=== PATIENT | male | born 1960 | race Caucasian/White ===

== ENCOUNTER 2017-06-27 10:30 | Outpatient (RCR) | payer OTHER, MEDICARE, SELFPAY ==
[2017-06-09 01:33] VITALS: BP 137/73; PULSE 80; RESP 20; TEMP 36.6; BMI 87.1
[2017-06-13 10:56] VITALS: BP 147/72; PULSE 72; RESP 18; TEMP 37; BMI 87.1
--- NOTE | 2017-06-13 11:23 | PCM.WC.PN ---
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 end-stage renal disease diabetes type 2 hypertension. Patient developed a red spot on his left heel in December of this year. Patient states that just opened in the last month or 2 Progress of Wound: Today the ulcer is smaller still has depth and some calluses developed around the ulcer undermining is resolved between 9 and 3 of 0.2 cm. Patient has neuropathy so has no pain feelings in the foot. Has finished his doxycycline 100 mg twice daily for his 4 different bacteria that are growing in the left heel. Ultrasound of the left leg shows a blockage at the gastrocnemius calf muscle that feeds into the left heel. Patient will be referred to Dr. Bocanegra for evaluation. We will continue healing ulcer and have him follow-up with him for surgery later. - Physical Exam Vital Signs Temp Pulse Resp BP 98.6 F 72 18 147/72 H 06/13/17 10:56 06/13/17 10:56 06/13/17 10:56 06/13/17 10:56 General: Oriented x3, Cooperative, Well developed HEENT: Atraumatic, PERRLA Oral: Moist Mucosa Neck: Supple, No JVD Lungs: Clear to auscultation, Normal air movement Cardiovascular: Regular rate, Regular Rhythm Abdomen: Bowel Sounds Present, Soft, Non Tender, No Hepato-splenomegaly Extremities: No clubbing, No edema, - - Heel ulcer Wound Measurements and Assessment WC - Nurse 1 - General Ulcer Measurement Start: 06/13/17 10:56 Freq: Status: Active Protocol: Activity Type Activity Date Activity User E-Sign Co-Sign Detail Recorded Client Recorded Date Recorded By Document 06/13/17 10:56 DV [id number] 06/13/17 11:00 DV 06/13/17 10:56 Wound Center Nurse 1 [Ulcer Assessment Protocol: WC.WD.LOC] #1 Left Heel -Combined with other wound No -Current Size (cm) - Length 0.8 -Current Size (cm) - Width 0.4 -Current Size (cm) - Depth 0.2 -Total Square Cm 0.32 -Photo Taken No -Epithelialization Small 1-33% -Tunneling No -Undermining/Tunneling No -Circular Undermining No -Exudate Amt None Present (0 %) -Wound Margin Flat & Intact -Granulation Amt None Present (0 %) -Granulation Quality N/A -Slough/Fibrin Yes -Necrosis Amt None Present (0 %) -Necrotic Tissue Type Adherent Slough -Structure Exposed None/Limited to Skin Breakdown -Texture (Belia-wound Skin Appearance) No Abnormality Assessed -Moisture (Belia-wound Skin Appearance Assessed ) Dry/Scaly -Color (Belia-wound Skin Appearance) No Abnormality Assessed -Temperature (Belia-wound Skin No Abnormality Appearance) (Pt Warm) -Ulcer Cleansing Rinsed/ Irrigated with Saline -Foul Odor after Cleansing No - Nurse 2 - General Ulcer CM Notes Start: 06/13/17 10:56 Freq: Status: Active Protocol: Activity Type Activity Date Activity User E-Sign Co-Sign Detail Recorded Client Recorded Date Recorded By Document 06/13/17 11:04 MW [id number] 06/13/17 11:05 MW 06/13/17 11:04 Wound Center Nurse 2 [Procedure/Treatment] -Time 11:05 -Correct Patient Yes -Correct Side, Site, Position Yes -Correct Procedure Yes -Procedure Performed Yes -Type of Procedure Debridement -Clinical Debridement Subcutaneous -Post Debridement Size (cm) - Length 0.5 -Post Debridement Size (cm) - Width 0.3 -Post Debridement Size (cm) - Depth 0.1 -Total Square Cm 0.15 -Wound/Ulcer Outcome Not Healed -Ulcer Cleansing Rinsed/ Irrigated with Saline -Foul Odor after Cleansing No -Cetacaine [place] No -Bleeding Controlled with Pressure -Treatment Response Procedure Tolerated Well [See Physician Procedure note for Specifics] Pain Scale: 0-10 Numeric [Pain] -Is Patient Pain Free? Yes Musculoskeletal: No Tenderness to Palpation of Joints or Extremities Lymphatic: No Cervical, Supraclavicular, or Inguinal Adenopathy Neurological: Cranial nerves II-XII grossly intact, Neuro grossly intact Psych/Mental Status: Normal Affect, Appropriate, Alert and oriented to time, place, person, mood and affect Debridement Note Post-Debridement Measurements/Treatment WC - Nurse 2 - General Ulcer CM Notes Start: 06/13/17 10:56 Freq: Status: Active Protocol: Activity Type Activity Date Activity User E-Sign Co-Sign Detail Recorded Client Recorded Date Recorded By Document 06/13/17 11:04 MW [id number] 06/13/17 11:05 MW 06/13/17 11:04 Wound Center Nurse 2 #1 Left Heel -Time 11:05 -Correct Patient Yes -Correct Side, Site, Position Yes -Correct Procedure Yes -Procedure Performed Yes -Type of Procedure Debridement -Clinical Debridement Subcutaneous -Post Debridement Size (cm) - Length 0.5 -Post Debridement Size (cm) - Width 0.3 -Post Debridement Size (cm) - Depth 0.1 -Total Square Cm 0.15 -Wound/Ulcer Outcome Not Healed -Ulcer Cleansing Rinsed/ Irrigated with Saline -Foul Odor after Cleansing No -Cetacaine [place] No -Bleeding Controlled with Pressure -Treatment Response Procedure Tolerated Well Pain Scale: 0-10 Numeric Is Patient Pain Free? 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 Guilliam Hensley?. Left heel ulcer stage II. End-stage renal disease. Peritoneal dialysis. Peripheral vascular occlusive disease Plan: Wash left heel with Hibiclens. Apply Promogran to base of ulcer moistened, then Adaptic gauze and tape. Offload left heel offload right heel ulcer. Follow-up in 1 week. Patient shows no malnutrition last one was checked in September of this year and had a good nutrition report. Patient does show iron deficiency anemia with his TIBC ferritin and CBC showing low on all areas. We will discuss labs at that time. Schedule for AB studies and will call him about his cultures
--- NOTE | 2017-06-13 11:26 | PN.PCM_ITS ---
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 end- stage renal disease diabetes type 2 hypertension. Patient developed a red spot on his left heel in December of this year. Patient states that just opened in the last month or 2 Progress of Wound: Today the ulcer is smaller still has depth and some calluses developed around the ulcer undermining is resolved between 9 and 3 of 0.2 cm. Patient has neuropathy so has no pain feelings in the foot. Has finished his doxycycline 100 mg twice daily for his 4 different bacteria that are growing in the left heel. Ultrasound of the left leg shows a blockage at the gastrocnemius calf muscle that feeds into the left heel. Patient will be referred to Dr. Bocanegra for evaluation. We will continue healing ulcer and have him follow-up with him for surgery later. - Physical Exam Vital Signs Temp Pulse Resp BP 98.6 F 72 18 147/72 H 06/13/17 10:56 06/13/17 10:56 06/13/17 10:56 06/13/17 10:56 General: Oriented x3, Cooperative, Well developed HEENT: Atraumatic, PERRLA Oral: Moist Mucosa Neck: Supple, No JVD Lungs: Clear to auscultation, Normal air movement Cardiovascular: Regular rate, Regular Rhythm Abdomen: Bowel Sounds Present, Soft, Non Tender, No Hepato-splenomegaly Extremities: No clubbing, No edema, - - Heel ulcer Wound Measurements and Assessment WC - Nurse 1 - General Ulcer Measurement Start: 06/13/17 10:56 Freq: Status: Active Protocol: Activity Type Activity Date Activity User E-Sign Co-Sign Detail Recorded Client Recorded Date Recorded By Document 06/13/17 10:56 DV [id number] 06/13/17 11:00 DV 06/13/17 10:56 Wound Center Nurse 1 [Ulcer Assessment Protocol: WC.WD.LOC] #1 Left Heel -Combined with other wound No -Current Size (cm) - Length 0.8 -Current Size (cm) - Width 0.4 -Current Size (cm) - Depth 0.2 -Total Square Cm 0.32 -Photo Taken No -Epithelialization Small 1-33% -Tunneling No -Undermining/Tunneling No -Circular Undermining No -Exudate Amt None Present (0 %) -Wound Margin Flat & Intact -Granulation Amt None Present (0 %) -Granulation Quality N/A -Slough/Fibrin Yes -Necrosis Amt None Present (0 %) -Necrotic Tissue Type Adherent Slough -Structure Exposed None/Limited to Skin Breakdown -Texture (Belia-wound Skin Appearance) No Abnormality Assessed -Moisture (Belia-wound Skin Appearance Assessed ) Dry/Scaly -Color (Belia-wound Skin Appearance) No Abnormality Assessed -Temperature (Belia-wound Skin No Abnormality Appearance) (Pt Warm) -Ulcer Cleansing Rinsed/ Irrigated with Saline -Foul Odor after Cleansing No - Nurse 2 - General Ulcer CM Notes Start: 06/13/17 10:56 Freq: Status: Active Protocol: Activity Type Activity Date Activity User E-Sign Co-Sign Detail Recorded Client Recorded Date Recorded By Document 06/13/17 11:04 MW [id number] 06/13/17 11:05 MW 06/13/17 11:04 Wound Center Nurse 2 [Procedure/Treatment] -Time 11:05 -Correct Patient Yes -Correct Side, Site, Position Yes -Correct Procedure Yes -Procedure Performed Yes -Type of Procedure Debridement -Clinical Debridement Subcutaneous -Post Debridement Size (cm) - Length 0.5 -Post Debridement Size (cm) - Width 0.3 -Post Debridement Size (cm) - Depth 0.1 -Total Square Cm 0.15 -Wound/Ulcer Outcome Not Healed -Ulcer Cleansing Rinsed/ Irrigated with Saline -Foul Odor after Cleansing No -Cetacaine [place] No -Bleeding Controlled with Pressure -Treatment Response Procedure Tolerated Well [See Physician Procedure note for Specifics] Pain Scale: 0-10 Numeric [Pain] -Is Patient Pain Free? Yes Musculoskeletal: No Tenderness to Palpation of Joints or Extremities Lymphatic: No Cervical, Supraclavicular, or Inguinal Adenopathy Neurological: Cranial nerves II-XII grossly intact, Neuro grossly intact Psych/Mental Status: Normal Affect, Appropriate, Alert and oriented to time, place, person, mood and affect Debridement Note Post-Debridement Measurements/Treatment WC - Nurse 2 - General Ulcer CM Notes Start: 06/13/17 10:56 Freq: Status: Active Protocol: Activity Type Activity Date Activity User E-Sign Co-Sign Detail Recorded Client Recorded Date Recorded By Document 06/13/17 11:04 MW [id number] 06/13/17 11:05 MW 06/13/17 11:04 Wound Center Nurse 2 #1 Left Heel -Time 11:05 -Correct Patient Yes -Correct Side, Site, Position Yes -Correct Procedure Yes -Procedure Performed Yes -Type of Procedure Debridement -Clinical Debridement Subcutaneous -Post Debridement Size (cm) - Length 0.5 -Post Debridement Size (cm) - Width 0.3 -Post Debridement Size (cm) - Depth 0.1 -Total Square Cm 0.15 -Wound/Ulcer Outcome Not Healed -Ulcer Cleansing Rinsed/ Irrigated with Saline -Foul Odor after Cleansing No -Cetacaine [place] No -Bleeding Controlled with Pressure -Treatment Response Procedure Tolerated Well Pain Scale: 0-10 Numeric Is Patient Pain Free? 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 Guilliam Hensley?. Left heel ulcer stage II. End-stage renal disease. Peritoneal dialysis. Peripheral vascular occlusive disease Plan: Wash left heel with Hibiclens. Apply Promogran to base of ulcer moistened , then Adaptic gauze and tape. Offload left heel offload right heel ulcer. Follow-up in 1 week. Patient shows no malnutrition last one was checked in September of this year and had a good nutrition report. Patient does show iron deficiency anemia with his TIBC ferritin and CBC showing low on all areas. We will discuss labs at that time. Schedule for AB studies and will call him about his cultures
[2017-06-27 11:22] VITALS: BP 137/79; PULSE 70; RESP 18; TEMP 37.4; BMI 87.1
--- NOTE | 2017-06-27 11:45 | PCM.WC.PN ---
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 end-stage renal disease diabetes type 2 hypertension. Patient developed a red spot on his left heel in December of this year. Patient states that just opened in the last month or 2 Progress of Wound: Left heel is healed today will be discharge from the wound center - Physical Exam Vital Signs Temp Pulse Resp BP 99.3 F H 70 18 137/79 H 06/27/17 11:22 06/27/17 11:22 06/27/17 11:22 06/27/17 11:22 General: Oriented x3, Cooperative, Well developed HEENT: Atraumatic, PERRLA Oral: Moist Mucosa Neck: Supple, No JVD Lungs: Clear to auscultation, Normal air movement Cardiovascular: Regular rate, Regular Rhythm Abdomen: Bowel Sounds Present, Soft, Non Tender, No Hepato-splenomegaly Extremities: No clubbing, No edema, - - Heel ulcer Wound Measurements and Assessment WC - Nurse 1 - General Ulcer Measurement Start: 06/13/17 10:56 Freq: Status: Active Protocol: Activity Type Activity Date Activity User E-Sign Co-Sign Detail Recorded Client Recorded Date Recorded By Document 06/27/17 11:22 [id number] 06/27/17 11:25 06/27/17 11:22 Wound Center Nurse 1 [Ulcer Assessment Protocol: WC.WD.LOC] #1 Left Heel -Combined with other wound No -Current Size (cm) - Length 0.1 -Current Size (cm) - Width 0.1 -Current Size (cm) - Depth 0.1 -Total Square Cm 0.01 -Date of Last Picture (Recall this 06/27/17 field) -Photo Taken Yes -Epithelialization Large 67-100% -Tunneling No -Undermining/Tunneling No -Circular Undermining No -Classification - Thickness Full Thickness without Exposed Support Structure -Exudate Amt None Present (0 %) -Wound Margin Distinct, Outline Attached -Granulation Amt Large (67-100%) -Granulation Quality [place] -Slough/Fibrin No -Necrosis Amt None Present (0 %) -Structure Exposed None/Limited to Skin Breakdown -Texture (Belia-wound Skin Appearance) Callus Scarring -Moisture (Belia-wound Skin Appearance Dry/Scaly ) -Color (Belia-wound Skin Appearance) Erythema -Temperature (Belia-wound Skin No Abnormality Appearance) (Pt Warm) -Ulcer Cleansing Rinsed/ Irrigated with Saline -Foul Odor after Cleansing No [Edema Assessment] -Lower Limb Edema Present No WC - Nurse 2 - General Ulcer CM Notes Start: 06/13/17 10:56 Freq: Status: Active Protocol: Activity Type Activity Date Activity User E-Sign Co-Sign Detail Recorded Client Recorded Date Recorded By Document 06/27/17 11:33 MW [id number] 06/27/17 11:34 MW 06/27/17 11:33 Wound Center Nurse 2 [Procedure/Treatment] #1 Left Heel -Time 11:33 -Correct Patient Yes -Correct Side, Site, Position Yes -Correct Procedure Yes -Procedure Performed No -Post Debridement Size (cm) - Length 0 -Post Debridement Size (cm) - Width 0 -Post Debridement Size (cm) - Depth 0 -Total Square Cm 0 -Wound/Ulcer Outcome Healed- Epithelialized -Ulcer Cleansing Not Cleansed -Foul Odor after Cleansing No -Bioengineered Tissue No -Cetacaine [place] No -Bleeding Controlled with NA -Treatment Response Procedure Tolerated Well [See Physician Procedure note for Specifics] Pain Scale: 0-10 Numeric [Pain] -Is Patient Pain Free? Yes Musculoskeletal: No Tenderness to Palpation of Joints or Extremities Lymphatic: No Cervical, Supraclavicular, or Inguinal Adenopathy Neurological: Cranial nerves II-XII grossly intact, Neuro grossly intact Psych/Mental Status: Normal Affect, Appropriate, Alert and oriented to time, place, person, mood and affect Debridement Note Post-Debridement Measurements/Treatment WC - Nurse 2 - General Ulcer CM Notes Start: 06/13/17 10:56 Freq: Status: Active Protocol: Activity Type Activity Date Activity User E-Sign Co-Sign Detail Recorded Client Recorded Date Recorded By Document 06/13/17 11:04 MW [id number] 06/13/17 11:05 MW Document 06/27/17 11:33 MW [id number] 06/27/17 11:34 MW 06/13/17 06/27/17 11:04 11:33 Wound Center Nurse 2 #1 Left Heel -Time 11:05 11:33 -Correct Patient Yes Yes -Correct Side, Site, Position Yes Yes -Correct Procedure Yes Yes -Procedure Performed Yes No -Type of Procedure Debridement -Clinical Debridement Subcutaneous -Post Debridement Size (cm) - Length 0.5 0 -Post Debridement Size (cm) - Width 0.3 0 -Post Debridement Size (cm) - Depth 0.1 0 -Total Square Cm 0.15 0 -Wound/Ulcer Outcome Not Healed Healed- Epithelialized -Ulcer Cleansing Rinsed/ Not Cleansed Irrigated with Saline -Foul Odor after Cleansing No No -Bioengineered Tissue No -Cetacaine [place] No No -Bleeding Controlled with Pressure NA -Treatment Response Procedure Procedure Tolerated Well Tolerated Well Pain Scale: 0-10 Numeric Is Patient Pain Free? 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 Guilliam Hensley?. Left heel ulcer stage II resolved. End-stage renal disease. Peritoneal dialysis. Peripheral vascular occlusive disease Plan: Discharge from the wound center follow-up as needed
== END 2017-07-09 23:59 ==
LOC: WC 10:30
PROVIDERS: Family Provider Family Medicine; PCP Family Medicine; Visit Provider Nurse Practitioner
DX: E11.22 Type 2 diabetes mellitus with diabetic chronic kidney disease (principal); L89.622 Pressure ulcer of left heel, stage 2; G61.0 Guillain-Barre syndrome; I12.0 Hypertensive chronic kidney disease with stage 5 chronic kidney disease or end stage renal disease; N18.6 End stage renal disease; E11.51 Type 2 diabetes mellitus with diabetic peripheral angiopathy without gangrene; E11.40 Type 2 diabetes mellitus with diabetic neuropathy, unspecified
CPT/HCPCS: 11042; 99212; G0463

== ENCOUNTER → 2017-10-10 10:00 | Outpatient (CLI) | payer OTHER, MEDICARE, SELFPAY ==
[2017-10-10 11:23] LABS: Hemoglobin A1c 4.8 % (4.2-6.3)
== END ==
PROVIDERS: Family Provider Family Medicine; PCP Family Medicine; Visit Provider Family Medicine
DX: E11.65 Type 2 diabetes mellitus with hyperglycemia (principal)
CPT/HCPCS: 36415; 83036

== ENCOUNTER 2017-12-28 18:43 | Inpatient (IN) | payer OTHER, MEDICARE, SELFPAY ==
[2017-12-28 18:44] VITALS: BP 151/94; PULSE 98; RESP 16; TEMP 37.1; O2SAT 98; BMI 41.0
[2017-12-28 20:22] LABS: Anion Gap 14 (5-15); BUN 73 mg/dL (7-18); BUN/Creat Ratio 6.7 RATIO (10-20); Calcium,Total 8.9 mg/dL (8.5-10.1); Chloride 88 mmol/L (98-107); EST Glomerular Filtration Rate 5 mL/min (>60); Est Glom Filt Rate - Afr Amer 6 mL/min (>60); Estimated Creatinine Clearance 7.41 ml/min; Glucose 135 mg/dL (74-106); Sodium Level 125 mmol/L (136-145)
--- NOTE | 2017-12-28 20:24 | ED.RN ---
lab called with critical results BUN [address] Dubois made aware. No new orders at this time
[2017-12-28 20:26] LABS: Absolute Lymphocyte Count 1.03 X10^3/ul (0.83-4.51); Absolute Neutrophil Count 13.3 X10^3/uL (2.0-7.7); Basophil# 0.02 X10^3/uL; Basophil% 0.1 % (0-1); Eosinophil# 0.23 X10^3/uL; Eosinophils% 1.5 % (0-5); Hematocrit 30.3 % (40-54); Hemoglobin 10.1 g/dl (13.0-16.5); Lymphocyte # 1.03 X10^3/ul (4.0); Lymphocyte % 6.8 % (19-41); Mean Corp Hgb Conc 33.3 g/gl (32-36); Mean Corpuscular Hgb 29.8 pg (27.0-32.0); Mean Corpuscular Volume 89.4 fL (80-94); Mean Platelet Vol. 8.9 fl (6.2-12.0); Monocyte% 3.3 % (0-10); Neutrophil # 13.27 X10^3/uL (2.7-7.7); Neutrophil % 88.1 % (47-70); Platelet Count 198 K/mm3 (150-450); RBC Distribution Width CV 15.1 % (11.6-14.6); RBC Distribution Width SD 48.8 fl (35.1-43.9); Red Blood Count 3.39 M/mm3 (4.6-6.2); White Blood Count 15.1 K/mm3 (4.4-11.0)
[2017-12-28 20:29] LABS: POSITIVE COUNT NO; POSITIVE DIFFERENTIAL NO; POSITIVE MORPHOLOGY NO
--- NOTE | 2017-12-28 20:34 | ED.DCSUM_ITS ---
- ER Visit Summary Date of Service: 12/28/17 Chief Complaint: Abscesses History of Present Illness: The patient is a 57 M who presents with abscesses. He has a history of diabetes hypertension end-stage renal disease on peritoneal dialysis. 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 He presents with about 2 weeks of an abscess in his right axilla and on his chest. He states he has been worsening. He has also had fevers at home up to 100.9. He reports nausea without vomiting. Physical Examination: Afebrile vitals are unremarkable Moist mucous membranes Heart regular rate and rhythm Lungs clear Abdomen soft There is a large right axillary abscess with central fluctuance no spontaneous drainage large area of induration and cellulitis There is also a wound on the with some purulent drainage but no fluctuance or focal fluid collection there is also surrounding cellulitis Abdomen soft nontender nondistended peritoneal dialysis catheter is noted Test Results: Labs notable for white blood cell count 15,000. BUN is 73 and creatinine of 10.9. Sodium 125 but potassium is normal. Emergency Department Course and Treatment: Patient's right axillary abscess was anesthetized with 2 cc of 1% local lidocaine. A cruciate incision was made with a #11 blade. Loculations were broken up with a curved hemostat. There was large amount of purulent drainage. Quarter inch packing was placed. Given patient's associated cellulitis leukocytosis fever nausea I do feel admission warranted. It was also treated with IV Zosyn and vancomycin here. Treatment Plan: [] Disposition: Admit Impression: Right axillary abscess with cellulitis Chest wound with cellulitis This note was generated with [employer] dictation software. It may contain incorrect words, spelling, and punctuation that were not noted in review of the chart prior to signing ED Disposition - Plan for ED Patient: Chief Complaint: Abscess Referrals: Gildardo Trejo MD [Primary Care Provider] -
--- NOTE | 2017-12-28 21:41 | HP.PCM_ITS ---
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 He noted an abscess on his right axilla and also on his chest 2 weeks ago. He thought it would improve with time but it grew in the past 2 weeks. He also has burning sensation at the area. Nothing appeared to alleviate or worsen the burning sensation. However, in the past few days, he has fever and chill. He also had nausea but no vomiting. He noted drainage of the abscess on his chest. Past Medical History Past Medical History (Chronic Problems): Chronic Problems Peripheral autonomic neuropathy due to secondary diabetes (Chronic) Murmur, cardiac (Chronic) Chronic anemia (Chronic) Chronic kidney disease, stage III (moderate) (Chronic) Type 2 diabetes mellitus (Chronic) Hypertension (Chronic) Allergies No Known Allergies Allergy (Verified 11/14/16 12:47) Home Medications: Ambulatory Orders Medication Instructions Recorded Ferrous Sulfate 325 mg PO DAILY 06/21/15 Ergocalciferol [Vitamin D] 50,000 unit PO QMONTH 03/12/16 Glimepiride [Amaryl] 2 mg PO DAILY 03/12/16 B Complex W-C No.20/Folic Acid 1 mg PO QHS 10/29/16 [Nephrocaps Softgel] Sennosides/Docusate Sodium 2 each PO DAILY 10/29/16 [Docusate Sodium-Senna Tablet] Sitagliptin Phosphate [Januvia] 25 mg PO DAILY 10/29/16 Acetaminophen [Tylenol Tablet] 650 mg PO Q6H PRN PRN tablet 11/20/16 Glucagon 1 mg IM .X1 PRN syringe 11/20/16 Amlodipine [Norvasc] 10 mg PO DAILY PRN 12/28/17 Losartan Potassium [Losartan 100 mg PO QHS PRN 12/28/17 Potassium] Metoprolol Tartrate [Lopressor 50 mg PO BID PRN 12/28/17 (beta dary)] Sevelamer Carbonate [Renvela] 4,800 mg PO TIDCM 12/28/17 Venlafaxine XR [Effexor Xr] 1 cap PO DAILY 12/28/17 Surgical History: noncontributory Smoking Status: Former smoker Alcohol: None Drugs: None - *Family History Offspring History Items: - - Endocarditis Review of Systems Constitutional: Reports: Chills, Fever. Denies: Weight Change HEENT: Denies: Head Aches, Sinus Congestion, Sinus Drainage Cardiovascular: Denies: Chest Pain, Palpitations Respiratory: Denies: Cough, Shortness of breath at rest, Sputum production Gastrointestinal: Denies: Abdominal Pain, Nausea, Vomiting Genitourinary: Denies: Dysuria Musculoskeletal: Denies: Joint Pain, Joint Tenderness Skin: Reports: Lesions. Denies: Rash, Wounds Neurological: Denies: Numbness, Tingling, Focal weakness Psychiatric: Denies: Anxiety, Depression, Homicidal Ideations, Suicidal Ideations Hematologic/ Lymphatic: Denies: Easy Bruising, Easy Bleeding VTE Information - Inpt Only VTE Present on Admission: No VTE Mechan Device Prophylaxis: SCD's VTE Pharm Prophylaxis ordered?: Yes Patient Problems: Active and Suspected Problems Cellulitis (Acute) - Physical Exam General: Alert, Oriented x3, Cooperative HEENT: Atraumatic, PERRLA, EOMI, Normocephalic Neck: Supple, No JVD, Negative Carotid Bruits Lungs: Clear to auscultation, Normal air movement Cardiovascular: Regular rate, No murmurs Abdomen: Bowel Sounds Present, Soft, Non Tender Extremities: No edema, Capillary Refill Less than 3 Seconds Skin: Ulcer/ Wound - Abscess on his chest and right axilla. Musculoskeletal: No Tenderness to Palpation of Joints or Extremities Neurological: Cranial nerves II-XII grossly intact Psych/Mental Status: Normal Affect, Appropriate Vital Signs Temp Pulse Resp BP Pulse Ox 98.7 F 98 16 151/94 H 98 12/28/17 18:44 12/28/17 18:44 12/28/17 18:44 12/28/17 18:44 12/28/17 18:44 Oxygen Delivery Method Room Air Weight: 122.47 kg Body Mass Index (BMI) 41.0 Finger Stick Blood Glucose 90 Laboratory Tests Past 24 Hrs 12/28/17 12/28/17 19:33 19:33 WBC 15.1 H RBC 3.39 L Hgb 10.1 L Hct 30.3 L MCV 89.4 MCH 29.8 MCHC 33.3 RDW 15.1 H RDW Differential 48.8 H Plt Count 198 MPV 8.9 Immature Gran % (Auto) 0.200 Neut % (Auto) 88.1 H Lymph % (Auto) 6.8 L [place] % (Auto) 3.3 Eos % (Auto) 1.5 Baso % (Auto) 0.1 Absolute Neuts (auto) 13.3 H Absolute Lymphs (auto) 1.03 Total Counted Not Reportable Sodium 125 L Potassium 4.0 Chloride 88 L Carbon Dioxide 23.0 Anion Gap 14 BUN 73 H Creatinine 10.90 H* Estim Creat Clear Calc 7.41 Est GFR (MDRD) Af Amer 6 L Est GFR (MDRD) Non-Af 5 L BUN/Creatinine Ratio 6.7 L Glucose 135 H Calcium 8.9 Assessment/Plan All Active Problems Cellulitis (Acute) Peripheral vascular occlusive disease (Acute) Infected open wound (Acute) 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 1) Abscess / cellulitis of his chest and axilla: Will start zosyn and vancomycin. Cultures pending. Wound care. 2) ESRD, on PD: Consulted nephrology for PD management. No indication for urgent PD. Monitor. 3) Hyponatremia: Appears hypovolemia. Will hydrate with caution. Monitor 4) Chronic issues: DMII and HTN. Resume home meds. 5) Prophylaxis: SCD / heparin
[2017-12-28 22:20] VITALS: BMI 43.4
[2017-12-28 22:28] VITALS: BP 125/76; PULSE 88; RESP 22; TEMP 37.2; O2SAT 97
[2017-12-28 22:42] VITALS: BMI 43.4
[2017-12-28 22:44] VITALS: PULSE 89
[2017-12-28 23:19] LABS: Erythrocyte Sedimentation Rate > 130 mm/hr (0-20)
[2017-12-28] MEDS: Folic Acid/Vitamin B Comp W-C 1 Capsule 1 CAP PO (23:25)
[2017-12-28] MEDS: Heparin Injection (Vial) 5,000 UNIT/ML VIAL 5000 UNIT SC (23:25)
[2017-12-28] MEDS: Acetaminophen 325 MG Tablet 650 MG PO (23:40)
[2017-12-29] VITALS (9 sets, daily range): BP systolic 114–165; BP diastolic 65–97; PULSE 77–84; RESP 18; TEMP 36.9–37.2; O2SAT 95–100
[2017-12-29 01:39] LABS: M R Staph aureus DNA By PCR Negative (Negative); Probe Check PASS; Specimen Processing Control PASS; Staph aureus DNA By PCR POSITIVE (Negative)
[2017-12-29] MEDS: oxyCODONE 5 MG Tablet PO ×2 (05:04→17:54)
[2017-12-29] MEDS: 0.9% NaCl IVPB Med Flush (250 mL) 15 ML IV (05:06)
[2017-12-29 05:55] LABS: Absolute Lymphocyte Count 0.83 X10^3/ul (0.83-4.51); Absolute Neutrophil Count 10.1 X10^3/uL (2.0-7.7); Basophil# 0.03 X10^3/uL; Basophil% 0.3 % (0-1); Eosinophil# 0.38 X10^3/uL; Eosinophils% 3.2 % (0-5); Hemoglobin 9.4 g/dl (13.0-16.5); Lymphocyte # 0.83 X10^3/ul (4.0); Lymphocyte % 7.1 % (19-41); Mean Corp Hgb Conc 32.4 g/gl (32-36); Mean Corpuscular Hgb 28.8 pg (27.0-32.0); Mean Platelet Vol. 8.6 fl (6.2-12.0); Monocyte% 3.4 % (0-10); Neutrophil # 10.09 X10^3/uL (2.7-7.7); Neutrophil % 85.7 % (47-70); Platelet Count 200 K/mm3 (150-450); RBC Distribution Width CV 14.9 % (11.6-14.6); RBC Distribution Width SD 48.5 fl (35.1-43.9); Red Blood Count 3.26 M/mm3 (4.6-6.2); White Blood Count 11.8 K/mm3 (4.4-11.0)
[2017-12-29 06:14] LABS: Phosphorus 7.5 mg/dL (2.5-4.9)
[2017-12-29] MEDS: Piperacil/Tazobactam 3.375 GM/50 ML ML IV (06:24)
[2017-12-29] MEDS: Heparin Injection (Vial) 5,000 UNIT/ML VIAL 5000 UNIT SC ×3 (06:24→21:49)
[2017-12-29] MEDS: 0.9% NaCl Peripheral Flush Adult/Peds IV (06:25)
[2017-12-29 06:37] LABS: Anion Gap 17 (5-15); BUN 78 mg/dL (7-18); BUN/Creat Ratio 6.9 RATIO (10-20); Calcium,Total 8.9 mg/dL (8.5-10.1); Chloride 89 mmol/L (98-107); EST Glomerular Filtration Rate 5 mL/min (>60); Est Glom Filt Rate - Afr Amer 6 mL/min (>60); Estimated Creatinine Clearance 7.15 ml/min; Glucose 79 mg/dL (74-106); POSITIVE COUNT NO; POSITIVE DIFFERENTIAL NO; POSITIVE MORPHOLOGY NO; Potassium 3.6 mmol/L (3.5-5.1); Sodium Level 131 mmol/L (136-145)
--- NOTE | 2017-12-29 06:37 | NURSING ---
Critical lab result for Creatinine of 11.3 reported to primary RN,
[2017-12-29 06:45] LABS: Bedside Glucose 111 mg/dL (70-110)
--- NOTE | 2017-12-29 07:06 | NURSING ---
Verbal med list received from Kathia pt's .
--- NOTE | 2017-12-29 08:47 | PCM.RX.CS ---
Consult Pharmacy has been consulted to manage selected antiobiotic: Vancomycin Type of Consult: New start Suspected Infection: Skin/Soft tissue Prior Doses of Antibiotics Received/Current Regimen: VANCOMYCIN 1500MG IV X1 12/28 @2106 Labs: Sodium 131 mmol/L (136-145) L 12/29/17 05:28 Potassium 3.6 mmol/L (3.5-5.1) 12/29/17 05:28 Chloride 89 mmol/L (98-107) L 12/29/17 05:28 Carbon Dioxide 25.0 mmol/L (21.0-32.0) 12/29/17 05:28 Anion Gap 17 (5-15) H 12/29/17 05:28 BUN 78 mg/dL (7-18) H 12/29/17 05:28 Creatinine 11.30 mg/dL (0.70-1.30) H* 12/29/17 05:28 Est GFR (MDRD) Af Amer 6 mL/min (>60) L 12/29/17 05:28 Est GFR (MDRD) Non-Af 5 mL/min (>60) L 12/29/17 05:28 BUN/Creatinine Ratio 6.9 RATIO (10-20) L 12/29/17 05:28 Glucose 79 mg/dL (74-106) 12/29/17 05:28 Weight used for dosin.5 kg Estimated Creatinine Clearance: DIALYSIS Goal Trough: 10-15 mcg/mL Pharmacy Plan for Drug Dosing: Pharmacy to manage per consult. The patient is ESRD, and gets peritoneal dialysis per H/P. Since the patient is on PD, will plan on drawing a random level and re-dosing when the patient's level is therapeutic. Will continue to monitor the patient daily. PLAN/RECOMMENDATIONS 1. No vancomycin dose at this time- will redose pending random vancomycin trough level 2. Random vancomycin level scheduled 12/31/17 with AM Labs 3.Pharmacy Service will continue to monitor and adjust dosing as required.
[2017-12-29] MEDS: Senna/Docusate Sodium 1 Tablet 2 TABLET PO (09:04)
[2017-12-29] MEDS: Venlafaxine XR 37.5 MG Capsule PO (09:05)
[2017-12-29] MEDS: SEVELAMER CARBONATE 800 MG TABLET 4800 MG PO ×2 (09:05→17:55)
[2017-12-29] MEDS: Nepro Liquid 120 ML LIQUID PO (09:05)
[2017-12-29] MEDS: LINAGLIPTIN 5 MG TABLET PO (09:05)
[2017-12-29] MEDS: Glimepiride 2 MG Tablet PO (09:05)
--- NOTE | 2017-12-29 10:15 | PN_ITS ---
Patient Problems: Active and Suspected Problems Cellulitis (Acute) Subjective: And was seen and examined. He was admitted last night with right axillary abscess and anterior chest wall abscess. I&D was performed in the ED. He denied any fever or chills or shortness of breath. Wound cultures are pending Seen on peritoneal dialysis -Dr. Hansen managing Vitals/I&O's: Vital Signs Temp Pulse Resp BP Pulse Ox 98.5 F 82 18 129/78 H 95 12/29/17 08:59 12/29/17 09:16 12/29/17 08:59 12/29/17 08:59 12/29/17 08:59 Oxygen Delivery Method Room Air Weight: 129.5 kg Body Mass Index (BMI) 43.4 Intake and Output for Last 24 Hours 12/27/17 12/28/17 12/29/17 23:59 23:59 23:59 Intake Total 1165 / 1165 Balance 1165 / 1165 General: Alert, Oriented x3, Cooperative, No apparent distress, - HEENT: Atraumatic, PERRLA, EOMI, Normocephalic Oral: Moist Mucosa - Morbidly obese, appears comfortable Neck: Supple, No JVD, Negative Carotid Bruits Lungs: Clear to auscultation, Normal air movement Cardiovascular: Regular rate, Regular Rhythm, Normal S1, Normal S2, No murmurs Abdomen: Bowel Sounds Present, Soft, Non Tender, Non-Distended Extremities: No edema Skin: - - Multiple abscesses over the anterior chest status post I&D, several purulent drainage, slight surrounding erythema Musculoskeletal: No Tenderness to Palpation of Joints or Extremities Neurological: Cranial nerves II-XII grossly intact Psych/Mental Status: Normal Affect, Appropriate Laboratory Results 12/28/17 23:22: S.aureus Protein A PCR POSITIVE H, MRSA (PCR) Negative 12/29/17 05:28: WBC 11.8 H, RBC 3.26 L, Hgb 9.4 L, Hct 29.0 L, MCV 89.0, MCH 28.8, MCHC 32.4, RDW 14.9 H, RDW Differential 48.5 H, Plt Count 200, MPV 8.6, Immature Gran % (Auto) 0.300, Neut % (Auto) 85.7 H, Lymph % (Auto) 7.1 L, [place] % (Auto) 3.4, Eos % (Auto) 3.2, Baso % (Auto) 0.3, Absolute Neuts (auto) 10.1 H , Absolute Lymphs (auto) 0.83, Total Counted Not Reportable 12/29/17 05:28: Sodium 131 L, Potassium 3.6, Chloride 89 L, Carbon Dioxide 25.0 , Anion Gap 17 H, BUN 78 H, Creatinine 11.30 H*, Estim Creat Clear Calc 7.15, Est GFR (MDRD) Af Amer 6 L, Est GFR (MDRD) Non-Af 5 L, BUN/Creatinine Ratio 6.9 L, Glucose 79, Calcium 8.9 12/29/17 05:28: Phosphorus 7.5 H 12/29/17 06:23: POC Glucose 111 H Current Medications Acetaminophen (Tylenol) 650 mg PO Q6H PRN PRN PRN Reason: Mild Pain (scale 0-3)/T>100.7 Last Admin: 12/28/17 23:40 Dose: 650 mg Amlodipine Besylate (Norvasc) 10 mg PO DAILY PRN PRN PRN Reason: HYPERTENSION Dextrose (D50w Syringe) 0 gm IV X1 PRN; Protocol PRN Reason: Hypoglycemia Ergocalciferol (Vitamin D) 50,000 unit PO QMONTH [facility] Glimepiride (Amaryl) 2 mg PO DAILYCM [facility] Last Admin: 12/29/17 09:05 Dose: 2 mg Glucagon () 1 mg IM .X1 PRN PRN Reason: Hypoglycemia Heparin Sodium (Porcine) (Heparin Na) 5,000 unit SC Q8 [facility] Last Admin: 12/29/17 06:24 Dose: 5,000 u Vancomycin IV Pharmacy to Dose (1 ea/ Dextrose) 250 mls @ 250 mls/hr IV RX TO DOSE PRN Piperacillin Sod/Tazobactam Sod (Zosyn) 3.375 gm in 50 mls @ 12.5 mls/hr IV Q8 [facility] Last Admin: 12/29/17 06:24 Dose: 12.5 mls/hr Sodium Chloride () 250 mls @ 15 mls/hr IV .[id number] PRN PRN Reason: SALINE FLUSH Last Admin: 12/29/17 05:06 Dose: 15 mls/hr Insulin Human Lispro (Humalog Kwikpen (Bkc)) 0 unit SQ TIDAC [facility] PRN Reason: Protocol Last Admin: 12/29/17 06:25 Dose: Not Given Linagliptin (Tradjenta) 5 mg PO DAILY [facility] Last Admin: 12/29/17 09:05 Dose: 5 mg Losartan Potassium (Cozaar) 100 mg PO QHS PRN PRN Reason: HYPERTENSION Metoprolol Tartrate (Lopressor (Beta Elizabeth)) 50 mg PO BID PRN PRN PRN Reason: HYPERTENSION Multivit/Ca Carb/B Cmplx/FA/Prenat (Nephrocaps, Renaphro) 1 capsule PO QHS [facility] Last Admin: 12/28/17 23:25 Dose: 1 capsule Nutritional Formula (Nepro Carb Steady) 120 ml PO 4X/DAY [facility] Last Admin: 12/29/17 09:05 Dose: 120 ml Oxycodone HCl (Oxyir) 5 mg PO Q4H PRN PRN PRN Reason: Moderate Pain (pain scale 4-5) Last Admin: 12/29/17 05:04 Dose: 5 mg Senna/Docusate Sodium (Senokot-S, Belia-Colace) 2 tablet PO DAILY [facility] Last Admin: 12/29/17 09:04 Dose: 2 tablet Sevelamer Carbonate (Renvela) 4,800 mg PO TIDCM [facility] Last Admin: 12/29/17 09:05 Dose: 4,800 mg Sodium Chloride () 5 - 30 ml IV UD PRN PRN Reason: SALINE FLUSH Last Admin: 12/29/17 06:25 Dose: 10 ml Venlafaxine HCl (Effexor Xr) 37.5 mg PO DAILY [facility] Last Admin: 12/29/17 09:05 Dose: 37.5 mg Medical Necessity - Tobacco Use Smoking Status: Former smoker Assessment/Plan All Active Problems Cellulitis (Acute) Peripheral vascular occlusive disease (Acute) Infected open wound (Acute) 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 1. Multiple abscesses/cellulitis of the right axilla and anterior chest wall, status post I&D by ED, no fever or chills since admission, leukocytosis improved , general surgery consulted, MRSA PCR is negative, MSSA positive, received vancomycin and Zosyn We will continue only on Zosyn 2. ESRD on peritoneal dialysis, no electrolyte imbalances seen except for hyponatremia, Dr. Hansen consulted, will follow up on recommendations 3. Type 2 diabetes, HbA1c 6.0, blood sugars are controlled, will continue on Amaryl, Tradjenta, Accu-Cheks with insulin sliding scale 4. Anemia of CKD, hemoglobin slightly decreased from 10.1-9.4 secondary to hemodilution, will monitor 5. 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 Hypertension, controlled, continue home medications 7. Depression, on Effexor 8. DVT prophylaxis with heparin subcu Code Visit Inpatient E&M: 81032 Subs Hosp L2
[2017-12-29] MEDS: Insulin Lispro 100 UNIT/ML INSULN.PEN SQ ×3 (11:52→21:49)
[2017-12-29 12:06] LABS: Bedside Glucose 213 mg/dL (70-110)
--- NOTE | 2017-12-29 12:10 | CASEMGMT ---
Social Work Assessment: Referral Date: 12/29/2017 Date of Assessment: 12/29/2017 Reason for consult: Initial Assessment Informant: MALLORY Personal Status: SW met with pt to complete initial assessment. SW introduced self and role at [facility]. Pt is alert and orientated x4. Pt states that he lives with his in a one story home and has a ramp to enter his home. DME include cane and walker. Pt states that he has a good relationship with his . Pt states that he was previously independent with ADLs and he currently drives. Pt states that his pharmacy is [facility] in [place]. Substance Abuse Hx: Pt states that he used to smoke cigarettes but that he has quit for about 5-6 years. Mental Health Hx: Pt states that he has a history of depression and that he doesn't know if he is currently taking medication for his depression. Pt states that he sometimes has feelings of hopelessness, worthlessness, and uselessness. Pt states that when he has these feelings he talks to his . Pt denied any current depressive symptoms. Pt denied any suicidal thoughts/plans/ideations. Pt denied receiving counseling services in the past and denied currently wanting any counseling services or resources. Pt states that his plan is to return home at discharge. MALLORY informed pt that Dr. May had mentioned to this worker that pt may benefit from HHC. Pt denied HHC stating I think I can manage on my own at home. MALLORY encouraged pt that if he changes his mind to let staff know and this MALLORY mud cleaner operator CM can meet with pt and can set up HHC. Pt states understanding. Pt denied additional needs or concerns at this time. Plan: Pt wishes to discharge home. Pt denied HHC at this time. Brittany Davis INDUSTRIAL EQUIPMENT MECHANIC, BUSINESS SERVICES REPRESENTATIVE
[2017-12-29 16:30] LABS: Bedside Glucose 242 mg/dL (70-110)
--- NOTE | 2017-12-29 19:23 | PCM.CONS.R ---
Consultation - Renal 12/29/17 PCP/ Referring MD: Requesting physician: [] Primary care physician: Gildardo Trejo Reason for Consultation:: ESRD on CCPD - History of Present Illness History of Present Illness: The patient is a 57 year old M with ESRD due to diabetes on CCPD admitted for low grade fever, folliculitis that developed into cellulitis with abscess formation on right chest wall and axilla. Admits to pain, discomfort. Noticed skin infection for about a week. He was started on iv zosyn and vanco on admission. WBC 15K down to 11.8K today. 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 He has been improving in his strength gradually over time. His CCPD was set up this morning for missed tx last night with all 2.5% dianeal. BP stable. Denies CP, SOB, edema. Sodium was 125 on admit 131 today. - Allergies Allergies: Allergies No Known Allergies Allergy (Verified 11/14/16 12:47) - Current Medications Current Medications: Current Medications Acetaminophen (Tylenol) 650 mg PO Q6H PRN PRN PRN Reason: Mild Pain (scale 0-3)/T>100.7 Last Admin: 12/28/17 23:40 Dose: 650 mg Amlodipine Besylate (Norvasc) 10 mg PO DAILY PRN PRN PRN Reason: HYPERTENSION Dextrose (D50w Syringe) 0 gm IV X1 PRN; Protocol PRN Reason: Hypoglycemia Ergocalciferol (Vitamin D) 50,000 unit PO QMONTH [facility] Last Admin: 12/29/17 11:50 Dose: 50,000 unit Glimepiride (Amaryl) 2 mg PO DAILYCM [facility] Last Admin: 12/29/17 09:05 Dose: 2 mg Glucagon () 1 mg IM .X1 PRN PRN Reason: Hypoglycemia Heparin Sodium (Porcine) (Heparin Na) 5,000 unit SC Q8 [facility] Last Admin: 12/29/17 14:22 Dose: 5,000 u Sodium Chloride () 250 mls @ 15 mls/hr IV .[id number] PRN PRN Reason: SALINE FLUSH Last Admin: 12/29/17 05:06 Dose: 15 mls/hr Piperacillin Sod/Tazobactam (Sod 2.25 gm/ Sodium Chloride) 100 mls @ 100 mls/hr IV Q12 [facility] Insulin Human Lispro (Humalog Kwikpen (Bkc)) 0 unit SQ TIDAC [facility] PRN Reason: Protocol Last Admin: 12/29/17 17:55 Dose: 2 u Linagliptin (Tradjenta) 5 mg PO DAILY [facility] Last Admin: 12/29/17 09:05 Dose: 5 mg Losartan Potassium (Cozaar) 100 mg PO QHS PRN PRN Reason: HYPERTENSION Metoprolol Tartrate (Lopressor (Beta Elizabeth)) 50 mg PO BID PRN PRN PRN Reason: HYPERTENSION Multivit/Ca Carb/B Cmplx/FA/Prenat (Nephrocaps, Renaphro) 1 capsule PO QHS [facility] Last Admin: 12/28/17 23:25 Dose: 1 capsule Nutritional Formula (Nepro Carb Steady) 120 ml PO 4X/DAY [facility] Last Admin: 12/29/17 17:55 Dose: Not Given Oxycodone HCl (Oxyir) 5 mg PO Q4H PRN PRN PRN Reason: Moderate Pain (pain scale 4-5) Last Admin: 12/29/17 17:54 Dose: 5 mg Senna/Docusate Sodium (Senokot-S, Belia-Colace) 2 tablet PO DAILY [facility] Last Admin: 12/29/17 09:04 Dose: 2 tablet Sevelamer Carbonate (Renvela) 4,800 mg PO TIDCM [facility] Last Admin: 12/29/17 17:55 Dose: 4,800 mg Sodium Chloride () 5 - 30 ml IV UD PRN PRN Reason: SALINE FLUSH Last Admin: 12/29/17 06:25 Dose: 10 ml Venlafaxine HCl (Effexor Xr) 37.5 mg PO DAILY [facility] Last Admin: 12/29/17 09:05 Dose: 37.5 mg - Past Medical History Past Medical History (Chronic Problems): Chronic Problems 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 Denies: Anorexia Eyes: Denies: Blurred vision Cardiovascular: Denies: Chest Pain, Edema, Syncope Respiratory: Denies: Cough, Shortness of Breath Gastrointestinal: Reports: Nausea - early satiety from PD fluid, Vomiting. Denies: Abdominal Pain, Diarrhea Genitourinary: Reports: Dysuria Neurological: Reports: Balance problems, Incoordination, - - chronic gen weakness from GBS. Denies: Tremor, Seizures Hematologic/ Lymphatic: Reports: Anemia Patient Problems: Active and Suspected Problems Cellulitis (Acute) - Physical Exam General: Alert, Oriented x3, Cooperative, No apparent distress HEENT: PERRLA, EOMI Oral: Moist Mucosa Neck: Supple Lungs: Clear to auscultation Abdomen: Bowel Sounds Present, Soft, Non Tender, Non-Distended, Obese Extremities: No edema Skin: - - cellulitis right chest wall, axilla, tender to touch, erythema Musculoskeletal: Muscle Wasting - interosseous muscles, legs, arms Neurological: Unsteady Gait, - - limited ambulation from GBS Psych/Mental Status: Normal Affect, Appropriate, Alert and oriented to time, place, person, mood and affect Vital Signs Temp Pulse Resp BP Pulse Ox 98.6 F 77 18 156/97 H 100 12/29/17 14:23 12/29/17 17:18 12/29/17 14:23 12/29/17 14:23 12/29/17 14:23 Oxygen Delivery Method Room Air Weight: 129.5 kg Body Mass Index (BMI) 43.4 Intake and Output for Last 24 Hours 12/27/17 12/28/17 12/29/17 23:59 23:59 23:59 Intake Total 2083 Balance 2083 Microbiology Past 72 Hours 12/29/17 00:05 Gram Stain - Final Abs - Axillary 12/29/17 00:05 Gram Stain - Final Abs - Chest Laboratory Tests Past 24 Hrs 12/28/17 12/29/17 12/29/17 23:22 05:28 05:28 WBC 11.8 H RBC 3.26 L Hgb 9.4 L Hct 29.0 L MCV 89.0 MCH 28.8 MCHC 32.4 RDW 14.9 H RDW Differential 48.5 H Plt Count 200 MPV 8.6 Immature Gran % (Auto) 0.300 Neut % (Auto) 85.7 H Lymph % (Auto) 7.1 L [place] % (Auto) 3.4 Eos % (Auto) 3.2 Baso % (Auto) 0.3 Absolute Neuts (auto) 10.1 H Absolute Lymphs (auto) 0.83 Total Counted Not Reportable Sodium 131 L Potassium 3.6 Chloride 89 L Carbon Dioxide 25.0 Anion Gap 17 H BUN 78 H Creatinine 11.30 H* Estim Creat Clear Calc 7.15 Est GFR (MDRD) Af Amer 6 L Est GFR (MDRD) Non-Af 5 L BUN/Creatinine Ratio 6.9 L Glucose 79 Calcium 8.9 Phosphorus S.aureus Protein A PCR POSITIVE H MRSA (PCR) Negative 12/29/17 05:28 WBC RBC Hgb Hct MCV MCH MCHC RDW RDW Differential Plt Count MPV Immature Gran % (Auto) Neut % (Auto) Lymph % (Auto) [place] % (Auto) Eos % (Auto) Baso % (Auto) Absolute Neuts (auto) Absolute Lymphs (auto) Total Counted Sodium Potassium Chloride Carbon Dioxide Anion Gap BUN Creatinine Estim Creat Clear Calc Est GFR (MDRD) Af Amer Est GFR (MDRD) Non-Af BUN/Creatinine Ratio Glucose Calcium Phosphorus 7.5 H S.aureus Protein A PCR MRSA (PCR) POC Glucose 12/29/17 12/29/17 12/29/17 16:16 11:47 06:23 POC Glucose 242 H 213 H 111 H Microbiology 12/29/17 00:05 Gram Stain - Final Abs - Axillary 12/29/17 00:05 Gram Stain - Final Abs - Chest Assessment/Plan All Active Problems Cellulitis (Acute) Peripheral vascular occlusive disease (Acute) Infected open wound (Acute) 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 ESRD on CCPD using all 2.5% solution set up this morning for missed tx last night. Continue therapy nightly. Check UF from today to determine tonights rx. 2. Acute cellulitis, abscess, folliculitis right chest wall, axilla. Cx pending. Renal dose iv vanco and zosyn 3. Leukocytosis with low grade fever due to #2 4. HTN stable 5. DM2 stable 6. Anemia monitor 7. 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 8. Hyperphosphatemia, continue binders, change to phos restricted diet 9. Hyponatremia stop iv fluids. UF with CCPD.
--- NOTE | 2017-12-29 19:33 | CON.PCM_ITS ---
Consultation - Renal 12/29/17 PCP/ Referring MD: Requesting physician: [] Primary care physician: Gildardo Trejo Reason for Consultation:: ESRD on CCPD - History of Present Illness History of Present Illness: The patient is a 57 year old M with ESRD due to diabetes on CCPD admitted for low grade fever, folliculitis that developed into cellulitis with abscess formation on right chest wall and axilla. Admits to pain, discomfort. Noticed skin infection for about a week. He was started on iv zosyn and vanco on admission. WBC 15K down to 11.8K today. 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 He has been improving in his strength gradually over time. His CCPD was set up this morning for missed tx last night with all 2.5% dianeal. BP stable. Denies CP, SOB, edema. Sodium was 125 on admit 131 today. - Allergies Allergies: Allergies No Known Allergies Allergy (Verified 11/14/16 12:47) - Current Medications Current Medications: Current Medications Acetaminophen (Tylenol) 650 mg PO Q6H PRN PRN PRN Reason: Mild Pain (scale 0-3)/T>100.7 Last Admin: 12/28/17 23:40 Dose: 650 mg Amlodipine Besylate (Norvasc) 10 mg PO DAILY PRN PRN PRN Reason: HYPERTENSION Dextrose (D50w Syringe) 0 gm IV X1 PRN; Protocol PRN Reason: Hypoglycemia Ergocalciferol (Vitamin D) 50,000 unit PO QMONTH [facility] Last Admin: 12/29/17 11:50 Dose: 50,000 unit Glimepiride (Amaryl) 2 mg PO DAILYCM [facility] Last Admin: 12/29/17 09:05 Dose: 2 mg Glucagon () 1 mg IM .X1 PRN PRN Reason: Hypoglycemia Heparin Sodium (Porcine) (Heparin Na) 5,000 unit SC Q8 [facility] Last Admin: 12/29/17 14:22 Dose: 5,000 u Sodium Chloride () 250 mls @ 15 mls/hr IV .[id number] PRN PRN Reason: SALINE FLUSH Last Admin: 12/29/17 05:06 Dose: 15 mls/hr Piperacillin Sod/Tazobactam (Sod 2.25 gm/ Sodium Chloride) 100 mls @ 100 mls/ hr IV Q12 [facility] Insulin Human Lispro (Humalog Kwikpen (Bkc)) 0 unit SQ TIDAC [facility] PRN Reason: Protocol Last Admin: 12/29/17 17:55 Dose: 2 u Linagliptin (Tradjenta) 5 mg PO DAILY [facility] Last Admin: 12/29/17 09:05 Dose: 5 mg Losartan Potassium (Cozaar) 100 mg PO QHS PRN PRN Reason: HYPERTENSION Metoprolol Tartrate (Lopressor (Beta Elizabeth)) 50 mg PO BID PRN PRN PRN Reason: HYPERTENSION Multivit/Ca Carb/B Cmplx/FA/Prenat (Nephrocaps, Renaphro) 1 capsule PO QHS [facility] Last Admin: 12/28/17 23:25 Dose: 1 capsule Nutritional Formula (Nepro Carb Steady) 120 ml PO 4X/DAY [facility] Last Admin: 12/29/17 17:55 Dose: Not Given Oxycodone HCl (Oxyir) 5 mg PO Q4H PRN PRN PRN Reason: Moderate Pain (pain scale 4-5) Last Admin: 12/29/17 17:54 Dose: 5 mg Senna/Docusate Sodium (Senokot-S, Belia-Colace) 2 tablet PO DAILY [facility] Last Admin: 12/29/17 09:04 Dose: 2 tablet Sevelamer Carbonate (Renvela) 4,800 mg PO TIDCM [facility] Last Admin: 12/29/17 17:55 Dose: 4,800 mg Sodium Chloride () 5 - 30 ml IV UD PRN PRN Reason: SALINE FLUSH Last Admin: 12/29/17 06:25 Dose: 10 ml Venlafaxine HCl (Effexor Xr) 37.5 mg PO DAILY [facility] Last Admin: 12/29/17 09:05 Dose: 37.5 mg - Past Medical History Past Medical History (Chronic Problems): Chronic Problems 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 Denies: Anorexia Eyes: Denies: Blurred vision Cardiovascular: Denies: Chest Pain, Edema, Syncope Respiratory: Denies: Cough, Shortness of Breath Gastrointestinal: Reports: Nausea - early satiety from PD fluid, Vomiting. Denies: Abdominal Pain, Diarrhea Genitourinary: Reports: Dysuria Neurological: Reports: Balance problems, Incoordination, - - chronic gen weakness from GBS. Denies: Tremor, Seizures Hematologic/ Lymphatic: Reports: Anemia Patient Problems: Active and Suspected Problems Cellulitis (Acute) - Physical Exam General: Alert, Oriented x3, Cooperative, No apparent distress HEENT: PERRLA, EOMI Oral: Moist Mucosa Neck: Supple Lungs: Clear to auscultation Abdomen: Bowel Sounds Present, Soft, Non Tender, Non-Distended, Obese Extremities: No edema Skin: - - cellulitis right chest wall, axilla, tender to touch, erythema Musculoskeletal: Muscle Wasting - interosseous muscles, legs, arms Neurological: Unsteady Gait, - - limited ambulation from GBS Psych/Mental Status: Normal Affect, Appropriate, Alert and oriented to time, place, person, mood and affect Vital Signs Temp Pulse Resp BP Pulse Ox 98.6 F 77 18 156/97 H 100 12/29/17 14:23 12/29/17 17:18 12/29/17 14:23 12/29/17 14:23 12/29/17 14:23 Oxygen Delivery Method Room Air Weight: 129.5 kg Body Mass Index (BMI) 43.4 Intake and Output for Last 24 Hours 12/27/17 12/28/17 12/29/17 23:59 23:59 23:59 Intake Total 2083 Balance 2083 Microbiology Past 72 Hours 12/29/17 00:05 Gram Stain - Final Abs - Axillary 12/29/17 00:05 Gram Stain - Final Abs - Chest Laboratory Tests Past 24 Hrs 12/28/17 12/29/17 12/29/17 23:22 05:28 05:28 WBC 11.8 H RBC 3.26 L Hgb 9.4 L Hct 29.0 L MCV 89.0 MCH 28.8 MCHC 32.4 RDW 14.9 H RDW Differential 48.5 H Plt Count 200 MPV 8.6 Immature Gran % (Auto) 0.300 Neut % (Auto) 85.7 H Lymph % (Auto) 7.1 L Surry % (Auto) 3.4 Eos % (Auto) 3.2 Baso % (Auto) 0.3 Absolute Neuts (auto) 10.1 H Absolute Lymphs (auto) 0.83 Total Counted Not Reportable Sodium 131 L Potassium 3.6 Chloride 89 L Carbon Dioxide 25.0 Anion Gap 17 H BUN 78 H Creatinine 11.30 H* Estim Creat Clear Calc 7.15 Est GFR (MDRD) Af Amer 6 L Est GFR (MDRD) Non-Af 5 L BUN/Creatinine Ratio 6.9 L Glucose 79 Calcium 8.9 Phosphorus S.aureus Protein A PCR POSITIVE H MRSA (PCR) Negative 12/29/17 05:28 WBC RBC Hgb Hct MCV MCH MCHC RDW RDW Differential Plt Count MPV Immature Gran % (Auto) Neut % (Auto) Lymph % (Auto) Surry % (Auto) Eos % (Auto) Baso % (Auto) Absolute Neuts (auto) Absolute Lymphs (auto) Total Counted Sodium Potassium Chloride Carbon Dioxide Anion Gap BUN Creatinine Estim Creat Clear Calc Est GFR (MDRD) Af Amer Est GFR (MDRD) Non-Af BUN/Creatinine Ratio Glucose Calcium Phosphorus 7.5 H S.aureus Protein A PCR MRSA (PCR) POC Glucose 12/29/17 12/29/17 12/29/17 16:16 11:47 06:23 POC Glucose 242 H 213 H 111 H Microbiology 12/29/17 00:05 Gram Stain - Final Abs - Axillary 12/29/17 00:05 Gram Stain - Final Abs - Chest Assessment/Plan All Active Problems Cellulitis (Acute) Peripheral vascular occlusive disease (Acute) Infected open wound (Acute) 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 ESRD on CCPD using all 2.5% solution set up this morning for missed tx last night. Continue therapy nightly. Check UF from today to determine tonights rx. 2. Acute cellulitis, abscess, folliculitis right chest wall, axilla. Cx pending. Renal dose iv vanco and zosyn 3. Leukocytosis with low grade fever due to #2 4. HTN stable 5. DM2 stable 6. Anemia monitor 7. 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 8. Hyperphosphatemia, continue binders, change to phos restricted diet 9. Hyponatremia stop iv fluids. UF with CCPD.
[2017-12-29] MEDS: Folic Acid/Vitamin B Comp W-C 1 Capsule 1 CAP PO (21:48)
[2017-12-29 23:31] LABS: Bedside Glucose 236 mg/dL (70-110)
[2017-12-30] VITALS (9 sets, daily range): BP systolic 111–147; BP diastolic 78–95; PULSE 78–96; RESP 16–18; TEMP 36.9–37.8; O2SAT 97–98
--- NOTE | 2017-12-30 05:55 | DIALYSIS ---
CCPD tx complete. Stay safe cap applied using aseptic technique. Effluent drainage is clear and yellow. Fibrin noted. Dr. Hansen was notified. UF of 716ml. Report was given to AMANDA Frias.
[2017-12-30] MEDS: Heparin Injection (Vial) 5,000 UNIT/ML VIAL 5000 UNIT SC (06:16)
[2017-12-30] MEDS: Insulin Lispro 100 UNIT/ML INSULN.PEN SQ ×3 (06:16→16:23)
--- NOTE | 2017-12-30 07:02 | PCM.CONS.GEN ---
Reason for Consult Date of Consultation: 12/29/17 History of Present Illness: The patient is a 57 year old M who presents with a right axillary and chest abscess. These abscesses were drained the the ER yesterday and packed with iodoform. The patient was given 1 dose of vancomycin and started on zosyn. He has significant cellulitis of the area. He has a history of renal failure and has a peritoneal dialysis catheter. He is currently getting his peritoneal dialysis. I was consulted since the patient still has significant erythema at the site. He is receiving heparin 5000 SQ q 8 hours. Culture swab was negative for MRSA Past Medical History Past Medical History (Chronic Problems): Chronic Problems Peripheral autonomic neuropathy due to secondary diabetes (Chronic) Murmur, cardiac (Chronic) Chronic anemia (Chronic) Chronic kidney disease, stage III (moderate) (Chronic) Type 2 diabetes mellitus (Chronic) Hypertension (Chronic) Allergies No Known Allergies Allergy (Verified 11/14/16 12:47) Home Medications: Ambulatory Orders Medication Instructions Recorded Ferrous Sulfate 325 mg PO DAILY 06/21/15 Ergocalciferol [Vitamin D] 50,000 unit PO QMONTH 03/12/16 Glimepiride [Amaryl] 2 mg PO DAILY 03/12/16 B Complex W-C No.20/Folic Acid 1 mg PO QHS 10/29/16 [Nephrocaps Softgel] Sennosides/Docusate Sodium 1 each PO DAILY 10/29/16 [Docusate Sodium-Senna Tablet] Sitagliptin Phosphate [Januvia] 25 mg PO DAILY 10/29/16 Acetaminophen [Tylenol Tablet] 650 mg PO Q6H PRN PRN tablet 11/20/16 Glucagon 1 mg IM .X1 PRN syringe 11/20/16 Amlodipine [Norvasc] 10 mg PO DAILY 12/28/17 Losartan Potassium [Losartan 100 mg PO QHS PRN 12/28/17 Potassium] Metoprolol Tartrate [Lopressor 50 mg PO BID 12/28/17 (beta dary)] Sevelamer Carbonate [Renvela] 4,800 mg PO TIDCM 12/28/17 Venlafaxine XR [Effexor Xr] 1 cap PO DAILY 12/28/17 hydrALAZINE [Apresoline] 25 mg PO Q8H PRN PRN 12/29/17 Surgical History: noncontributory, - - PD catheter placement Smoking Status: Former smoker Alcohol: None Drugs: None - *Family History Offspring History Items: - - Endocarditis Paternal History Items: Diabetes - ESRD , Heart Disease, Hypertension Review of Systems Constitutional: Reports: Fever HEENT: Denies: Head Aches, Sinus Congestion, Sinus Drainage Cardiovascular: Denies: Chest Pain, Palpitations Respiratory: Denies: Cough, Shortness of breath at rest, Sputum production Gastrointestinal: Denies: Abdominal Pain, Nausea, Vomiting Genitourinary: Denies: Dysuria Musculoskeletal: Denies: Joint Pain, Joint Tenderness Skin: Denies: Rash, Wounds Neurological: Denies: Numbness, Tingling, Focal weakness Psychiatric: Denies: Anxiety, Depression, Homicidal Ideations, Suicidal Ideations Hematologic/ Lymphatic: Denies: Easy Bruising, Easy Bleeding Patient Problems: Active and Suspected Problems Cellulitis (Acute) - Physical Exam General: Alert, Oriented x3, Cooperative HEENT: Atraumatic, PERRLA, EOMI, Normocephalic Lungs: Clear to auscultation, Normal air movement Cardiovascular: Regular rate, Regular Rhythm Abdomen: Bowel Sounds Present, Soft, Non Tender Extremities: - Skin: - - right axilla - a small incision site with iodoform packing in place. This was removed with drainage of scant pus. There is significant erythema around the area Vital Signs Temp Pulse Resp BP Pulse Ox 98.5 F 78 16 134/86 H 98 12/30/17 03:14 12/30/17 03:14 12/30/17 03:14 12/30/17 03:14 12/30/17 03:14 Oxygen Delivery Method Room Air Weight: 129.5 kg Body Mass Index (BMI) 43.4 Intake and Output for Last 24 Hours 12/28/17 12/29/17 12/30/17 23:59 23:59 23:59 Intake Total 2083 2393 / 2393 Output Total 3961 / 3961 Balance 2083 -1568 / -1568 Microbiology Past 72 Hours 12/29/17 00:05 Gram Stain - Final Abs - Axillary 12/29/17 00:05 Gram Stain - Final Abs - Chest POC Glucose 12/29/17 12/29/17 12/29/17 21:43 16:16 11:47 POC Glucose 236 H 242 H 213 H Assessment/Plan All Active Problems Cellulitis (Acute) Peripheral vascular occlusive disease (Acute) Infected open wound (Acute) 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 Visually, and clinically this looks consistent with an MRSA abscess. We'll plan to review this site in the morning. If it still looks significantly inflamed. We will plan for a wider opening of the abscess cavity. See if there is undrained pus. Patient is getting peritoneal dialysis. Understand with his minimal urine output. His vancomycin levels may stay elevated for some time.
--- NOTE | 2017-12-30 07:02 | PCM.PN.SRG ---
Patient Problems: Active and Suspected Problems Cellulitis (Acute) Subjective: sterile discomfort in the axillary area - Physical Exam General: Alert, Oriented x3 Skin: - - right axillary area.-Still significant erythema and induration without significant expressible pus the patient's right axillary area was prepped and draped in the usual fashion. One percent lidocaine was injected into the skin. A wider excision was made around the site of induration and some skin necrosis approximately 2.5 x 0.5 cm. There was significant venous bleeding from the site with a small amount of arterial bleeding. The arterial bleeding was controlled with a 3-0 Vicryl suture. Probing the wound demonstrated a few smaller pockets with some purulent material but really considerably less purulent material than expected given the degree of cellulitis. The cavity was packed with iodoform gauze. Vital Signs Temp Pulse Resp BP Pulse Ox 98.5 F 78 16 134/86 H 98 12/30/17 03:14 12/30/17 03:14 12/30/17 03:14 12/30/17 03:14 12/30/17 03:14 Oxygen Delivery Method Room Air Weight: 129.5 kg Body Mass Index (BMI) 43.4 Intake and Output for Last 24 Hours 12/28/17 12/29/17 12/30/17 23:59 23:59 23:59 Intake Total 2084 / 2084 2393 / 2393 Output Total 3961 / 3961 Balance 2084 / 2084 -1568 / -1568 Microbiology Past 72 Hours 12/29/17 00:05 Gram Stain - Final Abs - Axillary 12/29/17 00:05 Gram Stain - Final Abs - Chest POC Glucose 12/29/17 12/29/17 12/29/17 21:43 16:16 11:47 POC Glucose 236 H 242 H 213 H Medical Necessity - Tobacco Use Smoking Status: Former smoker Assessment/Plan All Active Problems Cellulitis (Acute) Peripheral vascular occlusive disease (Acute) Infected open wound (Acute) 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 I elected to open the area more widely. This morning at the bedside. There was significant induration and inflammation without significant pus. The site did bleed actively. It was packed with iodoform gauze. Patient is getting peritoneal dialysis. Understand with his minimal urine output. His vancomycin levels may stay elevated for some time.his random vancomycin level today was 15. I asked for them to hold the heparin for the next 24 hours. Clinically, this still seems consistent with an MRSA infection. We will await cultures.
[2017-12-30] MEDS: oxyCODONE 5 MG Tablet PO (07:17)
[2017-12-30 07:26] LABS: Bedside Glucose 209 mg/dL (70-110)
[2017-12-30] MEDS: Venlafaxine XR 37.5 MG Capsule PO (08:10)
[2017-12-30] MEDS: SEVELAMER CARBONATE 800 MG TABLET 4800 MG PO ×3 (08:10→16:23)
[2017-12-30] MEDS: Senna/Docusate Sodium 1 Tablet 2 TABLET PO (08:10)
[2017-12-30] MEDS: Glimepiride 2 MG Tablet PO (08:10)
[2017-12-30] MEDS: LINAGLIPTIN 5 MG TABLET PO (08:10)
[2017-12-30 08:16] LABS: Hematocrit 29.8 % (40-54); Mean Corp Hgb Conc 33.6 g/gl (32-36); Mean Corpuscular Hgb 29.8 pg (27.0-32.0); Mean Corpuscular Volume 88.7 fL (80-94); Mean Platelet Vol. 8.6 fl (6.2-12.0); Platelet Count 267 K/mm3 (150-450); RBC Distribution Width CV 14.5 % (11.6-14.6); RBC Distribution Width SD 45.5 fl (35.1-43.9); Red Blood Count 3.36 M/mm3 (4.6-6.2); White Blood Count 10.2 K/mm3 (4.4-11.0)
--- NOTE | 2017-12-30 08:22 | NURSING ---
RN spoke with Tim in pharmacy about Dr. Knox wanting to have another dose of Vancomycin. Tim stated he would call and speak with Dr. Knox.
[2017-12-30 08:24] LABS: Scan Indicated on CBC? Y/N NO
[2017-12-30 08:41] LABS: Albumin, Serum 2.2 g/dL (3.2-5.0); BUN 49 mg/dL (7-18); BUN/Creat Ratio 4.8 RATIO (10-20); Calcium,Total 8.5 mg/dL (8.5-10.1); Chloride 91 mmol/L (98-107); EST Glomerular Filtration Rate 6 mL/min (>60); Est Glom Filt Rate - Afr Amer 7 mL/min (>60); Estimated Creatinine Clearance 7.92 ml/min; Glucose 170 mg/dL (74-106); Potassium 3.5 mmol/L (3.5-5.1); Sodium Level 129 mmol/L (136-145)
[2017-12-30 08:56] LABS: Vancomycin, Random Level 15.3 ug/mL (0.0-15.0)
[2017-12-30] MEDS: Nepro Liquid 120 ML LIQUID PO ×4 (09:43→22:42)
[2017-12-30] MEDS: 0.9% NaCl IVPB Med Flush (250 mL) 15 ML IV (09:45)
[2017-12-30 11:56] LABS: Bedside Glucose 218 mg/dL (70-110)
--- NOTE | 2017-12-30 15:36 | PCM.PN.REN ---
Patient Problems: Active and Suspected Problems Cellulitis (Acute) Subjective: I/D of abscess this morning. Remains on iv antbx, erythema, tenderness persists. Low grade fever. UF last night 700cc on CCPD. - Physical Exam General: Alert, Oriented x3, Cooperative, No apparent distress Oral: Dry Mucosa Neck: Supple Lungs: Clear to auscultation Cardiovascular: Regular rate Abdomen: Bowel Sounds Present, Soft, Non Tender, Obese Extremities: No edema Skin: - - cellulitis, abscess right chest, axilla Musculoskeletal: Muscle Wasting, - - muscle weakness from GBS Neurological: - - gen weakness from GBS Psych/Mental Status: Normal Affect, Alert and oriented to time, place, person, mood and affect Vital Signs Temp Pulse Resp BP Pulse Ox 99.5 F H 96 18 133/90 H 97 12/30/17 14:05 12/30/17 14:05 12/30/17 14:05 12/30/17 14:05 12/30/17 14:05 Oxygen Delivery Method Room Air Weight: 129.5 kg Body Mass Index (BMI) 43.4 Intake and Output for Last 24 Hours 12/28/17 12/29/17 12/30/17 23:59 23:59 23:59 Intake Total 4 / 2084 2950 / 2950 Output Total 3961 / 3961 Balance 4 / 4 -1011 / -1011 Microbiology Past 72 Hours 12/29/17 00:05 Gram Stain - Final Abs - Axillary Wound Culture - Preliminary Staphylococcus aureus 12/29/17 00:05 Gram Stain - Final Abs - Chest Wound Culture - Preliminary Staphylococcus aureus Laboratory Tests Past 24 Hrs 12/30/17 12/30/17 12/30/17 07:55 07:55 07:55 WBC 10.2 RBC 3.36 L Hgb 10.0 L Hct 29.8 L MCV 88.7 MCH 29.8 MCHC 33.6 RDW 14.5 RDW Differential 45.5 H Plt Count 267 MPV 8.6 Sodium 129 L Potassium 3.5 Chloride 91 L Carbon Dioxide 26.0 BUN 49 H Creatinine 10.20 H* Estim Creat Clear Calc 7.92 Est GFR (MDRD) Af Amer 7 L Est GFR (MDRD) Non-Af 6 L BUN/Creatinine Ratio 4.8 L Glucose 170 H Calcium 8.5 Phosphorus 6.0 H Albumin 2.2 L Random Vancomycin 15.3 H POC Glucose 12/30/17 12/30/17 12/29/17 11:46 06:12 21:43 POC Glucose 218 H 209 H 236 H 12/29/17 16:16 POC Glucose 242 H Medical Necessity - Tobacco Use Smoking Status: Former smoker Assessment/Plan All Active Problems Cellulitis (Acute) Peripheral vascular occlusive disease (Acute) Infected open wound (Acute) 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 ESRD on CCPD use 2-2.5%, 1-1.5% solution tonight. UF only 700cc. May need heparin added if fibrin persists in bags. 2. Acute cellulitis, abscess, folliculitis right chest wall, axilla. Cx pending. Renal dose iv vanco and zosyn 3. Leukocytosis with low grade fever due to #2 4. HTN stable 5. DM2 stable 6. Anemia monitor 7. 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 8. Hyperphosphatemia, continue binders, change to phos restricted diet 9. Hyponatremia stop iv fluids. UF with CCPD. 10 protein/calorie malnutrition, add supplements
--- NOTE | 2017-12-30 16:39 | PCM.PN.HOSP ---
Patient Problems: Active and Suspected Problems Cellulitis (Acute) Subjective: Patient seen and examined. Denies any fever or chills. Had bedside I&D done by general surgery. Objective: Physical exam: General: Alert, Oriented x3, Cooperative, No apparent distress, - HEENT: Atraumatic, PERRLA, EOMI, Normocephalic Oral: Moist Mucosa - Morbidly obese, appears comfortable Neck: Supple, No JVD, Negative Carotid Bruits Lungs: Clear to auscultation, Normal air movement Cardiovascular: Regular rate, Regular Rhythm, Normal S1, Normal S2, No murmurs Abdomen: Bowel Sounds Present, Soft, Non Tender, Non-Distended Extremities: No edema Skin: - - Multiple abscesses over the anterior chest status post I&D, several purulent drainage, slight surrounding erythema Musculoskeletal: No Tenderness to Palpation of Joints or Extremities Neurological: Cranial nerves II-XII grossly intact Psych/Mental Status: Normal Affect, Appropriate Vitals/I&O's: Vital Signs Temp Pulse Resp BP Pulse Ox 99.5 F H 90 18 133/90 H 97 12/30/17 14:05 12/30/17 16:14 12/30/17 14:05 12/30/17 14:05 12/30/17 14:05 Oxygen Delivery Method Room Air Weight: 129.5 kg Body Mass Index (BMI) 43.4 Intake and Output for Last 24 Hours 12/28/17 12/29/17 12/30/17 23:59 23:59 23:59 Intake Total 2083 / 4 2950 / 2950 Output Total 3961 / 3961 Balance 2083 / 2083 -1011 / -1011 Microbiology Past 72 Hours 12/29/17 00:05 Abs - Axillary Gram Stain - Final 12/29/17 00:05 Abs - Axillary Wound Culture - Preliminary Staphylococcus aureus 12/29/17 00:05 Abs - Chest Gram Stain - Final 12/29/17 00:05 Abs - Chest Wound Culture - Preliminary Staphylococcus aureus Laboratory Results 12/29/17 21:43: POC Glucose 236 H 12/30/17 06:12: POC Glucose 209 H 12/30/17 07:55: WBC 10.2, RBC 3.36 L, Hgb 10.0 L, Hct 29.8 L, MCV 88.7, MCH 29.8, MCHC 33.6, RDW 14.5, RDW Differential 45.5 H, Plt Count 267, MPV 8.6 12/30/17 07:55: Sodium 129 L, Potassium 3.5, Chloride 91 L, Carbon Dioxide 26.0, BUN 49 H, Creatinine 10.20 H*, Estim Creat Clear Calc 7.92, Est GFR (MDRD) Af Amer 7 L, Est GFR (MDRD) Non-Af 6 L, BUN/Creatinine Ratio 4.8 L, Glucose 170 H, Calcium 8.5, Phosphorus 6.0 H, Albumin 2.2 L 12/30/17 07:55: Random Vancomycin 15.3 H 12/30/17 11:46: POC Glucose 218 H Current Medications Acetaminophen (Tylenol) 650 mg PO Q6H PRN PRN PRN Reason: Mild Pain (scale 0-3)/T>100.7 Last Admin: 12/28/17 23:40 Dose: 650 mg Amlodipine Besylate (Norvasc) 10 mg PO DAILY PRN PRN PRN Reason: HYPERTENSION Chlorhexidine Gluconate () 1 each TOPICAL DAILY [facility] Dextrose (D50w Syringe) 0 gm IV X1 PRN; Protocol PRN Reason: Hypoglycemia Ergocalciferol (Vitamin D) 50,000 unit PO QMONTH [facility] Last Admin: 12/29/17 11:50 Dose: 50,000 unit Glimepiride (Amaryl) 2 mg PO DAILYCM [facility] Last Admin: 12/30/17 08:10 Dose: 2 mg Glucagon () 1 mg IM .X1 PRN PRN Reason: Hypoglycemia Heparin Sodium (Porcine) (Heparin Na) 5,000 unit SC Q8 [facility] Last Admin: 12/30/17 06:16 Dose: 5,000 u Sodium Chloride () 250 mls @ 15 mls/hr IV .[id number] PRN PRN Reason: SALINE FLUSH Last Admin: 12/30/17 09:45 Dose: 15 mls/hr Piperacillin Sod/Tazobactam (Sod 2.25 gm/ Sodium Chloride) 100 mls @ 100 mls/hr IV Q12 [facility] Last Admin: 12/30/17 09:43 Dose: 100 mls/hr Insulin Human Lispro (Humalog Kwikpen (Bkc)) 0 unit SQ TIDAC [facility] PRN Reason: Protocol Last Admin: 07/24/18 16:23 Dose: 1 u Linagliptin (Tradjenta) 5 mg PO DAILY [facility] Last Admin: 12/30/17 08:10 Dose: 5 mg Losartan Potassium (Cozaar) 100 mg PO QHS PRN PRN Reason: HYPERTENSION Metoprolol Tartrate (Lopressor (Beta Elizabeth)) 50 mg PO BID PRN PRN PRN Reason: HYPERTENSION Multivit/Ca Carb/B Cmplx/FA/Prenat (Nephrocaps, Renaphro) 1 capsule PO QHS [facility] Last Admin: 12/29/17 21:48 Dose: 1 capsule Nutritional Formula (Nepro Carb Steady) 120 ml PO 4X/DAY [facility] Last Admin: 12/30/17 16:38 Dose: 120 ml Oxycodone HCl (Oxyir) 5 mg PO Q4H PRN PRN PRN Reason: Moderate Pain (pain scale 4-5) Last Admin: 12/30/17 07:17 Dose: 5 mg Senna/Docusate Sodium (Senokot-S, Belia-Colace) 2 tablet PO DAILY [facility] Last Admin: 12/30/17 08:10 Dose: 2 tablet Sevelamer Carbonate (Renvela) 4,800 mg PO TIDCM [facility] Last Admin: 12/30/17 16:23 Dose: 4,800 mg Sodium Chloride () 5 - 30 ml IV UD PRN PRN Reason: SALINE FLUSH Last Admin: 12/29/17 06:25 Dose: 10 ml Venlafaxine HCl (Effexor Xr) 37.5 mg PO DAILY [facility] Last Admin: 12/30/17 08:10 Dose: 37.5 mg Medical Necessity - Tobacco Use Smoking Status: Former smoker Assessment/Plan All Active Problems Cellulitis (Acute) Peripheral vascular occlusive disease (Acute) Infected open wound (Acute) 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 1. Multiple MSSA abscesses/cellulitis of the right axilla/anterior chest wall, status post I&D, general surgery consulted, MRSA PCR is negative, MSSA positive, On IV vancomycin and Zosyn, will continue on Zosyn. 2. ESRD on peritoneal dialysis, no electrolyte imbalances seen except for hyponatremia, nephrology consulted. 3. Type 2 diabetes, HbA1c 6.0, blood sugars are controlled, on Amaryl, Tradjenta, Accu-Cheks with insulin sliding scale 4. Anemia of CKD, hemoglobin is stable. 5. 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 Hypertension, controlled, continue home medications 7. Depression, on Effexor 8. DVT prophylaxis with heparin subcu Code Visit Inpatient E&M: 99973 Subs Hosp L2
[2017-12-30 16:41] LABS: Bedside Glucose 153 mg/dL (70-110)
--- NOTE | 2017-12-30 16:46 | PN_ITS ---
Patient Problems: Active and Suspected Problems Cellulitis (Acute) Subjective: Patient seen and examined. Denies any fever or chills. Had bedside I&D done by general surgery. Objective: Physical exam: General: Alert, Oriented x3, Cooperative, No apparent distress, - HEENT: Atraumatic, PERRLA, EOMI, Normocephalic Oral: Moist Mucosa - Morbidly obese, appears comfortable Neck: Supple, No JVD, Negative Carotid Bruits Lungs: Clear to auscultation, Normal air movement Cardiovascular: Regular rate, Regular Rhythm, Normal S1, Normal S2, No murmurs Abdomen: Bowel Sounds Present, Soft, Non Tender, Non-Distended Extremities: No edema Skin: - - Multiple abscesses over the anterior chest status post I&D, several purulent drainage, slight surrounding erythema Musculoskeletal: No Tenderness to Palpation of Joints or Extremities Neurological: Cranial nerves II-XII grossly intact Psych/Mental Status: Normal Affect, Appropriate Vitals/I&O's: Vital Signs Temp Pulse Resp BP Pulse Ox 99.5 F H 90 18 133/90 H 97 12/30/17 14:05 12/30/17 16:14 12/30/17 14:05 12/30/17 14:05 12/30/17 14:05 Oxygen Delivery Method Room Air Weight: 129.5 kg Body Mass Index (BMI) 43.4 Intake and Output for Last 24 Hours 12/28/17 12/29/17 12/30/17 23:59 23:59 23:59 Intake Total 2083 / 4 2950 / 2950 Output Total 3961 / 3961 Balance 2083 / 2083 -1011 / -1011 Microbiology Past 72 Hours 12/29/17 00:05 Abs - Axillary Gram Stain - Final 12/29/17 00:05 Abs - Axillary Wound Culture - Preliminary Staphylococcus aureus 12/29/17 00:05 Abs - Chest Gram Stain - Final 12/29/17 00:05 Abs - Chest Wound Culture - Preliminary Staphylococcus aureus Laboratory Results 12/29/17 21:43: POC Glucose 236 H 12/30/17 06:12: POC Glucose 209 H 12/30/17 07:55: WBC 10.2, RBC 3.36 L, Hgb 10.0 L, Hct 29.8 L, MCV 88.7, MCH 29.8 , MCHC 33.6, RDW 14.5, RDW Differential 45.5 H, Plt Count 267, MPV 8.6 12/30/17 07:55: Sodium 129 L, Potassium 3.5, Chloride 91 L, Carbon Dioxide 26.0 , BUN 49 H, Creatinine 10.20 H*, Estim Creat Clear Calc 7.92, Est GFR (MDRD) Af Amer 7 L, Est GFR (MDRD) Non-Af 6 L, BUN/Creatinine Ratio 4.8 L, Glucose 170 H, Calcium 8.5, Phosphorus 6.0 H, Albumin 2.2 L 12/30/17 07:55: Random Vancomycin 15.3 H 12/30/17 11:46: POC Glucose 218 H Current Medications Acetaminophen (Tylenol) 650 mg PO Q6H PRN PRN PRN Reason: Mild Pain (scale 0-3)/T>100.7 Last Admin: 12/28/17 23:40 Dose: 650 mg Amlodipine Besylate (Norvasc) 10 mg PO DAILY PRN PRN PRN Reason: HYPERTENSION Chlorhexidine Gluconate () 1 each TOPICAL DAILY [facility] Dextrose (D50w Syringe) 0 gm IV X1 PRN; Protocol PRN Reason: Hypoglycemia Ergocalciferol (Vitamin D) 50,000 unit PO QMONTH [facility] Last Admin: 12/29/17 11:50 Dose: 50,000 unit Glimepiride (Amaryl) 2 mg PO DAILYCM [facility] Last Admin: 12/30/17 08:10 Dose: 2 mg Glucagon () 1 mg IM .X1 PRN PRN Reason: Hypoglycemia Heparin Sodium (Porcine) (Heparin Na) 5,000 unit SC Q8 [facility] Last Admin: 12/30/17 06:16 Dose: 5,000 u Sodium Chloride () 250 mls @ 15 mls/hr IV .[id number] PRN PRN Reason: SALINE FLUSH Last Admin: 12/30/17 09:45 Dose: 15 mls/hr Piperacillin Sod/Tazobactam (Sod 2.25 gm/ Sodium Chloride) 100 mls @ 100 mls/ hr IV Q12 [facility] Last Admin: 12/30/17 09:43 Dose: 100 mls/hr Insulin Human Lispro (Humalog Kwikpen (Bkc)) 0 unit SQ TIDAC [facility] PRN Reason: Protocol Last Admin: 07/24/18 16:23 Dose: 1 u Linagliptin (Tradjenta) 5 mg PO DAILY [facility] Last Admin: 12/30/17 08:10 Dose: 5 mg Losartan Potassium (Cozaar) 100 mg PO QHS PRN PRN Reason: HYPERTENSION Metoprolol Tartrate (Lopressor (Beta Elizabeth)) 50 mg PO BID PRN PRN PRN Reason: HYPERTENSION Multivit/Ca Carb/B Cmplx/FA/Prenat (Nephrocaps, Renaphro) 1 capsule PO QHS [facility] Last Admin: 12/29/17 21:48 Dose: 1 capsule Nutritional Formula (Nepro Carb Steady) 120 ml PO 4X/DAY [facility] Last Admin: 12/30/17 16:38 Dose: 120 ml Oxycodone HCl (Oxyir) 5 mg PO Q4H PRN PRN PRN Reason: Moderate Pain (pain scale 4-5) Last Admin: 12/30/17 07:17 Dose: 5 mg Senna/Docusate Sodium (Senokot-S, Belia-Colace) 2 tablet PO DAILY [facility] Last Admin: 12/30/17 08:10 Dose: 2 tablet Sevelamer Carbonate (Renvela) 4,800 mg PO TIDCM [facility] Last Admin: 12/30/17 16:23 Dose: 4,800 mg Sodium Chloride () 5 - 30 ml IV UD PRN PRN Reason: SALINE FLUSH Last Admin: 12/29/17 06:25 Dose: 10 ml Venlafaxine HCl (Effexor Xr) 37.5 mg PO DAILY [facility] Last Admin: 12/30/17 08:10 Dose: 37.5 mg Medical Necessity - Tobacco Use Smoking Status: Former smoker Assessment/Plan All Active Problems Cellulitis (Acute) Peripheral vascular occlusive disease (Acute) Infected open wound (Acute) 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 1. Multiple MSSA abscesses/cellulitis of the right axilla/anterior chest wall, status post I&D, general surgery consulted, MRSA PCR is negative, MSSA positive , On IV vancomycin and Zosyn, will continue on Zosyn. 2. ESRD on peritoneal dialysis, no electrolyte imbalances seen except for hyponatremia, nephrology consulted. 3. Type 2 diabetes, HbA1c 6.0, blood sugars are controlled, on Amaryl, Tradjenta, Accu-Cheks with insulin sliding scale 4. Anemia of CKD, hemoglobin is stable. 5. 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 Hypertension, controlled, continue home medications 7. Depression, on Effexor 8. DVT prophylaxis with heparin subcu Code Visit Inpatient E&M: 91910 Subs Hosp L2
--- NOTE | 2017-12-30 17:19 | DIALYSIS ---
CCPD tx initiated using 2 bags 2.5% Dextrose and 1 bag 1.5% Dextrose per new orders. Total Volume: 14,000ml. Exit site dressing changed; site benign. Pt w/o complaint at this time.
[2017-12-30] MEDS: Folic Acid/Vitamin B Comp W-C 1 Capsule 1 CAP PO (22:42)
[2017-12-30 22:51] LABS: Bedside Glucose 255 mg/dL (70-110)
[2017-12-31 02:00] VITALS: PULSE 83
[2017-12-31 02:18] VITALS: BP 152/94; PULSE 84; RESP 18; TEMP 37; O2SAT 100
[2017-12-31 06:00] VITALS: PULSE 82
[2017-12-31] MEDS: Insulin Lispro 100 UNIT/ML INSULN.PEN SQ ×3 (06:35→16:05)
[2017-12-31 07:10] LABS: Bedside Glucose 181 mg/dL (70-110)
[2017-12-31] MEDS: SEVELAMER CARBONATE 800 MG TABLET 4800 MG PO ×2 (08:17→11:35)
[2017-12-31] MEDS: Venlafaxine XR 37.5 MG Capsule PO (08:17)
[2017-12-31] MEDS: Glimepiride 2 MG Tablet PO (08:17)
[2017-12-31 08:18] VITALS: BP 138/86; PULSE 81; RESP 18; TEMP 37.1; O2SAT 100
[2017-12-31] MEDS: Senna/Docusate Sodium 1 Tablet 2 TABLET PO (08:18)
[2017-12-31] MEDS: LINAGLIPTIN 5 MG TABLET PO (08:20)
[2017-12-31] MEDS: Nepro Liquid 120 ML LIQUID PO ×4 (08:22→22:31)
[2017-12-31] MEDS: CHLORHEXIDINE GLUC 2% CLOTH 1 EACH TOWELETTE TOPICAL (08:23)
--- NOTE | 2017-12-31 08:55 | PCM.PN.REN ---
Patient Problems: Active and Suspected Problems Cellulitis (Acute) Subjective: denies abdominal pain. Still with drainage from abscess, erythema improving on iv antibx. No fibrin noted in PD bags. clear effluent - Physical Exam General: Alert, Oriented x3, Cooperative, No apparent distress Lungs: Clear to auscultation Cardiovascular: Regular rate Abdomen: Bowel Sounds Present, Soft, Non Tender, Non-Distended, Obese Extremities: No edema Skin: - - abscess rt axilla, ant chest wall erythema, drg Psych/Mental Status: Alert and oriented to time, place, person, mood and affect Vital Signs Temp Pulse Resp BP Pulse Ox 98.7 F 81 18 138/86 H 100 12/31/17 08:18 12/31/17 08:18 12/31/17 08:18 12/31/17 08:18 12/31/17 08:18 Oxygen Delivery Method Room Air Weight: 129.5 kg Body Mass Index (BMI) 43.4 Intake and Output for Last 24 Hours 12/29/17 12/30/17 12/31/17 23:59 23:59 23:59 Intake Total 2084 / 4 3385 / 3385 362 / 362 Output Total 3961 / 3961 0 / 0 Balance 2084 / 2084 -576 / -576 362 / 362 Microbiology Past 72 Hours 12/29/17 00:05 Gram Stain - Final Abs - Axillary Wound Culture - Final Staphylococcus aureus 12/29/17 00:05 Gram Stain - Final Abs - Chest Wound Culture - Final Staphylococcus aureus 12/28/17 22:30 Blood Culture - Preliminary Blood Culture (Wb) - Anticubital Left No growth in 48 hours. Laboratory Tests Past 24 Hrs 12/30/17 12/31/17 07:55 08:25 Sodium Pending Potassium Pending Chloride Pending Carbon Dioxide Pending BUN Pending Creatinine Pending Est GFR (MDRD) Af Amer Pending Est GFR (MDRD) Non-Af Pending BUN/Creatinine Ratio Pending Glucose Pending Calcium Pending Phosphorus Pending Albumin Pending Random Vancomycin 15.3 H POC Glucose 12/31/17 12/30/17 12/30/17 06:32 22:41 16:22 POC Glucose 181 H 255 H 153 H 12/30/17 11:46 POC Glucose 218 H Medical Necessity - Tobacco Use Smoking Status: Former smoker Assessment/Plan All Active Problems Cellulitis (Acute) Peripheral vascular occlusive disease (Acute) Infected open wound (Acute) 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 ESRD on CCPD Await UF result from last night. 2. Acute cellulitis, abscess, folliculitis right chest wall, axilla. Cx pending. Renal dose iv vanco and zosyn 3. HTN stable 4. DM2 stable 5. Anemia monitor 6 protein/calorie malnutrition, add supplements
[2017-12-31 09:10] LABS: Albumin, Serum 2.1 g/dL (3.2-5.0); BUN 61 mg/dL (7-18); BUN/Creat Ratio 6.2 RATIO (10-20); Calcium,Total 8.5 mg/dL (8.5-10.1); Chloride 93 mmol/L (98-107); EST Glomerular Filtration Rate 6 mL/min (>60); Est Glom Filt Rate - Afr Amer 7 mL/min (>60); Estimated Creatinine Clearance 8.24 ml/min; Glucose 132 mg/dL (74-106); Phosphorus 5.4 mg/dL (2.5-4.9); Potassium 3.2 mmol/L (3.5-5.1); Sodium Level 133 mmol/L (136-145)
--- NOTE | 2017-12-31 10:00 | DIALYSIS ---
CCPD completed. Pt was up in chair when arrived. Disconnected from cycler using aseptic technique. UF -562ml. Effluent Clear yellow/no fibrin. Dressing remains D/I. See Dialysis flowsheet for details. Report to Pratik PATEL at bedside.
[2017-12-31 12:16] LABS: Bedside Glucose 197 mg/dL (70-110)
[2017-12-31] MEDS: Heparin Injection (Vial) 5,000 UNIT/ML VIAL 5000 UNIT SC ×2 (12:45→22:31)
--- NOTE | 2017-12-31 12:53 | PCM.PN.SRG ---
Patient Problems: Active and Suspected Problems Cellulitis (Acute) Subjective: axilla feeling better, chest wound same - Physical Exam General: Alert, Oriented x3 Skin: - - axilla - packing removed, less erythema, minimal pus, no bleeding - repacked. chest - still necrotic tissue Vital Signs Temp Pulse Resp BP Pulse Ox 98.7 F 81 18 138/86 H 100 12/31/17 08:18 12/31/17 08:18 12/31/17 08:18 12/31/17 08:18 12/31/17 08:18 Oxygen Delivery Method Room Air Weight: 129.5 kg Body Mass Index (BMI) 43.4 Intake and Output for Last 24 Hours 12/29/17 12/30/17 12/31/17 23:59 23:59 23:59 Intake Total 2083 / 4 3385 / 3385 362 / 362 Output Total 3961 / 3961 0 / 0 Balance 2083 / 2083 -576 / -576 362 / 362 Microbiology Past 72 Hours 12/29/17 00:05 Gram Stain - Final Abs - Axillary Wound Culture - Final Staphylococcus aureus Anaerobic Culture - Final No anaerobic bacteria isolated. 12/29/17 00:05 Gram Stain - Final Abs - Chest Wound Culture - Final Staphylococcus aureus Anaerobic Culture - Final No anaerobic bacteria isolated. 12/28/17 22:30 Blood Culture - Preliminary Blood Culture (Wb) - Anticubital Left No growth in 48 hours. Laboratory Tests Past 24 Hrs 12/31/17 08:25 Sodium 133 L Potassium 3.2 L Chloride 93 L Carbon Dioxide 29.0 BUN 61 H Creatinine 9.80 H* Estim Creat Clear Calc 8.24 Est GFR (MDRD) Af Amer 7 L Est GFR (MDRD) Non-Af 6 L BUN/Creatinine Ratio 6.2 L Glucose 132 H Calcium 8.5 Phosphorus 5.4 H Albumin 2.1 L POC Glucose 12/31/17 12/31/17 12/30/17 12:00 06:32 22:41 POC Glucose 197 H 181 H 255 H 12/30/17 16:22 POC Glucose 153 H Medical Necessity - Tobacco Use Smoking Status: Former smoker Assessment/Plan All Active Problems Cellulitis (Acute) Peripheral vascular occlusive disease (Acute) Infected open wound (Acute) 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 Will likely need to debride chest wound tomorrow Patient is getting peritoneal dialysis. Understand with his minimal urine output. His vancomycin levels may stay elevated for some time.his random vancomycin level today was 15. I asked for them to hold the heparin for the next 24 hours. Clinically, this still seems consistent with an MRSA infection. We will await for repeat culture.
--- NOTE | 2017-12-31 13:23 | PCM.HP.ID ---
Problem List (1) Abdominal wall abscess Status: Acute Reason for Consult: mssa abscess Consulted by: Dr. May History of Present Illness: The patient is a 57 year old M on PD who presented with 2 weeks of progressive abscess in R axilla and chest. Has had similar episodes before and has mupirocin in past. No inciting events. Progressive pain, redness, swelling, and purulent drainage. No recent abx. He repeatedly tried to pop and yousif the abscesses. Had some chills and nausea. Came to ED, had I&D in ED and after admission, was getting vanc and zosyn. No issues with PD cath. Feeling better. Full ROS performed and neg except as noted above. - Medical History Past Medical History (Chronic Problems): Chronic Problems Peripheral autonomic neuropathy due to secondary diabetes (Chronic) Murmur, cardiac (Chronic) Chronic anemia (Chronic) Chronic kidney disease, stage III (moderate) (Chronic) Type 2 diabetes mellitus (Chronic) Hypertension (Chronic) Allergies/Adverse Reactions: Allergies No Known Allergies Allergy (Verified 11/14/16 12:47) Home Medications: Ambulatory Orders Medication Instructions Recorded Ferrous Sulfate 325 mg PO DAILY 06/21/15 Ergocalciferol [Vitamin D] 50,000 unit PO QMONTH 03/12/16 Glimepiride [Amaryl] 2 mg PO DAILY 03/12/16 B Complex W-C No.20/Folic Acid 1 mg PO QHS 10/29/16 [Nephrocaps Softgel] Sennosides/Docusate Sodium 1 each PO DAILY 10/29/16 [Docusate Sodium-Senna Tablet] Sitagliptin Phosphate [Januvia] 25 mg PO DAILY 10/29/16 Acetaminophen [Tylenol Tablet] 650 mg PO Q6H PRN PRN tablet 11/20/16 Glucagon 1 mg IM .X1 PRN syringe 11/20/16 Amlodipine [Norvasc] 10 mg PO DAILY 12/28/17 Losartan Potassium [Losartan 100 mg PO QHS PRN 12/28/17 Potassium] Metoprolol Tartrate [Lopressor 50 mg PO BID 12/28/17 (beta dary)] Sevelamer Carbonate [Renvela] 4,800 mg PO TIDCM 12/28/17 Venlafaxine XR [Effexor Xr] 1 cap PO DAILY 12/28/17 hydrALAZINE [Apresoline] 25 mg PO Q8H PRN PRN 12/29/17 - Social History SMOKING STATUS:: Former smoker Vital Signs Temp Pulse Resp BP Pulse Ox 98.7 F 81 18 138/86 H 100 12/31/17 08:18 12/31/17 08:18 12/31/17 08:18 12/31/17 08:18 12/31/17 08:18 Oxygen Delivery Method Room Air Weight: 129.5 kg Body Mass Index (BMI) 43.4 Microbiology Past 72 Hours 12/29/17 00:05 Gram Stain - Final Abs - Axillary Wound Culture - Final Staphylococcus aureus Anaerobic Culture - Final No anaerobic bacteria isolated. 12/29/17 00:05 Gram Stain - Final Abs - Chest Wound Culture - Final Staphylococcus aureus Anaerobic Culture - Final No anaerobic bacteria isolated. 12/28/17 22:30 Blood Culture - Preliminary Blood Culture (Wb) - Anticubital Left No growth in 48 hours. Laboratory Tests Past 24 Hrs 12/31/17 08:25 Sodium 133 L Potassium 3.2 L Chloride 93 L Carbon Dioxide 29.0 BUN 61 H Creatinine 9.80 H* Estim Creat Clear Calc 8.24 Est GFR (MDRD) Af Amer 7 L Est GFR (MDRD) Non-Af 6 L BUN/Creatinine Ratio 6.2 L Glucose 132 H Calcium 8.5 Phosphorus 5.4 H Albumin 2.1 L - Other Studies Radiology: [] reviewed Other Studies: [] Route of nutrition/ use of supplements: [] Nutritional Intake: [] IV Site: [] Alexander Catheter: [] - Physical Exam General: Alert, Oriented x3, Cooperative, No apparent distress HEENT: Atraumatic, PERRLA, EOMI Neck: Supple, No Nodes Lungs: Clear to auscultation, Normal air movement Cardiovascular: Regular rate, Regular Rhythm Abdomen: Bowel Sounds Present, Soft, Non Tender, Non-Distended, - - PD cath in place Extremities: Edema Skin: - - R axillary and chest abscess with packing in place, mild surrounding redness IV Site: Peripheral, without redness Musculoskeletal: No Tenderness to Palpation of Joints or Extremities Neurological: Cranial nerves II-XII grossly intact - Assessment/Plan Antibiotics: [] Assessment/Plan: [] Active and Suspected Problems Cellulitis (Acute) R axilla and chest MSSA abscesses - improving s/p I&D. Cxs and pcr show mssa. Narrow abx to cefazolin, further I&D per surgery, being followed by Dr. Knox. Likely good candidate for outpt decolonization with hibiclens and mupirocin. Will follow, thank you.
--- NOTE | 2017-12-31 14:04 | PCM.PN.HOSP ---
Patient Problems: Active and Suspected Problems Cellulitis (Acute) Subjective: Patient was seen and examined. Denies any fever or chills. Seen his wounds with the wound nurse, still has purulent drainage, more in the anterior chest wall. Objective: Physical exam: General: Alert, Oriented x3, Cooperative, No apparent distress, - HEENT: Atraumatic, PERRLA, EOMI, Normocephalic Oral: Moist Mucosa - Morbidly obese, appears comfortable Neck: Supple, No JVD, Negative Carotid Bruits Lungs: Clear to auscultation, Normal air movement Cardiovascular: Regular rate, Regular Rhythm, Normal S1, Normal S2, No murmurs Abdomen: Bowel Sounds Present, Soft, Non Tender, Non-Distended Extremities: No edema Skin: - - Multiple abscesses over the anterior chest status post I&D, several purulent drainage, slight surrounding erythema Musculoskeletal: No Tenderness to Palpation of Joints or Extremities Neurological: Cranial nerves II-XII grossly intact Psych/Mental Status: Normal Affect, Appropriate Vitals/I&O's: Vital Signs Temp Pulse Resp BP Pulse Ox 98.7 F 81 18 138/86 H 100 12/31/17 08:18 12/31/17 08:18 12/31/17 08:18 12/31/17 08:18 12/31/17 08:18 Oxygen Delivery Method Room Air Weight: 129.5 kg Body Mass Index (BMI) 43.4 Intake and Output for Last 24 Hours 12/29/17 12/30/17 12/31/17 23:59 23:59 23:59 Intake Total 2083 / 4 3385 / 3385 362 / 362 Output Total 3961 / 3961 0 / 0 Balance 2083 / 2083 -576 / -576 362 / 362 Microbiology Past 72 Hours 12/29/17 00:05 Abs - Axillary Gram Stain - Final 12/29/17 00:05 Abs - Axillary Wound Culture - Final Staphylococcus aureus 12/29/17 00:05 Abs - Axillary Anaerobic Culture - Final No anaerobic bacteria isolated. 12/29/17 00:05 Abs - Chest Gram Stain - Final 12/29/17 00:05 Abs - Chest Wound Culture - Final Staphylococcus aureus 12/29/17 00:05 Abs - Chest Anaerobic Culture - Final No anaerobic bacteria isolated. 12/28/17 22:30 Blood Culture (Wb) - Anticubital Left Blood Culture - Preliminary No growth in 48 hours. Laboratory Results 12/30/17 16:22: POC Glucose 153 H 12/30/17 22:41: POC Glucose 255 H 12/31/17 06:32: POC Glucose 181 H 12/31/17 08:25: Sodium 133 L, Potassium 3.2 L, Chloride 93 L, Carbon Dioxide 29.0, BUN 61 H, Creatinine 9.80 H*, Estim Creat Clear Calc 8.24, Est GFR (MDRD) Af Amer 7 L, Est GFR (MDRD) Non-Af 6 L, BUN/Creatinine Ratio 6.2 L, Glucose 132 H, Calcium 8.5, Phosphorus 5.4 H, Albumin 2.1 L 12/31/17 12:00: POC Glucose 197 H Current Medications Acetaminophen (Tylenol) 650 mg PO Q6H PRN PRN PRN Reason: Mild Pain (scale 0-3)/T>100.7 Last Admin: 12/28/17 23:40 Dose: 650 mg Amlodipine Besylate (Norvasc) 10 mg PO DAILY PRN PRN PRN Reason: HYPERTENSION Chlorhexidine Gluconate () 1 each TOPICAL DAILY [facility] Last Admin: 12/31/17 08:23 Dose: 1 each Dextrose (D50w Syringe) 0 gm IV X1 PRN; Protocol PRN Reason: Hypoglycemia Ergocalciferol (Vitamin D) 50,000 unit PO QMONTH [facility] Last Admin: 12/29/17 11:50 Dose: 50,000 unit Glimepiride (Amaryl) 2 mg PO DAILYCM [facility] Last Admin: 12/31/17 08:17 Dose: 2 mg Glucagon () 1 mg IM .X1 PRN PRN Reason: Hypoglycemia Heparin Sodium (Porcine) (Heparin Na) 5,000 unit SC Q8 [facility] Last Admin: 12/31/17 12:45 Dose: 5,000 u Sodium Chloride () 250 mls @ 15 mls/hr IV .[id number] PRN PRN Reason: SALINE FLUSH Last Admin: 12/30/17 09:45 Dose: 15 mls/hr Cefazolin Sodium 2 gm/ Sodium (Chloride) 110 mls @ 150 mls/hr IV Q8 [facility] Insulin Human Lispro (Humalog Kwikpen (Bkc)) 0 unit SQ TIDAC [facility] PRN Reason: Protocol Last Admin: 12/31/17 12:36 Dose: 1 u Linagliptin (Tradjenta) 5 mg PO DAILY [facility] Last Admin: 12/31/17 08:20 Dose: 5 mg Losartan Potassium (Cozaar) 100 mg PO QHS PRN PRN Reason: HYPERTENSION Metoprolol Tartrate (Lopressor (Beta Elizabeth)) 50 mg PO BID PRN PRN PRN Reason: HYPERTENSION Multivit/Ca Carb/B Cmplx/FA/Prenat (Nephrocaps, Renaphro) 1 capsule PO QHS [facility] Last Admin: 12/30/17 22:42 Dose: 1 capsule Nutritional Formula (Nepro Carb Steady) 120 ml PO 4X/DAY [facility] Last Admin: 12/31/17 12:42 Dose: 120 ml Oxycodone HCl (Oxyir) 5 mg PO Q4H PRN PRN PRN Reason: Moderate Pain (pain scale 4-5) Last Admin: 12/30/17 07:17 Dose: 5 mg Senna/Docusate Sodium (Senokot-S, Belia-Colace) 2 tablet PO DAILY [facility] Last Admin: 12/31/17 08:18 Dose: 2 tablet Sevelamer Carbonate (Renvela) 3,200 mg PO TIDCM [facility] Sodium Chloride () 5 - 30 ml IV UD PRN PRN Reason: SALINE FLUSH Last Admin: 12/29/17 06:25 Dose: 10 ml Venlafaxine HCl (Effexor Xr) 37.5 mg PO DAILY [facility] Last Admin: 12/31/17 08:17 Dose: 37.5 mg Medical Necessity - Tobacco Use Smoking Status: Former smoker Assessment/Plan All Active Problems Cellulitis (Acute) Peripheral vascular occlusive disease (Acute) Infected open wound (Acute) 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 1. Multiple MSSA abscesses/cellulitis of the right axilla/anterior chest wall, status post I&D, general surgery consulted, I&D planned for possibly tomorrow by Dr. Knox. MRSA PCR is negative, MSSA positive, ID consulted, switch patient to cefazolin, will continue as such. 2. Hypokalemia, K is 3.2, will replace with potassium, follow renal panel in am. 3. ESRD on peritoneal dialysis, no electrolyte imbalances seen except for hyponatremia, nephrology consulted. 4. Type 2 diabetes, HbA1c 6.0, blood sugars are fairly controlled, on Amaryl, Tradjenta, Accu-Cheks with insulin sliding scale 5. Anemia of CKD, hemoglobin is stable. 6. 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 Hypertension, controlled, continue home medications 8. Depression, on Effexor 9. DVT prophylaxis with heparin subcu
--- NOTE | 2017-12-31 14:16 | PN_ITS ---
Patient Problems: Active and Suspected Problems Cellulitis (Acute) Subjective: Patient was seen and examined. Denies any fever or chills. Seen his wounds with the wound nurse, still has purulent drainage, more in the anterior chest wall. Objective: Physical exam: General: Alert, Oriented x3, Cooperative, No apparent distress, - HEENT: Atraumatic, PERRLA, EOMI, Normocephalic Oral: Moist Mucosa - Morbidly obese, appears comfortable Neck: Supple, No JVD, Negative Carotid Bruits Lungs: Clear to auscultation, Normal air movement Cardiovascular: Regular rate, Regular Rhythm, Normal S1, Normal S2, No murmurs Abdomen: Bowel Sounds Present, Soft, Non Tender, Non-Distended Extremities: No edema Skin: - - Multiple abscesses over the anterior chest status post I&D, several purulent drainage, slight surrounding erythema Musculoskeletal: No Tenderness to Palpation of Joints or Extremities Neurological: Cranial nerves II-XII grossly intact Psych/Mental Status: Normal Affect, Appropriate Vitals/I&O's: Vital Signs Temp Pulse Resp BP Pulse Ox 98.7 F 81 18 138/86 H 100 12/31/17 08:18 12/31/17 08:18 12/31/17 08:18 12/31/17 08:18 12/31/17 08:18 Oxygen Delivery Method Room Air Weight: 129.5 kg Body Mass Index (BMI) 43.4 Intake and Output for Last 24 Hours 12/29/17 12/30/17 12/31/17 23:59 23:59 23:59 Intake Total 2083 / 4 3385 / 3385 362 / 362 Output Total 3961 / 3961 0 / 0 Balance 2083 / 2083 -576 / -576 362 / 362 Microbiology Past 72 Hours 12/29/17 00:05 Abs - Axillary Gram Stain - Final 12/29/17 00:05 Abs - Axillary Wound Culture - Final Staphylococcus aureus 12/29/17 00:05 Abs - Axillary Anaerobic Culture - Final No anaerobic bacteria isolated. 12/29/17 00:05 Abs - Chest Gram Stain - Final 12/29/17 00:05 Abs - Chest Wound Culture - Final Staphylococcus aureus 12/29/17 00:05 Abs - Chest Anaerobic Culture - Final No anaerobic bacteria isolated. 12/28/17 22:30 Blood Culture (Wb) - Anticubital Left Blood Culture - Preliminary No growth in 48 hours. Laboratory Results 12/30/17 16:22: POC Glucose 153 H 12/30/17 22:41: POC Glucose 255 H 12/31/17 06:32: POC Glucose 181 H 12/31/17 08:25: Sodium 133 L, Potassium 3.2 L, Chloride 93 L, Carbon Dioxide 29.0, BUN 61 H, Creatinine 9.80 H*, Estim Creat Clear Calc 8.24, Est GFR (MDRD) Af Amer 7 L, Est GFR (MDRD) Non-Af 6 L, BUN/Creatinine Ratio 6.2 L, Glucose 132 H, Calcium 8.5, Phosphorus 5.4 H, Albumin 2.1 L 12/31/17 12:00: POC Glucose 197 H Current Medications Acetaminophen (Tylenol) 650 mg PO Q6H PRN PRN PRN Reason: Mild Pain (scale 0-3)/T>100.7 Last Admin: 12/28/17 23:40 Dose: 650 mg Amlodipine Besylate (Norvasc) 10 mg PO DAILY PRN PRN PRN Reason: HYPERTENSION Chlorhexidine Gluconate () 1 each TOPICAL DAILY [facility] Last Admin: 12/31/17 08:23 Dose: 1 each Dextrose (D50w Syringe) 0 gm IV X1 PRN; Protocol PRN Reason: Hypoglycemia Ergocalciferol (Vitamin D) 50,000 unit PO QMONTH [facility] Last Admin: 12/29/17 11:50 Dose: 50,000 unit Glimepiride (Amaryl) 2 mg PO DAILYCM [facility] Last Admin: 12/31/17 08:17 Dose: 2 mg Glucagon () 1 mg IM .X1 PRN PRN Reason: Hypoglycemia Heparin Sodium (Porcine) (Heparin Na) 5,000 unit SC Q8 [facility] Last Admin: 12/31/17 12:45 Dose: 5,000 u Sodium Chloride () 250 mls @ 15 mls/hr IV .[id number] PRN PRN Reason: SALINE FLUSH Last Admin: 12/30/17 09:45 Dose: 15 mls/hr Cefazolin Sodium 2 gm/ Sodium (Chloride) 110 mls @ 150 mls/hr IV Q8 [facility] Insulin Human Lispro (Humalog Kwikpen (Bkc)) 0 unit SQ TIDAC [facility] PRN Reason: Protocol Last Admin: 12/31/17 12:36 Dose: 1 u Linagliptin (Tradjenta) 5 mg PO DAILY [facility] Last Admin: 12/31/17 08:20 Dose: 5 mg Losartan Potassium (Cozaar) 100 mg PO QHS PRN PRN Reason: HYPERTENSION Metoprolol Tartrate (Lopressor (Beta Elizabeth)) 50 mg PO BID PRN PRN PRN Reason: HYPERTENSION Multivit/Ca Carb/B Cmplx/FA/Prenat (Nephrocaps, Renaphro) 1 capsule PO QHS [facility] Last Admin: 12/30/17 22:42 Dose: 1 capsule Nutritional Formula (Nepro Carb Steady) 120 ml PO 4X/DAY [facility] Last Admin: 12/31/17 12:42 Dose: 120 ml Oxycodone HCl (Oxyir) 5 mg PO Q4H PRN PRN PRN Reason: Moderate Pain (pain scale 4-5) Last Admin: 12/30/17 07:17 Dose: 5 mg Senna/Docusate Sodium (Senokot-S, Belia-Colace) 2 tablet PO DAILY [facility] Last Admin: 12/31/17 08:18 Dose: 2 tablet Sevelamer Carbonate (Renvela) 3,200 mg PO TIDCM [facility] Sodium Chloride () 5 - 30 ml IV UD PRN PRN Reason: SALINE FLUSH Last Admin: 12/29/17 06:25 Dose: 10 ml Venlafaxine HCl (Effexor Xr) 37.5 mg PO DAILY [facility] Last Admin: 12/31/17 08:17 Dose: 37.5 mg Medical Necessity - Tobacco Use Smoking Status: Former smoker Assessment/Plan All Active Problems Cellulitis (Acute) Peripheral vascular occlusive disease (Acute) Infected open wound (Acute) 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 1. Multiple MSSA abscesses/cellulitis of the right axilla/anterior chest wall, status post I&D, general surgery consulted, I&D planned for possibly tomorrow by Dr. Knox. MRSA PCR is negative, MSSA positive, ID consulted, switch patient to cefazolin, will continue as such. 2. Hypokalemia, K is 3.2, will replace with potassium, follow renal panel in am. 3. ESRD on peritoneal dialysis, no electrolyte imbalances seen except for hyponatremia, nephrology consulted. 4. Type 2 diabetes, HbA1c 6.0, blood sugars are fairly controlled, on Amaryl, Tradjenta, Accu-Cheks with insulin sliding scale 5. Anemia of CKD, hemoglobin is stable. 6. 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 Hypertension, controlled, continue home medications 8. Depression, on Effexor 9. DVT prophylaxis with heparin subcu
[2017-12-31 14:18] VITALS: BP 159/99; PULSE 85; RESP 18; TEMP 37.1; O2SAT 99
[2017-12-31 16:01] LABS: Bedside Glucose 185 mg/dL (70-110)
[2017-12-31] MEDS: SEVELAMER CARBONATE 800 MG TABLET 3200 MG PO (16:07)
[2017-12-31] MEDS: Cefazolin 1 GM/50 ML BAG IV (18:23)
--- NOTE | 2017-12-31 21:20 | DIALYSIS ---
CCPD initiated at 2052 using aseptic technique. Using 3 bags of 2.5% dextrose solution. Catheter dressing changed. No problems noted. Effluent drainage is clear and yellow. No fibrin noted. Initial drain and fill complete. Report was given to AMANDA Laurent.
[2017-12-31 22:28] VITALS: BP 139/83; PULSE 83; RESP 18; TEMP 37.2; O2SAT 99
[2017-12-31] MEDS: Folic Acid/Vitamin B Comp W-C 1 Capsule 1 CAP PO (22:31)
[2017-12-31 22:41] LABS: Bedside Glucose 258 mg/dL (70-110)
[2018-01-01 02:47] VITALS: BP 142/86; PULSE 80; RESP 18; TEMP 37.1; O2SAT 98
[2018-01-01] MEDS: Insulin Lispro 100 UNIT/ML INSULN.PEN SQ ×2 (06:05→11:44)
[2018-01-01] MEDS: Heparin Injection (Vial) 5,000 UNIT/ML VIAL 5000 UNIT SC (06:06)
[2018-01-01 06:26] LABS: Bedside Glucose 279 mg/dL (70-110)
[2018-01-01 06:35] LABS: Albumin, Serum 2.1 g/dL (3.2-5.0); BUN 61 mg/dL (7-18); BUN/Creat Ratio 6.3 RATIO (10-20); Calcium,Total 8.7 mg/dL (8.5-10.1); Chloride 92 mmol/L (98-107); Creatinine, Serum 9.71 mg/dL (0.70-1.30); EST Glomerular Filtration Rate 6 mL/min (>60); Est Glom Filt Rate - Afr Amer 7 mL/min (>60); Estimated Creatinine Clearance 8.32 ml/min; Glucose 260 mg/dL (74-106); Phosphorus 5.1 mg/dL (2.5-4.9); Potassium 3.2 mmol/L (3.5-5.1); Sodium Level 133 mmol/L (136-145)
[2018-01-01 08:50] VITALS: BP 130/75; PULSE 90; RESP 18; TEMP 37.3; O2SAT 99
--- NOTE | 2018-01-01 08:50 | DIALYSIS ---
CCPD tx completed. Net UF -1766ml. Effluent clear, pale yellow, no fibrin noted. Pt w/o complaint.
--- NOTE | 2018-01-01 08:53 | PCM.PN.REN ---
Patient Problems: Active and Suspected Problems Cellulitis (Acute) Subjective: UF 1766 with dialysis last night using all 2.5%. No fibrin, clear effluent. Afebrile. - Physical Exam General: Alert, Oriented x3, Cooperative Oral: Dry Mucosa Neck: Supple Lungs: Clear to auscultation Cardiovascular: Regular rate Abdomen: Bowel Sounds Present, Soft, Non Tender Extremities: No edema Skin: - - cellulitis Psych/Mental Status: Normal Affect, Alert and oriented to time, place, person, mood and affect Vital Signs Temp Pulse Resp BP Pulse Ox 98.7 F 80 18 142/86 H 98 01/01/18 02:47 01/01/18 02:47 01/01/18 02:47 01/01/18 02:47 01/01/18 02:47 Oxygen Delivery Method Room Air Weight: 129.5 kg Body Mass Index (BMI) 43.4 Intake and Output for Last 24 Hours 12/30/17 12/31/17 01/01/18 23:59 23:59 23:59 Intake Total 3385 / 3385 362 / 362 850 / 850 Output Total 3961 / 3961 0 / 0 Balance -576 / -576 362 / 362 850 / 850 Microbiology Past 72 Hours 12/29/17 00:05 Gram Stain - Final Abs - Axillary Wound Culture - Final Staphylococcus aureus Anaerobic Culture - Final No anaerobic bacteria isolated. 12/29/17 00:05 Gram Stain - Final Abs - Chest Wound Culture - Final Staphylococcus aureus Anaerobic Culture - Final No anaerobic bacteria isolated. 12/28/17 22:30 Blood Culture - Preliminary Blood Culture (Wb) - Anticubital Left No growth in 48 hours. Laboratory Tests Past 24 Hrs 12/31/17 01/01/18 08:25 05:30 Sodium 133 L 133 L Potassium 3.2 L 3.2 L Chloride 93 L 92 L Carbon Dioxide 29.0 29.0 BUN 61 H 61 H Creatinine 9.80 H* 9.71 H* Estim Creat Clear Calc 8.24 8.32 Est GFR (MDRD) Af Amer 7 L 7 L Est GFR (MDRD) Non-Af 6 L 6 L BUN/Creatinine Ratio 6.2 L 6.3 L Glucose 132 H 260 H Calcium 8.5 8.7 Phosphorus 5.4 H 5.1 H Albumin 2.1 L 2.1 L POC Glucose 01/01/18 12/31/1718 06:03 22:27 15:55 POC Glucose 279 H 258 H 185 H 12/31/17 12:00 POC Glucose 197 H Medical Necessity - Tobacco Use Smoking Status: Former smoker Assessment/Plan All Active Problems Cellulitis (Acute) Peripheral vascular occlusive disease (Acute) Infected open wound (Acute) 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 ESRD on CCPD. 2. Acute cellulitis, abscess, folliculitis right chest wall, axilla with staph aureus 3. HTN stable 4. DM2 stable 5. Anemia stable 6 protein/calorie malnutrition, add supplements 7. Hypokalemia replace, will likely increase when back to regular diet at home.
[2018-01-01] MEDS: SEVELAMER CARBONATE 800 MG TABLET 3200 MG PO ×2 (09:14→11:45)
[2018-01-01] MEDS: CHLORHEXIDINE GLUC 2% CLOTH 1 EACH TOWELETTE TOPICAL (09:15)
[2018-01-01] MEDS: Glimepiride 2 MG Tablet PO (09:15)
[2018-01-01] MEDS: Venlafaxine XR 37.5 MG Capsule PO (09:16)
[2018-01-01] MEDS: Senna/Docusate Sodium 1 Tablet 2 TABLET PO (09:16)
[2018-01-01] MEDS: LINAGLIPTIN 5 MG TABLET PO (09:17)
--- NOTE | 2018-01-01 09:21 | PCM.DC ---
- Discharge Diagnoses Current Active Problems: Current Active and Chronic Problems Cellulitis (Acute) Reason(s) for Visit for Discharge Instructions: Abscesses You will use the following diet at home:: Calorie/Carbohydrate Controlled (specify 1200, 1400, etc), Cardiac Your food should be the consistency of: Regular Your liquids should be the consistency of: Regular/Thin Discharge Activity: Return to Normal Activity Additional Instructions: Change your wound dressing and packing twice a day. Let your primary care doctor or surgeon know if you develop fever, chills, redness or worsening draining over the areas of your wounds. Use your antiseptic wash daily to prevent further skin infections. Continue to monitor your blood glucose at least 3 times a day. Let your physician know about your blood glucose readings. Allergies/Adverse Reactions: Allergies No Known Allergies Allergy (Verified 11/14/16 12:47) Medications to take at Discharge Ferrous Sulfate 325 mg PO DAILY 06/21/15 Ergocalciferol [Vitamin D] 50,000 unit PO QMONTH 03/12/16 B Complex W-C No.20/Folic Acid [Nephrocaps Softgel] 1 mg PO QHS 10/29/16 Sennosides/Docusate Sodium [Docusate Sodium-Senna Tablet] 1 each PO DAILY 10/29/16 Sitagliptin Phosphate [Januvia] 25 mg PO DAILY 10/29/16 Acetaminophen [Tylenol Tablet] 650 mg PO Q6H PRN PRN tablet 11/20/16 Glucagon 1 mg IM .X1 PRN syringe 11/20/16 Amlodipine [Norvasc] 10 mg PO DAILY 12/28/17 Losartan Potassium 100 mg PO QHS PRN 12/28/17 Metoprolol Tartrate [Lopressor (beta dary)] 50 mg PO BID 12/28/17 Sevelamer Carbonate [Renvela] 4,800 mg PO TIDCM 12/28/17 Venlafaxine XR [Effexor Xr] 1 cap PO DAILY 12/28/17 hydrALAZINE [Apresoline] 25 mg PO Q8H PRN PRN 12/29/17 Cephalexin [Keflex] 500 mg PO TID #21 cap 01/01/18 Chlorhexidine Gluconate [Kalyani-Hex] 118 ml TP DAILY 30 Days #1 liquid 01/01/18 Glimepiride [Amaryl] 4 mg PO DAILY #30 tab 01/01/18 Oxycodone [Oxyir] 5 mg PO Q4H PRN PRN 5 Days #10 tablet 01/01/18 The following prescriptions were given: Oxycodone [Oxyir] 5 mg PO Q4H PRN PRN 5 Days #10 tablet PRN Reason: Moderate Pain (pain scale 4-5) Glimepiride [Amaryl] 4 mg PO DAILY #30 tab Cephalexin [Keflex] 500 mg PO TID #21 cap Primary Care Physician: Gildardo Trejo MD [Primary Care Provider] - Please follow up with your Primary Care Physician in: within 1 week Test Results: Test results from this visit will be discussed in further detail at your follow-up appointment, if applicable. Please Follow Up With: Sofy Hansen DO When: as scheduled Proposed Discharge Date: 01/01/18
[2018-01-01] MEDS: Cefazolin 1 GM/50 ML BAG IV (09:22)
[2018-01-01] MEDS: Nepro Liquid 120 ML LIQUID PO (09:22)
[2018-01-01] MEDS: 0.9% NaCl Peripheral Flush Adult/Peds IV (09:26)
--- NOTE | 2018-01-01 09:31 | DCINST_ITS ---
- Discharge Diagnoses Current Active Problems: Current Active and Chronic Problems Cellulitis (Acute) Reason(s) for Visit for Discharge Instructions: Abscesses You will use the following diet at home:: Calorie/Carbohydrate Controlled ( specify 1200, 1400, etc), Cardiac Your food should be the consistency of: Regular Your liquids should be the consistency of: Regular/Thin Discharge Activity: Return to Normal Activity Additional Instructions: Change your wound dressing and packing twice a day. Let your primary care doctor or surgeon know if you develop fever, chills, redness or worsening draining over the areas of your wounds. Use your antiseptic wash daily to prevent further skin infections. Continue to monitor your blood glucose at least 3 times a day. Let your physician know about your blood glucose readings. Allergies/Adverse Reactions: Allergies No Known Allergies Allergy (Verified 11/14/16 12:47) Medications to take at Discharge Ferrous Sulfate 325 mg PO DAILY 06/21/15 Ergocalciferol [Vitamin D] 50,000 unit PO QMONTH 03/12/16 B Complex W-C No.20/Folic Acid [Nephrocaps Softgel] 1 mg PO QHS 10/29/16 Sennosides/Docusate Sodium [Docusate Sodium-Senna Tablet] 1 each PO DAILY Sitagliptin Phosphate [Januvia] 25 mg PO DAILY 10/29/16 Acetaminophen [Tylenol Tablet] 650 mg PO Q6H PRN PRN tablet 11/20/16 Glucagon 1 mg IM .X1 PRN syringe 11/20/16 Amlodipine [Norvasc] 10 mg PO DAILY 12/28/17 Losartan Potassium 100 mg PO QHS PRN 12/28/17 Metoprolol Tartrate [Lopressor (beta dary)] 50 mg PO BID 12/28/17 Sevelamer Carbonate [Renvela] 4,800 mg PO TIDCM 12/28/17 Venlafaxine XR [Effexor Xr] 1 cap PO DAILY 12/28/17 hydrALAZINE [Apresoline] 25 mg PO Q8H PRN PRN 12/29/17 Cephalexin [Keflex] 500 mg PO TID #21 cap 01/01/18 Chlorhexidine Gluconate [Kalyani-Hex] 118 ml TP DAILY 30 Days #1 liquid 01/01/18 Glimepiride [Amaryl] 4 mg PO DAILY #30 tab 01/01/18 Oxycodone [Oxyir] 5 mg PO Q4H PRN PRN 5 Days #10 tablet 01/01/18 The following prescriptions were given: Oxycodone [Oxyir] 5 mg PO Q4H PRN PRN 5 Days #10 tablet PRN Reason: Moderate Pain (pain scale 4-5) Glimepiride [Amaryl] 4 mg PO DAILY #30 tab Cephalexin [Keflex] 500 mg PO TID #21 cap Primary Care Physician: Gildardo Trejo MD [Primary Care Provider] - Please follow up with your Primary Care Physician in: within 1 week Test Results: Test results from this visit will be discussed in further detail at your follow- up appointment, if applicable. Please Follow Up With: Sofy Hansen DO When: as scheduled Proposed Discharge Date: 01/01/18
--- NOTE | 2018-01-01 09:31 | PCM.DC.SUM ---
Discharge Date and Diagnosis Date of Admission: 12/28/17 Date of Discharge: 01/01/18 - Primary Discharge Diagnosis Active and Suspected Problems Cellulitis (Acute) Multiple MSSA abscesses-right axilla and anterior chest wall Hypokalemia Hyperglycemia - Secondary Discharge Diagnosis Chronic Problems Peripheral autonomic neuropathy due to secondary diabetes (Chronic) Murmur, cardiac (Chronic) Chronic anemia (Chronic) Chronic kidney disease, stage III (moderate) (Chronic) Type 2 diabetes mellitus (Chronic) Hypertension (Chronic) Hospital Course and Treatment General surgery, ID Operations: None Procedures: - - Status post multiple bedside I&D Summary of Care Provided: 57-year-old male with past medical history of type II DM, ESRD on peritoneal dialysis, hypertension, morbid obesity comes in with complaints of right axillary and anterior chest abscesses ongoing for about 2 weeks. 1. Multiple MSSA abscesses/cellulitis of the right axilla/anterior chest wall, status post I&D, general surgery infectious disease consulted, MRSA PCR is negative, MSSA positive. Multiple bedside I&D done. Patient initially started on vancomycin and Zosyn and later on switched to cefazolin. Discharged on Keflex 500 mg p.o. twice daily for 1 more week. He was given chlorhexidine wash to help to decolonize. He will follow-up with general surgery in a week and also ID in a month. 2. Hypokalemia, replaced, need to recheck potassium in 3 days, will follow with Dr. Hansen. 3. ESRD on peritoneal dialysis, given peritoneal dialysis whilst in the hospital, will follow in the outpatient with Dr. Hansen. 4. Type 2 diabetes, HbA1c 6.0, blood sugars are fairly controlled, on Amaryl, Tradjenta, Accu-Cheks with insulin sliding scale 5. Anemia of CKD, hemoglobin is stable. 6. Hyperphosphatemia secondary to ESRD, on Renvela 7. Hypertension, controlled 8. Depression, on Effexor Discharge Diet: Low fat/ Low Cholesterol, 2000 mg Sodium Diet, Carb Control Diet Discharge Activity: Return to Normal Activity Home Medications: Medications to take at Discharge Ferrous Sulfate 325 mg PO DAILY 06/21/15 Ergocalciferol [Vitamin D] 50,000 unit PO QMONTH 03/12/16 B Complex W-C No.20/Folic Acid [Nephrocaps Softgel] 1 mg PO QHS 10/29/16 Sennosides/Docusate Sodium [Docusate Sodium-Senna Tablet] 1 each PO DAILY 10/29/16 Sitagliptin Phosphate [Januvia] 25 mg PO DAILY 10/29/16 Acetaminophen [Tylenol Tablet] 650 mg PO Q6H PRN PRN tablet 11/20/16 Glucagon 1 mg IM .X1 PRN syringe 11/20/16 Amlodipine [Norvasc] 10 mg PO DAILY 12/28/17 Losartan Potassium 100 mg PO QHS PRN 12/28/17 Metoprolol Tartrate [Lopressor (beta dary)] 50 mg PO BID 12/28/17 Sevelamer Carbonate [Renvela] 4,800 mg PO TIDCM 12/28/17 Venlafaxine XR [Effexor Xr] 1 cap PO DAILY 12/28/17 hydrALAZINE [Apresoline] 25 mg PO Q8H PRN PRN 12/29/17 Cephalexin [Keflex] 500 mg PO Q12 7 Days #14 cap 01/01/18 Chlorhexidine Gluconate [Kalyani-Hex] 118 ml TP DAILY 30 Days #1 liquid 01/01/18 Glimepiride [Amaryl] 4 mg PO DAILY #30 tab 01/01/18 Insulin Lispro [Humalog KwikPen] See Protocol SQ TIDAC #1 insuln.pen 01/01/18 Oxycodone [Oxyir] 5 mg PO Q4H PRN PRN 5 Days #10 tablet 01/01/18 Following Prescrptions Were Given to Patient: Oxycodone [Oxyir] 5 mg PO Q4H PRN PRN 5 Days #10 tablet PRN Reason: Moderate Pain (pain scale 4-5) Cephalexin [Keflex] 500 mg PO Q12 7 Days #14 cap Chlorhexidine Gluconate [Kalyani-Hex] 118 ml TP DAILY 30 Days #1 liquid Glimepiride [Amaryl] 4 mg PO DAILY #30 tab Insulin Lispro [Humalog KwikPen] See Protocol SQ TIDAC #1 insuln.pen Other Amb Orders: Basic Metabolic Profile (BMP) Location: Laboratory Primary Care Physician: Gildardo Trejo MD [Primary Care Provider] - Please follow up with your Primary Care Physician in: within 1 week Please Follow Up With: Sofy Hansen DO When: as scheduled Disposition: Home with Home Health Minutes spent on discharge:: 40 Patient Condition:: Stable Medical Necessity - Tobacco Use Smoking Status: Former smoker Meaningful Use Info Meaningful Use Diagnoses (Choose all that apply): None applicable Code Visit Inpatient E&M: 43365 Disch Hosp
--- NOTE | 2018-01-01 10:29 | CASEMGMT ---
RN CM discussed discharge needs with patient. Patient denies need for HHC. Patient states that has done dressing changes in the past. RN CM offered to have wound nurse teach when she comes in and patient denied teaching. CM will continue to follow this patient and plan for a safe discharge.
--- NOTE | 2018-01-01 10:51 | PCM.PN.ID ---
Patient Problems: Active and Suspected Problems Cellulitis (Acute) Subjective: Feeling better, less pain, less redness, no fever. - Physical Exam General: Alert, Cooperative, No apparent distress Lungs: Clear to auscultation, Normal air movement Cardiovascular: Regular rate, Regular Rhythm Abdomen: Soft, Non Tender, Non-Distended Skin: Ulcer/ Wound - improved redness and induration Vital Signs Temp Pulse Resp BP Pulse Ox 99.1 F 90 18 130/75 H 99 01/01/18 08:50 01/01/18 08:50 01/01/18 08:50 01/01/18 08:50 01/01/18 08:50 Oxygen Delivery Method Room Air Weight: 129.5 kg Body Mass Index (BMI) 43.4 Intake and Output for Last 24 Hours 12/30/17 12/31/17 01/01/18 23:59 23:59 23:59 Intake Total 3385 / 3385 362 / 362 850 / 850 Output Total 3961 / 3961 0 / 0 1766 / 1766 Balance -576 / -576 362 / 362 -916 / -916 Microbiology Past 72 Hours 12/29/17 00:05 Gram Stain - Final Abs - Axillary Wound Culture - Final Staphylococcus aureus Anaerobic Culture - Final No anaerobic bacteria isolated. 12/29/17 00:05 Gram Stain - Final Abs - Chest Wound Culture - Final Staphylococcus aureus Anaerobic Culture - Final No anaerobic bacteria isolated. 12/28/17 22:30 Blood Culture - Preliminary Blood Culture (Wb) - Anticubital Left No growth in 48 hours. Laboratory Tests Past 24 Hrs 01/01/18 05:30 Sodium 133 L Potassium 3.2 L Chloride 92 L Carbon Dioxide 29.0 BUN 61 H Creatinine 9.71 H* Estim Creat Clear Calc 8.32 Est GFR (MDRD) Af Amer 7 L Est GFR (MDRD) Non-Af 6 L BUN/Creatinine Ratio 6.3 L Glucose 260 H Calcium 8.7 Phosphorus 5.1 H Albumin 2.1 L POC Glucose 01/01/18 12/31/17 12/31/17 06:03 22:27 15:55 POC Glucose 279 H 258 H 185 H 12/31/17 12:00 POC Glucose 197 H Medical Necessity - Tobacco Use Smoking Status: Former smoker Route of nutrition/ use of supplements: [] Nutritional Intake: [] IV Site: [] Alexander Catheter: [] - Assessment/Plan Antibiotics: [] Assessment/Plan: [] Active and Suspected Problems Cellulitis (Acute) R axilla and chest MSSA abscesses - improving s/p I&D. Cxs and pcr show mssa. Ok for d/c home on po keflex bid for 7 more days. ID follow-up for decolonization. Will follow, d/w primary team.
--- NOTE | 2018-01-01 10:55 | CASEMGMT ---
AMANDA DUNCAN updated by Dr. May that she spoke with patient and he is agreeable to [facility] for wound care and teaching and training regarding blood sugars. RN DAKOTA called [facility] and they would be able to see the patient 01/03. AMANDA DUNCAN updated Dr. May regarding start of care for 01/03 and is okay with start of care for 01/03. Patient is agreeable for HHC with [facility]. CM will continue to follow this patient and plan for a safe discharge.
[2018-01-01 11:46] LABS: Bedside Glucose 240 mg/dL (70-110)
--- NOTE | 2018-01-01 13:02 | PCM.PN.SRG ---
Patient Problems: Active and Suspected Problems Cellulitis (Acute) - Physical Exam General: Alert, Oriented x3, Cooperative Skin: - - right axillary area.-Still decreased erythema, but significant induration. Dressing was removed. No significant necrotic tissue. Site was repacked. Mid chest wound-more demarcation between necrotic and viable tissue.overall decreased erythema consent was obtained. The chest area was prepped and draped with Betadine in the usual fashion. One percent lidocaine was injected. The edges of the abscess cavity were debrided to viable tissue. Deeper necrotic tissue was debrided. There was slight undermining in the left superior aspect, but otherwise no significant undrained pus. The site was packed with plain gauze and a dressing applied Vital Signs Temp Pulse Resp BP Pulse Ox 99.1 F 90 18 130/75 H 99 01/01/18 08:50 01/01/18 08:50 01/01/18 08:50 01/01/18 08:50 01/01/18 08:50 Oxygen Delivery Method Room Air Weight: 129.5 kg Body Mass Index (BMI) 43.4 Intake and Output for Last 24 Hours 12/30/17 12/31/17 01/01/18 23:59 23:59 23:59 Intake Total 3385 / 3385 362 / 362 850 / 850 Output Total 3961 / 3961 0 / 0 1766 / 1766 Balance -576 / -576 362 / 362 -916 / -916 Microbiology Past 72 Hours 12/29/17 00:05 Gram Stain - Final Abs - Axillary Wound Culture - Final Staphylococcus aureus Anaerobic Culture - Final No anaerobic bacteria isolated. 12/29/17 00:05 Gram Stain - Final Abs - Chest Wound Culture - Final Staphylococcus aureus Anaerobic Culture - Final No anaerobic bacteria isolated. 12/28/17 22:30 Blood Culture - Preliminary Blood Culture (Wb) - Anticubital Left No growth in 48 hours. Laboratory Tests Past 24 Hrs 01/01/18 05:30 Sodium 133 L Potassium 3.2 L Chloride 92 L Carbon Dioxide 29.0 BUN 61 H Creatinine 9.71 H* Estim Creat Clear Calc 8.32 Est GFR (MDRD) Af Amer 7 L Est GFR (MDRD) Non-Af 6 L BUN/Creatinine Ratio 6.3 L Glucose 260 H Calcium 8.7 Phosphorus 5.1 H Albumin 2.1 L POC Glucose 07/01/01/18 12/31/17 11:41 06:03 22:27 POC Glucose 240 H 279 H 258 H 12/31/17 15:55 POC Glucose 185 H Medical Necessity - Tobacco Use Smoking Status: Former smoker Assessment/Plan All Active Problems Cellulitis (Acute) Peripheral vascular occlusive disease (Acute) Infected open wound (Acute) 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 Will likely need to debrid chest wound tomorrow Patient is getting peritoneal dialysis. Understand with his minimal urine output. His vancomycin levels may stay elevated for some time.his random vancomycin level was 15. I asked for them to hold the heparin for the next 24 hours. Clinically, this still seems consistent with an MRSA infection. We will await for repeat culture. okay with the patient being discharged home with plans for twice a day moist to dry dressing changes for the axilla and chest. I will see the patient next Friday in the office.
--- NOTE | 2018-01-01 13:53 | CASEMGMT ---
AMANDA DUNCAN updated by [facility] that patient is out of service area. Patient is agreeable to any [facility] in network with his insurance. AMANDA DUNCAN sent referral to [facility] and they are able to accept the patient. First day of care is planned for 01/02/18. AMANDA DUNCAN updated the patient regarding HHC company and acceptance.
[2018-01-01 14:13] VITALS: BP 136/72; PULSE 94; RESP 18; TEMP 36.8; O2SAT 97
--- NOTE | 2018-01-02 16:24 | CASEMGMT ---
AMANDA DUNCAN DC PHONE CALL. Intro role of CM to patient via phone. No questions re: DC instructions or f/u appointments. Pt states he has received prescriptions, no questions. AMANDA DUNCAN inquired on care @ [facility]- pt states he received great care, no suggestions. Tres HEADN RN ACM
== END 2018-01-01 14:07 | disposition home health service (06) | DRG 602 ==
LOC: ED 20:01 → MS3 21:44
PROVIDERS: Internal Medicine Nephrology; Admitting Provider Internal Medicine; Emergency Provider Emergency Medicine; Family Provider Family Medicine; PCP Family Medicine; Visit Provider Internal Medicine
DX: L03.111 Cellulitis of right axilla (principal); A49.01 Methicillin susceptible Staphylococcus aureus infection, unspecified site; L03.313 Cellulitis of chest wall; N18.6 End stage renal disease; G61.0 Guillain-Barre syndrome; I12.0 Hypertensive chronic kidney disease with stage 5 chronic kidney disease or end stage renal disease; Z68.41 Body mass index [BMI] 40.0-44.9, adult; N17.9 Acute kidney failure, unspecified; E46 Unspecified protein-calorie malnutrition; L73.9 Follicular disorder, unspecified; E87.6 Hypokalemia; L89.622 Pressure ulcer of left heel, stage 2; I73.9 Peripheral vascular disease, unspecified; E11.22 Type 2 diabetes mellitus with diabetic chronic kidney disease; E11.43 Type 2 diabetes mellitus with diabetic autonomic (poly)neuropathy; R01.1 Cardiac murmur, unspecified; E83.39 Other disorders of phosphorus metabolism; D63.1 Anemia in chronic kidney disease; F32.9 Major depressive disorder, single episode, unspecified; E66.01 Morbid (severe) obesity due to excess calories; Z87.891 Personal history of nicotine dependence; Z99.2 Dependence on renal dialysis; Z79.4 Long term (current) use of insulin
CPT/HCPCS: 10060; 36415; 80048; 80069; 80202; 82962; 83036; 84100; 85025; 85027; 85652; 87040; 87070; 87075; 87077; 87186; 87205; 87640; 90947; 97110; 97116; 97162; 97165; 97530; 97802; 99282; J7040; J7050; A4216; G0257

== ENCOUNTER → 2018-03-26 09:23 | Outpatient (CLI) | payer OTHER, MEDICARE, SELFPAY ==
[2018-03-26 10:22] LABS: Color, Urine Yellow (Yellow); Glucose, Dipstick 50 mg/dl (Normal); Ketone-Dipstick Negative (Negative); Leukocyte Esterase-Dipstick 100 /ul (Negative); Nitrite-Dipstick Negative (Negative); Occult Blood-Urine 150 /ul (Negative); Protein-Dipstick 500 mg/dl (Negative); Specific Gravity, Urine 1.015 (1.002-1.030); Urine Bilirubin Dipstick Negative (Negative); Urine Clarity Sl. Cloudy (Clear); Urine Urobilinogen Normal (Normal)
[2018-03-26 10:29] LABS: Absolute Lymphocyte Count 0.68 X10^3/ul (0.83-4.51); Absolute Neutrophil Count 4.4 X10^3/uL (2.0-7.7); Basophil# 0.05 X10^3/uL; Basophil% 0.8 % (0-1); Eosinophil# 0.45 X10^3/uL; Eosinophils% 7.3 % (0-5); Hematocrit 30.3 % (40-54); Hemoglobin 9.5 g/dl (13.0-16.5); Lymphocyte # 0.68 X10^3/ul (4.0); Mean Corp Hgb Conc 31.4 g/gl (32-36); Mean Corpuscular Hgb 29.1 pg (27.0-32.0); Mean Corpuscular Volume 92.7 fL (80-94); Mean Platelet Vol. 9.2 fl (6.2-12.0); Monocyte# 0.57 X10^3/uL; Monocyte% 9.2 % (0-10); Neutrophil # 4.37 X10^3/uL (2.7-7.7); Neutrophil % 70.9 % (47-70); Platelet Count 202 K/mm3 (150-450); RBC Distribution Width CV 16.2 % (11.6-14.6); RBC Distribution Width SD 52.4 fl (35.1-43.9); Red Blood Count 3.27 M/mm3 (4.6-6.2); White Blood Count 6.2 K/mm3 (4.4-11.0)
[2018-03-26 10:32] LABS: POSITIVE COUNT NO; POSITIVE DIFFERENTIAL NO; POSITIVE MORPHOLOGY NO
[2018-03-26 10:44] LABS: Hemoglobin A1c 5.9 % (4.2-6.3)
[2018-03-26 11:13] LABS: ALB/GLOB Ratio 0.7 RATIO (0.9-2.4); AST(SGOT) 16 U/L (15-37); Alanine Aminotransfer ALT/SGPT 24 U/L (16-61); Albumin, Serum 2.7 g/dL (3.2-5.0); Alkaline Phosphatase 82 U/L (45-117); Anion Gap 11 (5-15); BUN 66 mg/dL (7-18); BUN/Creat Ratio 7.8 RATIO (10-20); Calcium,Total 8.3 mg/dL (8.5-10.1); Chloride 99 mmol/L (98-107); Cholesterol 119 mg/dL (200); Creatinine, Serum 8.44 mg/dL (0.70-1.30); EST Glomerular Filtration Rate 7 mL/min (>60); Est Glom Filt Rate - Afr Amer 9 mL/min (>60); Globulin 3.9 g/dL (2.2-4.2); Glucose 111 mg/dL (74-106); High Density Lipoprotein 31 mg/dL; Potassium 3.4 mmol/L (3.5-5.1); Protein, Total 6.6 g/dL (6.4-8.2); Sodium Level 136 mmol/L (136-145); Triglycerides 129 mg/dL; Very Low Density Lipoprotein 26 mg/dL (5-40)
== END ==
PROVIDERS: Family Provider Family Medicine; PCP Family Medicine; Referring Provider Family Medicine; Visit Provider Family Medicine
DX: Z00.00 Encounter for general adult medical examination without abnormal findings (principal); I10 Essential (primary) hypertension; E11.65 Type 2 diabetes mellitus with hyperglycemia; Z12.5 Encounter for screening for malignant neoplasm of prostate
CPT/HCPCS: 36415; 80053; 80061; 81002; 83036; 84153; 85025; G0103

== ENCOUNTER 2018-08-31 12:18 | Emergency (ER) | payer OTHER, MEDICARE, SELFPAY ==
[2018-08-31 12:20] VITALS: BP 119/80; PULSE 82; RESP 18; TEMP 37; O2SAT 97; BMI 41.6
--- NOTE | 2018-08-31 14:05 | ED.VIS.GEN ---
History of Present Illness Chief Complaint: Chest Other Informant: Patient Narrative: Patient accidentally ingested an entire course of Levaquin 500 mg, #7 pills 2 days ago. He usually keeps his daily medications in a pill bottle, and he ingested the contents of the wrong pill bottle. The anabolic was prescribed to him because of some minor discharge from his peritoneal dialysis catheter site, although the peritoneal dialysis fluid was not cloudy and he has had no abdominal pain. He is also been given antibiotics to put into his peritoneal dialysis fluid as a just in case. He has had no chest discomfort, shortness of breath, palpitations, or syncopal episodes in the past 2-3 days since this occurred. 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 Status: Chronic (7) Type 2 diabetes mellitus Status: Chronic Past Medical History - Allergies and Home Meds Allergies/Adverse Reactions: Allergies No Known Allergies Allergy (Verified 08/31/18 12:19) Primary Care Physician: Gildardo Trejo MD [Primary Care Provider] - Surgical History: noncontributory, - - PD catheter placement Smoking Status: Former smoker - Family History Offspring Family History: Reports: - - Endocarditis Paternal Family History: Reports: Diabetes - ESRD , Heart Disease, Hypertension Review of Systems General: Denies: Chills, Fever Gastrointestinal: Denies: Abdominal pain, Nausea, Vomiting Skin: Reports: Wounds - See HPI. Improved. PD site. Physical Exam Vital Signs/Narrative: Vital Signs Temp Pulse Resp BP Pulse Ox 08/31/18 12:20 98.6 F 82 18 119/80 97 Inital Vital Signs reviewed: Yes General: Well nourished, Well developed, Obese, No Acute Distress Head: Normocephalic, Atraumatic Cardiovascular: Regular rate, Regular rhythm, No murmurs, Normal S1, Normal S2 Respiratory: No distress, CTA bilaterally, Chest nontender Abdomen: Soft, Nontender, Normal bowel sounds. Negative for: Nondistended - Distended with fluid wave, no tenderness Skin: Normal color, No rash, - - Peritoneal dialysis catheter site is benign, nontender, without erythema, and no expressible discharge. Neurological: Alert, Oriented x3, Cranial nerves II-XII grossly intact, Normal Strength, Normal Sensation Psychological: Normal affect, Normal Mood Diagnostic/Tx/Re-eval - Rhythm Strip Rhythm Strip: Sinus Rhythm Rate: 78 Ectopy: None - EKG Initial EKG Interpretation: Sinus Rhythm, No Acute Injury Pattern, AV Block - 1st deg, - - QT is prolonged, however QTC is less than on his old EKG several years ago, it currently is 487 it was 500 ms. - Medical Decision Making Reassured patient, discussed with Dr. Hansen who agrees with him being safe for discharge. ED Disposition - Plan for ED Patient: Disposition: Home or Assisted Living Diagnosis: Accidental drug overdose Instructions: ED Overdose Accidental Referrals: Gildardo Trejo MD [Primary Care Provider] - As Needed
--- NOTE | 2018-08-31 14:09 | EKG12_ITS ---
Test Reason : Blood Pressure : / mmHG Vent. Rate : 078 BPM Atrial Rate : 078 BPM P-R Int : 218 ms QRS Dur : 148 ms QT Int : 428 ms P-R-T Axes : 026 063 123 degrees QTc Int : 487 ms Sinus rhythm with 1st degree A-V block Non-specific intra-ventricular conduction block Abnormal ECG Confirmed by BRENNAN FLEMING, ZA ([id number]), news videotape editor MICHAEL JIMENEZ ([id number]) on 09/02/2018 1:53:22 PM Referred By: MARILYN/BROOKE Confirmed By:ZA AMIN MD
== END 2018-08-31 14:31 | disposition home or self-care (01) ==
LOC: ED 14:17
PROVIDERS: Emergency Provider Emergency Medicine; Family Provider Family Medicine; PCP Family Medicine
DX: T36.8X1A Poisoning by other systemic antibiotics, accidental (unintentional), initial encounter (principal); Y92.9 Unspecified place or not applicable; I73.9 Peripheral vascular disease, unspecified; D64.9 Anemia, unspecified; N18.3 Chronic kidney disease, stage 3 (moderate); I12.9 Hypertensive chronic kidney disease with stage 1 through stage 4 chronic kidney disease, or unspecified chronic kidney disease; E11.43 Type 2 diabetes mellitus with diabetic autonomic (poly)neuropathy; Z87.891 Personal history of nicotine dependence; G61.0 Guillain-Barre syndrome; Z99.2 Dependence on renal dialysis
CPT/HCPCS: 93005; 99282

== ENCOUNTER → 2019-03-10 13:52 | Outpatient (CLI) | payer MEDICARE, OTHER, SELFPAY ==
--- NOTE | 2019-03-10 12:30 | LES_PTH ---
PATIENT: KATELIN RIVERA LOC: [facility] U#:[id number] AGE/SX: 64/M ROOM: RE03/10/[address]: Dr. Yosef Franks MD : [id number] BED: DIS: SPEC #: [id number] RECD: 03/10/19 13:35 STATUS: JEAN CARLOS JAME #: [id number] RAUL: 03/10/19 12:[address]: Yosef Franks DEPT: SURGICAL PATHOLOGY RECD BY: Fernando Lombardi ENTERED: 03/11/19 08:05 SP TYPE: Lesion OTHR DR: Dr. Gildardo Trejo MD Tissues: A - Skin of face, NOS B - Skin of back, NOS Procedures: Special Stain Group I Surgery Specimen Level III AFB Stain (control) GMS Stain (control) HEADER OPERATION: Wound debridement face and back PRE-OP DIAGNOSIS: Abscess TISSUE SUBMITTED: A - Left mandible tissue, B - Left back tissue MICROSCOPIC DIAGNOSIS A. Left mandible tissue, wound debridement: Pieces of skin and soft tissue with focal ulceration, acute inflammation and abscess formation. Special stains for acid fast bacilli and fungi are negative for organisms; matched controls are appropriate. B. Left back tissue, wound debridement: Pieces of skin and soft tissue with focal ulceration, acute inflammation and abscess formation. Special stains for acid fast bacilli and fungi are negative for organisms; matched controls are appropriate. KENNY:sue 03/12/19 MICROSCOPIC DESCRIPTION Slides are reviewed. GROSS DESCRIPTION A - Received in fixative is one container labeled with the patient's name and designated left mandible. The specimen consists of multiple pieces of skin and soft tissue that in aggregate measure 3 x 3 x 0.5 cm. The entire specimen is submitted in two cassettes. B - Received in fixative is one container labeled with the patient's name and designated left back. The specimen consists of a piece of skin with underlying tissue measuring 1.5 x 1 cm and up to 1 cm in thickness. Also present in the container are two small pieces of gonzalez soft tissue measuring in aggregate 0.5 x 0.5 x 0.2 cm. The largest piece is serially sectioned. The entire specimen is submitted in two cassettes. / KENNY:sue 03/11/19 TC:2 CPT: 90730 x2, 28471 x4
[2019-03-10 12:53] VITALS: BMI 41.6
== END ==
PROVIDERS: Family Provider Family Medicine; PCP Family Medicine; Referring Provider Surgery; Visit Provider Surgery
DX: M27.2 Inflammatory conditions of jaws (principal)
CPT/HCPCS: 87070; 87077; 87081; 87186; 87205; 88304; 88305; 88312

== ENCOUNTER → 2019-03-17 07:36 | Outpatient (CLI) | payer MEDICARE, OTHER, SELFPAY ==
[2019-03-10 12:53] VITALS: BMI 41.6
[2019-03-17 08:21] LABS: Absolute Lymphocyte Count 0.57 X10^3/uL (0.83-4.51); Absolute Neutrophil Count 6.9 X10^3/uL (2.0-7.7); Basophil# 0.08 X10^3/uL; Basophil% 0.9 % (0-1); Eosinophil# 0.49 X10^3/uL; Eosinophils% 5.7 % (0-5); Lymphocyte # 0.57 X10^3/ul (4.0); Lymphocyte % 6.6 % (19-41); Mean Corp Hgb Conc 32.1 g/dL (32-36); Mean Corpuscular Hgb 28.6 pg (27.0-32.0); Mean Corpuscular Volume 88.9 fL (80-94); Mean Platelet Vol. 8.8 fl (6.2-12.0); Monocyte% 4.6 % (0-10); NRBC Flagged by Analyzer 0 % (0-5); Neutrophil # 6.89 X10^3/uL (2.7-7.7); Neutrophil % 80.1 % (47-70); POSITIVE DIFFERENTIAL YES; Platelet Count 219 K/mm3 (150-450); RBC Distribution Width CV 15.1 % (11.6-14.6); RBC Distribution Width SD 49.1 fl (35.1-43.9); Red Blood Count 3.15 M/mm3 (4.6-6.2); White Blood Count 8.6 K/mm3 (4.4-11.0)
[2019-03-17 08:24] LABS: Differential Indicated SCAN CRITERIA MET
[2019-03-17 08:55] LABS: Hemoglobin A1c 4.9 % (4.2-6.3)
[2019-03-17 08:57] LABS: ALB/GLOB Ratio 0.8 RATIO (0.9-2.4); AST(SGOT) 22 U/L (15-37); Alanine Aminotransfer ALT/SGPT 40 U/L (16-61); Alkaline Phosphatase 125 U/L (45-117); Anion Gap 17 (5-15); BUN 79 mg/dL (7-18); BUN/Creat Ratio 7.2 RATIO (10-20); Calcium,Total 8.8 mg/dL (8.5-10.1); Chloride 96 mmol/L (98-107); Cholesterol 142 mg/dL (200); EST Glomerular Filtration Rate 5 mL/min (>60); Est Glom Filt Rate - Afr Amer 6 mL/min (>60); Glucose 125 mg/dL (74-106); High Density Lipoprotein 26 mg/dL; PSA,Total - Annual Screen 0.39 ng/mL (0.00-4.00); Potassium 3.9 mmol/L (3.5-5.1); Sodium Level 136 mmol/L (136-145); Triglycerides 154 mg/dL; Very Low Density Lipoprotein 31 mg/dL (5-40)
== END ==
PROVIDERS: Family Provider Family Medicine; PCP Family Medicine; Referring Provider Family Medicine
DX: I12.0 Hypertensive chronic kidney disease with stage 5 chronic kidney disease or end stage renal disease (principal); N18.6 End stage renal disease; E11.65 Type 2 diabetes mellitus with hyperglycemia; Z12.5 Encounter for screening for malignant neoplasm of prostate
CPT/HCPCS: 36415; 80053; 80061; 83036; 84153; 85025; G0103

== ENCOUNTER 2019-06-05 07:20 | Emergency (ER) | payer MEDICARE, OTHER, SELFPAY ==
[2019-04-06 13:07] VITALS: BMI 41.6
[2019-06-05 07:21] VITALS: BP 99/65; PULSE 86; RESP 18; TEMP 36.6; O2SAT 96; BMI 41.0
--- NOTE | 2019-06-05 07:40 | VDLE_ITS ---
Reason For Study: Swelling Procedure LEFT Exam performed portable in ED. GSV is normal. A preliminary report was called and/or faxed CFV is compressible, spontaneous, phasic, to Bishnu. competent, and demonstrates normal augmentation. FV is compressible, spontaneous, phasic, competent and demonstrates normal augmentation. POP V is compressible, spontaneous, phasic, competent and demonstrates normal augmentation. T/P Trunk is compressible. PTV is compressible. LT PerV is compressible. Interpretation Summary There is no evidence of left lower extremity deep vein thrombosis. Left great saphenous vein appears patent and compressible segmentally. Ordering Physician: Pascual Goetz Referring Physician: Gildardo Trejo Performed By: Brittany Ramirez RVT
--- NOTE | 2019-06-05 07:50 | ED.VIS.GEN ---
History of Present Illness Chief Complaint: Lower Extremity Injury Detail of Chief Complaint: Atraumatic left leg pain and swelling Informant: Patient Onset: Yesterday Context: Sudden Onset Timing: Continuous Quality: Pain Location: Left leg Current Severity: Mild Maximum Severity: Moderate Worsened by: Walking and palpation Relieved by: Nothing Associated Symptoms: Denies chest pain, shortness of breath or history of VTE Narrative: Patient is a middle-age male with multiple medical problems who presents with atraumatic left leg pain with swelling, redness that started yesterday. There is no history of PE or DVT. He does have symptoms of claudication. He has symptoms after walking 100 feet. This is stable and chronic. He denies paresthesia, anesthesia or motor weakness. He denies chest pain, shortness of breath or difficulty breathing. He denies fever, chills or night sweats. 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 Status: Chronic (9) Peripheral vascular occlusive disease Status: Chronic (10) Type 2 diabetes mellitus Status: Chronic Past Medical History - Allergies and Home Meds Allergies/Adverse Reactions: Allergies No Known Allergies Allergy (Verified 06/05/19 07:40) Primary Care Physician: Gildardo Trejo MD [Primary Care Provider] - Prior records reviewed: Yes Surgical History: noncontributory, - - PD catheter placement Lives: Spouse/ Significant Other Smoking Status: Former smoker Alcohol: None Drugs: None - Family History Offspring Family History: Reports: - - Endocarditis Paternal Family History: Reports: Diabetes - ESRD , Heart Disease, Hypertension Review of Systems General: Denies: Chills, Fever, Malaise, Sweats, Weight loss ENT: Denies: Rhinorrhea, Sore throat Cardiovascular: Denies: Chest pain, Palpitations Respiratory: Denies: Dyspnea, Cough, Dyspnea on exertion Gastrointestinal: Denies: Abdominal pain, Nausea, Vomiting, Diarrhea, Melena, Hematochezia Genitourinary: Denies: Dysuria, Hematuria, Frequency Musculoskeletal: Reports: Swelling, Extremity Pain. Denies: Myalgias, Arthralgias, Neck pain, Back pain Skin: Denies: Rash, Wounds Neurological: Reports: Weakness, Parasthesia, Numbness, - - The weakness and paresthesias/numbness is a chronic symptom. Hematologic: Denies: Easy bruising, Easy bleeding Allergy: Denies: Uticaria, Swelling of the mouth Physical Exam Vital Signs/Narrative: Vital Signs Temp Pulse Resp BP Pulse Ox 06/05/19 07:21 98 F 86 18 99/65 96 Inital Vital Signs reviewed: Yes General: Well nourished, Well developed, No Acute Distress Head: Normocephalic, Atraumatic Eyes: Perrl, EOMI ENT: Moist mucous membranes, No rhinorrhea Neck: Supple, Nontender Cardiovascular: Regular rate, Regular rhythm, No murmurs, Normal S1, Normal S2 Respiratory: No distress, CTA bilaterally, Chest nontender Abdomen: Soft, Nontender, Nondistended, Normal bowel sounds Back: Nontender, Normal Inspection Extremities: Tenderness, Edema - Edema is nonpitting, - - Swelling of the left lower extremity. There is slight erythema with tenderness over the calf. DP and PT pulses are nonpalpable. There is biphasic PT pulse. There was no DP flow noted. DP was palpable on the right side. Skin: Normal color, No rash Neurological: Alert, Oriented x3, Cranial nerves II-XII grossly intact, Normal Strength, Normal Sensation Psychological: Normal affect, Normal Mood Diagnostic/Tx/Re-eval - Medical Decision Making Basic metabolic panel was obtained to assess renal function in the event patient needs to be anticoagulated as well as to assess blood sugar and electrolytes in light of his medical problems. CBC was obtained because there is a concern this may represent infection since there is erythema and warmth. Venous duplex study was obtained since his well score for DVT is 2. He was medicated with morphine for his pain. Since the venous duplex study was negative and white count is elevated lactate was drawn as well as blood cultures. Since patient does not have severe sepsis we will treat with cephalexin and Bactrim for streptococcal and staphylococcal coverage. Since patient is hemodynamically stable and only has 1 sirs criteria he is a candidate for outpatient treatment. ED Disposition - Plan for ED Patient: Disposition: Home or Assisted Living Diagnosis: Cellulitis of left leg without foot Instructions: Cellulitis Prescriptions: Smz/Tmp Ds [Bactrim Ds] 1 tab PO BID #14 tab Transmission Status: Pending to [id number] Cephalexin [Keflex] 500 mg PO 4X/DAY #28 cap Transmission Status: Pending to [id number] Referrals: Gildardo Trejo MD [Primary Care Provider] - 3-5 Days if not improving
[2019-06-05] MEDS: Morphine 4 MG/ML Syringe IV (07:51)
[2019-06-05] MEDS: Ondansetron 4 MG/2 ML Vial IV (07:51)
[2019-06-05 07:52] VITALS: RESP 18
[2019-06-05 08:04] LABS: Absolute Lymphocyte Count 0.41 X10^3/uL (0.83-4.51); Absolute Neutrophil Count 13.2 X10^3/uL (2.0-7.7); Basophil# 0.04 X10^3/uL; Basophil% 0.2 % (0-1); Eosinophils% 8.5 % (0-5); Hemoglobin 11.1 g/dL (13.0-16.5); Lymphocyte # 0.41 X10^3/ul (4.0); Lymphocyte % 2.5 % (19-41); Mean Corp Hgb Conc 32.6 g/dL (32-36); Mean Corpuscular Hgb 28.4 pg (27.0-32.0); Mean Platelet Vol. 8.8 fl (6.2-12.0); Monocyte# 1.23 X10^3/uL; Monocyte% 7.5 % (0-10); NRBC Flagged by Analyzer 0 % (0-5); Neutrophil # 13.23 X10^3/uL (2.7-7.7); Neutrophil % 80.5 % (47-70); POSITIVE DIFFERENTIAL YES; Platelet Count 191 K/mm3 (150-450); RBC Distribution Width CV 15.6 % (11.6-14.6); RBC Distribution Width SD 49.2 fl (35.1-43.9); Red Blood Count 3.91 M/mm3 (4.6-6.2); White Blood Count 16.4 K/mm3 (4.4-11.0)
[2019-06-05 08:14] LABS: Differential Indicated SCAN CRITERIA MET
[2019-06-05 08:37] LABS: Platelet Estimate ADEQUATE (ADEQ)
[2019-06-05 08:38] LABS: Red Cell Morphology NORM C+C NORMAL (NORM C&C)
[2019-06-05 08:53] LABS: Anion Gap 13 (5-15); BUN 84 mg/dL (7-18); BUN/Creat Ratio 6.2 RATIO (10-20); Calcium,Total 8.4 mg/dL (8.5-10.1); Chloride 88 mmol/L (98-107); EST Glomerular Filtration Rate 4 mL/min (>60); Est Glom Filt Rate - Afr Amer 5 mL/min (>60); Estimated Creatinine Clearance 5.87 ml/min; Glucose 130 mg/dL (74-106); Potassium 3.9 mmol/L (3.5-5.1); Sodium Level 129 mmol/L (136-145)
[2019-06-05 10:26] LABS: Lactic Acid 0.6 mmol/L (0.4-1.9)
[2019-06-05 10:27] VITALS: RESP 18; O2SAT 98
[2019-06-05] MEDS: HYDROcodone Bitartrate/Apap 5/325 Tablet PO (11:07)
[2019-06-05] MEDS: Smz/Tmp Ds Tablet 1 TABLET PO (11:07)
[2019-06-05] MEDS: Cephalexin 250 MG Capsule 500 MG PO (11:07)
[2019-06-05 11:13] VITALS: PULSE 85; RESP 18; O2SAT 96
== END 2019-06-05 11:13 | disposition home or self-care (01) ==
PROVIDERS: Emergency Provider Emergency Medicine; Family Provider Family Medicine; PCP Family Medicine
DX: L03.116 Cellulitis of left lower limb (principal); I12.9 Hypertensive chronic kidney disease with stage 1 through stage 4 chronic kidney disease, or unspecified chronic kidney disease; N18.3 Chronic kidney disease, stage 3 (moderate); E11.22 Type 2 diabetes mellitus with diabetic chronic kidney disease; D63.1 Anemia in chronic kidney disease; E11.43 Type 2 diabetes mellitus with diabetic autonomic (poly)neuropathy; Z87.891 Personal history of nicotine dependence; Z79.84 Long term (current) use of oral hypoglycemic drugs; Z79.899 Other long term (current) drug therapy
CPT/HCPCS: 36415; 80048; 83605; 85025; 87040; 93971; 96374; 96375; 99284; J7050; A4216; J2405

== ENCOUNTER 2019-06-09 10:12 | Inpatient (IN) | payer MEDICARE, OTHER, SELFPAY ==
[2019-06-09] VITALS (10 sets, daily range): BP systolic 98–124; BP diastolic 60–78; PULSE 74–84; RESP 14–18; TEMP 36.9–37.9; O2SAT 94–97; BMI 41.0; BMI 40.0
[2019-06-09 10:57] LABS: Absolute Lymphocyte Count 0.23 X10^3/uL (0.83-4.51); Absolute Neutrophil Count 14.4 X10^3/uL (2.0-7.7); Basophil# 0.02 X10^3/uL; Basophil% 0.1 % (0-1); Eosinophil# 0.04 X10^3/uL; Eosinophils% 0.3 % (0-5); Hematocrit 32.3 % (40-54); Hemoglobin 10.6 g/dL (13.0-16.5); Lymphocyte # 0.23 X10^3/ul (4.0); Lymphocyte % 1.5 % (19-41); Mean Corp Hgb Conc 32.8 g/dL (32-36); Mean Corpuscular Volume 85.4 fL (80-94); Mean Platelet Vol. 9.1 fl (6.2-12.0); Monocyte# 0.84 X10^3/uL; Monocyte% 5.3 % (0-10); NRBC Flagged by Analyzer 0 % (0-5); Neutrophil # 14.36 X10^3/uL (2.7-7.7); POSITIVE DIFFERENTIAL YES; Platelet Count 234 K/mm3 (150-450); RBC Distribution Width CV 15.3 % (11.6-14.6); RBC Distribution Width SD 47.6 fl (35.1-43.9); Red Blood Count 3.78 M/mm3 (4.6-6.2); White Blood Count 15.8 K/mm3 (4.4-11.0)
[2019-06-09 10:58] LABS: Differential Indicated SCAN CRITERIA MET
[2019-06-09 11:14] LABS: Differential Comment SCANNED
[2019-06-09 11:15] LABS: Lactic Acid 1.1 mmol/L (0.4-1.9)
[2019-06-09 11:16] LABS: Anion Gap 12 (5-15); BUN 73 mg/dL (7-18); BUN/Creat Ratio 6.5 RATIO (10-20); Calcium,Total 8.2 mg/dL (8.5-10.1); Chloride 85 mmol/L (98-107); EST Glomerular Filtration Rate 5 mL/min (>60); Est Glom Filt Rate - Afr Amer 6 mL/min (>60); Estimated Creatinine Clearance 7.13 ml/min; Glucose 297 mg/dL (74-106); Potassium 3.4 mmol/L (3.5-5.1); Sodium Level 124 mmol/L (136-145)
[2019-06-09] MEDS: Ondansetron 4 MG/2 ML Vial IV (11:20)
[2019-06-09] MEDS: Morphine 4 MG/ML Syringe IV (11:23)
[2019-06-09] MEDS: Acetaminophen 500 MG Tablet 1000 MG PO (11:24)
--- NOTE | 2019-06-09 11:30 | ED.VIS.GEN ---
History of Present Illness Chief Complaint: Cellulitis Informant: Patient Onset: Days Context: Gradual Onset Current Severity: Moderate Maximum Severity: Moderate Narrative: Patient presents with cellulitis of the left lower extremity. Patient was seen here for the same on June 05. He was started on Bactrim and Keflex. Despite antibiotics he reports T-max of 101.3 and spreading erythema. Patient does have a history of chronic renal failure and is on peritoneal dialysis. 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 Status: Chronic (6) Peripheral vascular occlusive disease Status: Chronic (7) Type 2 diabetes mellitus Status: Chronic Past Medical History - Allergies and Home Meds Allergies/Adverse Reactions: Allergies No Known Allergies Allergy (Verified 06/09/19 10:13) Primary Care Physician: Gildardo Trejo MD [Primary Care Provider] - Prior records reviewed: Yes Surgical History: noncontributory, - - PD catheter placement Lives: Spouse/ Significant Other Smoking Status: Former smoker - Family History Offspring Family History: Reports: - - Endocarditis Paternal Family History: Reports: Diabetes - ESRD , Heart Disease, Hypertension Review of Systems General: Reports: Fever Eyes: Denies: Visual changes - bilaterally ENT: Denies: Bilateral ear pain Cardiovascular: Denies: Chest pain Respiratory: Denies: Dyspnea Gastrointestinal: Denies: Abdominal pain Musculoskeletal: Reports: Swelling, Extremity Pain Skin: Reports: - - Cellulitis left leg Hematologic: Denies: Easy bruising Allergy: Denies: Uticaria Physical Exam Vital Signs/Narrative: Vital Signs Temp Pulse Resp BP Pulse Ox 06/09/19 10:13 100.2 F H 78 17 98/60 95 Inital Vital Signs reviewed: Yes General: Well nourished, Well developed Head: Normocephalic ENT: Moist mucous membranes Neck: Supple Cardiovascular: Regular rate, Regular rhythm Respiratory: No distress, CTA bilaterally Abdomen: Soft, Nontender Extremities: - - Skin erythema and warmth consistent with cellulitis over the proximal left lower leg, knee, distal thigh. No open wounds are noted. Neurological: Alert, Oriented x3 Psychological: Normal affect Diagnostic/Tx/Re-eval Laboratory Results 01/06/2806/09/19 06/09/19 10:34 10:34 10:34 WBC 15.8 H RBC 3.78 L Hgb 10.6 L Hct 32.3 L MCV 85.4 MCH 28.0 MCHC 32.8 RDW Std Deviation 47.6 H RDW Coeff of Gurwinder 15.3 H Plt Count 234 MPV 9.1 Immature Gran % (Auto) 1.800 H Neut % (Auto) 91.0 H Lymph % (Auto) 1.5 L [place] % (Auto) 5.3 Eos % (Auto) 0.3 Baso % (Auto) 0.1 Absolute Neuts (auto) 14.4 H Absolute Lymphs (auto) 0.23 L Nucleated RBC % 0 Differential Comment SCANNED Sodium 124 L Potassium 3.4 L Chloride 85 L Carbon Dioxide 27.0 Anion Gap 12 BUN 73 H Creatinine 11.20 H* Estim Creat Clear Calc 7.13 Est GFR (MDRD) Af Amer 6 L Est GFR (MDRD) Non-Af 5 L BUN/Creatinine Ratio 6.5 L Glucose 297 H Lactic Acid 1.1 Calcium 8.2 L - Medical Decision Making Patient was given a 500 cc fluid bolus and then fluids run at 125. He is dialysis dependent and does not make urine. Blood work is reviewed with the patient. He has failed outpatient management with appropriate antibiotics. He is given Zosyn and vancomycin here and will be admitted for further treatment. ED Disposition - Plan for ED Patient: Disposition: Acute Care [facility] Diagnosis: Cellulitis of left lower extremity Referrals: Gildardo Trejo MD [Primary Care Provider] -
--- NOTE | 2019-06-09 11:39 | NURSING ---
MED SURG KITTOE CELLULITIS
--- NOTE | 2019-06-09 12:02 | PCM.HP.STD ---
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 The patient noticed this begninng last . He developed redness of the distal thigh extending to the proximal tibial area, along with fevers and chills at home. He came to the ER on friday and was discharged home on bactrim and keflex. He has not improved. He continues to have fever/chills. He has no open wounds or drainage at this time. He had no inciting trauma that he could recall. He has no n/v/d. No SOB, cough. 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) G61.0 Decubitus ulcer of left heel, stage 2 (Acute) L89.622 Debility (Acute) R53.81 Murmur, cardiac (Chronic) R01.1 Acute on chronic renal failure (Acute) N17.9, N18.9 Chronic anemia (Chronic) D64.9 Type 2 diabetes mellitus (Chronic) E11.9 Hypertension (Chronic) I10 Allergies No Known Allergies Allergy (Verified 06/09/19 10:13) Home Medications: Ambulatory Orders Medication Instructions Recorded Ergocalciferol [Vitamin D] 50,000 unit PO QMONTH 03/12/16 B Complex W-C No.20/Folic Acid 1 mg PO QHS 10/29/16 [Nephrocaps Softgel] Sennosides/Docusate Sodium 1 each PO DAILY 10/29/16 [Docusate Sodium-Senna Tablet] Sitagliptin Phosphate [Januvia] 50 mg PO DAILY 10/29/16 Acetaminophen [Tylenol Tablet] 650 mg PO Q6H PRN PRN tablet 11/20/16 Amlodipine [Norvasc] 10 mg PO DAILY 12/28/17 Metoprolol Tartrate [Lopressor 50 mg PO DAILY 12/28/17 (beta elizabeth)] Venlafaxine XR [Effexor Xr] 1 cap PO DAILY 12/28/17 Glimepiride [Amaryl] 4 mg PO DAILY #30 tab 01/01/18 Sucroferric Oxyhydroxide [Velphoro] 1,500 mg PO TID 08/31/18 Cinacalcet HCl [Sensipar] 30 mg PO DAILY 06/05/19 Surgical History: Surgical History (Last Reviewed 04/20/19 @ 13:11 by Gertrudis Block) history of insertion of peritoneal dialysis cath Surgical History: noncontributory, - - PD catheter placement Psychiatric History: No pertinent psych hx Lives: Spouse/ Significant Other Smoking Status: Former smoker Tobacco Use: Non-smoker Alcohol: None Drugs: None - *Family History Offspring History Items: - - Endocarditis Paternal History Items: Diabetes - ESRD , Heart Disease, Hypertension, - - kidney disease Review of Systems Constitutional: Reports: Chills, Fever. Denies: Weight Change HEENT: Denies: Head Aches, Sinus Congestion, Sinus Drainage Cardiovascular: Denies: Chest Pain, Palpitations Respiratory: Denies: Cough, Shortness of breath at rest, Sputum production Gastrointestinal: Denies: Abdominal Pain, Nausea, Vomiting Genitourinary: Denies: Dysuria Musculoskeletal: Denies: Joint Pain, Joint Tenderness Skin: Reports: Rash, Skin Changes. Denies: Pruritis, Wounds Neurological: Denies: Numbness, Tingling, Focal weakness Psychiatric: Denies: Anxiety, Depression, Homicidal Ideations, Suicidal Ideations Hematologic/ Lymphatic: Denies: Easy Bruising, Easy Bleeding VTE Information - Inpt Only VTE Present on Admission: No VTE Mechan Device Prophylaxis: None VTE Pharm Prophylaxis ordered?: Yes Patient Problems: Active and Suspected Problems (Last Reviewed 04/20/19 @ 13:11 by Gertrudis Block) Cellulitis of left lower extremity (Acute) Sepsis (Acute) - Physical Exam Vitals/I&O's: Vital Signs Temp Pulse Resp BP Pulse Ox 98.5 F 79 17 105/72 95 06/09/19 11:33 06/09/19 11:33 06/09/19 11:33 06/09/19 11:33 06/09/19 11:33 Oxygen Delivery Method Room Air Weight: 270 lb Body Mass Index (BMI) 41.0 Finger Stick Blood Glucose 90 Intake and Output for Last 24 Hours 06/07/19 06/08/19 06/09/19 23:59 23:59 23:59 Intake Total 600 / 600 Balance 600 / 600 General: Alert, Oriented x3, Cooperative HEENT: Atraumatic, PERRLA, EOMI, Normocephalic Neck: Supple, No JVD, Negative Carotid Bruits Lungs: Clear to auscultation, Normal air movement Cardiovascular: Regular rate, No murmurs Abdomen: Bowel Sounds Present, Soft, Non Tender, Distended, Obese Extremities: No edema, Capillary Refill Less than 3 Seconds Skin: No rashes, No breakdown, Rash Present - LLE with warmth, mild inflammation. No open wounds/drainage. Also mid poe there is a separate non acute hard lump about 1-2 cm in diameter that is not new. Musculoskeletal: No Tenderness to Palpation of Joints or Extremities Neurological: Cranial nerves II-XII grossly intact Psych/Mental Status: Normal Affect, Appropriate Laboratory Results 06/09/19 10:34: WBC 15.8 H, RBC 3.78 L, Hgb 10.6 L, Hct 32.3 L, MCV 85.4, MCH 28.0, MCHC 32.8, RDW Std Deviation 47.6 H, RDW Coeff of Gurwinder 15.3 H, Plt Count 234, MPV 9.1, Immature Gran % (Auto) 1.800 H, Neut % (Auto) 91.0 H, Lymph % (Auto) 1.5 L, [place] % (Auto) 5.3, Eos % (Auto) 0.3, Baso % (Auto) 0.1, Absolute Neuts (auto) 14.4 H, Absolute Lymphs (auto) 0.23 L, Nucleated RBC % 0, Differential Comment SCANNED 06/09/19 10:34: Sodium 124 L, Potassium 3.4 L, Chloride 85 L, Carbon Dioxide 27.0, Anion Gap 12, BUN 73 H, Creatinine 11.20 H*, Estim Creat Clear Calc 7.13, Est GFR (MDRD) Af Amer 6 L, Est GFR (MDRD) Non-Af 5 L, BUN/Creatinine Ratio 6.5 L, Glucose 297 H, Calcium 8.2 L 06/09/19 10:34: Lactic Acid 1.1 Current Medications Sodium Chloride () 1,000 mls @ 150 mls/hr IV .[id number] [facility] Vancomycin HCl 1,750 mg/ (Sodium Chloride) 535 mls @ 250 mls/hr IV X1 ONE Stop: 06/09/19 13:08 Last Admin: 06/09/19 12:00 Dose: 250 mls/hr Documented by: Assessment/Plan All Active Problems (Last Reviewed 04/20/19 @ 13:11 by Gertrudis Block) Cellulitis of left lower extremity (Acute) Sepsis (Acute) Skin abscess (Acute) Infected open wound (Acute) Decubitus ulcer of left heel, stage 2 (Acute) Debility (Acute) Abdominal wall abscess (Acute) Fever (Acute) Acute on chronic renal failure (Acute) 1. Acute sepsis 2/2 LLE cellulitis - failed bactrim/keflex. No open wounds or drainage. Hx MRSA. Start Vanc/Zosyn. Culture blood. + fever/leukocytosis. LA negative. 2. ESRD - on peritoneal dialysis - c/s Dr. Hansen. States he is being transitioned to hemodialysis. 3. Dmt2 with morbid obesity - unctonrolled - check a1c. SSI. continue home meds. 4. Chronic anemia 2/2 ESRD 5. Hx PVD - will complicate healing 6. HTN - stable 7. Hx guillan barre DVT ppx:heparin DC Planning: likely home no needs, he is independent at home This patient was seen by Arturo Jasmine PA-C under the supervision of Dr. Franco. 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) G61.0 Decubitus ulcer of left heel, stage 2 (Acute) L89.622 Debility (Acute) R53.81 Murmur, cardiac (Chronic) R01.1 Acute on chronic renal failure (Acute) N17.9, N18.9 Chronic anemia (Chronic) D64.9 Type 2 diabetes mellitus (Chronic) E11.9 Hypertension (Chronic) I10 Allergies No Known Allergies Allergy (Verified 06/09/19 10:13) Surgical History: Surgical History (Last Reviewed 04/20/19 @ 13:11 by Gertrudis Block) history of insertion of peritoneal dialysis cath - Physical Exam Vitals/I&O's: Vital Signs Temp Pulse Resp BP Pulse Ox 98.5 F 79 14 113/75 94 06/09/19 11:33 06/09/19 12:20 06/09/19 12:20 06/09/19 12:20 06/09/19 12:20 Oxygen Delivery Method Room Air Weight: 119.4 kg Body Mass Index (BMI) 40.0 Finger Stick Blood Glucose 90 Intake and Output for Last 24 Hours 06/07/19 06/08/19 06/09/19 23:59 23:59 23:59 Intake Total 600 / 600 Balance 600 / 600 Laboratory Results 06/09/19 10:34: WBC 15.8 H, RBC 3.78 L, Hgb 10.6 L, Hct 32.3 L, MCV 85.4, MCH 28.0, MCHC 32.8, RDW Std Deviation 47.6 H, RDW Coeff of Gurwinder 15.3 H, Plt Count 234, MPV 9.1, Immature Gran % (Auto) 1.800 H, Neut % (Auto) 91.0 H, Lymph % (Auto) 1.5 L, [place] % (Auto) 5.3, Eos % (Auto) 0.3, Baso % (Auto) 0.1, Absolute Neuts (auto) 14.4 H, Absolute Lymphs (auto) 0.23 L, Nucleated RBC % 0, Differential Comment SCANNED 06/09/19 10:34: Sodium 124 L, Potassium 3.4 L, Chloride 85 L, Carbon Dioxide 27.0, Anion Gap 12, BUN 73 H, Creatinine 11.20 H*, Estim Creat Clear Calc 7.13, Est GFR (MDRD) Af Amer 6 L, Est GFR (MDRD) Non-Af 5 L, BUN/Creatinine Ratio 6.5 L, Glucose 297 H, Calcium 8.2 L 06/09/19 10:34: Lactic Acid 1.1 Current Medications Acetaminophen (Tylenol) 650 mg PO Q6H PRN PRN PRN Reason: Pain or Fever Amlodipine Besylate (Norvasc) 10 mg PO DAILY [facility] Cinacalcet (Sensipar) 30 mg PO DAILY [facility] Dextrose (D50w Syringe) 0 gm IV X1 PRN; Protocol PRN Reason: Hypoglycemia Glimepiride (Amaryl) 4 mg PO DAILY [facility] Glucagon () 1 mg IM .X1 PRN PRN Reason: Hypoglycemia Heparin Sodium (Porcine) (Heparin Na) 5,000 unit SC Q8 [facility] Sodium Chloride () 1,000 mls @ 100 mls/hr IV .Q10H [facility] Piperacillin Sod/Tazobactam (Sod 3.375 gm/ Sodium Chloride) 50 mls @ 12.5 mls/hr IV Q8 [facility] Vancomycin IV Pharmacy to Dose (1 ea/ Sodium Chloride) 500 mls @ 250 mls/hr IV X1 PRN; Protocol PRN Reason: Rx to Dose Sodium Chloride () 250 mls @ 15 mls/hr IV .[id number] PRN PRN Reason: Saline Flush Insulin Human Lispro (Humalog Kwikpen (Bkc)) 0 unit SC ACHS [facility]; Protocol Metoprolol Tartrate (Lopressor (Beta Elizabeth)) 50 mg PO DAILY [facility] Non-Formulary Medication (Sucroferric Oxyhydroxide) 1,500 mg PO TID [facility] Ondansetron HCl (Zofran) 4 mg PO Q6H PRN PRN PRN Reason: NAUSEA Oxycodone HCl (Oxyir) 5 mg PO Q6H PRN PRN PRN Reason: Pain Score 6-10/10 Senna/Docusate Sodium (Senokot-S, Belia-Colace) tablet PO DAILY [facility] Sitagliptin Phosphate (Januvia) 50 mg PO DAILY [facility] Sodium Chloride () 10 - 40 ml IV UD PRN PRN Reason: SALINE FLUSH Venlafaxine HCl (Effexor Xr) mg PO DAILY [facility] Assessment/Plan This patient was seen in conjunction with Arturo Jasmine PA-C . I have independently interviewed and examined the patient and reviewed pertinent historical, laboratory, and other data. Please refer to Arturo Jasmine PA-C note for details of this patient's presentation, findings, and recommendations. I have reviewed Arturo Jasmine PA-C note and concur with documented findings. In brief, patient is a 58-year-old gentleman with past medical history significant for end-stage renal disease on peritoneal dialysis, diabetes mellitus type 2 who presented with pain, erythema as well as skin changes involving the left lower extremity. An assessment of sepsis secondary to lower extremity made admitted to regular nursing floor for further management Physical Examination: GENERAL: cooperative HEENT: Atraumatic; EYES; Anicteric, Normal Conjunctiva NECK; supple, normal thyroid, RESPIRATORY: Diminished to auscultation CARDIOVASCULAR: Regular S1 S2, GI: soft, normoactive bowel sounds, : No Renal angle tenderness; EXTREMITIES: Erythema and warmth involving the left lower extremity anteriorly from mid tibia to mid thigh MUSCULOSKELETAL: no muscle waisting NEURO: Awake; no lateralizing signs. SKIN: As described above PSYCH; Flat affect Assessment: 1. Sepsis secondary to cellulitis involving the left lower extremity 2. Diabetes mellitus type 2 with complications including diabetic nephropathy/end-stage renal disease 3. End-stage renal disease patient is on peritoneal dialysis 4. Obesity with BMI of 40.0 5. Anemia secondary to anemia of chronic disease/end-stage renal disease 6. 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 From vascular disease 8. DVT prophylaxis Recommendations: 1. I have discussed the results of my overview and impressions with the patient 2. Options for management were reviewed Code Visit Inpatient E&M: 88488 Init Hosp L3
[2019-06-09] MEDS: 0.9% Normal Saline 1,000 ML 100 ML IV ×2 (14:11→23:56)
--- NOTE | 2019-06-09 14:25 | PCM.RX.CS ---
Consult Pharmacy has been consulted to manage selected antiobiotic: Vancomycin Type of Consult: New start Suspected Infection: Skin/Soft tissue Prior Doses of Antibiotics Received/Current Regimen: VANCOMYCIN 1750MG IV X1 IN ED 06/09/19 @1200 Labs: Sodium 124 mmol/L (136-145) L 06/09/19 10:34 Potassium 3.4 mmol/L (3.5-5.1) L 06/09/19 10:34 Chloride 85 mmol/L (98-107) L 06/09/19 10:34 Carbon Dioxide 27.0 mmol/L (21.0-32.0) 06/09/19 10:34 Anion Gap 12 (5-15) 06/09/19 10:34 BUN 73 mg/dL (7-18) H 06/09/19 10:34 Creatinine 11.20 mg/dL (0.70-1.30) H* 06/09/19 10:34 Est GFR (MDRD) Af Amer 6 mL/min (>60) L 06/09/19 10:34 Est GFR (MDRD) Non-Af 5 mL/min (>60) L 06/09/19 10:34 BUN/Creatinine Ratio 6.5 RATIO (10-20) L 06/09/19 10:34 Glucose 297 mg/dL (74-106) H 06/09/19 10:34 Weight used for dosin kg Goal Trough: 15-20 mcg/mL Pharmacy Plan for Drug Dosing: Pharmacy consulted for vancomycin management. The patient is currently on peritoneal dialysis. Discussed case with PA, plan is to consult renal and transition patient to hemodialysis this admission. The patient does not have scheduled HD at this time. A loading dose was ordered, and the patient received 1750mg IV x1 in ED. The patient technically qualifies for 2000mg IV x1 loading dose, but will not plan on supplementing the patient with 250mg vancomycin at this time. Will plan on drawing a random level in ~48hrs to assess vancomycin level at that time. Pharmacy will contact the patient's nurse daily to see if dialysis status has changed. PLAN/RECOMMENDATIONS 1. Random vancomycin level 06/11/19 with AM labs 2. No scheduled vancomycin dose at this time --> will dose based on random level 3. Pharmacy to follow for changes in dialysis status 4. Pharmacy Service will continue to monitor and adjust dosing as required.
[2019-06-09] MEDS: Heparin Injection (Vial) 5,000 UNIT/ML VIAL 5000 UNIT SC ×2 (14:44→21:52)
[2019-06-09] MEDS: Insulin Lispro 100 UNIT/ML INSULN.PEN SC ×2 (16:45→21:15)
[2019-06-09 17:06] LABS: Bedside Glucose 183 mg/dL (70-110)
[2019-06-09] MEDS: Calcium Acetate 667 MG Capsule 2668 MG PO (17:12)
[2019-06-09] MEDS: Nepro Liquid 120 ML LIQUID PO ×2 (17:12→21:09)
--- NOTE | 2019-06-09 19:31 | DIALYSIS ---
[facility] initiated at this time. Effluent drainage clear and straw colored, no fibrin noted. Dressing changed to PD cath site, clean and nonred. Report given.
[2019-06-09 22:46] LABS: Bedside Glucose 200 mg/dL (70-110)
[2019-06-10] VITALS (17 sets, daily range): BP systolic 97–136; BP diastolic 48–73; PULSE 73–88; RESP 16–20; TEMP 36.8–37.7; O2SAT 93–96; BMI 40.0
--- NOTE | 2019-06-10 03:59 | NURSING ---
PD machine was alarming check supply bag. attempted to correct alarms; called the number listed on the machine and they walked this RN and packing tractor machine operator through several trouble shooting steps and were not able to correct the issue. The help line walked this RN through the steps of safely powering the system down. Pt had 1 hour 39 minutes left of treatment. this RN contacted the dialysis nurse contract administrator and was able to disconnect patient using aseptic technique.
[2019-06-10] MEDS: Heparin Injection (Vial) 5,000 UNIT/ML VIAL 5000 UNIT SC ×2 (06:26→21:21)
[2019-06-10] MEDS: Insulin Lispro 100 UNIT/ML INSULN.PEN SC ×2 (06:27→12:04)
[2019-06-10 06:37] LABS: Absolute Lymphocyte Count 0.43 X10^3/uL (0.83-4.51); Absolute Neutrophil Count 11.5 X10^3/uL (2.0-7.7); Basophil# 0.04 X10^3/uL; Basophil% 0.3 % (0-1); Eosinophil# 0.18 X10^3/uL; Eosinophils% 1.4 % (0-5); Hematocrit 29.5 % (40-54); Hemoglobin 9.6 g/dL (13.0-16.5); Lymphocyte # 0.43 X10^3/ul (4.0); Lymphocyte % 3.3 % (19-41); Mean Corp Hgb Conc 32.5 g/dL (32-36); Monocyte% 5.4 % (0-10); NRBC Flagged by Analyzer 0 % (0-5); Neutrophil # 11.45 X10^3/uL (2.7-7.7); POSITIVE DIFFERENTIAL YES; Platelet Count 215 K/mm3 (150-450); RBC Distribution Width CV 15.5 % (11.6-14.6); RBC Distribution Width SD 48.9 fl (35.1-43.9); Red Blood Count 3.43 M/mm3 (4.6-6.2)
[2019-06-10 06:48] LABS: Differential Indicated SCAN CRITERIA MET
[2019-06-10 06:50] LABS: Bedside Glucose 231 mg/dL (70-110)
[2019-06-10] MEDS: oxyCODONE 5 MG Tablet PO (06:50)
[2019-06-10 06:59] LABS: Anion Gap 12 (5-15); BUN 67 mg/dL (7-18); BUN/Creat Ratio 6.4 RATIO (10-20); Calcium,Total 8.1 mg/dL (8.5-10.1); Chloride 90 mmol/L (98-107); EST Glomerular Filtration Rate 5 mL/min (>60); Est Glom Filt Rate - Afr Amer 7 mL/min (>60); Glucose 213 mg/dL (74-106); Potassium 3.2 mmol/L (3.5-5.1); Sodium Level 127 mmol/L (136-145)
[2019-06-10 08:04] LABS: Hemoglobin A1c 6.8 % (4.2-6.3)
[2019-06-10] MEDS: Glimepiride 4 MG Tablet PO (08:05)
[2019-06-10] MEDS: Calcium Acetate 667 MG Capsule 2668 MG PO ×2 (08:05→17:17)
[2019-06-10] MEDS: Venlafaxine XR 37.5 MG Capsule PO (09:02)
[2019-06-10] MEDS: amLODIPine 10 MG Tablet PO (09:02)
[2019-06-10] MEDS: Nepro Liquid 120 ML LIQUID PO (09:02)
[2019-06-10] MEDS: Senna/Docusate Sodium 1 Tablet PO (09:02)
[2019-06-10] MEDS: Metoprolol Tartrate 50 MG Tablet PO (09:02)
[2019-06-10] MEDS: LINAGLIPTIN 5 MG TABLET PO (09:03)
[2019-06-10] MEDS: Cinacalcet HCl 30 MG Tablet PO (09:03)
[2019-06-10] MEDS: 0.9% Normal Saline 1,000 ML 100 ML IV ×2 (09:03→16:50)
--- NOTE | 2019-06-10 09:06 | PCM.CONS.R ---
Consultation - Renal 06/10/19 PCP/ Referring MD: Requesting physician: [] Primary care physician: Gildardo Trejo MD Reason for Consultation:: ESRD on CCPD - History of Present Illness History of Present Illness: The patient is a 58 year old M with ESRD due to diabetes, known to me on CCPD admitted for cellulitis of LLE since last . He was seen in ER on 06/05 discharged on oral Bactrim DS bid and keflex qid. Erythema, swelling, pain persisted. Had pain with walking, was mostly hopping. Venous US negative for DVT. He admitted to fever, chills, poor appetite with cellulitis. Currently with persistent edema, pain, swelling with erythema of LLE. He is on iv antibiotics vanco and pip/tazo. He has not met adequacy with his peritoneal dialysis since he has been anuric. PD effluent clear on cylcler. He has an appt with Dr. Franks for AVF creation on 06/14/19. He will need to switch modalities to [facility] hemodialysis with tunneled catheter until he has a working AVF. He will need to be switched to [facility] dialysis in [place]. - Allergies Allergies: Allergies No Known Allergies Allergy (Verified 06/09/19 10:13) - Current Medications Current Medications: Current Medications Acetaminophen (Tylenol) 650 mg PO Q6H PRN PRN PRN Reason: Pain or Fever Amlodipine Besylate (Norvasc) 10 mg PO DAILY [facility] Last Admin: 06/10/19 09:02 Dose: 10 mg Documented by: Calcium Acetate (Phoslo Gel Cap) 2,668 mg PO TIDCM [facility] Last Admin: 06/10/19 08:05 Dose: 2,668 mg Documented by: Cinacalcet (Sensipar) 30 mg PO DAILY [facility] Last Admin: 06/10/19 09:03 Dose: 30 mg Documented by: Glimepiride (Amaryl) 4 mg PO DAILYCM [facility] Last Admin: 06/10/19 08:05 Dose: 4 mg Documented by: Glucagon () 1 mg IM .X1 PRN PRN Reason: Hypoglycemia Heparin Sodium (Porcine) (Heparin Na) 5,000 unit SC Q8 [facility] Last Admin: 06/10/19 06:26 Dose: 5,000 unit Documented by: Sodium Chloride () 1,000 mls @ 100 mls/hr IV .Q10H [facility] Last Admin: 06/10/19 09:03 Dose: 100 mls/hr Documented by: Piperacillin Sod/Tazobactam (Sod 3.375 gm/ Sodium Chloride) 50 mls @ 12.5 mls/hr IV Q12 [facility] Last Admin: 06/10/19 09:03 Dose: 12.5 mls/hr Documented by: Vancomycin IV Pharmacy to Dose (1 ea/ Sodium Chloride) 500 mls @ 250 mls/hr IV PRN PRN; Protocol PRN Reason: Rx to Dose Sodium Chloride () 250 mls @ 15 mls/hr IV .[id number] PRN PRN Reason: Saline Flush Dextrose (Dextrose 10%-Water) 250 mls @ 999 mls/hr IV .Q16M PRN; Protocol PRN Reason: HYPOGLYCEMIA Insulin Human Lispro (Humalog Kwikpen (Bkc)) 0 unit SC ACHS [facility]; Protocol Last Admin: 06/10/19 06:27 Dose: 3 units Documented by: Linagliptin (Tradjenta) 5 mg PO DAILY [facility] Last Admin: 06/10/19 09:03 Dose: 5 mg Documented by: Metoprolol Tartrate (Lopressor (Beta Elizabeth)) 50 mg PO DAILY [facility] Last Admin: 06/10/19 09:02 Dose: 50 mg Documented by: Nutritional Formula (Nepro Carb Steady) 120 ml PO 4X/DAY [facility] Last Admin: 06/10/19 09:02 Dose: 120 ml Documented by: Ondansetron HCl (Zofran Odt) 4 mg PO Q6H PRN PRN PRN Reason: NAUSEA/VOMITING Oxycodone HCl (Oxyir) 5 mg PO Q6H PRN PRN PRN Reason: Pain Score 6-10/10 Last Admin: 06/10/19 06:50 Dose: 5 mg Documented by: Senna/Docusate Sodium (Senokot-S, Belia-Colace) 1 tablet PO DAILY [facility] Last Admin: 06/10/19 09:02 Dose: 1 tablet Documented by: Sodium Chloride () 10 - 40 ml IV UD PRN PRN Reason: SALINE FLUSH Venlafaxine HCl (Effexor Xr) 37.5 mg PO DAILY [facility] Last Admin: 06/10/19 09:02 Dose: 37.5 mg Documented by: - Past Medical History Past Medical History (Chronic Problems): Chronic Problems (Last Reviewed 04/20/19 @ 13:11 by Gertrudis Block) ESRD (end stage renal disease) (Chronic) Cellulitis (Chronic) Peripheral vascular occlusive disease (Chronic) Peripheral autonomic neuropathy due to secondary diabetes (Chronic) 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) Murmur, cardiac (Chronic) Chronic anemia (Chronic) Chronic kidney disease, stage III (moderate) (Chronic) Type 2 diabetes mellitus (Chronic) Hypertension (Chronic) - Past Surgical History Surgical History: noncontributory, - - PD catheter placement - Social History Smoking Status: Former smoker Alcohol: None Drugs: None - Family History Offspring History Items: - - Endocarditis Paternal History Items: Diabetes - ESRD , Heart Disease, Hypertension, - - kidney disease Review of Systems Constitutional: Reports: Anorexia, Chills, Fever, Weakness, Weight Change - lost weight past week, Fatigue HEENT: Denies: Head Aches Cardiovascular: Denies: Chest Pain Respiratory: Denies: Cough, Shortness of Breath Gastrointestinal: Reports: - - anorexia. Denies: Abdominal Pain, Constipation, Diarrhea, Nausea, Vomiting Genitourinary: Reports: - - anuric Musculoskeletal: Reports: Joint Tenderness, Leg Pain - LLE, - - pain with ambulation Neurological: Reports: - - hx CIDP. Denies: Balance problems, Tremor, Seizures Psychiatric: Reports: Depression. Denies: Anxiety Hematologic/ Lymphatic: Reports: Anemia. Denies: Hx of blood clot Patient Problems: Active and Suspected Problems (Last Reviewed 04/20/19 @ 13:11 by Gertrudis Block) Cellulitis of left lower extremity (Acute) Sepsis (Acute) - Physical Exam Vitals/I&O's: Vital Signs Temp Pulse Resp BP Pulse Ox 99.5 F H 88 16 117/57 L 93 06/10/19 09:00 06/10/19 09:02 06/10/19 09:00 06/10/19 09:00 06/10/19 09:00 Oxygen Delivery Method Room Air Weight: 119.4 kg Body Mass Index (BMI) 40.0 Finger Stick Blood Glucose 90 Intake and Output for Last 24 Hours 06/08/19 06/09/19 06/10/19 23:59 23:59 23:59 Intake Total 2470.00 / 2470.00 1196.66 / 1196.66 Output Total 0 / 0 Balance 2470.00 / 2470.00 1196.66 / 1196.66 General: Alert, Oriented x3, Cooperative, No apparent distress HEENT: PERRLA, EOMI Oral: Moist Mucosa Neck: Supple Lungs: Clear to auscultation Cardiovascular: Regular rate Abdomen: Bowel Sounds Present, Soft, Non Tender, Non-Distended, Obese Extremities: No edema, Tenderness - LLE with swelling, erythema, redness, calf tenderness Skin: - - cellulitis LLE knee down to ankle Musculoskeletal: Muscle Wasting - hands interroseous Neurological: - - mild motor weakness upper extremity, hands from CIDP, chronic Psych/Mental Status: Normal Affect, Appropriate, Alert and oriented to time, place, person, mood and affect Laboratory Results 06/09/19 10:34: WBC 15.8 H, RBC 3.78 L, Hgb 10.6 L, Hct 32.3 L, MCV 85.4, MCH 28.0, MCHC 32.8, RDW Std Deviation 47.6 H, RDW Coeff of Gurwinder 15.3 H, Plt Count 234, MPV 9.1, Immature Gran % (Auto) 1.800 H, Neut % (Auto) 91.0 H, Lymph % (Auto) 1.5 L, [place] % (Auto) 5.3, Eos % (Auto) 0.3, Baso % (Auto) 0.1, Absolute Neuts (auto) 14.4 H, Absolute Lymphs (auto) 0.23 L, Nucleated RBC % 0, Differential Comment SCANNED 06/09/19 10:34: Sodium 124 L, Potassium 3.4 L, Chloride 85 L, Carbon Dioxide 27.0, Anion Gap 12, BUN 73 H, Creatinine 11.20 H*, Estim Creat Clear Calc 7.13, Est GFR (MDRD) Af Amer 6 L, Est GFR (MDRD) Non-Af 5 L, BUN/Creatinine Ratio 6.5 L, Glucose 297 H, Calcium 8.2 L 06/09/19 10:34: Lactic Acid 1.1 06/09/19 16:34: POC Glucose 183 H 06/09/19 21:15: POC Glucose 200 H 06/10/19 06:00: WBC 13.0 H, RBC 3.43 L, Hgb 9.6 L, Hct 29.5 L, MCV 86.0, MCH 28.0, MCHC 32.5, RDW Std Deviation 48.9 H, RDW Coeff of Gurwinder 15.5 H, Plt Count 215, MPV 9.0, Immature Gran % (Auto) 1.600 H, Neut % (Auto) 88.0 H, Lymph % (Auto) 3.3 L, [place] % (Auto) 5.4, Eos % (Auto) 1.4, Baso % (Auto) 0.3, Absolute Neuts (auto) 11.5 H, Absolute Lymphs (auto) 0.43 L, Nucleated RBC % 0 06/10/19 06:00: Sodium 127 L, Potassium 3.2 L, Chloride 90 L, Carbon Dioxide 25.0, Anion Gap 12, BUN 67 H, Creatinine 10.50 H*, Estim Creat Clear Calc 7.60, Est GFR (MDRD) Af Amer 7 L, Est GFR (MDRD) Non-Af 5 L, BUN/Creatinine Ratio 6.4 L, Glucose 213 H, Calcium 8.1 L 06/10/19 06:00: Hemoglobin A1c 6.8 H 06/10/19 06:24: POC Glucose 231 H Current Medications Acetaminophen (Tylenol) 650 mg PO Q6H PRN PRN PRN Reason: Pain or Fever Amlodipine Besylate (Norvasc) 10 mg PO DAILY [facility] Last Admin: 06/10/19 09:02 Dose: 10 mg Documented by: Calcium Acetate (Phoslo Gel Cap) 2,668 mg PO TIDCM [facility] Last Admin: 06/10/19 08:05 Dose: 2,668 mg Documented by: Cinacalcet (Sensipar) 30 mg PO DAILY [facility] Last Admin: 06/10/19 09:03 Dose: 30 mg Documented by: Glimepiride (Amaryl) 4 mg PO DAILYCM [facility] Last Admin: 06/10/19 08:05 Dose: 4 mg Documented by: Glucagon () 1 mg IM .X1 PRN PRN Reason: Hypoglycemia Heparin Sodium (Porcine) (Heparin Na) 5,000 unit SC Q8 [facility] Last Admin: 06/10/19 06:26 Dose: 5,000 unit Documented by: Sodium Chloride () 1,000 mls @ 100 mls/hr IV .Q10H [facility] Last Admin: 06/10/19 09:03 Dose: 100 mls/hr Documented by: Piperacillin Sod/Tazobactam (Sod 3.375 gm/ Sodium Chloride) 50 mls @ 12.5 mls/hr IV Q12 [facility] Last Admin: 06/10/19 09:03 Dose: 12.5 mls/hr Documented by: Vancomycin IV Pharmacy to Dose (1 ea/ Sodium Chloride) 500 mls @ 250 mls/hr IV PRN PRN; Protocol PRN Reason: Rx to Dose Sodium Chloride () 250 mls @ 15 mls/hr IV .[id number] PRN PRN Reason: Saline Flush Dextrose (Dextrose 10%-Water) 250 mls @ 999 mls/hr IV .Q16M PRN; Protocol PRN Reason: HYPOGLYCEMIA Insulin Human Lispro (Humalog Kwikpen (Bkc)) 0 unit SC ACHS [facility]; Protocol Last Admin: 06/10/19 06:27 Dose: 3 units Documented by: Linagliptin (Tradjenta) 5 mg PO DAILY [facility] Last Admin: 06/10/19 09:03 Dose: 5 mg Documented by: Metoprolol Tartrate (Lopressor (Beta Elizabeth)) 50 mg PO DAILY [facility] Last Admin: 06/10/19 09:02 Dose: 50 mg Documented by: Nutritional Formula (Nepro Carb Steady) 120 ml PO 4X/DAY [facility] Last Admin: 06/10/19 09:02 Dose: 120 ml Documented by: Ondansetron HCl (Zofran Odt) 4 mg PO Q6H PRN PRN PRN Reason: NAUSEA/VOMITING Oxycodone HCl (Oxyir) 5 mg PO Q6H PRN PRN PRN Reason: Pain Score 6-10/10 Last Admin: 06/10/19 06:50 Dose: 5 mg Documented by: Senna/Docusate Sodium (Senokot-S, Belia-Colace) 1 tablet PO DAILY [facility] Last Admin: 06/10/19 09:02 Dose: 1 tablet Documented by: Sodium Chloride () 10 - 40 ml IV UD PRN PRN Reason: SALINE FLUSH Venlafaxine HCl (Effexor Xr) 37.5 mg PO DAILY [facility] Last Admin: 06/10/19 09:02 Dose: 37.5 mg Documented by: Assessment/Plan All Active Problems (Last Reviewed 04/20/19 @ 13:11 by Gertrudis Block) Cellulitis of left lower extremity (Acute) Sepsis (Acute) Skin abscess (Acute) Infected open wound (Acute) Decubitus ulcer of left heel, stage 2 (Acute) Debility (Acute) Abdominal wall abscess (Acute) Fever (Acute) Acute on chronic renal failure (Acute) 1. ESRD on CCPD not meeting adequacy with CCPD with 5 exchanges 3L fill volume on cycler with last fill 3L. Currently with clear effluent on CCPD. Discussed switching modality to home hemodialysis vs incenter. He will need TDC and AVF. Order vein mapping. He does not want to do home hemodialysis so will need to arrange incenter hemodialysis at [facility]. 2. Acute cellulitis on iv antibiotics 3. DM2 primary mgmt 4. HTN stable. 5. Anemia hgb stable 6. Secondary hyperparathyroidism with hyperphosphatemia. Check phos level. Continue binders and sensipar.
--- NOTE | 2019-06-10 09:07 | VDUE_ITS ---
Reason For Study: AV Fistula creation Right Arm Left Arm Right Cephalic Vein at the wrist measures Left Cephalic Vein at the wrist measures 0.30 x 0.31 cm. 0.35 x 0.38 cm. Right Cephalic Vein in the forearm measures Left Cephalic Vein in the forearm measures 0.42 x 0.44 cm. 0.40 x 0.40 cm. Right Cephalic Vein below antecub measures Left Cephalic Vein below antecub measures 0.42 x 0.43 cm. 0.38 x 0.43 cm. Right Cephalic Vein above antecub measures Left Cephalic Vein above antecub measures 0.48 x 0.49 cm. 0.44 x 0.48 cm. Right Cephalic Vein mid bicep measures 0.51 Left Cephalic Vein at mid bicep measures x 0.52 cm. 0.44 x 0.47 cm. Right Cephalic Vein at the shoulder measures Left Cephalic Vein at the shoulder measures 0.42 x 0.41 cm. 0.42 x 0.44 cm. Right Basilic Vein at the origin measures Basilic vein at origin measures 0.50 x 0.51 0.48 x 0.51 cm. cm. Right Basilic Vein mid bicep measures 0.50 x Basilic vein at bicep measures 0.55 x 0.56 0.51 cm. cm. Right Basilic Vein above antecub measures Basilic vein above antecub measures 0.56 x 0.56 x 0.59 cm. 0.56 cm. Right Brachial artery measures 0.46 x 0.47 Left Brachial artery measures 0.47 x 0.51 cm cm with a velocity of 77.3 cm/sec. with a velocity of 60.1 cm/sec. Right Radial artery measures 0.23 x 0.22 cm Left Radial artery measures 0.21 x 0.23 cm with a velocity of 78.6 cm/sec. with a velocity of 70.8 cm/sec. Interpretation Summary Patent and compressible bilateral upper extremity cephalic and basilic veins with dimensions as noted. Adequate diameter and flow bilateral brachial and radial arteries Ordering Physician: Sofy Hansen Referring Physician: Maurice Trejo M.D. Performed By: Brittany Ramirez RVT ?
--- NOTE | 2019-06-10 09:34 | DIALYSIS ---
CCPD tx completed w/ approx 1hr 39mins left on tx d/t problem with cycler. 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 Arnaldo UF -[id number]. See flow record for tx data.
--- NOTE | 2019-06-10 09:50 | PN_ITS ---
Patient Problems: Active and Suspected Problems (Last Reviewed 04/20/19 @ 13:11 by Gertrudis Block) Cellulitis of left lower extremity (Acute) Sepsis (Acute) Reason for Visit: Follow-up; left lower extremity cellulitis and worsening renal function Subjective: Patient is a 58-year-old gentleman with past medical history significant for end-stage renal disease on peritoneal dialysis, diabetes mellitus type 2 who presented with pain, erythema as well as skin changes involving the left lower extremity. An assessment of sepsis secondary to lower extremity made admitted to regular nursing floor for further management Objective: GENERAL: cooperative HEENT: Atraumatic; EYES; Anicteric, Normal Conjunctiva NECK; supple, normal thyroid, RESPIRATORY: Diminished to auscultation CARDIOVASCULAR: Regular S1 S2, GI: soft, normoactive bowel sounds, : No Renal angle tenderness; EXTREMITIES: Erythema and warmth involving the left lower extremity anteriorly from mid tibia to mid thigh MUSCULOSKELETAL: no muscle waisting NEURO: Awake; no lateralizing signs. SKIN: As described above PSYCH; Flat affect Vitals/I&O's: Vital Signs Temp Pulse Resp BP Pulse Ox 99.5 F H 88 20 H 117/57 L 93 06/10/19 09:31 06/10/19 09:31 06/10/19 09:31 06/10/19 09:31 06/10/19 09:00 Oxygen Delivery Method Room Air Weight: 119.4 kg Body Mass Index (BMI) 40.0 Finger Stick Blood Glucose 90 Intake and Output for Last 24 Hours 06/08/19 06/09/19 06/10/19 23:59 23:59 23:59 Intake Total 2470.00 / 2470.00 1196.66 / 1196.66 Output Total 2481 / 2481 Balance 2470.00 / 2470.00 -1284.34 / -1284.34 Laboratory Results 06/09/19 10:34: WBC 15.8 H, RBC 3.78 L, Hgb 10.6 L, Hct 32.3 L, MCV 85.4, MCH 28.0, MCHC 32.8, RDW Std Deviation 47.6 H, RDW Coeff of Gurwinder 15.3 H, Plt Count 234, MPV 9.1, Immature Gran % (Auto) 1.800 H, Neut % (Auto) 91.0 H, Lymph % (Auto) 1.5 L, Harlan % (Auto) 5.3, Eos % (Auto) 0.3, Baso % (Auto) 0.1, Absolute Neuts (auto) 14.4 H, Absolute Lymphs (auto) 0.23 L, Nucleated RBC % 0, Differential Comment SCANNED 06/09/19 10:34: Sodium 124 L, Potassium 3.4 L, Chloride 85 L, Carbon Dioxide 27.0, Anion Gap 12, BUN 73 H, Creatinine 11.20 H*, Estim Creat Clear Calc 7.13, Est GFR (MDRD) Af Amer 6 L, Est GFR (MDRD) Non-Af 5 L, BUN/Creatinine Ratio 6.5 L, Glucose 297 H, Calcium 8.2 L 06/09/19 10:34: Lactic Acid 1.1 06/09/19 16:34: POC Glucose 183 H 06/09/19 21:15: POC Glucose 200 H 06/10/19 06:00: WBC 13.0 H, RBC 3.43 L, Hgb 9.6 L, Hct 29.5 L, MCV 86.0, MCH 28.0, MCHC 32.5, RDW Std Deviation 48.9 H, RDW Coeff of Gurwinder 15.5 H, Plt Count 215, MPV 9.0, Immature Gran % (Auto) 1.600 H, Neut % (Auto) 88.0 H, Lymph % (Auto) 3.3 L, Harlan % (Auto) 5.4, Eos % (Auto) 1.4, Baso % (Auto) 0.3, Absolute Neuts (auto) 11.5 H, Absolute Lymphs (auto) 0.43 L, Nucleated RBC % 0 06/10/19 06:00: Sodium 127 L, Potassium 3.2 L, Chloride 90 L, Carbon Dioxide 25.0, Anion Gap 12, BUN 67 H, Creatinine 10.50 H*, Estim Creat Clear Calc 7.60, Est GFR (MDRD) Af Amer 7 L, Est GFR (MDRD) Non-Af 5 L, BUN/Creatinine Ratio 6.4 L, Glucose 213 H, Calcium 8.1 L 06/10/19 06:00: Hemoglobin A1c 6.8 H 06/10/19 06:24: POC Glucose 231 H Current Medications Acetaminophen (Tylenol) 650 mg PO Q6H PRN PRN PRN Reason: Pain or Fever Amlodipine Besylate (Norvasc) 10 mg PO DAILY [facility] Last Admin: 06/10/19 09:02 Dose: 10 mg Documented by: Calcium Acetate (Phoslo Gel Cap) 2,668 mg PO TIDCM [facility] Last Admin: 06/10/19 08:05 Dose: 2,668 mg Documented by: Cinacalcet (Sensipar) 30 mg PO DAILY [facility] Last Admin: 06/10/19 09:03 Dose: 30 mg Documented by: Glimepiride (Amaryl) 4 mg PO DAILYCM [facility] Last Admin: 06/10/19 08:05 Dose: 4 mg Documented by: Glucagon () 1 mg IM .X1 PRN PRN Reason: Hypoglycemia Heparin Sodium (Porcine) (Heparin Na) 5,000 unit SC Q8 [facility] Last Admin: 06/10/19 06:26 Dose: 5,000 unit Documented by: Sodium Chloride () 1,000 mls @ 100 mls/hr IV .Q10H [facility] Last Admin: 06/10/19 09:03 Dose: 100 mls/hr Documented by: Piperacillin Sod/Tazobactam (Sod 3.375 gm/ Sodium Chloride) 50 mls @ 12.5 mls/hr IV Q12 [facility] Last Admin: 06/10/19 09:03 Dose: 12.5 mls/hr Documented by: Vancomycin IV Pharmacy to Dose (1 ea/ Sodium Chloride) 500 mls @ 250 mls/hr IV PRN PRN; Protocol PRN Reason: Rx to Dose Sodium Chloride () 250 mls @ 15 mls/hr IV .[id number] PRN PRN Reason: Saline Flush Dextrose (Dextrose 10%-Water) 250 mls @ 999 mls/hr IV .Q16M PRN; Protocol PRN Reason: HYPOGLYCEMIA Insulin Human Lispro (Humalog Kwikpen (Bkc)) 0 unit SC ACHS [facility]; Protocol Last Admin: 06/10/19 06:27 Dose: 3 units Documented by: Linagliptin (Tradjenta) 5 mg PO DAILY [facility] Last Admin: 06/10/19 09:03 Dose: 5 mg Documented by: Metoprolol Tartrate (Lopressor (Beta Elizabeth)) 50 mg PO DAILY [facility] Last Admin: 06/10/19 09:02 Dose: 50 mg Documented by: Nutritional Formula (Nepro Carb Steady) 120 ml PO 4X/DAY [facility] Last Admin: 06/10/19 09:02 Dose: 120 ml Documented by: Ondansetron HCl (Zofran Odt) 4 mg PO Q6H PRN PRN PRN Reason: NAUSEA/VOMITING Oxycodone HCl (Oxyir) 5 mg PO Q6H PRN PRN PRN Reason: Pain Score 6-10/10 Last Admin: 06/10/19 06:50 Dose: 5 mg Documented by: Senna/Docusate Sodium (Senokot-S, Belia-Colace) 1 tablet PO DAILY [facility] Last Admin: 06/10/19 09:02 Dose: 1 tablet Documented by: Sodium Chloride () 10 - 40 ml IV UD PRN PRN Reason: SALINE FLUSH Venlafaxine HCl (Effexor Xr) 37.5 mg PO DAILY [facility] Last Admin: 06/10/19 09:02 Dose: 37.5 mg Documented by: STROKE Vital Signs/Narrative: Vital Signs Temp Pulse Resp BP Pulse Ox 06/10/19 09:31 99.5 F H 88 20 H 117/57 L 06/10/19 09:02 88 06/10/19 09:00 99.5 F H 88 16 117/57 L 93 06/10/19 06:48 85 Medical Necessity - Tobacco Use Smoking Status: Former smoker Tobacco Use: Non-smoker Assessment/Plan All Active Problems (Last Reviewed 04/20/19 @ 13:11 by Gertrudis Block) Cellulitis of left lower extremity (Acute) Sepsis (Acute) Skin abscess (Acute) Infected open wound (Acute) Decubitus ulcer of left heel, stage 2 (Acute) Debility (Acute) Abdominal wall abscess (Acute) Fever (Acute) Acute on chronic renal failure (Acute) In brief, patient is a 58-year-old gentleman with past medical history significant for end-stage renal disease on peritoneal dialysis, diabetes mellitus type 2 who presented with pain, erythema as well as skin changes involving the left lower extremity. An assessment of sepsis secondary to lower extremity made admitted to regular nursing floor for further management 1. Sepsis secondary to cellulitis involving the left lower extremity ?Patient admitted to monitored bed started on broad-spectrum antibiotic therapy with Zosyn and vancomycin cultures sent. 2. End-stage renal disease ?Patient is on peritoneal dialysis consult was placed to Dr. Sofy Hansen with nephrology. Her recommendation is for patient to undergo dialysis catheter placement for initiation of hemodialysis since patient peritoneal dialysis appears not to be effective with patient worsening kidney function 3. Diabetes mellitus type 2 ~with complications including diabetic nephropathy/end-stage renal disease; patient's oral hypoglycemics held. Placed on long acting insulin, Accu-Cheks a.c. and at bedtime and covered with sliding scale insulin 4. Obesity with BMI of 40.0 ?Counseled on weight reduction 5. Anemia secondary to anemia of chronic disease/end-stage renal disease ?06/10/2019 patient has experienced slight drop in his hemoglobin level following admission hemoglobin on admission was 10.6 to 9.6 on 06/10/2019. 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 Depression ?Patient is on SNRI 8. Hypertension ~ blood pressure controlled, home medications continued with dose adjustment as needed 9. DVT prophylaxis ?SC heparin Active Medications Acetaminophen (Tylenol) 650 mg PO Q6H PRN PRN PRN Reason: Pain or Fever Amlodipine Besylate (Norvasc) 10 mg PO DAILY [facility] Last Admin: 06/10/19 09:02 Dose: 10 mg Documented by: Calcium Acetate (Phoslo Gel Cap) 2,668 mg PO TIDCM [facility] Last Admin: 06/10/19 08:05 Dose: 2,668 mg Documented by: Cinacalcet (Sensipar) 30 mg PO DAILY [facility] Last Admin: 06/10/19 09:03 Dose: 30 mg Documented by: Glucagon () 1 mg IM .X1 PRN PRN Reason: Hypoglycemia Heparin Sodium (Porcine) (Heparin Na) 5,000 unit SC Q8 [facility] Last Admin: 06/10/19 06:26 Dose: 5,000 unit Documented by: Sodium Chloride () 1,000 mls @ 100 mls/hr IV .Q10H [facility] Last Admin: 06/10/19 09:03 Dose: 100 mls/hr Documented by: Piperacillin Sod/Tazobactam (Sod 3.375 gm/ Sodium Chloride) 50 mls @ 12.5 mls/hr IV Q12 [facility] Last Admin: 06/10/19 09:03 Dose: 12.5 mls/hr Documented by: Vancomycin IV Pharmacy to Dose (1 ea/ Sodium Chloride) 500 mls @ 250 mls/hr IV PRN PRN; Protocol PRN Reason: Rx to Dose Sodium Chloride () 250 mls @ 15 mls/hr IV .[id number] PRN PRN Reason: Saline Flush Dextrose (Dextrose 10%-Water) 250 mls @ 999 mls/hr IV .Q16M PRN; Protocol PRN Reason: HYPOGLYCEMIA Insulin Glargine (Lantus (Bk)) 10 units SC DAILY [facility] Insulin Human Lispro (Humalog Kwikpen (Bk)) 0 unit SC ACHS [facility]; Protocol Last Admin: 06/10/19 06:27 Dose: 3 units Documented by: Metoprolol Tartrate (Lopressor (Beta Elizabeth)) 50 mg PO DAILY [facility] Last Admin: 06/10/19 09:02 Dose: 50 mg Documented by: Nutritional Formula (Nepro Carb Steady) 120 ml PO 4X/DAY [facility] Last Admin: 06/10/19 09:02 Dose: 120 ml Documented by: Ondansetron HCl (Zofran Odt) 4 mg PO Q6H PRN PRN PRN Reason: NAUSEA/VOMITING Oxycodone HCl (Oxyir) 5 mg PO Q6H PRN PRN PRN Reason: Pain Score 6-10/10 Last Admin: 06/10/19 06:50 Dose: 5 mg Documented by: Senna/Docusate Sodium (Senokot-S, Belia-Colace) 1 tablet PO DAILY [facility] Last Admin: 06/10/19 09:02 Dose: 1 tablet Documented by: Sodium Chloride () 10 - 40 ml IV UD PRN PRN Reason: SALINE FLUSH Venlafaxine HCl (Effexor Xr) 37.5 mg PO DAILY [facility] Last Admin: 06/10/19 09:02 Dose: 37.5 mg Documented by: Code Visit Inpatient E&M: [id number] [facility] [place] [facility] L3
--- NOTE | 2019-06-10 11:55 | CASEMGMT ---
RN CM SYSTEMS PROGRAMMER CM to room to meet with patient for initial transition planning/care coordination assessment. RN DAKOTA introduced self and role at [facility]. Pt voices understanding and consents to assessment at this time. Pt resting in bed in no distress at this time. Pt is A/O at this time and answers all questions appropriately. Care providers, pharmacy, and demographics verified/updated at this time. 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 [facility] Prescription Benefit: Yes Living Will/HPOA: has both LW and Healthcare POA, who is his , Kathia. LNOK: , Kathia Living Arrangements: Lives with his , Kathia, in one-story home. Pt is independent with ADL's. does most of home mgmt tasks. Transportation: Pt states drives self and states no transportation concerns at this time. also drives and will take pt home @ discharge. DME: States has the following DME: rails/grab bars, hand held shower, glucometer--states it works properly and he has all needed supplies. Ambulates independently. has a cane, walker, and W/C available but does not use. Does not have Home O2. Pt states no need for further DME at this time. HHC/SNF: Hx of [facility] about 3 yrs ago and [facility] (he thinks it was [facility]). PT/OT notes have been reviewed. Discussed discharge planning with pt and he was made aware of therapies recommendations for additional therapy. Pt states he may be interested in OP therapy but he is not sure yet. He would like a script of therapy and wants to decide later. Discussed OP Hemodialysis. Pt states he prefers [facility] in [place]. He denies any transportation concerns, stating his would be able to take him if he is unable to. Pt wishes to return home and states has no concerns with going home at time of discharge. CM to follow for any further discharge planning/needs. Pt voices no further concerns/needs at this time. Advised pt to ask for CM if any further questions/concerns/needs arise. Voices understanding. PLAN: Home w/OP therapy--CM to obtain script to give to pt to take to location of his choice if he chooses to. Home w/new Hemodialysis @ [facility] in [place]. Jessica BSN RN CM
[2019-06-10 12:10] LABS: Bedside Glucose 176 mg/dL (70-110)
--- NOTE | 2019-06-10 12:37 | CON.PCM_ITS ---
Problem List (1) Problem with dialysis access Status: Acute Qualifiers: Encounter type: initial encounter Qualified Code(s): T82.898A - Other specified complication of vascular prosthetic devices, implants and grafts, initial encounter Reason for Consult Date of Consultation: 06/10/19 History of Present Illness: The patient is a 58 year old M I been asked to see by Dr. Sofy Hansen today for tunnel dialysis catheter placement. A written copy of my consult will present electronically. The patient was admitted to the hospital June 09, 2019 with cellulitis of his left leg. Apparently he was seen in the emergency room on June 08, 2019 he was placed on oral antibiotics without success. For 3 years he has had a peritoneal dialysis catheter in place. Apparently the patient had an elective appointment to see me in approximately 4 days time. He now is in need of urgent placement of tunneled dialysis catheters as he is not getting adequate dialysis exchange free his peritoneal catheters. His white blood cell count admission was 15.8 and is currently 13. Hemoglobin 9.6 medical 29.5 platelet count 215,000. Sodium is low at 127 potassium is 3.2 BUN is 67 and creatinine 10.5. The patient developed multiple sores over his body. He constantly picks at these areas. He states he is not aware of the source of the cellulitis of the left leg. He denies any acute injury. Blood cultures that were obtained yesterday are still pending. He is currently being treated with IV Zosyn. 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) G61.0 Decubitus ulcer of left heel, stage 2 (Acute) L89.622 Debility (Acute) R53.81 Murmur, cardiac (Chronic) R01.1 Acute on chronic renal failure (Acute) N17.9, N18.9 Chronic anemia (Chronic) D64.9 Type 2 diabetes mellitus (Chronic) E11.9 Hypertension (Chronic) I10 Allergies No Known Allergies Allergy (Verified 06/09/19 10:13) Home Medications: Ambulatory Orders Medication Instructions Recorded Ergocalciferol [Vitamin D] 50,000 unit PO QMONTH 03/12/16 B Complex W-C No.20/Folic Acid 1 mg PO QHS 10/29/16 [Nephrocaps Softgel] Sennosides/Docusate Sodium 1 each PO DAILY 10/29/16 [Docusate Sodium-Senna Tablet] Sitagliptin Phosphate [Januvia] 50 mg PO DAILY 10/29/16 Acetaminophen [Tylenol Tablet] 650 mg PO Q6H PRN PRN tablet 11/20/16 Amlodipine [Norvasc] 10 mg PO DAILY 12/28/17 Metoprolol Tartrate [Lopressor 50 mg PO DAILY 12/28/17 (beta elizabeth)] Venlafaxine XR [Effexor Xr] 1 cap PO DAILY 12/28/17 Glimepiride [Amaryl] 4 mg PO DAILY #30 tab 01/01/18 Sucroferric Oxyhydroxide [Velphoro] 1,500 mg PO TID 08/31/18 Cinacalcet HCl [Sensipar] 30 mg PO DAILY 06/05/19 Surgical History: Surgical History (Last Reviewed 04/20/19 @ 13:11 by Gertrudis Block) history of insertion of peritoneal dialysis cath Surgical History: noncontributory, - - PD catheter placement Psychiatric History: No pertinent psych hx Lives: Spouse/ Significant Other Smoking Status: Former smoker Tobacco Use: Non-smoker Alcohol: None Drugs: None - *Family History Offspring History Items: - - Endocarditis Paternal History Items: Diabetes - ESRD , Heart Disease, Hypertension, - - kidney disease Review of Systems Constitutional: Denies: Anorexia Cardiovascular: Denies: Chest Pain Gastrointestinal: Denies: Abdominal Pain Patient Problems: Active and Suspected Problems (Last Reviewed 04/20/19 @ 13:11 by Gertrudis Block) Cellulitis of left lower extremity (Acute) Sepsis (Acute) Problem with dialysis access (Acute) - Physical Exam Vitals/I&O's: Vital Signs Temp Pulse Resp BP Pulse Ox 99.5 F H 88 20 H 117/57 L 93 06/10/19 09:31 06/10/19 09:31 06/10/19 09:31 06/10/19 09:31 06/10/19 09:00 Oxygen Delivery Method Room Air Weight: 263 lb 3.711 oz Body Mass Index (BMI) 40.0 Finger Stick Blood Glucose 90 Intake and Output for Last 24 Hours 06/08/19 06/09/19 06/10/19 23:59 23:59 23:59 Intake Total 2470.00 / 2470.00 1196.66 / 1196.66 Output Total 2481 / 2481 Balance 2470.00 / 2470.00 -1284.34 / -1284.34 General: Alert, Oriented x3, Cooperative, No apparent distress Lungs: Clear to auscultation Cardiovascular: Regular rate, Regular Rhythm Abdomen: Bowel Sounds Present, Soft, Non Tender, - - Peritoneal catheter left lower quadrant Musculoskeletal: - - Erythema left distal thigh and anterior knee Microbiology Past 72 Hours 06/09/19 10:40 Blood Culture (Wb) - Right Wrist Blood Culture - Preliminary No growth in 48 hours. 06/09/19 10:34 Blood Culture (Wb) - Anticubital Left Blood Culture - Preliminary No growth in 48 hours. Laboratory Results 06/09/19 16:34: POC Glucose 183 H 06/09/19 21:15: POC Glucose 200 H 06/10/19 06:00: WBC 13.0 H, RBC 3.43 L, Hgb 9.6 L, Hct 29.5 L, MCV 86.0, MCH 28.0, MCHC 32.5, RDW Std Deviation 48.9 H, RDW Coeff of Gurwinder 15.5 H, Plt Count 215, MPV 9.0, Immature Gran % (Auto) 1.600 H, Neut % (Auto) 88.0 H, Lymph % (Auto) 3.3 L, [place] % (Auto) 5.4, Eos % (Auto) 1.4, Baso % (Auto) 0.3, Absolute Neuts (auto) 11.5 H, Absolute Lymphs (auto) 0.43 L, Nucleated RBC % 0 01/02/20 06:00: Sodium 127 L, Potassium 3.2 L, Chloride 90 L, Carbon Dioxide 25.0, Anion Gap 12, BUN 67 H, Creatinine 10.50 H*, Estim Creat Clear Calc 7.60, Est GFR (MDRD) Af Amer 7 L, Est GFR (MDRD) Non-Af 5 L, BUN/Creatinine Ratio 6.4 L, Glucose 213 H, Calcium 8.1 L 06/10/19 06:00: Hemoglobin A1c 6.8 H 06/10/19 06:24: POC Glucose 231 H 06/10/19 11:58: POC Glucose 176 H Current Medications Acetaminophen (Tylenol) 650 mg PO Q6H PRN PRN PRN Reason: Pain or Fever Amlodipine Besylate (Norvasc) 10 mg PO DAILY [facility] Last Admin: 06/10/19 09:02 Dose: 10 mg Documented by: Calcium Acetate (Phoslo Gel Cap) 2,668 mg PO TIDCM [facility] Last Admin: 06/10/19 12:05 Dose: 2,668 mg Documented by: Cinacalcet (Sensipar) 30 mg PO DAILY [facility] Last Admin: 06/10/19 09:03 Dose: 30 mg Documented by: Glucagon () 1 mg IM .X1 PRN PRN Reason: Hypoglycemia Heparin Sodium (Porcine) (Heparin Na) 5,000 unit SC Q8 [facility] Last Admin: 06/10/19 06:26 Dose: 5,000 unit Documented by: Sodium Chloride () 1,000 mls @ 100 mls/hr IV .Q10H [facility] Last Admin: 06/10/19 09:03 Dose: 100 mls/hr Documented by: Piperacillin Sod/Tazobactam (Sod 3.375 gm/ Sodium Chloride) 50 mls @ 12.5 mls/hr IV Q12 [facility] Last Admin: 06/10/19 09:03 Dose: 12.5 mls/hr Documented by: Vancomycin IV Pharmacy to Dose (1 ea/ Sodium Chloride) 500 mls @ 250 mls/hr IV PRN PRN; Protocol PRN Reason: Rx to Dose Sodium Chloride () 250 mls @ 15 mls/hr IV .[id number] PRN PRN Reason: Saline Flush Dextrose (Dextrose 10%-Water) 250 mls @ 999 mls/hr IV .Q16M PRN; Protocol PRN Reason: HYPOGLYCEMIA Insulin Glargine (Lantus (Bk)) 10 units SC DAILY [facility] Last Admin: 06/10/19 12:04 Dose: 10 units Documented by: Insulin Human Lispro (Humalog Kwikpen ([facility])) 0 unit SC ACHS [facility]; Protocol Last Admin: 06/10/19 12:04 Dose: 1 units Documented by: Metoprolol Tartrate (Lopressor (Beta Elizabeth)) 50 mg PO DAILY [facility] Last Admin: 06/10/19 09:02 Dose: 50 mg Documented by: Nutritional Formula (Nepro Carb Steady) 120 ml PO 4X/DAY [facility] Last Admin: 06/10/19 09:02 Dose: 120 ml Documented by: Ondansetron HCl (Zofran Odt) 4 mg PO Q6H PRN PRN PRN Reason: NAUSEA/VOMITING Oxycodone HCl (Oxyir) 5 mg PO Q6H PRN PRN PRN Reason: Pain Score 6-10/10 Last Admin: 06/10/19 06:50 Dose: 5 mg Documented by: Senna/Docusate Sodium (Senokot-S, Belia-Colace) 1 tablet PO DAILY [facility] Last Admin: 06/10/19 09:02 Dose: 1 tablet Documented by: Sodium Chloride () 10 - 40 ml IV UD PRN PRN Reason: SALINE FLUSH Venlafaxine HCl (Effexor Xr) 37.5 mg PO DAILY [facility] Last Admin: 06/10/19 09:02 Dose: 37.5 mg Documented by: Assessment/Plan All Active Problems (Last Reviewed 04/20/19 @ 13:11 by Gertrudis Block) Cellulitis of left lower extremity (Acute) Sepsis (Acute) Problem with dialysis access (Acute) Skin abscess (Acute) Infected open wound (Acute) Decubitus ulcer of left heel, stage 2 (Acute) Debility (Acute) Abdominal wall abscess (Acute) Fever (Acute) Acute on chronic renal failure (Acute) 58-year-old gentleman not being adequately dialyzed with peritoneal catheters. Request for placement of tunneled dialysis catheters. I will discuss with the patient's hospitalist Dr. Franco medical management of the cellulitis. We will add him on later today for placement of tunneled dialysis catheters if deemed appropriate. We can reserve removal of his peritoneal catheters and fistula creation for a electively schedule time in the future. He has had an opportunity to ask and have questions answered. We will proceed as noted. Appreciate the opportunity of continue to assist with his surgical care Yosef Franks M.D., F.A.C.S.
--- NOTE | 2019-06-10 13:25 | CASEMGMT ---
AMANDA DUNCAN NOTE: Reviewed PT/OT notes. Additional therapy recommended. To room to talk with pt. She was made aware of recommendations and states she would like [facility]. Pt provided with list of local [facility] agencies. She states she would like [facility], as she has had them in the past.
--- NOTE | 2019-06-10 13:53 | NURSING ---
Report called to Nadege PATEL in [place].
--- NOTE | 2019-06-10 14:01 | CASEMGMT ---
AMANDA DUNCAN NOTE: [facility] to [facility] @ and spoke with Maria Dolores. She was made aware pt currently getting PD but will need to start new HD. She states pt will need process modality change from PD to HD. She was made aware [facility] [place]. She states they do have chair availability and pt will be on a MWF schedule. Chair time not confirmed at this time. She also states pt will need Hepatitis B Surface Antigen results from within the last 30 days and states [facility] will reach out to the clinic to obtain other Hepatitis panel results. Order placed for Hepatitis Surface Antigen. Results will need faxed to [facility] once completed. New HD Dialysis form faxed to [facility] admissions along with clinical information to . Jessica MAGAÑA RN, CM
[2019-06-10 14:16] LABS: Partial Thromboplast Time 54.8 Seconds (24.1-36.2)
[2019-06-10] MEDS: Cefazolin 2 GM in 0.9% Normal Saline 100 ML IV (15:52)
[2019-06-10] MEDS: Bupivacaine Mpf 0.5% 30 ML VIAL (16:04)
[2019-06-10] MEDS: Heparin 10,000 UNITS/10 ML Vial 10000 UNITS (16:06)
--- NOTE | 2019-06-10 16:22 | OP.PCM_ITS ---
Problem List (1) Problem with dialysis access Status: Acute Qualifiers: Encounter type: initial encounter Qualified Code(s): T82.898A - Other specified complication of vascular prosthetic devices, implants and grafts, initial encounter Report of Operation Date of Procedure: 06/10/19 Pre-Operative Diagnosis: Problem with peritoneal dialysis access Post-Operative Diagnosis: Same Surgery/Procedure Performed:: Right internal jugular tunneled dialysis catheter placement. Ref. [id number]. Lot [id number]. Expiry date 01/05/2024 Description of Surgical Findings:: 58-year-old gentleman was taken the operating placed by the table underwent monitored anesthesia care. Ancef 2 g given intravenously preprocedure. The right neck and chest were sterilely prepped and draped. 1% lidocaine mixed 50- 50 with 0.5% Marcaine was used as a local anesthetic. 18 cc was used. It is of note that Timeout and informed consent had been obtained. Ultrasound was used to identify the right internal jugular local was instilled under ultrasound guidance micropuncture needle inserted in the right internal jugular vein followed by Seldinger wire advancement. Fluoroscopy demonstrated good positioning. Local was instilled down upon the right chest wall a stab incision created in the 19 cm pre-curved palindrome catheter was tunneled from the chest to the neck site. I put a micropuncture sheath exchanged out for an 035 J-wire and serial dilatation was performed. The sheath dilator was inserted under fluoroscopic control the wire and dilator removed the catheter was advanced to the sheath the sheath was split and the catheter was nicely positioned at the SVC atrial junction. The counterincision was closed with interrupted 5-0 Vicryl subdermal stitch. The cath was secured to the skin with interrupted 3-0 nylon. The catheter aspirated easily was flushed with saline and then 2 cc of heparinized saline per channel. Silver impregnated dressing was placed at the catheter exit site. Steri-Strips Telfa OpSite at the neck site. Sponge and instrument and needle counts were reported to the surgeon be correct. Blood loss was minimal. He tolerated the procedure well. He was taken to the recovery room in satisfactory condition without apparent complication. Specimens none. Drains none. Blood loss minimal. Stat portable chest x-ray is pending Yosef Franks M.D., F.A.C.S. Type of Anesthesia:: Local MAC Anesthesiologist: Henry Nunez
--- NOTE | 2019-06-10 16:36 | RAD_ITS ---
STUDY: X-RAY CHEST REASON FOR EXAM: Male, 58 years old. PCXR FOR DIALYSIS CATHETER PLACEMENT. TECHNIQUE: Single AP portable view of the chest. COMPARISON: Prior chest radiograph of October 29, 2016 FINDINGS: Right subclavian multilumen catheter ends in the proximal superior vena cava without complication of line placement. The lungs are clear and expanded. There is no demonstrated pleural abnormality. Normal size heart. Normal mediastinum and alee. Normal visualized pulmonary arteries. Normal visualized aortic arch and descending thoracic aorta. Normal visualized thoracic spine. Normal visualized ribs, clavicles, and shoulders. There is no demonstrated abnormality of the visualized soft tissue structures of the upper abdomen. IMPRESSION: Right subclavian multilumen catheter ends in the proximal superior vena cava without complication of line placement. Normal x-ray examination of the chest. Electronically Signed: Tala Mitchell MD at 17:48 EST , Service support , RAD/CXR for Line Placement
[2019-06-10 17:31] LABS: Bedside Glucose 145 mg/dL (70-110)
[2019-06-10 21:36] LABS: Bedside Glucose 114 mg/dL (70-110)
[2019-06-11] VITALS (12 sets, daily range): BP systolic 104–141; BP diastolic 51–70; PULSE 58–81; RESP 14–18; TEMP 36.6–37.8; O2SAT 92–98
[2019-06-11] MEDS: 0.9% Normal Saline 1,000 ML 100 ML IV (00:38)
[2019-06-11] MEDS: Heparin Injection (Vial) 5,000 UNIT/ML VIAL 5000 UNIT SC ×3 (05:21→23:30)
--- NOTE | 2019-06-11 06:03 | PN.SURG_ITS ---
Patient Problems: Active and Suspected Problems (Last Reviewed 04/20/19 @ 13:11 by Gertrudis Block) Cellulitis of left lower extremity (Acute) Sepsis (Acute) Problem with dialysis access (Acute) Subjective: Pt notes mild soreness right night Did not get dialysis via new catheters last night Ongoing treatment for cellulitis left leg IV in left antecubital vein complicating possibility of future fistula placement - Physical Exam Vitals/I&O's: Vital Signs Temp Pulse Resp BP Pulse Ox 97.8 F 76 18 120/69 97 06/11/19 05:00 06/11/19 05:00 06/11/19 05:00 06/11/19 05:00 06/11/19 05:00 Oxygen Delivery Method Room Air Weight: 263 lb 3.711 oz Body Mass Index (BMI) 40.0 Finger Stick Blood Glucose 90 Intake and Output for Last 24 Hours 06/09/19 06/10/19 06/11/19 23:59 23:59 23:59 Intake Total 2470.00 / 2470.00 2931.66 / 2931.66 1070 / 1070 Output Total 2481 / 2481 Balance 2470.00 / 2470.00 450.66 / 450.66 1070 / 1070 Microbiology Past 72 Hours 06/09/19 10:40 Blood Culture (Wb) - Right Wrist Blood Culture - Preliminary No growth in 48 hours. 06/09/19 10:34 Blood Culture (Wb) - Anticubital Left Blood Culture - Preliminary No growth in 48 hours. Laboratory Results 06/10/19 06:00: WBC 13.0 H, RBC 3.43 L, Hgb 9.6 L, Hct 29.5 L, MCV 86.0, MCH 28.0, MCHC 32.5, RDW Std Deviation 48.9 H, RDW Coeff of Gurwinder 15.5 H, Plt Count 215, MPV 9.0, Immature Gran % (Auto) 1.600 H, Neut % (Auto) 88.0 H, Lymph % (Auto) 3.3 L, [place] % (Auto) 5.4, Eos % (Auto) 1.4, Baso % (Auto) 0.3, Absolute Neuts (auto) 11.5 H, Absolute Lymphs (auto) 0.43 L, Nucleated RBC % 0 06/10/19 06:00: Sodium 127 L, Potassium 3.2 L, Chloride 90 L, Carbon Dioxide 25.0, Anion Gap 12, BUN 67 H, Creatinine 10.50 H*, Estim Creat Clear Calc 7.60, Est GFR (MDRD) Af Amer 7 L, Est GFR (MDRD) Non-Af 5 L, BUN/Creatinine Ratio 6.4 L, Glucose 213 H, Calcium 8.1 L 06/10/19 06:00: Hemoglobin A1c 6.8 H 06/10/19 06:24: POC Glucose 231 H 06/10/19 11:58: POC Glucose 176 H 06/10/19 14:02: APTT 54.8 H 06/10/19 17:24: POC Glucose 145 H 06/10/19 21:14: POC Glucose 114 H Current Medications Acetaminophen (Tylenol) 650 mg PO Q6H PRN PRN PRN Reason: Pain or Fever Amlodipine Besylate (Norvasc) 10 mg PO DAILY [facility] Last Admin: 06/10/19 09:02 Dose: 10 mg Documented by: Calcium Acetate (Phoslo Gel Cap) 2,668 mg PO TIDCM [facility] Last Admin: 06/10/19 17:18 Dose: Not Given Documented by: Cinacalcet (Sensipar) 30 mg PO DAILY [facility] Last Admin: 06/10/19 09:03 Dose: 30 mg Documented by: Glucagon () 1 mg IM .X1 PRN PRN Reason: Hypoglycemia Heparin Sodium (Porcine) (Heparin Na) 5,000 unit SC Q8 [facility] Last Admin: 06/11/19 05:21 Dose: 5,000 unit Documented by: Sodium Chloride () 1,000 mls @ 100 mls/hr IV .Q10H [facility] Last Admin: 06/11/19 00:38 Dose: 100 mls/hr Documented by: Piperacillin Sod/Tazobactam (Sod 3.375 gm/ Sodium Chloride) 50 mls @ 12.5 mls/hr IV Q12 [facility] Last Infusion: 06/11/19 01:26 Dose: Infused Documented by: Vancomycin IV Pharmacy to Dose (1 ea/ Sodium Chloride) 500 mls @ 250 mls/hr IV PRN PRN; Protocol PRN Reason: Rx to Dose Sodium Chloride () 250 mls @ 15 mls/hr IV .[id number] PRN PRN Reason: Saline Flush Dextrose (Dextrose 10%-Water) 250 mls @ 999 mls/hr IV .Q16M PRN; Protocol PRN Reason: HYPOGLYCEMIA Insulin Glargine (Lantus (Bk)) 10 units SC DAILY [facility] Last Admin: 06/10/19 12:04 Dose: 10 units Documented by: Insulin Human Lispro (Humalog Kwikpen ([facility])) 0 unit SC ACHS [facility]; Protocol Last Admin: 06/10/19 21:17 Dose: Not Given Documented by: Metoprolol Tartrate (Lopressor (Beta Elizabeth)) 50 mg PO DAILY [facility] Last Admin: 06/10/19 09:02 Dose: 50 mg Documented by: Nutritional Formula (Nepro Carb Steady) 120 ml PO 4X/DAY [facility] Last Admin: 06/10/19 21:21 Dose: Not Given Documented by: Ondansetron HCl (Zofran Odt) 4 mg PO Q6H PRN PRN PRN Reason: NAUSEA/VOMITING Oxycodone HCl (Oxyir) 5 mg PO Q6H PRN PRN PRN Reason: Pain Score 6-10/10 Last Admin: 06/10/19 06:50 Dose: 5 mg Documented by: Senna/Docusate Sodium (Senokot-S, Belia-Colace) 1 tablet PO DAILY [facility] Last Admin: 06/10/19 09:02 Dose: 1 tablet Documented by: Sodium Chloride () 10 - 40 ml IV UD PRN PRN Reason: SALINE FLUSH Venlafaxine HCl (Effexor Xr) 37.5 mg PO DAILY [facility] Last Admin: 06/10/19 09:02 Dose: 37.5 mg Documented by: Medical Necessity - Tobacco Use Smoking Status: Former smoker Tobacco Use: Non-smoker Assessment/Plan All Active Problems (Last Reviewed 04/20/19 @ 13:11 by Gertrudis Block) Cellulitis of left lower extremity (Acute) Sepsis (Acute) Problem with dialysis access (Acute) Skin abscess (Acute) Infected open wound (Acute) Decubitus ulcer of left heel, stage 2 (Acute) Debility (Acute) Abdominal wall abscess (Acute) Fever (Acute) Acute on chronic renal failure (Acute) Pt has office appt next week Will review at that time progress with LLE cellulitis and vein mapping and whether IV placement has eliminated potential locations for AV fistula placement Hopeful future fistula creation with concomitant removal of peritoneal catheter.
--- NOTE | 2019-06-11 06:50 | NURSING ---
milk and cookies given. pt awake.
[2019-06-11 06:52] LABS: Absolute Lymphocyte Count 0.51 X10^3/uL (0.83-4.51); Absolute Neutrophil Count 14.7 X10^3/uL (2.0-7.7); Basophil# 0.04 X10^3/uL; Basophil% 0.2 % (0-1); Eosinophil# 0.05 X10^3/uL; Eosinophils% 0.3 % (0-5); Hematocrit 30.2 % (40-54); Hemoglobin 9.6 g/dL (13.0-16.5); Lymphocyte # 0.51 X10^3/ul (4.0); Lymphocyte % 3.2 % (19-41); Mean Corp Hgb Conc 31.8 g/dL (32-36); Monocyte# 0.53 X10^3/uL; Monocyte% 3.3 % (0-10); NRBC Flagged by Analyzer 0 % (0-5); Neutrophil # 14.67 X10^3/uL (2.7-7.7); Neutrophil % 90.8 % (47-70); POSITIVE DIFFERENTIAL YES; Platelet Count 235 K/mm3 (150-450); RBC Distribution Width CV 15.6 % (11.6-14.6); RBC Distribution Width SD 49.6 fl (35.1-43.9); Red Blood Count 3.43 M/mm3 (4.6-6.2); White Blood Count 16.2 K/mm3 (4.4-11.0)
[2019-06-11 06:55] LABS: Bedside Glucose 43 mg/dL (70-110)
[2019-06-11 06:57] LABS: Differential Indicated SCAN CRITERIA MET
[2019-06-11 07:21] LABS: Vancomycin, Random Level 13.7 ug/mL (0.0-15.0)
[2019-06-11 07:30] LABS: Bedside Glucose 75 mg/dL (70-110)
[2019-06-11 07:34] LABS: Albumin, Serum 1.7 g/dL (3.2-5.0); BUN 78 mg/dL (7-18); BUN/Creat Ratio 6.9 RATIO (10-20); Calcium,Total 8.6 mg/dL (8.5-10.1); Chloride 95 mmol/L (98-107); EST Glomerular Filtration Rate 5 mL/min (>60); Est Glom Filt Rate - Afr Amer 6 mL/min (>60); Estimated Creatinine Clearance 7.06 ml/min; Glucose 45 mg/dL (74-106); Phosphorus 6.4 mg/dL (2.5-4.9); Potassium 3.7 mmol/L (3.5-5.1); Sodium Level 130 mmol/L (136-145)
[2019-06-11] MEDS: Calcium Acetate 667 MG Capsule 2668 MG PO ×3 (08:16→16:25)
[2019-06-11] MEDS: Venlafaxine XR 37.5 MG Capsule PO (08:17)
[2019-06-11] MEDS: Senna/Docusate Sodium 1 Tablet PO (08:18)
[2019-06-11] MEDS: Cinacalcet HCl 30 MG Tablet PO (08:18)
[2019-06-11 09:02] LABS: Hepatitis B Surface Antigen Non-Reactive (Nonreactive)
--- NOTE | 2019-06-11 09:20 | CASEMGMT ---
Notes from tunnel cath placement, post-op CXR, and hep B result faxed to [facility] at this time. SSttab PATEL CM
--- NOTE | 2019-06-11 09:52 | PN_ITS ---
Patient Problems: Active and Suspected Problems (Last Reviewed 04/20/19 @ 13:11 by Gertruids Block) Cellulitis of left lower extremity (Acute) Sepsis (Acute) Problem with dialysis access (Acute) Reason for Visit: Left lower extremity cellulitis End-stage renal disease Subjective: Patient underwent right internal jugular tunneled dialysis catheter placement [facility] on 06/10/2019. Patient did experience hypoglycemic episode this a.m he is on Lantus this was discontinued patient left on only Accu-Cheks before meals and at bedtime with sliding scale coverage. Objective: GENERAL: cooperative HEENT: Atraumatic; EYES; Anicteric, Normal Conjunctiva NECK; supple, normal thyroid, RESPIRATORY: Diminished to auscultation CARDIOVASCULAR: Regular S1 S2, GI: soft, normoactive bowel sounds, : No Renal angle tenderness; EXTREMITIES: Erythema and warmth involving the left lower extremity anteriorly from mid tibia to mid thigh MUSCULOSKELETAL: no muscle waisting NEURO: Awake; no lateralizing signs. SKIN: As described above PSYCH; Flat affect Vitals/I&O's: Vital Signs Temp Pulse Resp BP Pulse Ox 98.3 F 80 16 141/51 H 98 06/11/19 08:14 06/11/19 08:14 06/11/19 08:14 06/11/19 08:14 06/11/19 08:14 Oxygen Delivery Method Room Air Weight: 119.4 kg Body Mass Index (BMI) 40.0 Finger Stick Blood Glucose 90 Intake and Output for Last 24 Hours 06/09/19 06/10/19 06/11/19 23:59 23:59 23:59 Intake Total 2470.00 / 2470.00 2931.66 / 2931.66 1070 / 1070 Output Total 2481 / 2481 Balance 2470.00 / 2470.00 450.66 / 450.66 1070 / 1070 Microbiology Past 72 Hours 06/09/19 10:40 Blood Culture (Wb) - Right Wrist Blood Culture - Preliminary No growth in 48 hours. 06/09/19 10:34 Blood Culture (Wb) - Anticubital Left Blood Culture - Preliminary No growth in 48 hours. Laboratory Results 06/10/19 11:58: POC Glucose 176 H 06/10/19 14:02: APTT 54.8 H 06/10/19 17:24: POC Glucose 145 H 06/10/19 21:14: POC Glucose 114 H 06/11/19 06:03: Random Vancomycin 13.7 06/11/19 06:03: Sodium 130 L, Potassium 3.7, Chloride 95 L, Carbon Dioxide 23.0, BUN 78 H, Creatinine 11.30 H*, Estim Creat Clear Calc 7.06, Est GFR (MDRD) Af Amer 6 L, Est GFR (MDRD) Non-Af 5 L, BUN/Creatinine Ratio 6.9 L, Glucose 45 L, Calcium 8.6, Phosphorus 6.4 H, Magnesium 2.0, Albumin 1.7 L 06/11/19 06:03: WBC 16.2 H, RBC 3.43 L, Hgb 9.6 L, Hct 30.2 L, MCV 88.0, MCH 28.0, MCHC 31.8 L, RDW Std Deviation 49.6 H, RDW Coeff of Gurwinder 15.6 H, Plt Count 235, MPV 9.0, Immature Gran % (Auto) 2.200 H, Neut % (Auto) 90.8 H, Lymph % (Auto) 3.2 L, [place] % (Auto) 3.3, Eos % (Auto) 0.3, Baso % (Auto) 0.2, Absolute Neuts (auto) 14.7 H, Absolute Lymphs (auto) 0.51 L, Nucleated RBC % 0 06/11/19 06:03: Hep Bs Antigen Non-Reactive 06/11/19 06:49: POC Glucose 43 L* 06/11/19 07:24: POC Glucose 75 Current Medications Acetaminophen (Tylenol) 650 mg PO Q6H PRN PRN PRN Reason: Pain or Fever Amlodipine Besylate (Norvasc) 10 mg PO DAILY [facility] Last Admin: 06/10/19 09:02 Dose: 10 mg Documented by: Calcium Acetate (Phoslo Gel Cap) 2,668 mg PO TIDCM [facility] Last Admin: 06/11/19 08:16 Dose: 2,668 mg Documented by: Cinacalcet (Sensipar) 30 mg PO DAILY [facility] Last Admin: 06/11/19 08:18 Dose: 30 mg Documented by: Glucagon () 1 mg IM .X1 PRN PRN Reason: Hypoglycemia Heparin Sodium (Porcine) (Heparin Na) 5,000 unit SC Q8 [facility] Last Admin: 06/11/19 05:21 Dose: 5,000 unit Documented by: Heparin Sodium (Porcine) () 3,200 units IV X1 [facility] Stop: 06/11/19 18:00 Sodium Chloride () 1,000 mls @ 100 mls/hr IV .Q10H [facility] Last Admin: 06/11/19 00:38 Dose: 100 mls/hr Documented by: Piperacillin Sod/Tazobactam (Sod 3.375 gm/ Sodium Chloride) 50 mls @ 12.5 mls/hr IV Q12 [facility] Last Infusion: 06/11/19 01:26 Dose: Infused Documented by: Vancomycin IV Pharmacy to Dose (1 ea/ Sodium Chloride) 500 mls @ 250 mls/hr IV PRN PRN; Protocol PRN Reason: Rx to Dose Sodium Chloride () 250 mls @ 15 mls/hr IV .[id number] PRN PRN Reason: Saline Flush Dextrose (Dextrose 10%-Water) 250 mls @ 999 mls/hr IV .Q16M PRN; Protocol PRN Reason: HYPOGLYCEMIA Insulin Human Lispro (Humalog Kwikpen ([facility])) 0 unit SC ACHS [facility]; Protocol Last Admin: 06/11/19 07:39 Dose: Not Given Documented by: Metoprolol Tartrate (Lopressor (Beta Elizabeth)) 50 mg PO DAILY [facility] Last Admin: 06/10/19 09:02 Dose: 50 mg Documented by: Nutritional Formula (Nepro Carb Steady) 120 ml PO 4X/DAY [facility] Last Admin: 06/11/19 08:23 Dose: Not Given Documented by: Ondansetron HCl (Zofran Odt) 4 mg PO Q6H PRN PRN PRN Reason: NAUSEA/VOMITING Oxycodone HCl (Oxyir) 5 mg PO Q6H PRN PRN PRN Reason: Pain Score 6-10/10 Last Admin: 06/10/19 06:50 Dose: 5 mg Documented by: Senna/Docusate Sodium (Senokot-S, Belia-Colace) 1 tablet PO DAILY [facility] Last Admin: 06/11/19 08:18 Dose: 1 tablet Documented by: Sodium Chloride () 10 - 40 ml IV UD PRN PRN Reason: SALINE FLUSH Venlafaxine HCl (Effexor Xr) 37.5 mg PO DAILY [facility] Last Admin: 06/11/19 08:17 Dose: 37.5 mg Documented by: STROKE Vital Signs/Narrative: Vital Signs Temp Pulse Resp BP Pulse Ox 06/11/19 08:14 98.3 F 80 16 141/51 H 98 06/11/19 07:00 75 Medical Necessity - Tobacco Use Smoking Status: Former smoker Tobacco Use: Non-smoker Assessment/Plan All Active Problems (Last Reviewed 04/20/19 @ 13:11 by Gertrudis Block) Cellulitis of left lower extremity (Acute) Sepsis (Acute) Problem with dialysis access (Acute) Skin abscess (Acute) Infected open wound (Acute) Decubitus ulcer of left heel, stage 2 (Acute) Debility (Acute) Abdominal wall abscess (Acute) Fever (Acute) Acute on chronic renal failure (Acute) In brief, patient is a 58-year-old gentleman with past medical history significant for end-stage renal disease on peritoneal dialysis, diabetes mellitus type 2 who presented with pain, erythema as well as skin changes involving the left lower extremity. An assessment of sepsis secondary to lower extremity made admitted to regular nursing floor for further management 1. Sepsis secondary to cellulitis involving the left lower extremity ?Patient admitted to monitored bed started on broad-spectrum antibiotic therapy with Zosyn and vancomycin cultures sent. ?06/11/2019: Patient has persistent erythema warmth and pain in addition to leukocytosis consult was for placed to infectious disease in view of patient rather slow progress placed to ID. 2. End-stage renal disease ?Patient is on peritoneal dialysis consult was placed to Dr. Sofy Hansen with nephrology. Her recommendation is for patient to undergo dialysis catheter placement for initiation of hemodialysis since patient peritoneal dialysis appears not to be effective with patient worsening kidney function ?07/08/2019:Patient underwent right internal jugular tunneled dialysis catheter placement Yosef Franks on 06/10/2019. Dialysis initiated started on 07/08/2019. 3. Diabetes mellitus type 2 ~with complications including diabetic nephropathy/end-stage renal disease; patient's oral hypoglycemics held. Placed on long acting insulin, Accu-Cheks a.c. and at bedtime and covered with sliding scale insulin 06/11/2019;Patient did experience hypoglycemic episode this a.m he is on Lantus this was discontinued patient left on only Accu-Cheks before meals and at bedtime with sliding scale coverage. 4. Obesity with BMI of 40.0 ?Counseled on weight reduction 5. Anemia secondary to anemia of chronic disease/end-stage renal disease ?06/10/2019 patient has experienced slight drop in his hemoglobin level following admission hemoglobin on admission was 10.6 to 9.6 on 06/10/2019. 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 Depression ?Patient is on SNRI 8. Hypertension ~ blood pressure controlled, home medications continued with dose adjustment as needed 9. DVT prophylaxis ?SC heparin Code Visit Inpatient E&M: 84363 Subs Hosp L3
--- NOTE | 2019-06-11 09:57 | PCM.RX.CS ---
Consult Pharmacy has been consulted to manage selected antiobiotic: Vancomycin Type of Consult: Follow-up Prior Doses of Antibiotics Received/Current Regimen: Medications Discontinued Medications Vancomycin HCl 1,750 mg/ (Sodium Chloride) 535 mls @ 250 mls/hr IV X1 [facility] Stop: 06/09/19 13:08 Last Admin: 06/09/19 14:09 Dose: Infused Documented by: Labs: Sodium 130 mmol/L (136-145) L 06/11/19 06:03 Potassium 3.7 mmol/L (3.5-5.1) 06/11/19 06:03 Chloride 95 mmol/L (98-107) L 06/11/19 06:03 Carbon Dioxide 23.0 mmol/L (21.0-32.0) 06/11/19 06:03 Anion Gap 12 (5-15) 06/10/19 06:00 BUN 78 mg/dL (7-18) H 06/11/19 06:03 Creatinine 11.30 mg/dL (0.70-1.30) H* 06/11/19 06:03 Est GFR (MDRD) Af Amer 6 mL/min (>60) L 06/11/19 06:03 Est GFR (MDRD) Non-Af 5 mL/min (>60) L 06/11/19 06:03 BUN/Creatinine Ratio 6.9 RATIO (10-20) L 06/11/19 06:03 Glucose 45 mg/dL (74-106) L 06/11/19 06:03 Random Vancomycin 13.7 ug/mL (0.0-15.0) 06/11/19 06:03 Microbiology: Microbiology 06/09/19 10:40 Blood Culture (Wb) - Right Wrist Blood Culture - Preliminary No growth in 48 hours. 06/09/19 10:34 Blood Culture (Wb) - Anticubital Left Blood Culture - Preliminary No growth in 48 hours. Weight used for dosin kg Estimated Creatinine Clearance: Dialysis Pharmacy Plan for Drug Dosing: Patient started on hemodialysis this morning. Will dose per policy. Second dose for hemodialysis patient (119kg) is 1000mg IV x1. Will recheck and redose per policy. Unsure of final dialysis schedule at this time so will order a random level for tomorrow morning. Pharmacy Service will continue to monitor and adjust dosing as required. Follow-Up Labs: Trough Vancomycin - 06/12 0600 Random
--- NOTE | 2019-06-11 10:23 | PCM.PN.REN ---
Patient Problems: Active and Suspected Problems (Last Reviewed 04/20/19 @ 13:11 by Gertrudis Block) Cellulitis of left lower extremity (Acute) Sepsis (Acute) Problem with dialysis access (Acute) Subjective: Seen on hemodialysis, proceeding without incident. Tunneled dialysis catheter placed last night. PD catheter still in place. Blood pressure stable. Attempt 1 to 2 L fluid removal. - Physical Exam Vitals/I&O's: Vital Signs Temp Pulse Resp BP Pulse Ox 98.3 F 80 16 141/51 H 98 06/11/19 08:14 06/11/19 08:14 06/11/19 08:14 06/11/19 08:14 06/11/19 08:14 Oxygen Delivery Method Room Air Weight: 119.4 kg Body Mass Index (BMI) 40.0 Finger Stick Blood Glucose 90 Intake and Output for Last 24 Hours 06/09/19 06/10/19 06/11/19 23:59 23:59 23:59 Intake Total 2470.00 / 2470.00 2931.66 / 2931.66 Output Total 2481 / 2481 Balance 2470.00 / 2470.00 450.66 / 450.66 General: Alert, Oriented x3, Cooperative, No apparent distress Lungs: Clear to auscultation Cardiovascular: Regular rate Abdomen: Bowel Sounds Present, Soft, Non Tender, Non-Distended, Obese Extremities: Edema - Left lower extremity improved Skin: - - Cellulitis left lower extremity improving. Musculoskeletal: Tenderness - Left knee with swelling Psych/Mental Status: Normal Affect, Appropriate, Alert and oriented to time, place, person, mood and affect Microbiology Past 72 Hours 06/09/19 10:40 Blood Culture (Wb) - Right Wrist Blood Culture - Preliminary No growth in 48 hours. 06/09/19 10:34 Blood Culture (Wb) - Anticubital Left Blood Culture - Preliminary No growth in 48 hours. Laboratory Results 06/10/19 11:58: POC Glucose 176 H 06/10/19 14:02: APTT 54.8 H 06/10/19 17:24: POC Glucose 145 H 06/10/19 21:14: POC Glucose 114 H 06/11/19 06:03: Random Vancomycin 13.7 06/11/19 06:03: Sodium 130 L, Potassium 3.7, Chloride 95 L, Carbon Dioxide 23.0, BUN 78 H, Creatinine 11.30 H*, Estim Creat Clear Calc 7.06, Est GFR (MDRD) Af Amer 6 L, Est GFR (MDRD) Non-Af 5 L, BUN/Creatinine Ratio 6.9 L, Glucose 45 L, Calcium 8.6, Phosphorus 6.4 H, Magnesium 2.0, Albumin 1.7 L 06/11/19 06:03: WBC 16.2 H, RBC 3.43 L, Hgb 9.6 L, Hct 30.2 L, MCV 88.0, MCH 28.0, MCHC 31.8 L, RDW Std Deviation 49.6 H, RDW Coeff of Gurwinder 15.6 H, Plt Count 235, MPV 9.0, Immature Gran % (Auto) 2.200 H, Neut % (Auto) 90.8 H, Lymph % (Auto) 3.2 L, [place] % (Auto) 3.3, Eos % (Auto) 0.3, Baso % (Auto) 0.2, Absolute Neuts (auto) 14.7 H, Absolute Lymphs (auto) 0.51 L, Nucleated RBC % 0 06/11/19 06:03: Hep Bs Antigen Non-Reactive 06/11/19 06:49: POC Glucose 43 L* 06/11/19 07:24: POC Glucose 75 Current Medications Acetaminophen (Tylenol) 650 mg PO Q6H PRN PRN PRN Reason: Pain or Fever Amlodipine Besylate (Norvasc) 10 mg PO DAILY [facility] Last Admin: 06/10/19 09:02 Dose: 10 mg Documented by: Calcium Acetate (Phoslo Gel Cap) 2,668 mg PO TIDCM [facility] Last Admin: 06/11/19 08:16 Dose: 2,668 mg Documented by: Cinacalcet (Sensipar) 30 mg PO DAILY [facility] Last Admin: 06/11/19 08:18 Dose: 30 mg Documented by: Glucagon () 1 mg IM .X1 PRN PRN Reason: Hypoglycemia Heparin Sodium (Porcine) (Heparin Na) 5,000 unit SC Q8 [facility] Last Admin: 06/11/19 05:21 Dose: 5,000 unit Documented by: Heparin Sodium (Porcine) () 3,200 units IV X1 [facility] Stop: 06/11/19 18:00 Piperacillin Sod/Tazobactam (Sod 3.375 gm/ Sodium Chloride) 50 mls @ 12.5 mls/hr IV Q12 [facility] Last Infusion: 06/11/19 01:26 Dose: Infused Documented by: Vancomycin IV Pharmacy to Dose (1 ea/ Sodium Chloride) 500 mls @ 250 mls/hr IV PRN PRN; Protocol PRN Reason: Rx to Dose Sodium Chloride () 250 mls @ 15 mls/hr IV .[id number] PRN PRN Reason: Saline Flush Dextrose (Dextrose 10%-Water) 250 mls @ 999 mls/hr IV .Q16M PRN; Protocol PRN Reason: HYPOGLYCEMIA Vancomycin HCl (Vancomycin) 1,000 mg in 200 mls @ 200 mls/hr IV X1 ONE Stop: 06/11/19 14:59 Insulin Human Lispro (Humalog Kwikpen (Bkc)) 0 unit SC ACHS [facility]; Protocol Last Admin: 06/11/19 07:39 Dose: Not Given Documented by: Metoprolol Tartrate (Lopressor (Beta Elizabeth)) 50 mg PO DAILY [facility] Last Admin: 06/10/19 09:02 Dose: 50 mg Documented by: Nutritional Formula (Nepro Carb Steady) 120 ml PO 4X/DAY [facility] Last Admin: 06/11/19 08:23 Dose: Not Given Documented by: Ondansetron HCl (Zofran Odt) 4 mg PO Q6H PRN PRN PRN Reason: NAUSEA/VOMITING Oxycodone HCl (Oxyir) 5 mg PO Q6H PRN PRN PRN Reason: Pain Score 6-10/10 Last Admin: 06/10/19 06:50 Dose: 5 mg Documented by: Senna/Docusate Sodium (Senokot-S, Belia-Colace) 1 tablet PO DAILY [facility] Last Admin: 06/11/19 08:18 Dose: 1 tablet Documented by: Sodium Chloride () 10 - 40 ml IV UD PRN PRN Reason: SALINE FLUSH Venlafaxine HCl (Effexor Xr) 37.5 mg PO DAILY [facility] Last Admin: 06/11/19 08:17 Dose: 37.5 mg Documented by: Medical Necessity - Tobacco Use Smoking Status: Former smoker Tobacco Use: Non-smoker Assessment/Plan All Active Problems (Last Reviewed 04/20/19 @ 13:11 by Gertrudis Block) Cellulitis of left lower extremity (Acute) Sepsis (Acute) Problem with dialysis access (Acute) Skin abscess (Acute) Infected open wound (Acute) Decubitus ulcer of left heel, stage 2 (Acute) Debility (Acute) Abdominal wall abscess (Acute) Fever (Acute) Acute on chronic renal failure (Acute) 1. ESRD discontinued CCPD due to not meeting adequacy with 5 exchanges 3L fill volume with last fill. Currently on hemodialysis with tunneled dialysis catheter placement last night. Discussed hemodialysis placement at [facility]. He was instructed to call [place] [facility] if he interested in home hemodialysis. Will defer PD catheter removal to Dr. Franks. AV fistula placement as outpatient. Vein mapping obtained. 2. Acute cellulitis left lower extremity on iv antibiotics 3. DM2 primary mgmt 4. HTN stable. 5. Anemia hgb stable 6. Secondary hyperparathyroidism with hyperphosphatemia. Continue binders and sensipar. 7. Hyponatremia fluid removal 2 L as tolerated on hemodialysis today Discussed with hospitalist and case management
--- NOTE | 2019-06-11 11:31 | PCM.HP.ID ---
Reason for Consult: Left leg cellulitis Consulted by: Dr. Franco History of Present Illness: The patient is a 58 year old M [] This is a 58-year-old gentleman with past medical history of longstanding diabetes mellitus complicated by end-stage renal disease, obesity who presents with left leg erythema and pain that started last week and was seen in the emergency department. Patient was given Bactrim plus Keflex last without any clinical improvement. Patient was subsequent admitted roughly 48 hours ago. His admission blood cultures remain sterile. He denies any trauma to his left knee or left lower leg. Did have fever initially with intermittent chills. No history of a cellulitic infections that he is aware of. He has had MSSA soft tissue infections in the recent past i.e. this summer. Currently on parenteral vancomycin plus Zosyn. - Medical History Past Medical History (Chronic Problems): Chronic Problems (Last Reviewed 04/20/19 @ 13:11 by Gertrudis Block) ESRD (end stage renal disease) (Chronic) Cellulitis (Chronic) Peripheral vascular occlusive disease (Chronic) Peripheral autonomic neuropathy due to secondary diabetes (Chronic) 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) Murmur, cardiac (Chronic) Chronic anemia (Chronic) Chronic kidney disease, stage III (moderate) (Chronic) Type 2 diabetes mellitus (Chronic) Hypertension (Chronic) Allergies/Adverse Reactions: Allergies No Known Allergies Allergy (Verified 06/09/19 10:13) Home Medications: Ambulatory Orders Medication Instructions Recorded Ergocalciferol [Vitamin D] 50,000 unit PO QMONTH 03/12/16 B Complex W-C No.20/Folic Acid 1 mg PO QHS 10/29/16 [Nephrocaps Softgel] Sennosides/Docusate Sodium 1 each PO DAILY 10/29/16 [Docusate Sodium-Senna Tablet] Sitagliptin Phosphate [Januvia] 50 mg PO DAILY 10/29/16 Acetaminophen [Tylenol Tablet] 650 mg PO Q6H PRN PRN tablet 11/20/16 Amlodipine [Norvasc] 10 mg PO DAILY 12/28/17 Metoprolol Tartrate [Lopressor 50 mg PO DAILY 12/28/17 (beta dary)] Venlafaxine XR [Effexor Xr] 1 cap PO DAILY 12/28/17 Glimepiride [Amaryl] 4 mg PO DAILY #30 tab 01/01/18 Sucroferric Oxyhydroxide [Velphoro] 1,500 mg PO TID 08/31/18 Cinacalcet HCl [Sensipar] 30 mg PO DAILY 06/05/19 - Social History SMOKING STATUS:: Former smoker Review of Systems Comment: Noncontributory Vital Signs Temp Pulse Resp BP Pulse Ox 98.3 F 80 16 141/51 H 98 06/11/19 08:14 06/11/19 08:14 06/11/19 08:14 06/11/19 08:14 06/11/19 08:14 Oxygen Delivery Method Room Air Weight: 119.4 kg Body Mass Index (BMI) 40.0 Finger Stick Blood Glucose 90 Microbiology Past 72 Hours 06/09/19 10:40 Blood Culture - Preliminary Blood Culture (Wb) - Right Wrist No growth in 48 hours. 06/09/19 10:34 Blood Culture - Preliminary Blood Culture (Wb) - Anticubital Left No growth in 48 hours. Laboratory Tests Past 24 Hrs 06/10/19 06/11/19 06/11/19 14:02 06:03 06:03 WBC RBC Hgb Hct MCV MCH MCHC RDW Std Deviation RDW Coeff of Gurwinder Plt Count MPV Immature Gran % (Auto) Neut % (Auto) Lymph % (Auto) [place] % (Auto) Eos % (Auto) Baso % (Auto) Absolute Neuts (auto) Absolute Lymphs (auto) Nucleated RBC % APTT 54.8 H Sodium 130 L Potassium 3.7 Chloride 95 L Carbon Dioxide 23.0 BUN 78 H Creatinine 11.30 H* Estim Creat Clear Calc 7.06 Est GFR (MDRD) Af Amer 6 L Est GFR (MDRD) Non-Af 5 L BUN/Creatinine Ratio 6.9 L Glucose 45 L Calcium 8.6 Phosphorus 6.4 H Magnesium 2.0 Albumin 1.7 L Random Vancomycin 13.7 Hep Bs Antigen 06/11/19 06/11/19 06:03 06:03 WBC 16.2 H RBC 3.43 L Hgb 9.6 L Hct 30.2 L MCV 88.0 MCH 28.0 MCHC 31.8 L RDW Std Deviation 49.6 H RDW Coeff of Gurwinder 15.6 H Plt Count 235 MPV 9.0 Immature Gran % (Auto) 2.200 H Neut % (Auto) 90.8 H Lymph % (Auto) 3.2 L [place] % (Auto) 3.3 Eos % (Auto) 0.3 Baso % (Auto) 0.2 Absolute Neuts (auto) 14.7 H Absolute Lymphs (auto) 0.51 L Nucleated RBC % 0 APTT Sodium Potassium Chloride Carbon Dioxide BUN Creatinine Estim Creat Clear Calc Est GFR (MDRD) Af Amer Est GFR (MDRD) Non-Af BUN/Creatinine Ratio Glucose Calcium Phosphorus Magnesium Albumin Random Vancomycin Hep Bs Antigen Non-Reactive - Other Studies Radiology: [] Other Studies: [] Route of nutrition/ use of supplements: [] Nutritional Intake: [] IV Site: [] Alexander Catheter: [] Alert does not appear toxic currently being dialyzed. He has a dialysis catheter in his right chest. Lungs are clear heart exam S1-S2 abdomen soft nontender he has a peritoneal dialysis catheter also in place left leg there is diffuse erythema he does have some range of motion of his left knee localized tenderness along the medial aspect of his left leg/knee. No crepitus or signs of deep infection. I do not appreciate any synovitis or bogginess in his left knee. - Assessment/Plan Antibiotics: [] Assessment/Plan: [] Active and Suspected Problems (Last Reviewed 04/20/19 @ 13:11 by Gertrudis Block) Cellulitis of left lower extremity (Acute) Sepsis (Acute) Problem with dialysis access (Acute) Left leg cellulitis in a diabetic with multiple comorbidities including end-stage renal disease. This point will treat with Ancef 2 g IV every 24 hours and follow his clinical response.
[2019-06-11 12:05] LABS: Bedside Glucose 150 mg/dL (70-110)
[2019-06-11] MEDS: amLODIPine 10 MG Tablet PO (12:23)
[2019-06-11] MEDS: Heparin 10,000 UNITS/10 ML Vial 3200 UNITS IV (12:23)
[2019-06-11] MEDS: oxyCODONE 5 MG Tablet PO (12:23)
[2019-06-11] MEDS: Metoprolol Tartrate 50 MG Tablet PO (12:23)
[2019-06-11] MEDS: Insulin Lispro 100 UNIT/ML INSULN.PEN SC ×2 (16:26→23:30)
--- NOTE | 2019-06-11 16:39 | CASEMGMT ---
Per Lisa at [facility], pt's chair time is MWF at 1500 and that pt's insurance has gone through with approval. She states that they still have not received CXR and Hep B. This AMANDA CM faxed info directly to [facility] at this time. She states that they will be ready for pt on Friday at 1500 with pt arrival time at 1430. Pt is aware that he will need a ride for the 1st dialysis treatment. mignon Reynolds RN, updated on all at this time and her or [place] RN to notify pt of chair time at this time. Dr. Franco aware that pt has a chair time set up and that dialysis will be ready for him on friday, voices understanding. Dr. Franco states that pt may discharge over the weekend. Vidhi PATEL CM
[2019-06-11 19:16] LABS: Bedside Glucose 196 mg/dL (70-110)
[2019-06-11] MEDS: Acetaminophen 325 MG Tablet 650 MG PO (20:23)
[2019-06-11 23:31] LABS: Bedside Glucose 163 mg/dL (70-110)
[2019-06-12] VITALS (10 sets, daily range): BP systolic 102–116; BP diastolic 48–76; PULSE 72–89; RESP 12–20; TEMP 36.8–37.6; O2SAT 92–93
[2019-06-12] MEDS: Heparin Injection (Vial) 5,000 UNIT/ML VIAL 5000 UNIT SC ×3 (06:19→22:04)
[2019-06-12 06:25] LABS: Bedside Glucose 124 mg/dL (70-110)
[2019-06-12 06:57] LABS: Absolute Lymphocyte Count 0.48 X10^3/uL (0.83-4.51); Absolute Neutrophil Count 15.3 X10^3/uL (2.0-7.7); Basophil# 0.05 X10^3/uL; Basophil% 0.3 % (0-1); Eosinophil# 0.23 X10^3/uL; Eosinophils% 1.4 % (0-5); Hematocrit 28.4 % (40-54); Hemoglobin 8.9 g/dL (13.0-16.5); Lymphocyte # 0.48 X10^3/ul (4.0); Lymphocyte % 2.8 % (19-41); Mean Corp Hgb Conc 31.3 g/dL (32-36); Mean Corpuscular Hgb 27.9 pg (27.0-32.0); Mean Platelet Vol. 9.2 fl (6.2-12.0); Monocyte# 0.48 X10^3/uL; Monocyte% 2.8 % (0-10); NRBC Flagged by Analyzer 0 % (0-5); Neutrophil # 15.27 X10^3/uL (2.7-7.7); Neutrophil % 89.9 % (47-70); POSITIVE DIFFERENTIAL YES; Platelet Count 246 K/mm3 (150-450); RBC Distribution Width CV 15.5 % (11.6-14.6); RBC Distribution Width SD 50.3 fl (35.1-43.9); Red Blood Count 3.19 M/mm3 (4.6-6.2)
[2019-06-12 07:06] LABS: Differential Indicated SCAN CRITERIA MET
[2019-06-12 07:48] LABS: Anion Gap 10 (5-15); BUN 49 mg/dL (7-18); BUN/Creat Ratio 5.8 RATIO (10-20); Calcium,Total 8.3 mg/dL (8.5-10.1); Chloride 94 mmol/L (98-107); Creatinine, Serum 8.45 mg/dL (0.70-1.30); EST Glomerular Filtration Rate 7 mL/min (>60); Est Glom Filt Rate - Afr Amer 8 mL/min (>60); Estimated Creatinine Clearance 9.44 ml/min; Glucose 119 mg/dL (74-106); Potassium 4.3 mmol/L (3.5-5.1); Sodium Level 129 mmol/L (136-145)
[2019-06-12] MEDS: Calcium Acetate 667 MG Capsule 2668 MG PO (08:21)
[2019-06-12] MEDS: Metoprolol Tartrate 50 MG Tablet PO (08:22)
[2019-06-12] MEDS: amLODIPine 10 MG Tablet PO (08:22)
[2019-06-12] MEDS: Nepro Liquid 120 ML LIQUID PO (08:22)
[2019-06-12] MEDS: Venlafaxine XR 37.5 MG Capsule PO (08:22)
[2019-06-12] MEDS: Senna/Docusate Sodium 1 Tablet PO (08:23)
[2019-06-12] MEDS: Cinacalcet HCl 30 MG Tablet PO (08:23)
[2019-06-12] MEDS: 0.9% Saline Lock 10 ML Syringe IV (08:26)
[2019-06-12] MEDS: Cefazolin 2 GM in 0.9% Normal Saline 100 ML IV (08:26)
--- NOTE | 2019-06-12 10:19 | PN_ITS ---
Patient Problems: Active and Suspected Problems (Last Reviewed 04/20/19 @ 13:11 by Gertrudis Block) Cellulitis of left lower extremity (Acute) Sepsis (Acute) Problem with dialysis access (Acute) Reason for Visit: Follow-up left lower extremity cellulitis and end-stage renal disease with initiation of dialysis Subjective: Patient seen still complains of significant pain involving the left lower extremity around the knee. The extent of his erythema is decreasing in size. Patient was seen in consultation by Dr. Salgado with infectious disease antibiotics adjusted to Ancef. Objective: GENERAL: cooperative HEENT: Atraumatic; EYES; Anicteric, Normal Conjunctiva NECK; supple, normal thyroid, RESPIRATORY: Diminished to auscultation CARDIOVASCULAR: Regular S1 S2, GI: soft, normoactive bowel sounds, : No Renal angle tenderness; EXTREMITIES: Erythema and warmth involving the left lower extremity anteriorly from mid tibia to mid thigh MUSCULOSKELETAL: no muscle waisting NEURO: Awake; no lateralizing signs. SKIN: As described above PSYCH; Flat affect Vitals/I&O's: Vital Signs Temp Pulse Resp BP Pulse Ox 98.3 F 89 12 104/53 L 92 06/12/19 08:20 06/12/19 08:22 06/12/19 08:20 06/12/19 08:20 06/12/19 08:20 Oxygen Delivery Method Room Air Weight: 119.4 kg Body Mass Index (BMI) 40.0 Finger Stick Blood Glucose 90 Intake and Output for Last 24 Hours 06/10/19 06/11/19 06/12/19 23:59 23:59 23:59 Intake Total 2931.66 / 2931.66 2029.37 / 2679.37 1360 / 1360 Output Total 2481 / 2481 0 / 0 Balance 450.66 / 450.66 2029.37 / 2679.37 1360 / 1360 Microbiology Past 72 Hours 06/09/19 10:40 Blood Culture (Wb) - Right Wrist Blood Culture - Preliminary No growth in 48 hours. 06/09/19 10:34 Blood Culture (Wb) - Anticubital Left Blood Culture - Preliminary No growth in 48 hours. Laboratory Results 06/11/19 11:19: POC Glucose 150 H 06/11/19 16:25: POC Glucose 196 H 06/11/19 23:24: POC Glucose 163 H 06/12/19 06:07: WBC 17.0 H, RBC 3.19 L, Hgb 8.9 L, Hct 28.4 L, MCV 89.0, MCH 27.9, MCHC 31.3 L, RDW Std Deviation 50.3 H, RDW Coeff of Gurwinder 15.5 H, Plt Count 246, MPV 9.2, Immature Gran % (Auto) 2.800 H, Neut % (Auto) 89.9 H, Lymph % (Auto) 2.8 L, [place] % (Auto) 2.8, Eos % (Auto) 1.4, Baso % (Auto) 0.3, Absolute Neuts (auto) 15.3 H, Absolute Lymphs (auto) 0.48 L, Nucleated RBC % 0 06/12/19 06:07: Sodium 129 L, Potassium 4.3, Chloride 94 L, Carbon Dioxide 25.0, Anion Gap 10, BUN 49 H, Creatinine 8.45 H*, Estim Creat Clear Calc 9.44, Est GFR (MDRD) Af Amer 8 L, Est GFR (MDRD) Non-Af 7 L, BUN/Creatinine Ratio 5.8 L, Glucose 119 H, Calcium 8.3 L 06/12/19 06:18: POC Glucose 124 H Current Medications Acetaminophen (Tylenol) 650 mg PO Q6H PRN PRN PRN Reason: Pain or Fever Last Admin: 06/11/19 20:23 Dose: 650 mg Documented by: Amlodipine Besylate (Norvasc) 10 mg PO DAILY [facility] Last Admin: 06/12/19 08:22 Dose: 10 mg Documented by: Calcium Acetate (Phoslo Gel Cap) 2,668 mg PO TIDCM [facility] Last Admin: 06/12/19 08:21 Dose: 2,668 mg Documented by: Cinacalcet (Sensipar) 30 mg PO DAILY [facility] Last Admin: 06/12/19 08:23 Dose: 30 mg Documented by: Glucagon () 1 mg IM .X1 PRN PRN Reason: Hypoglycemia Heparin Sodium (Porcine) (Heparin Na) 5,000 unit SC Q8 [facility] Last Admin: 06/12/19 06:19 Dose: 5,000 unit Documented by: Sodium Chloride () 250 mls @ 15 mls/hr IV .[id number] PRN PRN Reason: Saline Flush Dextrose (Dextrose 10%-Water) 250 mls @ 999 mls/hr IV .Q16M PRN; Protocol PRN Reason: HYPOGLYCEMIA Cefazolin Sodium 2 gm/ Sodium (Chloride) 110 mls @ 150 mls/hr IV DAILY [facility] Last Infusion: 06/12/19 09:49 Dose: Infused Documented by: Insulin Human Lispro (Humalog Kwikpen (Bkc)) 0 unit SC ACHS [facility]; Protocol Last Admin: 06/12/19 06:19 Dose: Not Given Documented by: Metoprolol Tartrate (Lopressor (Beta Elizabeth)) 50 mg PO DAILY [facility] Last Admin: 06/12/19 08:22 Dose: 50 mg Documented by: Ondansetron HCl (Zofran Odt) 4 mg PO Q6H PRN PRN PRN Reason: NAUSEA/VOMITING Oxycodone HCl (Oxyir) 5 mg PO Q6H PRN PRN PRN Reason: Pain Score 6-10/10 Last Admin: 06/11/19 12:23 Dose: 5 mg Documented by: Senna/Docusate Sodium (Senokot-S, Belia-Colace) 1 tablet PO DAILY [facility] Last Admin: 06/12/19 08:23 Dose: 1 tablet Documented by: Sodium Chloride () 10 - 40 ml IV UD PRN PRN Reason: SALINE FLUSH Last Admin: 06/12/19 08:26 Dose: 10 ml Documented by: Venlafaxine HCl (Effexor Xr) 37.5 mg PO DAILY [facility] Last Admin: 06/12/19 08:22 Dose: 37.5 mg Documented by: STROKE Vital Signs/Narrative: Vital Signs Temp Pulse Resp BP Pulse Ox 06/12/19 08:22 89 06/12/19 08:20 98.3 F 85 12 104/53 L 92 06/12/19 07:00 85 Medical Necessity - Tobacco Use Smoking Status: Former smoker Tobacco Use: Non-smoker Assessment/Plan All Active Problems (Last Reviewed 04/20/19 @ 13:11 by Gertrudis Block) Cellulitis of left lower extremity (Acute) Sepsis (Acute) Problem with dialysis access (Acute) Skin abscess (Acute) Infected open wound (Acute) Decubitus ulcer of left heel, stage 2 (Acute) Debility (Acute) Abdominal wall abscess (Acute) Fever (Acute) Acute on chronic renal failure (Acute) In brief, patient is a 58-year-old gentleman with past medical history significant for end-stage renal disease on peritoneal dialysis, diabetes mellitus type 2 who presented with pain, erythema as well as skin changes involving the left lower extremity. An assessment of sepsis secondary to lower extremity made admitted to regular nursing floor for further management 1. Sepsis secondary to cellulitis involving the left lower extremity ?Patient admitted to monitored bed started on broad-spectrum antibiotic therapy with Zosyn and vancomycin cultures sent. ?06/11/2019: Patient has persistent erythema warmth and pain in addition to leukocytosis consult was for placed to infectious disease in view of patient rather slow progress placed to ID. 06/12/2019;Patient seen still complains of significant pain involving the left lower extremity around the knee. The extent of his erythema is decreasing in size. Patient was seen in consultation by Dr. Salgado with infectious disease antibiotics adjusted to Ancef. 2. End-stage renal disease ?Patient is on peritoneal dialysis consult was placed to Dr. Sofy Hansen with nephrology. Her recommendation is for patient to undergo dialysis catheter placement for initiation of hemodialysis since patient peritoneal dialysis appears not to be effective with patient worsening kidney function ?06/11/2019:Patient underwent right internal jugular tunneled dialysis catheter placement Yosef Franks on 06/10/2019. Dialysis initiated started on 07/08/2019. 3. Diabetes mellitus type 2 ~with complications including diabetic nephropathy/end-stage renal disease; patient's oral hypoglycemics held. Placed on long acting insulin, Accu-Cheks a.c. and at bedtime and covered with sliding scale insulin 06/11/2019;Patient did experience hypoglycemic episode this a.m he is on Lantus this was discontinued patient left on only Accu-Cheks before meals and at bedtime with sliding scale coverage. 4. Obesity with BMI of 40.0 ?Counseled on weight reduction 5. Anemia secondary to anemia of chronic disease/end-stage renal disease ?06/10/2019 patient has experienced slight drop in his hemoglobin level following admission hemoglobin on admission was 10.6 to 9.6 on 06/10/2019. 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 Depression ?Patient is on SNRI 8. Hypertension ~ blood pressure controlled, home medications continued with dose adjustment as needed 9. DVT prophylaxis ?SC heparin Code Visit Inpatient E&M: 72322 Subs Hosp L2
[2019-06-12] MEDS: Insulin Lispro 100 UNIT/ML INSULN.PEN SC ×3 (11:33→22:04)
[2019-06-12] MEDS: Ondansetron ODT 4 MG Tablet PO (11:33)
[2019-06-12 11:36] LABS: Bedside Glucose 177 mg/dL (70-110)
[2019-06-12] MEDS: Epoetin Alfa epbx 10,000 UNITS/ML 10000 UNIT SC (13:11)
--- NOTE | 2019-06-12 13:25 | PCM.PN.REN ---
Patient Problems: Active and Suspected Problems (Last Reviewed 04/20/19 @ 13:11 by Gertrudis Block) Cellulitis of left lower extremity (Acute) Sepsis (Acute) Problem with dialysis access (Acute) Subjective: Continues to have left knee pain with erythema. Cellulitis continues to improve on IV antibiotic therapy. Hemodialysis yesterday without incident. His next dialysis is scheduled on Friday with tunneled dialysis catheter. His PD catheter is still in place and will need removed. Will defer to Dr. Franks. They are not interested in home hemo-dialysis. [facility] at [facility] dialysis unit in [place] prior to discharge. Complains of constipation - Physical Exam Vitals/I&O's: Vital Signs Temp Pulse Resp BP Pulse Ox 99.2 F H 74 14 113/69 93 06/12/19 13:22 06/12/19 13:22 06/12/19 13:22 06/12/19 13:22 06/12/19 13:22 Oxygen Delivery Method Room Air Weight: 119.4 kg Body Mass Index (BMI) 40.0 Finger Stick Blood Glucose 90 Intake and Output for Last 24 Hours 06/10/19 06/11/19 06/12/19 23:59 23:59 23:59 Intake Total 2931.66 / 2931.66 202.37 / 2679.37 2034 Output Total 2481 / 2481 0 / 0 Balance 450.66 / 450.66 2028.37 / 2679.37 2034 General: Alert, Oriented x3, Cooperative, No apparent distress Lungs: Clear to auscultation Cardiovascular: Regular rate Abdomen: Bowel Sounds Present, Soft, Non Tender, Distended, Obese, - - PD catheter in place Extremities: Edema - Left lower extremity Skin: - - Cellulitis left lower extremity over knee and pretibial area improving Musculoskeletal: Tenderness - Left knee Neurological: Cranial nerves II-XII grossly intact Psych/Mental Status: Normal Affect, Appropriate, Alert and oriented to time, place, person, mood and affect Microbiology Past 72 Hours 06/09/19 10:40 Blood Culture (Wb) - Right Wrist Blood Culture - Preliminary No growth in 48 hours. 06/09/19 10:34 Blood Culture (Wb) - Anticubital Left Blood Culture - Preliminary No growth in 48 hours. Laboratory Results 06/11/19 16:25: POC Glucose 196 H 06/11/19 23:24: POC Glucose 163 H 06/12/19 06:07: WBC 17.0 H, RBC 3.19 L, Hgb 8.9 L, Hct 28.4 L, MCV 89.0, MCH 27.9, MCHC 31.3 L, RDW Std Deviation 50.3 H, RDW Coeff of Gurwinder 15.5 H, Plt Count 246, MPV 9.2, Immature Gran % (Auto) 2.800 H, Neut % (Auto) 89.9 H, Lymph % (Auto) 2.8 L, [place] % (Auto) 2.8, Eos % (Auto) 1.4, Baso % (Auto) 0.3, Absolute Neuts (auto) 15.3 H, Absolute Lymphs (auto) 0.48 L, Nucleated RBC % 0 06/12/19 06:07: Sodium 129 L, Potassium 4.3, Chloride 94 L, Carbon Dioxide 25.0, Anion Gap 10, BUN 49 H, Creatinine 8.45 H*, Estim Creat Clear Calc 9.44, Est GFR (MDRD) Af Amer 8 L, Est GFR (MDRD) Non-Af 7 L, BUN/Creatinine Ratio 5.8 L, Glucose 119 H, Calcium 8.3 L 06/12/19 06:18: POC Glucose 124 H 06/12/19 11:32: POC Glucose 177 H Current Medications Acetaminophen (Tylenol) 650 mg PO Q6H PRN PRN PRN Reason: Pain or Fever Last Admin: 06/11/19 20:23 Dose: 650 mg Documented by: Amlodipine Besylate (Norvasc) 10 mg PO DAILY [facility] Last Admin: 06/12/19 08:22 Dose: 10 mg Documented by: Calcium Acetate (Phoslo Gel Cap) 2,668 mg PO TIDCM [facility] Last Admin: 06/12/19 11:33 Dose: Not Given Documented by: Cinacalcet (Sensipar) 30 mg PO DAILY [facility] Last Admin: 06/12/19 08:23 Dose: 30 mg Documented by: Glucagon () 1 mg IM .X1 PRN PRN Reason: Hypoglycemia Heparin Sodium (Porcine) (Heparin Na) 5,000 unit SC Q8 [facility] Last Admin: 06/12/19 13:11 Dose: 5,000 unit Documented by: Sodium Chloride () 250 mls @ 15 mls/hr IV .[id number] PRN PRN Reason: Saline Flush Dextrose (Dextrose 10%-Water) 250 mls @ 999 mls/hr IV .Q16M PRN; Protocol PRN Reason: HYPOGLYCEMIA Cefazolin Sodium 2 gm/ Sodium (Chloride) 110 mls @ 150 mls/hr IV DAILY [facility] Last Infusion: 06/12/19 09:49 Dose: Infused Documented by: Insulin Human Lispro (Humalog Kwikpen (Bkc)) 0 unit SC ACHS [facility]; Protocol Last Admin: 06/12/19 11:33 Dose: 1 units Documented by: Metoprolol Tartrate (Lopressor (Beta Elizabeth)) 50 mg PO DAILY [facility] Last Admin: 06/12/19 08:22 Dose: 50 mg Documented by: Multivit/Ca Carb/B Cmplx/FA/Prenat (Nephrocaps, Renaphro) 1 capsule PO DAILY [facility] Last Admin: 06/12/19 12:56 Dose: Not Given Documented by: Ondansetron HCl (Zofran Odt) 4 mg PO Q6H PRN PRN PRN Reason: NAUSEA/VOMITING Last Admin: 06/12/19 11:33 Dose: 4 mg Documented by: Oxycodone HCl (Oxyir) 5 mg PO Q6H PRN PRN PRN Reason: Pain Score 6-10/10 Last Admin: 06/11/19 12:23 Dose: 5 mg Documented by: Senna/Docusate Sodium (Senokot-S, Belia-Colace) 1 tablet PO DAILY [facility] Last Admin: 06/12/19 08:23 Dose: 1 tablet Documented by: Sodium Chloride () 10 - 40 ml IV UD PRN PRN Reason: SALINE FLUSH Last Admin: 06/12/19 08:26 Dose: 10 ml Documented by: Venlafaxine HCl (Effexor Xr) 37.5 mg PO DAILY [facility] Last Admin: 06/12/19 08:22 Dose: 37.5 mg Documented by: Medical Necessity - Tobacco Use Smoking Status: Former smoker Tobacco Use: Non-smoker Assessment/Plan All Active Problems (Last Reviewed 04/20/19 @ 13:11 by Gertrudis Block) Cellulitis of left lower extremity (Acute) Sepsis (Acute) Problem with dialysis access (Acute) Skin abscess (Acute) Infected open wound (Acute) Decubitus ulcer of left heel, stage 2 (Acute) Debility (Acute) Abdominal wall abscess (Acute) Fever (Acute) Acute on chronic renal failure (Acute) 1. ESRD discontinued CCPD due to not meeting adequacy with 5 exchanges 3L fill volume with last fill. Currently on hemodialysis with tunneled dialysis catheter placement. Next dialysis on Friday. Schedule chronic dialysis at [facility]. Will defer PD catheter removal to Dr. Franks. AV fistula placement as outpatient. Vein mapping obtained. 2. Acute cellulitis left lower extremity on iv antibiotics 3. DM2 primary mgmt 4. HTN stable. 5. Anemia hgb stable 6. Secondary hyperparathyroidism with hyperphosphatemia. Continue binders and sensipar. 7. Hyponatremia due to volume expansion. Fluid removal 2 L as tolerated on hemodialysis on Friday. Patient anuretic. 8/ Constipation add lactulose
[2019-06-12 16:20] LABS: Bedside Glucose 200 mg/dL (70-110)
--- NOTE | 2019-06-12 16:52 | NURSING ---
This nurse into room to give scheduled medications. Pt states not taking phosphorus because he already took them. stated that I had some with me and gave them to him. This nurse educated importance of nursing giving medication to pt and pt not taking medications from home. Pt states well if you all would bring my pills to me with my meals this wouldn't be a problem. I shouldn't have to call you every time I eat to take these. You should just know. Advised to take whatever medications home with her and to not give pt anymore medications. Also reassured pt that this nurse would pass on to next shift to bring medications with meals. contracts director aware.
--- NOTE | 2019-06-12 18:22 | NURSING ---
Reviewed and agreed on all charting with Osbaldo Bragg RN
[2019-06-12 22:10] LABS: Bedside Glucose 159 mg/dL (70-110)
[2019-06-13] VITALS (11 sets, daily range): BP systolic 100–148; BP diastolic 50–88; PULSE 69–93; RESP 14–20; TEMP 37–37.3; O2SAT 92–96
[2019-06-13 05:55] LABS: Absolute Lymphocyte Count 0.54 X10^3/uL (0.83-4.51); Basophil# 0.05 X10^3/uL; Basophil% 0.3 % (0-1); Eosinophil# 0.31 X10^3/uL; Eosinophils% 1.7 % (0-5); Hematocrit 27.7 % (40-54); Hemoglobin 8.7 g/dL (13.0-16.5); Lymphocyte # 0.54 X10^3/ul (4.0); Mean Corp Hgb Conc 31.4 g/dL (32-36); Mean Corpuscular Hgb 28.2 pg (27.0-32.0); Mean Corpuscular Volume 89.6 fL (80-94); Mean Platelet Vol. 8.9 fl (6.2-12.0); Monocyte# 0.41 X10^3/uL; Monocyte% 2.3 % (0-10); NRBC Flagged by Analyzer 0 % (0-5); Neutrophil # 16.02 X10^3/uL (2.7-7.7); Neutrophil % 88.7 % (47-70); POSITIVE DIFFERENTIAL YES; Platelet Count 231 K/mm3 (150-450); RBC Distribution Width CV 15.7 % (11.6-14.6); Red Blood Count 3.09 M/mm3 (4.6-6.2); White Blood Count 18.1 K/mm3 (4.4-11.0)
[2019-06-13 05:59] LABS: Differential Indicated SCAN CRITERIA MET
[2019-06-13] MEDS: Heparin Injection (Vial) 5,000 UNIT/ML VIAL 5000 UNIT SC ×3 (06:36→23:01)
[2019-06-13 06:40] LABS: Bedside Glucose 102 mg/dL (70-110)
[2019-06-13 06:50] LABS: Anion Gap 10 (5-15); BUN 58 mg/dL (7-18); Calcium,Total 8.2 mg/dL (8.5-10.1); Chloride 92 mmol/L (98-107); Creatinine, Serum 9.61 mg/dL (0.70-1.30); EST Glomerular Filtration Rate 6 mL/min (>60); Est Glom Filt Rate - Afr Amer 7 mL/min (>60); Glucose 101 mg/dL (74-106); Potassium 4.7 mmol/L (3.5-5.1); Sodium Level 127 mmol/L (136-145)
--- NOTE | 2019-06-13 06:52 | NURSING ---
AMANDA Almanza notified of critical creatinine of 9.61
--- NOTE | 2019-06-13 08:26 | PN_ITS ---
Patient Problems: Active and Suspected Problems (Last Reviewed 04/20/19 @ 13:11 by Gertrudis Block) Cellulitis of left lower extremity (Acute) Sepsis (Acute) Problem with dialysis access (Acute) Reason for Visit: left lower extremity cellulitis and renal failure Subjective: Patient went into acute respiratory distress this a.m. resulting in patient being placed on supplemental oxygen. Patient is able to his left knee which he was not able to when he was first admitted. Objective: GENERAL: cooperative but dyspneic at rest. HEENT: Atraumatic; EYES; Anicteric, Normal Conjunctiva NECK; supple, normal thyroid, RESPIRATORY: Diminished to auscultation CARDIOVASCULAR: Regular S1 S2, GI: soft, normoactive bowel sounds, : No Renal angle tenderness; EXTREMITIES: Erythema and warmth involving the left knee anteriorly MUSCULOSKELETAL: no muscle waisting NEURO: Awake; no lateralizing signs. SKIN: As described above PSYCH; Flat affect Vitals/I&O's: Vital Signs Temp Pulse Resp BP Pulse Ox 98.7 F 89 18 148/50 H 93 06/13/19 04:00 06/13/19 04:00 06/13/19 04:00 06/13/19 04:00 06/13/19 04:00 Oxygen Flow Rate (L/min) 2 Oxygen Delivery Method Nasal Cannula Weight: 124.5 kg Body Mass Index (BMI) 40.0 Finger Stick Blood Glucose 90 Intake and Output for Last 24 Hours 06/11/19 06/12/19 06/13/19 23:59 23:59 23:59 Intake Total 2028.37 / 2679.37 2625 / 2625 Output Total 0 / 0 Balance 2028.37 / 2679.37 2625 / 2625 Microbiology Past 72 Hours 06/09/19 10:40 Blood Culture (Wb) - Right Wrist Blood Culture - Preliminary No growth in 48 hours. 06/09/19 10:34 Blood Culture (Wb) - Anticubital Left Blood Culture - Preliminary No growth in 48 hours. Laboratory Results 06/12/19 11:32: POC Glucose 177 H 06/12/19 16:14: POC Glucose 200 H 06/12/19 22:02: POC Glucose 159 H 06/13/19 05:20: WBC 18.1 H, RBC 3.09 L, Hgb 8.7 L, Hct 27.7 L, MCV 89.6, MCH 28.2, MCHC 31.4 L, RDW Std Deviation 51.0 H, RDW Coeff of Gurwinder 15.7 H, Plt Count 231, MPV 8.9, Immature Gran % (Auto) 4.000 H, Neut % (Auto) 88.7 H, Lymph % (Auto) 3.0 L, [place] % (Auto) 2.3, Eos % (Auto) 1.7, Baso % (Auto) 0.3, Absolute Neuts (auto) 16.0 H, Absolute Lymphs (auto) 0.54 L, Nucleated RBC % 0, Diff erential Comment 06/13/19 05:20: Sodium 127 L, Potassium 4.7, Chloride 92 L, Carbon Dioxide 25.0, Anion Gap 10, BUN 58 H, Creatinine 9.61 H*, Estim Creat Clear Calc 8.30, Est GFR (MDRD) Af Amer 7 L, Est GFR (MDRD) Non-Af 6 L, BUN/Creatinine Ratio 6.0 L, Glucose 101, Calcium 8.2 L 06/13/19 06:33: POC Glucose 102 Current Medications Acetaminophen (Tylenol) 650 mg PO Q6H PRN PRN PRN Reason: Pain or Fever Last Admin: 06/11/19 20:23 Dose: 650 mg Documented by: Amlodipine Besylate (Norvasc) 10 mg PO DAILY [facility] Last Admin: 06/12/19 08:22 Dose: 10 mg Documented by: Calcium Acetate (Phoslo Gel Cap) 2,668 mg PO TIDCM [facility] Last Admin: 06/12/19 16:47 Dose: Not Given Documented by: Cinacalcet (Sensipar) 30 mg PO DAILY [facility] Last Admin: 06/12/19 08:23 Dose: 30 mg Documented by: Glucagon () 1 mg IM .X1 PRN PRN Reason: Hypoglycemia Heparin Sodium (Porcine) (Heparin Na) 5,000 unit SC Q8 [facility] Last Admin: 06/13/19 06:36 Dose: 5,000 unit Documented by: Sodium Chloride () 250 mls @ 15 mls/hr IV .[id number] PRN PRN Reason: Saline Flush Dextrose (Dextrose 10%-Water) 250 mls @ 999 mls/hr IV .Q16M PRN; Protocol PRN Reason: HYPOGLYCEMIA Cefazolin Sodium 2 gm/ Sodium (Chloride) 110 mls @ 150 mls/hr IV DAILY [facility] Last Infusion: 06/12/19 09:49 Dose: Infused Documented by: Insulin Human Lispro (Humalog Kwikpen (Bkc)) 0 unit SC ACHS [facility]; Protocol Last Admin: 06/13/19 06:36 Dose: Not Given Documented by: Lactulose (Chronulac, Cephulac) 20 gm PO DAILY [facility] Metoprolol Tartrate (Lopressor (Beta Elizabeth)) 50 mg PO DAILY [facility] Last Admin: 06/12/19 08:22 Dose: 50 mg Documented by: Multivit/Ca Carb/B Cmplx/FA/Prenat (Nephrocaps, Renaphro) 1 capsule PO DAILY [facility] Last Admin: 06/12/19 12:56 Dose: Not Given Documented by: Ondansetron HCl (Zofran Odt) 4 mg PO Q6H PRN PRN PRN Reason: NAUSEA/VOMITING Last Admin: 06/12/19 11:33 Dose: 4 mg Documented by: Oxycodone HCl (Oxyir) 5 mg PO Q6H PRN PRN PRN Reason: Pain Score 6-10/10 Last Admin: 06/11/19 12:23 Dose: 5 mg Documented by: Senna/Docusate Sodium (Senokot-S, Belia-Colace) 1 tablet PO DAILY [facility] Last Admin: 06/12/19 08:23 Dose: 1 tablet Documented by: Sodium Chloride () 10 - 40 ml IV UD PRN PRN Reason: SALINE FLUSH Last Admin: 06/12/19 08:26 Dose: 10 ml Documented by: Venlafaxine HCl (Effexor Xr) 37.5 mg PO DAILY [facility] Last Admin: 06/12/19 08:22 Dose: 37.5 mg Documented by: Medical Necessity - Tobacco Use Smoking Status: Former smoker Tobacco Use: Non-smoker Assessment/Plan All Active Problems (Last Reviewed 04/20/19 @ 13:11 by Gertrudis Block) Cellulitis of left lower extremity (Acute) Sepsis (Acute) Problem with dialysis access (Acute) Skin abscess (Acute) Infected open wound (Acute) Decubitus ulcer of left heel, stage 2 (Acute) Debility (Acute) Abdominal wall abscess (Acute) Fever (Acute) Acute on chronic renal failure (Acute) In brief, patient is a 58-year-old gentleman with past medical history significant for end-stage renal disease on peritoneal dialysis, diabetes mellitus type 2 who presented with pain, erythema as well as skin changes involving the left lower extremity. An assessment of sepsis secondary to lower extremity made admitted to regular nursing floor for further management 1. Sepsis secondary to cellulitis involving the left lower extremity ?Patient admitted to monitored bed started on broad-spectrum antibiotic therapy with Zosyn and vancomycin cultures sent. ?06/11/2019: Patient has persistent erythema warmth and pain in addition to leukocytosis consult was for placed to infectious disease in view of patient rather slow progress placed to ID. 06/12/2019;Patient seen still complains of significant pain involving the left lower extremity around the knee. The extent of his erythema is decreasing in size. Patient was seen in consultation by Dr. Salgado with infectious disease antibiotics adjusted to Ancef. 06/13/2019: Patient response to antibiotic therapy has rather been slow. 2. End-stage renal disease ?Patient is on peritoneal dialysis consult was placed to Dr. Sofy Hansen with nephrology. Her recommendation is for patient to undergo dialysis catheter placement for initiation of hemodialysis since patient peritoneal dialysis appears not to be effective with patient worsening kidney function ?06/11/2019:Patient underwent right internal jugular tunneled dialysis catheter placement Yosef Franks on 06/10/2019. Dialysis initiated started on 07/08/2019. ?06/13/2019: Patient remains severely dyspneic at rest we defer decision for patient to undergo dialysis to nephrology. 3. Diabetes mellitus type 2 ~with complications including diabetic nephropathy/end-stage renal disease; patient's oral hypoglycemics held. Placed on long acting insulin, Accu-Cheks a.c. and at bedtime and covered with sliding scale insulin 06/11/2019;Patient did experience hypoglycemic episode this a.m he is on Lantus this was discontinued patient left on only Accu-Cheks before meals and at bedtime with sliding scale coverage. 4. Obesity with BMI of 40.0 ?Counseled on weight reduction 5. Anemia secondary to anemia of chronic disease/end-stage renal disease ?06/10/2019 patient has experienced slight drop in his hemoglobin level following admission hemoglobin on admission was 10.6 to 9.6 on 06/10/2019. 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 Depression ?Patient is on SNRI 8. Hypertension ~ blood pressure controlled, home medications continued with dose adjustment as needed 9. DVT prophylaxis ?SC heparin Code Visit Inpatient E&M: 39537 Subs Hosp L2
[2019-06-13] MEDS: Senna/Docusate Sodium 1 Tablet PO (09:39)
[2019-06-13] MEDS: Metoprolol Tartrate 50 MG Tablet PO (09:39)
[2019-06-13] MEDS: Cinacalcet HCl 30 MG Tablet PO (09:39)
[2019-06-13] MEDS: Folic Acid/Vitamin B Comp W-C 1 Capsule 1 CAP PO (09:39)
[2019-06-13] MEDS: Cefazolin 2 GM in 0.9% Normal Saline 100 ML IV (09:40)
[2019-06-13] MEDS: Lactulose 20 GM/30 ML UDC PO (09:40)
[2019-06-13] MEDS: Venlafaxine XR 37.5 MG Capsule PO (09:40)
[2019-06-13] MEDS: 0.9% Saline Lock 10 ML Syringe IV ×2 (09:44→10:49)
[2019-06-13] MEDS: amLODIPine 10 MG Tablet PO (09:47)
[2019-06-13] MEDS: Calcium Acetate 667 MG Capsule 2668 MG PO ×2 (11:04→17:00)
[2019-06-13 11:11] LABS: Bedside Glucose 120 mg/dL (70-110)
--- NOTE | 2019-06-13 15:45 | DIALYSIS ---
Hemodialysis x 2hrs IUF only UF -3000Ml removed. Pt tolerated tx well. Report to AMANDA Wong. Pt stable
[2019-06-13 17:45] LABS: Bedside Glucose 120 mg/dL (70-110)
--- NOTE | 2019-06-13 18:08 | NURSING ---
Reviewed and agreed on all charting with Osbaldo Bragg RN
[2019-06-13] MEDS: Insulin Lispro 100 UNIT/ML INSULN.PEN SC (21:41)
[2019-06-13 21:51] LABS: Bedside Glucose 151 mg/dL (70-110)
[2019-06-14] VITALS (7 sets, daily range): BP systolic 108–121; BP diastolic 52–82; PULSE 72–88; RESP 14–20; TEMP 36.8–37.2; O2SAT 91–96
[2019-06-14 06:11] LABS: Albumin, Serum 1.7 g/dL (3.2-5.0); BUN 71 mg/dL (7-18); BUN/Creat Ratio 6.5 RATIO (10-20); Calcium,Total 8.3 mg/dL (8.5-10.1); Chloride 92 mmol/L (98-107); EST Glomerular Filtration Rate 5 mL/min (>60); Est Glom Filt Rate - Afr Amer 6 mL/min (>60); Estimated Creatinine Clearance 7.32 ml/min; Glucose 96 mg/dL (74-106); Phosphorus 4.6 mg/dL (2.5-4.9); Sodium Level 127 mmol/L (136-145)
--- NOTE | 2019-06-14 06:35 | NURSING ---
Notified AMANDA Trejo of critical creatinine result 10.9
[2019-06-14] MEDS: Heparin Injection (Vial) 5,000 UNIT/ML VIAL 5000 UNIT SC (06:42)
[2019-06-14 06:56] LABS: Bedside Glucose 104 mg/dL (70-110)
[2019-06-14 08:02] LABS: Absolute Lymphocyte Count 0.54 X10^3/uL (0.83-4.51); Absolute Neutrophil Count 15.3 X10^3/uL (2.0-7.7); Basophil# 0.07 X10^3/uL; Basophil% 0.4 % (0-1); Eosinophil# 0.35 X10^3/uL; Hematocrit 28.5 % (40-54); Hemoglobin 9.1 g/dL (13.0-16.5); Lymphocyte # 0.54 X10^3/ul (4.0); Lymphocyte % 3.1 % (19-41); Mean Corp Hgb Conc 31.9 g/dL (32-36); Mean Corpuscular Hgb 28.3 pg (27.0-32.0); Mean Corpuscular Volume 88.8 fL (80-94); Monocyte# 0.37 X10^3/uL; Monocyte% 2.1 % (0-10); NRBC Flagged by Analyzer 0 % (0-5); Neutrophil # 15.34 X10^3/uL (2.7-7.7); POSITIVE DIFFERENTIAL YES; Platelet Count 252 K/mm3 (150-450); RBC Distribution Width CV 15.5 % (11.6-14.6); Red Blood Count 3.21 M/mm3 (4.6-6.2); White Blood Count 17.3 K/mm3 (4.4-11.0)
[2019-06-14 08:03] LABS: Differential Indicated SCAN CRITERIA MET
[2019-06-14] MEDS: Calcium Acetate 667 MG Capsule 2668 MG PO (08:12)
[2019-06-14] MEDS: Venlafaxine XR 37.5 MG Capsule PO (08:13)
[2019-06-14] MEDS: Lactulose 20 GM/30 ML UDC PO (08:13)
[2019-06-14] MEDS: Metoprolol Tartrate 50 MG Tablet PO (08:13)
[2019-06-14] MEDS: Folic Acid/Vitamin B Comp W-C 1 Capsule 1 CAP PO (08:14)
[2019-06-14] MEDS: amLODIPine 10 MG Tablet PO (08:14)
[2019-06-14] MEDS: Senna/Docusate Sodium 1 Tablet PO (08:14)
[2019-06-14] MEDS: Cinacalcet HCl 30 MG Tablet PO (08:15)
[2019-06-14] MEDS: Cefazolin 2 GM in 0.9% Normal Saline 100 ML IV (08:17)
--- NOTE | 2019-06-14 11:41 | DCINST_ITS ---
- Discharge Diagnoses Current Active Problems: Current Active and Chronic Problems (Last Reviewed 04/20/19 @ 13:11 by Gertrudis Block) Cellulitis of left lower extremity (Acute) ESRD (end stage renal disease) (Chronic) Sepsis (Acute) Problem with dialysis access (Acute) You will use the following diet at home:: Calorie/Carbohydrate Controlled (specify 1200, 1400, etc) - 1800 amita., Cardiac, Renal (restricted protein/sodium) Discharge Activity: Return to Normal Activity Weight Bearing Status: Weight bearing as tolerated Call your doctor if you observe: Fever of 101 or Higher, Shortness of breath, Dizziness, Fainting spells, Chest pain, Increased palpitations (irregular heartbeat), Uncontrolled pain Allergies/Adverse Reactions: Allergies No Known Allergies Allergy (Verified 06/09/19 10:13) Medications to take at Discharge Ergocalciferol [Vitamin D] 50,000 unit PO QMONTH 03/12/16 B Complex W-C No.20/Folic Acid [Nephrocaps Softgel] 1 mg PO QHS 10/29/16 Sennosides/Docusate Sodium [Docusate Sodium-Senna Tablet] 1 each PO DAILY 10/29/16 Sitagliptin Phosphate [Januvia] 50 mg PO DAILY 10/29/16 Acetaminophen [Tylenol Tablet] 650 mg PO Q6H PRN PRN tablet 11/20/16 Metoprolol Tartrate [Lopressor (beta dary)] 50 mg PO DAILY 12/28/17 Venlafaxine XR [Effexor Xr] 1 cap PO DAILY 12/28/17 Glimepiride [Amaryl] 4 mg PO DAILY #30 tab 01/01/18 Sucroferric Oxyhydroxide [Velphoro] 1,500 mg PO TID 08/31/18 Cinacalcet HCl [Sensipar] 30 mg PO DAILY 06/05/19 Cephalexin [Keflex] 500 mg PO Q12 #10 cap 06/14/19 The following prescriptions were given: Cephalexin [Keflex] 500 mg PO Q12 #10 cap Transmission Status: Pending to [id number] Primary Care Physician: Gildardo Trejo MD [Primary Care Provider] - Please follow up with your Primary Care Physician in: 1 week. Test Results: Test results from this visit will be discussed in further detail at your follow-up appointment, if applicable. Please Follow Up With: Gildardo Trejo MD Please Follow Up With: Yosef Franks MD Please Follow Up With: Sofy Hansen DO When: as per Dr. Hansen.
--- NOTE | 2019-06-14 11:46 | PCM.PN.REN ---
Patient Problems: Active and Suspected Problems (Last Reviewed 04/20/19 @ 13:11 by Gertrudis Block) Cellulitis of left lower extremity (Acute) Sepsis (Acute) Problem with dialysis access (Acute) Subjective: I UF last night for shortness of breath. Over 3 L of fluid removed. Sodium remains low. Blood pressure is low normal. Left knee pain and cellulitis improving. He is to switch over to oral Keflex per ID recommendations. He has hemodialysis set up at as outpatient later this afternoon. He is discharged to home today. - Physical Exam Vitals/I&O's: Vital Signs Temp Pulse Resp BP Pulse Ox 98.2 F 74 18 108/63 91 06/14/19 10:00 06/14/19 10:00 06/14/19 10:00 06/14/19 10:00 06/14/19 10:00 Oxygen Flow Rate (L/min) 2 Oxygen Delivery Method Room Air Weight: 120.6 kg Body Mass Index (BMI) 40.0 Finger Stick Blood Glucose 90 Intake and Output for Last 24 Hours 06/12/19 06/13/19 06/14/19 23:59 23:59 23:59 Intake Total 2625 / 2625 1010 / 1010 110 / 110 Output Total 3000 / 3000 Balance 2625 / 2625 -1989 / 110 / 110 General: Alert, Oriented x3, Cooperative, No apparent distress Cardiovascular: Regular rate, Murmur Abdomen: Bowel Sounds Present, Soft, Non Tender, Distended, Obese Extremities: Edema - Improved Skin: - - Cellulitis left lower extremity improving Musculoskeletal: Tenderness - Left knee improving Neurological: - - History of Guillain Hensley? Psych/Mental Status: Normal Affect, Appropriate Microbiology Past 72 Hours 06/09/19 10:40 Blood Culture (Wb) - Right Wrist Blood Culture - Final No growth in 5 days. 06/09/19 10:34 Blood Culture (Wb) - Anticubital Left Blood Culture - Final No growth in 5 days. Laboratory Results 06/13/19 16:55: POC Glucose 120 H 06/13/19 21:40: POC Glucose 151 H 06/14/19 05:15: Sodium 127 L, Potassium 5.0, Chloride 92 L, Carbon Dioxide 25.0, BUN 71 H, Creatinine 10.90 H*, Estim Creat Clear Calc 7.32, Est GFR (MDRD) Af Amer 6 L, Est GFR (MDRD) Non-Af 5 L, BUN/Creatinine Ratio 6.5 L, Glucose 96, Calcium 8.3 L, Phosphorus 4.6, Albumin 1.7 L 06/14/19 05:15: WBC 17.3 H, RBC 3.21 L, Hgb 9.1 L, Hct 28.5 L, MCV 88.8, MCH 28.3, MCHC 31.9 L, RDW Std Deviation 50.0 H, RDW Coeff of Gurwinder 15.5 H, Plt Count 252, MPV 9.0, Immature Gran % (Auto) 3.400 H, Neut % (Auto) 89.0 H, Lymph % (Auto) 3.1 L, [place] % (Auto) 2.1, Eos % (Auto) 2.0, Baso % (Auto) 0.4, Absolute Neuts (auto) 15.3 H, Absolute Lymphs (auto) 0.54 L, Nucleated RBC % 0, Differential Comment COMMENT 06/14/19 06:40: POC Glucose 104 Current Medications Acetaminophen (Tylenol) 650 mg PO Q6H PRN PRN PRN Reason: Pain or Fever Last Admin: 06/11/19 20:23 Dose: 650 mg Documented by: Amlodipine Besylate (Norvasc) 10 mg PO DAILY [facility] Last Admin: 06/14/19 08:14 Dose: 10 mg Documented by: Calcium Acetate (Phoslo Gel Cap) 2,668 mg PO TIDCM [facility] Last Admin: 06/14/19 08:12 Dose: 2,668 mg Documented by: Cinacalcet (Sensipar) 30 mg PO DAILY [facility] Last Admin: 06/14/19 08:15 Dose: 30 mg Documented by: Glucagon () 1 mg IM .X1 PRN PRN Reason: Hypoglycemia Heparin Sodium (Porcine) (Heparin Na) 5,000 unit SC Q8 [facility] Last Admin: 06/14/19 06:42 Dose: 5,000 unit Documented by: Sodium Chloride () 250 mls @ 15 mls/hr IV .[id number] PRN PRN Reason: Saline Flush Dextrose (Dextrose 10%-Water) 250 mls @ 999 mls/hr IV .Q16M PRN; Protocol PRN Reason: HYPOGLYCEMIA Cefazolin Sodium 2 gm/ Sodium (Chloride) 110 mls @ 150 mls/hr IV DAILY [facility] Last Infusion: 06/14/19 10:08 Dose: Infused Documented by: Insulin Human Lispro (Humalog Kwikpen (Bkc)) 0 unit SC ACHS [facility]; Protocol Last Admin: 06/14/19 06:42 Dose: Not Given Documented by: Lactulose (Chronulac, Cephulac) 20 gm PO DAILY [facility] Last Admin: 06/14/19 08:13 Dose: 20 gm Documented by: Metoprolol Tartrate (Lopressor (Beta Elizabeth)) 50 mg PO DAILY [facility] Last Admin: 06/14/19 08:13 Dose: 50 mg Documented by: Multivit/Ca Carb/B Cmplx/FA/Prenat (Nephrocaps, Renaphro) 1 capsule PO DAILY [facility] Last Admin: 06/14/19 08:14 Dose: 1 capsule Documented by: Ondansetron HCl (Zofran Odt) 4 mg PO Q6H PRN PRN PRN Reason: NAUSEA/VOMITING Last Admin: 06/12/19 11:33 Dose: 4 mg Documented by: Oxycodone HCl (Oxyir) 5 mg PO Q6H PRN PRN PRN Reason: Pain Score 6-10/10 Last Admin: 06/11/19 12:23 Dose: 5 mg Documented by: Senna/Docusate Sodium (Senokot-S, Belia-Colace) 1 tablet PO DAILY [facility] Last Admin: 06/14/19 08:14 Dose: 1 tablet Documented by: Sodium Chloride () 10 - 40 ml IV UD PRN PRN Reason: SALINE FLUSH Last Admin: 06/13/19 10:49 Dose: 10 ml Documented by: Venlafaxine HCl (Effexor Xr) 37.5 mg PO DAILY [facility] Last Admin: 06/14/19 08:13 Dose: 37.5 mg Documented by: Medical Necessity - Tobacco Use Smoking Status: Former smoker Tobacco Use: Non-smoker Assessment/Plan All Active Problems (Last Reviewed 04/20/19 @ 13:11 by Gertrudis Block) Cellulitis of left lower extremity (Acute) Sepsis (Acute) Problem with dialysis access (Acute) Skin abscess (Acute) Infected open wound (Acute) Decubitus ulcer of left heel, stage 2 (Acute) Debility (Acute) Abdominal wall abscess (Acute) Fever (Acute) Acute on chronic renal failure (Acute) 1. ESRD discontinued CCPD due to not meeting adequacy with 5 exchanges 3L fill volume with last fill. Currently on hemodialysis with tunneled dialysis catheter placement. Next dialysis today at chronic unit in [place]. PD catheter removal per Dr. Franks with AVF placement as outpt 06/17/18 2. Acute cellulitis left lower extremity improved. Continue oral Keflex 500 mg twice a day 3. DM2 primary mgmt 4. HTN stable to low normal. Suggest discontinuation of amlodipine. 5. Anemia hgb stable. Continue NORBERT therapy on dialysis 6. Secondary hyperparathyroidism with hyperphosphatemia. Continue binders and sensipar. 7. Hyponatremia due to volume expansion. UF only last night with 3 L fluid removed. DW hospitalist
--- NOTE | 2019-06-14 11:54 | CASEMGMT ---
Pt to be discharged today and to have 1st dialysis [address] [facility] today at 1500, pt to arrive at 1430. Pt's son is here and ready to take pt at discharge and then will transport to dialysis. Call to Rica at [facility] to notify of all, voices understanding. She states that Dr. Leon will be following pt at [facility] and that they will get in contact with Cebul's office for better idea about when fistula will be placed. Rica voices no further questions/concerns/needs at this time. SSttab PATEL CM
--- NOTE | 2019-06-14 13:06 | DS.PCM_ITS ---
Discharge Date and Diagnosis Date of Admission: 06/09/19 Date of Discharge: 06/14/19 - Primary Discharge Diagnosis #1 acute left lower extremity cellulitis. #2 sepsis. #3 ESRD on dialysis. 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 Normal x-ray examination of the chest. Electronically Signed: Tala Mitchell MD at 17:48 EST , Service support , Operations: None Summary of Care Provided: Patient seen and examined on the day of discharge and appeared to be stable to be discharged home. Swelling and erythema of the left thigh and left knee significantly improved. He has been afebrile. His vital signs are stable. The patient is a 58 year old M patient presented to the emergency room because of worsening left lower extremity swelling and erythema 4 days after he came to the ED and he was sent home on Bactrim and Keflex for left lower extremity cellulitis. Patient was found to have sepsis secondary to worsening left lower extremity cellulitis. Initially, he was treated with IV Zosyn and vancomycin. Infectious disease consulted and adjusted antibiotics to IV Ancef. Local swelling and erythema of the left hand and left upper brachium significantly improved. Patient remained afebrile for more than 48 hours. Maximum temperature during this hospital stay was 100.1 Fahrenheit. Blood culture showed no growth in 5 days. His WBC count started to drop down upon discharge. After discussion with infectious disease, we decided to discharge patient on Keflex 500 mg p.o. twice daily for 5 days of treatment. Patient received so far 5 days of IV antibiotics including Zosyn, vancomycin and Ancef. Patient discharged home in a stable medical condition, discharged on Keflex 500 mg p.o. twice daily for 5 days more of treatment, plan to go for hemodialysis this afternoon as outpatient, recommended follow-up with PCP in 1 week, follow-up with nephrology according to Dr. Hansen. - Physical Exam Vitals/I&O's: Vital Signs Temp Pulse Resp BP Pulse Ox 98.9 F 72 20 H 121/82 H 92 06/14/19 11:52 06/14/19 11:52 06/14/19 11:52 06/14/19 11:52 06/14/19 11:52 Oxygen Flow Rate (L/min) 2 Oxygen Delivery Method Room Air Weight: 265 lb 14.04 oz Body Mass Index (BMI) 40.0 Finger Stick Blood Glucose 90 Intake and Output for Last 24 Hours 06/12/19 06/13/19 06/14/19 23:59 23:59 23:59 Intake Total 2625 / 2625 1010 / 1010 110 / 110 Output Total 3000 / 3000 Balance 2625 / 2625 -1989 / 110 / 110 General: Alert, Oriented x3, Cooperative, No apparent distress HEENT: Atraumatic, PERRLA, EOMI, Normocephalic Oral: Moist Mucosa, No Gingival or Mucosal Lesions/ Ulcerations Neck: Supple, No JVD, Negative Carotid Bruits, Trachea Midline, Thyroid Normal Size and Texture Lungs: Clear to auscultation, Normal air movement, No rhonchi, No wheeze, No rales, Diminished Cardiovascular: Regular rate, Regular Rhythm, Normal S1, Normal S2, PMI Normal Abdomen: Bowel Sounds Present, Soft, Non Tender, Non-Distended, No Hepato- splenomegaly Extremities: No clubbing, No cyanosis, Edema - Trace edema., - - Mild erythema around the left knee and upper left leg. Improved. Skin: No rashes, No breakdown Lymphatic: No Cervical, Supraclavicular, or Inguinal Adenopathy Neurological: Cranial nerves II-XII grossly intact, Neuro grossly intact Psych/Mental Status: Normal Affect, Appropriate Microbiology Past 72 Hours 06/09/19 10:40 Blood Culture (Wb) - Right Wrist Blood Culture - Final No growth in 5 days. 06/09/19 10:34 Blood Culture (Wb) - Anticubital Left Blood Culture - Final No growth in 5 days. Laboratory Results 06/13/19 16:55: POC Glucose 120 H 06/13/19 21:40: POC Glucose 151 H 06/14/19 05:15: Sodium 127 L, Potassium 5.0, Chloride 92 L, Carbon Dioxide 25.0, BUN 71 H, Creatinine 10.90 H*, Estim Creat Clear Calc 7.32, Est GFR (MDRD) Af Amer 6 L, Est GFR (MDRD) Non-Af 5 L, BUN/Creatinine Ratio 6.5 L, Glucose 96, Calcium 8.3 L, Phosphorus 4.6, Albumin 1.7 L 06/14/19 05:15: WBC 17.3 H, RBC 3.21 L, Hgb 9.1 L, Hct 28.5 L, MCV 88.8, MCH 28.3, MCHC 31.9 L, RDW Std Deviation 50.0 H, RDW Coeff of Gurwinder 15.5 H, Plt Count 252, MPV 9.0, Immature Gran % (Auto) 3.400 H, Neut % (Auto) 89.0 H, Lymph % (Auto) 3.1 L, Mcintosh % (Auto) 2.1, Eos % (Auto) 2.0, Baso % (Auto) 0.4, Absolute Neuts (auto) 15.3 H, Absolute Lymphs (auto) 0.54 L, Nucleated RBC % 0, Differential Comment COMMENT 06/14/19 06:40: POC Glucose 104 Discharge Activity: Return to Normal Activity Weight Bearing Status: Weight bearing as tolerated Call your doctor if you observe: Fever of 101 or Higher, Shortness of breath, Dizziness, Fainting spells, Chest pain, Increased palpitations (irregular heartbeat), Uncontrolled pain Home Medications: Medications to take at Discharge Ergocalciferol [Vitamin D] 50,000 unit PO QMONTH 03/12/16 B Complex W-C No.20/Folic Acid [Nephrocaps Softgel] 1 mg PO QHS 10/29/16 Sennosides/Docusate Sodium [Docusate Sodium-Senna Tablet] 1 each PO DAILY 10/29/16 Sitagliptin Phosphate [Januvia] 50 mg PO DAILY 10/29/16 Acetaminophen [Tylenol Tablet] 650 mg PO Q6H PRN PRN tablet 11/20/16 Metoprolol Tartrate [Lopressor (beta dary)] 50 mg PO DAILY 12/28/17 Venlafaxine XR [Effexor Xr] 1 cap PO DAILY 12/28/17 Glimepiride [Amaryl] 4 mg PO DAILY #30 tab 01/01/18 Sucroferric Oxyhydroxide [Velphoro] 1,500 mg PO TID 08/31/18 Cinacalcet HCl [Sensipar] 30 mg PO DAILY 06/05/19 Cephalexin [Keflex] 500 mg PO Q12 #10 cap 06/14/19 Following Prescrptions Were Given to Patient: Cephalexin [Keflex] 500 mg PO Q12 #10 cap Transmission Status: Received by [facility] Primary Care Physician: Gildardo Trejo MD [Primary Care Provider] - Please follow up with your Primary Care Physician in: 1 week. Please Follow Up With: Gildardo Trejo MD Please Follow Up With: Yosef Franks MD Please Follow Up With: Sofy Hansen DO When: as per Dr. Hansen. Disposition: Home Minutes spent on discharge:: 28 Patient Condition:: Stable Medical Necessity - Tobacco Use Smoking Status: Former smoker Tobacco Use: Non-smoker Meaningful Use Info Meaningful Use Diagnoses (Choose all that apply): None applicable Code Visit Inpatient E&M: 05037 Disch Hosp
--- NOTE | 2019-06-15 15:10 | CASEMGMT ---
Case Management DC F/u Call: DC Date: 06/14/18 DC Diagnosis: #1 acute left lower extremity cellulitis. #2 sepsis. #3 ESRD on dialysis. DC Disposition: Home with start of HD at [facility] Lace/Strata: 19/09 Called patient listed cell phone on Demographics, No answer, VM did confirm patient Morro Pina. This jingle writer left a VM with primary RNCM Brittany Spaulding contact information to call if having any issues or questions with [facility], Medications or F/u. S. CHUN Marin
== END 2019-06-14 12:03 | disposition home or self-care (01) | DRG 871 ==
LOC: ED 11:33 → PCU 06-10 06:48 → MS3 06-10 10:54 → PCU 06-10 10:54
PROVIDERS: Internal Medicine Nephrology; Physician Assistant; Surgery; Admitting Provider Internal Medicine; Emergency Provider Emergency Medicine; Family Provider Family Medicine; PCP Family Medicine; Referring Provider Internal Medicine; Visit Provider Hospitalist
PROC: 0JH63XZ Insertion of Tunneled Vascular Access Device into Chest Subcutaneous Tissue and Fascia, Percutaneous Approach (ICD-10-PCS; principal; 2019-06-10 15:30)
DX: A41.9 Sepsis, unspecified organism (principal); N18.6 End stage renal disease; L03.116 Cellulitis of left lower limb; I12.0 Hypertensive chronic kidney disease with stage 5 chronic kidney disease or end stage renal disease; Z68.41 Body mass index [BMI] 40.0-44.9, adult; N25.81 Secondary hyperparathyroidism of renal origin; E87.1 Hypo-osmolality and hyponatremia; Z99.2 Dependence on renal dialysis; E11.22 Type 2 diabetes mellitus with diabetic chronic kidney disease; E66.01 Morbid (severe) obesity due to excess calories; D63.1 Anemia in chronic kidney disease; Z79.84 Long term (current) use of oral hypoglycemic drugs; Z87.891 Personal history of nicotine dependence; R01.1 Cardiac murmur, unspecified; G65.0 Sequelae of Guillain-Barre syndrome
CPT/HCPCS: 36415; 71045; 77001; 80048; 80069; 80202; 82962; 83036; 83605; 83735; 85025; 85730; 87040; 87340; 90937; 90947; 93970; 97116; 97162; 97165; 97530; 97535; 97802; 99285; J7030; J7040; A4216; C1750; G0257; J2405; Q5106

== ENCOUNTER 2019-07-06 06:49 | Day surgery (SDC) | payer MEDICARE, OTHER, SELFPAY ==
[2019-06-17 09:26] VITALS: BMI 40.0
--- NOTE | 2019-06-17 10:13 | HP_ITS ---
Intake Vital Signs 06/17/19 BMI 40.0 06/17/19 Height 5 ft 8 in 06/17/19 Weight: 273 lb 06/17/19 BMI 41.5 06/17/19 BP 119/77 06/17/19 Respiration 18 Intake Visit Reasons: fistula placement/ has PD caths Chief Complaint: Pain in LLE Bus [employer] [place] Required: No Is patient in pain?: No Allergies No Known Allergies Allergy (Verified 06/17/19 09:25) Medications Ergocalciferol [Vitamin D] 50,000 unit PO QMONTH 03/12/16 [History Confirmed 06/17/19] B Complex W-C No.20/Folic Acid [Nephrocaps Softgel] 1 mg PO QHS 10/29/16 [History Confirmed 06/17/19] Sennosides/Docusate Sodium [Docusate Sodium-Senna Tablet] 1 ea PO DAILY 10/29/16 [History Confirmed 06/17/19] Sitagliptin Phosphate [Januvia] 50 mg PO DAILY 10/29/16 [History Confirmed 06/17/19] Acetaminophen [Tylenol Tablet] 650 mg PO Q6H PRN PRN tab 11/20/16 [Rx Confirmed 06/17/19] Metoprolol Tartrate [Lopressor (beta dary)] 50 mg PO DAILY 12/28/17 [History Confirmed 06/17/19] Venlafaxine XR [Effexor Xr] 1 cap PO DAILY 12/28/17 [History Confirmed 06/17/19] Glimepiride [Amaryl] 4 mg PO DAILY #30 tab 01/01/18 [Rx Confirmed 06/17/19] Sucroferric Oxyhydroxide [Velphoro] 1,500 mg PO TID 08/31/18 [History Confirmed 06/17/19] Cinacalcet HCl [Sensipar] 30 mg PO DAILY 06/05/19 [History Confirmed 06/17/19] Cephalexin [Keflex] 500 mg PO Q12 #10 cap 06/14/19 [Rx Confirmed 06/17/19] PFSH Medical History Skin abscess (Acute) Peripheral vascular occlusive disease (Chronic) Peripheral autonomic neuropathy due to secondary diabetes (Chronic) 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 The patient was recently emergently hospitalized because of left lower extremity cellulitis. It then became evident for 3 months his peritoneal dialysis catheters have been poorly functioning. I was asked to place emergency right internal jugular tunneled dialysis cath. On June 10, 2019 had bilateral extremity vein mapping. This demonstrated adequate bilateral upper extremity cephalic and basilic veins. Since his discharge he is not been utilizing his home peritoneal dialysis catheters which he had utilized for 3 years. He continues to have multiple different areas of skin excoriation. He has been seen by dermatology in the past and particular soaps lotions and oral antibiotic was recommended. He is not currently pursuing any of those techniques. The patient is right arm dominant. ROS General General: Yes weight change; no appetite, fatigue, colon cancer, breast cancer or weakness HEENT HEENT: No difficulty swallowing, eye injury, eye surgery, swollen glands or hoarseness Endo Endocrine: Yes diabetes mellitus; no thyroid disease, thyroid cancer, Hair loss, heat intolerance or cold intolerance Skin Skin: No rash or changing moles Breast Breast: No left breast lump, right breast lump, nipple discharge, breast pain, abnormal mammogram, abnormal US or breast enlargement Musc Musculoskeletal: No back problems, arthritis, rheumatoid arthritis, gout or joint pain Cardio Cardiovascular: Yes murmur and high blood pressure; no pacemaker, heart disease, atrial fibrillation, heart attack, heart stent, palpitations, shortness of breat with exertion or chest pain Psych Psychiatric: No depression, anxiety or hearing voices Resp Respiratory: No shortness of breath, Yes sleep apnea, No cough, No COPD, No asthma, No emphysema, No wheezing Gastro Gastrointestinal: No abdominal pain, No nausea or vomiting, No diarrhea, No constipation, No blood in stool, No acid reflux, Yes hemorrhoids, No ulcers, No gallbladder problem, No black,tarry stools [place] Hematologic: No blood thinners, No blood disorders, No bleeding, No anemia, No blood clots Neuro Neurologic: No system reviewed and no additional complaints, except as docu, No as per HPI, No abnormal walking, No abnormal hearing, No abnormal movements, No abnormal speech, No behavioral changes, No burning sensations, No confusion, No seizure-like activity, No unsteadiness, No dizziness, No localized weakness, No frequent falls, No headache(s), No lack of coordination, No loss of vision, No memory loss, Yes numbness, No other visual disturbances, No radiating pain, No restless legs, No sensory deficit, No fainting, Yes tingling, No tremor(s), No weakness, No other Exam Const General: cooperative Nutritional Appearance: obese morbidly obese [facility] Head: normal to inspection Chest Breast Palpation: No nipple discharge Other: Right neck chest tunneled dialysis catheter without tenderness or current erythema Resp Effort & Inspection: normal respiratory effort Auscultation: clear to auscultation bilaterally Cardio Rate: regular rate Rhythm: regular rhythm Heart Sounds: murmur GI Other: Overweight, peritoneal dialysis catheter emanating left lower quadrant Skin Other: Multiple areas involving the trunk and extremities evidence of scars from previous dermal infections Neuro Cognition: normal cognition Extrem Other: Hasmukh test normal left hand. Ultrasound inspection of the left radial artery demonstrates diffuse areas of calcification within the vessel wall. The left cephalic vein appears to be of adequate caliber and is patent and compressible. A small skin pustule is present at the left antecubital space Assessment & Plan Problems 1. Problem with dialysis access, initial encounter T82.448L Plan I proposed for the patient left forearm radial to cephalic arteriovenous hemodialysis fistula creation. In his circumstance he should have good venous outflow. The radial artery is patent there is adequate ulnar flow but the radial artery has calcification. On ultrasound inspection the brachial artery is better in that regard however his cephalic vein is so good at the wrist do not want to forego an attempt at creation of the fistula. Anticipate utilizing ultrasound mapping at the initiation of procedure to identify a possibly slightly less involved portion of the radial artery. I have discussed technique, benefit, risk, alternatives. He has had an opportunity to ask and have questions answered and is agreeable. Secondary issue involves his now nonfunctioning peritoneal dialysis catheters. They were failing prior to his emergency admission for cellulitis. He is not currently utilizing them. I recommend to him removal of the peritoneal dialysis catheters at the time of his fistula creation. This will require that we have him under general anesthesia. He also is aware of the technique, benefit, risk and alternatives. He has had an opportunity to ask and have questions answered. We will schedule and expedite his care Cc: Dr. Sofy Franks M.D., F.A.C.S. Coding Level of Care Code Off vis,est,level 3 Diagnoses Problem with dialysis access, initial encounter T82.898A ??Encounter type: initial encounter 06/17/19 1013 <Electronically signed by Yosef chambers MD> Date _ Yosef Franks MD I have re-examined the patient. There are no clinical changes since date of exam.
--- NOTE | 2019-07-01 10:44 | EKG12_ITS ---
Test Reason : PRE OP Blood Pressure : / mmHG Vent. Rate : 082 BPM Atrial Rate : 082 BPM P-R Int : 214 ms QRS Dur : 142 ms QT Int : 440 ms P-R-T Axes : 066 101 159 degrees QTc Int : 514 ms Sinus rhythm with 1st degree A-V block Rightward axis Non-specific intra-ventricular conduction block T wave abnormality, consider inferior ischemia T wave abnormality, consider anterolateral ischemia Abnormal ECG Confirmed by JOSE C FLEMING, FREDERICK ([id number]), proposal editor NEELAM HUDSON ([id number]) on 07/02/2019 2:18:18 PM Referred By: Yosef Franks Confirmed By:LEN WOODALL MD
[2019-07-01 11:00] LABS: Hematocrit 28.4 % (40-54); Hemoglobin 8.3 g/dL (13.0-16.5); Mean Corp Hgb Conc 29.2 g/dL (32-36); Mean Corpuscular Hgb 27.4 pg (27.0-32.0); Mean Corpuscular Volume 93.7 fL (80-94); Mean Platelet Vol. 8.4 fl (6.2-12.0); Platelet Count 248 K/mm3 (150-450); RBC Distribution Width CV 17.2 % (11.6-14.6); RBC Distribution Width SD 57.5 fl (35.1-43.9); Red Blood Count 3.03 M/mm3 (4.6-6.2)
[2019-07-01 11:30] LABS: Anion Gap 6 (5-15); BUN 31 mg/dL (7-18); BUN/Creat Ratio 5.2 RATIO (10-20); Calcium,Total 9.3 mg/dL (8.5-10.1); Chloride 97 mmol/L (98-107); Creatinine, Serum 5.91 mg/dL (0.70-1.30); EST Glomerular Filtration Rate 11 mL/min (>60); Est Glom Filt Rate - Afr Amer 13 mL/min (>60); Glucose 119 mg/dL (74-106); Potassium 4.2 mmol/L (3.5-5.1); Sodium Level 135 mmol/L (136-145)
[2019-07-06] VITALS (8 sets, daily range): BP systolic 96–117; BP diastolic 54–76; PULSE 70–76; RESP 16; TEMP 36.7–36.9; O2SAT 92–99; BMI 40.4
[2019-07-06] MEDS: 0.45% Normal Saline 1,000 ML 30 ML IV (07:22)
[2019-07-06 07:25] LABS: Bedside Glucose 123 mg/dL (70-110)
[2019-07-06] MEDS: Heparin Injection (Vial) 5,000 UNIT/ML VIAL 5000 UNIT (09:35)
--- NOTE | 2019-07-06 10:52 | DCINST_ITS ---
Discharge Diet: Renal Diet Discharge Activity: May Not Drive - for 2-3 days or while taking narcotic pain medications., May Shower, May Take a Tub Bath - in 5 days. Lifting Restrictions: 5 pounds Keep extremity elevated above heart level: - - Keep arm elevated above the heart level for 3 days. Additional Activity Instructions:: Exercise hand vigorously with a stress ball. Call your doctor if your incision/area has: Continuous Slow Oozing, Sudden Increased Bleeding - apply pressure and call your doctor., Increased Pain/ Swelling, Increased Redness, Foul Smelling Discharge Call your doctor if you observe: Fever of 101 or Higher Suture Line Care: Avoid Pulling/Pushing, Avoid Pinching/Bending Cleanse incision/area with: Keep Dressing Clean & Dry Additional Dressing/Incision Instructions:: Change or remove dressing in one day. May protect with a gauze bandaid. Allergies/Adverse Reactions: Allergies No Known Allergies Allergy (Verified 07/06/19 07:10) Medications to take at Discharge Ergocalciferol [Vitamin D] 50,000 unit PO QMONTH 03/12/16 B Complex W-C No.20/Folic Acid [Nephrocaps Softgel] 1 mg PO QHS 10/29/16 Sennosides/Docusate Sodium [Docusate Sodium-Senna Tablet] 1 ea PO DAILY 10/29/16 Sitagliptin Phosphate [Januvia] 50 mg PO DAILY 10/29/16 Acetaminophen [Tylenol Tablet] 650 mg PO Q6H PRN PRN tab 11/20/16 Metoprolol Tartrate [Lopressor (beta dary)] 50 mg PO 1400 12/28/17 Venlafaxine XR [Effexor Xr] 1 cap PO DAILY 12/28/17 Glimepiride [Amaryl] 4 mg PO DAILY #30 tab 01/01/18 Sucroferric Oxyhydroxide [Velphoro] 1,500 mg PO TID 08/31/18 Cephalexin [Keflex] 500 mg PO Q12 #10 cap 06/14/19 Hydrocodone Bitart/Apap 5-325 [Frisco 5MG-325MG] 1 tab PO Q6H PRN PRN 2 Days #5 tab 07/06/19 The following prescriptions were given: Hydrocodone Bitart/Apap 5-325 [Frisco 5MG-325MG] 1 tab PO Q6H PRN PRN 2 Days #5 tab PRN Reason: Pain Transmission Status: Received by [facility] Orders to be completed after discharge: 12 Lead EKG [CVS] Time Frame: 06/29/19, Facility: [facility], Location: Cardiovascular Services Basic Metabolic Profile (BMP) Time Frame: 06/29/19, Facility: [facility], Location: Laboratory CBC-Complete Blood Cnt No Diff Time Frame: 06/29/19, Facility: [facility], Location: Laboratory Primary Care Physician: Gildardo Trejo MD [Primary Care Provider] - Test Results: Test results from this visit will be discussed in further detail at your follow- up appointment, if applicable. Please Follow Up With: Yosef Franks MD - [phone] When: Call to make an appointment for suture removal and follow up in 1 week.
--- NOTE | 2019-07-06 10:52 | OP.PCM_ITS ---
Problem List (1) Problem with dialysis access Status: Acute Qualifiers: Encounter type: subsequent encounter Qualified Code(s): T82.898D - Other specified complication of vascular prosthetic devices, implants and grafts, subsequent encounter Report of Operation Date of Procedure: 07/06/19 Pre-Operative Diagnosis: Failure of peritoneal dialysis catheter Post-Operative Diagnosis: Same Surgery/Procedure Performed:: Left forearm radiocephalic arteriovenous fistula creation. Removal peritoneal dialysis catheter Description of Surgical Findings:: Timeout and informed consent was obtained. 58-year-old gentleman was taken the operating placement table. Ancef 3 g given intravenously based upon body weight. The abdomen and left arm were sterilely prepped and draped. He underwent general anesthesia. Left forearm had been marked for the cephalic vein and radial artery. 1% lidocaine mixed 50-50 with 0.5% Marcaine was instil led as local anesthetic. A slightly oblique incision was made the distal radial aspect of the wrist sharp and blunt dissection was used to identify the cephalic vein which was dissected free and side branches secured with hemoclips. The brachial artery was dissected free and elevated. The patient received 8000 units of heparin. The vein was ligated distally with a Hemoclip spatulated peripheral vascular clamps were placed on the radial artery and 11 blade was used to make an arteriotomy which was extended with Miller scissors. End-to-side anastomosis created with running 7-0 Prolene. Prior to completion there appeared to be good antegrade retrograde flow. The anastomosis was completed there was good flow through the fistula. The hand remained viable. The wound was closed with deep layer of interrupted 3-0 Vicryl and then a running septic of 4-0 Monocryl Steri-Strips Telfa OpSite dressing applied. Attention was now drawn to the abdomen. Inferior to the umbilicus to the left at the previous site of the placement incision reopened incision and tedious blunt dissection performed to identify the catheter. The secondary cuff was identified it was released allowing for the external part of the catheter be removed. I then elevated on the catheter and cori down to the fascia and carefully dissected free 360 circumferentially until the second cuff could be released. I closed the fascial deep with a [id number] suture of 0 Vicryl. 1% lidocaine mixed 50-50 with 0.5% Marcaine was used as local anesthetic in this area as well. Throughout the procedure total of cc was used. Steri-Strips Telfa OpSite dressing applied to the abdominal incision. Sponge and instrument and needle counts were reported to the surgeon be correct. Blood loss minimal. He tolerated the procedure well was taken to the recovery area in satisfactory addition without apparent complication. Specimens none. Drains none. Blood loss minimal. Yosef Franks M.D., F.A.C.S. Type of Anesthesia:: General Anesthesiologist: Tod Gavin
[2019-07-06] MEDS: Bupivacaine Mpf 0.5% 30 ML VIAL (10:58)
[2019-07-06 11:41] LABS: Bedside Glucose 115 mg/dL (70-110)
== END 2019-07-06 13:03 | disposition home or self-care (01) ==
LOC: SDC 06:52 → AC 06:53
PROVIDERS: Family Provider Family Medicine; PCP Family Medicine; Referring Provider Surgery; Visit Provider Surgery
PROC: (CPT 36821; principal; 2019-07-06 08:45)
DX: T82.898A Other specified complication of vascular prosthetic devices, implants and grafts, initial encounter (principal); I73.9 Peripheral vascular disease, unspecified; I10 Essential (primary) hypertension; D64.9 Anemia, unspecified; E11.9 Type 2 diabetes mellitus without complications; Z87.891 Personal history of nicotine dependence; Z79.84 Long term (current) use of oral hypoglycemic drugs; Z99.2 Dependence on renal dialysis; E66.01 Morbid (severe) obesity due to excess calories; Z68.41 Body mass index [BMI] 40.0-44.9, adult
CPT/HCPCS: 36821; 49422; 36415; 80048; 82962; 85027; 93005; J7120; J2405

== ENCOUNTER 2019-07-23 20:50 | Inpatient (IN) | payer MEDICARE, OTHER, SELFPAY ==
[2019-07-06 07:09] VITALS: BMI 40.4
--- NOTE | 2019-07-23 20:41 | HP.PCM_ITS ---
Problem List (1) Hypoxia Status: Acute (2) Pneumonia Status: Acute Qualifiers: Pneumonia type: due to unspecified organism Laterality: right Lung location: lower lobe of lung Qualified Code(s): J18.9 - Pneumonia, unspecified organism (3) Sepsis Status: Acute Qualifiers: Sepsis type: sepsis due to unspecified organism Sepsis acute organ dysfunction status: unspecified Qualified Code(s): A41.9 - Sepsis, unspecified organism (4) HLD (hyperlipidemia) Status: Chronic Qualifiers: Hyperlipidemia type: unspecified Qualified Code(s): E78.5 - Hyperlipidemia, unspecified (5) Morbid obesity Status: Chronic (6) ESRD (end stage renal disease) Status: Chronic (7) Peripheral vascular occlusive disease Status: Chronic (8) Peripheral autonomic neuropathy due to secondary diabetes Status: Chronic (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 (10) Chronic anemia Status: Chronic (11) Type 2 diabetes mellitus Status: Chronic Qualifiers: Diabetes mellitus complication status: with kidney complications Chronic kidney disease stage: on chronic dialysis (12) Hypertension Status: Chronic Qualifiers: Hypertension type: essential hypertension Qualified Code(s): I10 - Essential (primary) hypertension History of Present Illness Date of Admission: 07/23/19 Chief Complaint: Cough, dyspnea The patient is a 59 y/o M w/ PMHx: Diabetes mellitus type II, ESRD on HD, Chronic anemia, HTN, HLD, Hx Guillain Saybrook Syndrome, PVD, Former Tobacco use w/ recent 06/14/19 discharge following treatment of LLE cellulitis, discharged on keflex who now re-presents as direct admission from OSH ED to the [facility] on 07/23/19 with history of being at HD today, noted ~ 2 hours in onset of chills, dyspnea with transition from HD to ED for evaluation with reported cough, not markedly productive, general fatigue and malaise starting AM day prior. OSH ED evaluation included a 102, heart rate 95, BP 151/88, 96% on 3 L, 85% on room air, RR 20s, EKG with sinus rhythm with first-degree AV block, labs at outside facility with sodium 132, BUN/creatinine 24/4.9, normal lactic acid level, rapid influenza negative, WBC within normal limits, hemoglobin 8.7 which is stable from baseline, troponin normal, chest x-ray with right lower lobe infiltrate, patient administered IV Zosyn as well as IV Rocephin in the ED in addition to a 500 cc normal saline bolus. Patient transitioned to [facility] secondary to evidence pneumonia in addition to need for dialysis which this alternate facility does not perform over the weekend per report. Upon presentation to [facility] patient respiratory status stable, no evidence of significant distress, vital signs stable per EMS report. 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) G61.0 Decubitus ulcer of left heel, stage 2 (Acute) L89.622 Debility (Acute) R53.81 Murmur, cardiac (Chronic) R01.1 Acute on chronic renal failure (Acute) N17.9, N18.9 Chronic anemia (Chronic) D64.9 Type 2 diabetes mellitus (Chronic) E11.9 Hypertension (Chronic) I10 Allergies No Known Allergies Allergy (Verified 07/15/19 10:07) Home Medications: Ambulatory Orders Medication Instructions Recorded Ergocalciferol [Vitamin D] 50,000 unit PO QMONTH 03/12/16 B Complex W-C No.20/Folic Acid 1 mg PO QHS 10/29/16 [Nephrocaps Softgel] Sennosides/Docusate Sodium 1 ea PO DAILY 10/29/16 [Docusate Sodium-Senna Tablet] Sitagliptin Phosphate [Januvia] 50 mg PO DAILY 10/29/16 Acetaminophen [Tylenol Tablet] 650 mg PO Q6H PRN PRN tab 11/20/16 Metoprolol Tartrate [Lopressor 50 mg PO 1400 12/28/17 (beta dary)] Venlafaxine XR [Effexor Xr] 1 cap PO DAILY 12/28/17 Glimepiride [Amaryl] 4 mg PO DAILY #30 tab 01/01/18 Sucroferric Oxyhydroxide [Velphoro] 1,500 mg PO TID 08/31/18 Cephalexin [Keflex] 500 mg PO Q12 #10 cap 06/14/19 Surgical History: Surgical History (Last Updated 07/15/19 @ 10:09 by Ailyn Olivera) S/P arteriovenous (AV) fistula creation Z98.890 06/2019 history of insertion of peritoneal dialysis cath Surgical History: - - PD catheter, recent temporary right upper chest access for dialysis, maturing fistula left upper extremity, bilateral inguinal hernia repair, rectal abscess intervention, left cataract surgery, tonsillectomy, pilonidal cyst intervention. Psychiatric History: Anxiety, Depression Lives: Spouse/ Significant Other Smoking Status: Former smoker - Patient quit cigarette tobacco usage approximately 6 months prior and recently quit chewing tobacco approximately 7 weeks prior. Tobacco Use: Non-smoker Alcohol: None Drugs: None - *Family History Paternal History Items: Diabetes - ESRD , Heart Disease, Hypertension, - - kidney disease Offspring History Items: - - Endocarditis Maternal History Items: - - Patient notes his mother is very healthy, no history of heart disease, diabetes or cancer. Review of Systems Constitutional: Reports: Chills, Fever, Malaise, Weakness, Fatigue. Denies: Weight Change HEENT: Reports: Nasal Congestion, Sinus Congestion. Denies: Head Aches, Sinus Drainage Cardiovascular: Denies: Chest Pain, Chest Pressure, Chest Tightness, Light Headedness, Orthopnea, Palpitations, Syncope Respiratory: Reports: Cough, Shortness of Breath, Shortness of breath at rest, Shortness of breath upon exertion. Denies: Sputum production, Wheezing Gastrointestinal: Denies: Abdominal Pain, Nausea, Vomiting Genitourinary: Denies: Dysuria Musculoskeletal: Reports: Joint Pain. Denies: Joint Tenderness Skin: Denies: Rash, Wounds Neurological: Denies: Numbness, Tingling, Focal weakness Psychiatric: Reports: Anxiety, Depression. Denies: Homicidal Ideations, Suicidal Ideations Hematologic/ Lymphatic: Reports: Anemia. Denies: Easy Bruising, Easy Bleeding VTE Information - Inpt Only VTE Present on Admission: No VTE Mechan Device Prophylaxis: SCD's VTE Pharm Prophylaxis ordered?: Yes Patient Problems: Active and Suspected Problems (Last Reviewed 07/15/19 @ 10:07 by Ailyn Olivera) Pneumonia (Acute) Sepsis (Acute) Hypoxia (Acute) Subjective: Seated upright in the medical surgical bed, fatigued appearance, no acute distress otherwise. Objective: Physical Examination: General: awake, alert, oriented x 3 and cooperative, seated upright in the MedSur bed, no acute distress currently. Skin: normal color, turgor, no icterus, cyanosis. HEENT: AT/NC, EOMI, PERRLA, mildly dry MM, no carotid bruits or JVD noted; however, thickened neck makes examination difficult. Lungs: Diminished breath sounds bilaterally, greater right base, mildly coarse, no wheezing, rales present, remains on supplemental oxygen. Heart: Mildly tachycardic with regular rhythm; no gallop, rub audible. Abdomen: soft, morbidly obese, NTTP, ND, normal BS, no HSM; however, habitus makes examination difficult. Extremities: no cyanosis, clubbing, or edema, left upper extremity with recent fistula surgery, incision well healing. Neurological: patient awake, alert, oriented x 3; cognitive function intact; pup ils equally reactive to light and accomodation; cranial nerves II-XII grossly normal, moving all 4 extremities, no focal deficits, strength moderately global decrease secondary to acute presentation. Psychiatric: affect appears fatigued, no acute evidence of depressive or anxiety feelings. - Physical Exam Vitals/I&O's: Body Mass Index (BMI) 40.4 Finger Stick Blood Glucose 90 Assessment/Plan All Active Problems (Last Reviewed 07/15/19 @ 10:07 by Ailyn Olivera) Pneumonia (Acute) Sepsis (Acute) Hypoxia (Acute) Cellulitis of left lower extremity (Acute) Sepsis (Acute) Problem with dialysis access (Acute) Skin abscess (Acute) Infected open wound (Acute) Decubitus ulcer of left heel, stage 2 (Acute) Debility (Acute) Abdominal wall abscess (Acute) Fever (Acute) Acute on chronic renal failure (Acute) The patient is a 59 y/o M w/ PMHx: Diabetes mellitus type II, ESRD on HD, Chronic anemia, HTN, HLD, Hx Guillain Saybrook Syndrome, PVD, Former Tobacco use w/recent 06/14/19 discharge following treatment of LLE cellulitis, discharged on keflex who now re-presents as direct admission from OSH ED to the [facility] on 07/23/19 with history of being at HD today, noted ~ 2 hours in onset of chills, dyspnea with transition from HD to ED for evaluation with reported cough, not markedly productive, general fatigue and malaise starting AM day prior. 1. Acute Sepsis secondary to Acute HCAP Pneumonia with Associated Hypoxia: Recent admission 06/09/19-06/14/19 as noted. CXR in the ED w/ evidence of right lower lobe pneumonia. Admission CBC w/ WBC 6.1, hemoglobin 8.7, platelet 264 with no severe left shift noted. Will admit to [facility], maintain on oxygen with wean as tolerated to room air, continue ATC duonebs, PRN albuterol, maintained on IV Zosyn and Vancomycin given recent prolonged admission with de-escalation as able, HOB, IS parameters w/ pending sputum cultures, respiratory full viral panel and urine antigens once urinates as makes urine still but not frequently. Bld cx x 2 obtained at OSH ED. 2. Recent LLE Cellulitis: Resolved, treated w/ IV abx with transition per ID recommendation to keflex, completed. 3. ESRD: Recent Dr. Franks evaluation with tunnel dialysis catheter placement during 06/2019 admission as patient previously on peritoneal dialysis consult following w/ Dr. Hansen with transition to HD from peritoneal dialysis as felt not effective with worsening kidney function, will consult Dr. Hansen, continue HD MWF. Maturing fistula left upper extremity with deferred usage for any vital signs or labs. 4. Hypertension: Continue home regimen including metoprolol, PRN hydralazine. 5. Hyperlipidemia: Not on regimen, defer to outpatient. 6. Diabetes mellitus type II w/ Neuropathy: Hold oral home regimen, ADA diet, accu checks w/ ISS. 7. Anxiety and depression: We will continue patient home Effexor regimen. 8. 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 9. AOCD: Continue [facility], HD ongoing, outside ED hemoglobin 8.7, stable, trend. 10. Morbid Obesity: Weight loss and lifestyle changes encouraged. 11. DVT Prophylaxis: SCDs, heparin. Code Visit Inpatient E&M: 50327 Init Hosp L3
[2019-07-23 21:10] VITALS: BP 109/55; PULSE 82; RESP 18; TEMP 37.7; O2SAT 99
[2019-07-23 22:02] VITALS: O2SAT 94
[2019-07-23] MEDS: 0.9% Normal Saline 1,000 ML 100 ML IV (22:07)
[2019-07-23 22:15] VITALS: BMI 41.8
[2019-07-23 22:23] VITALS: BMI 41.9
[2019-07-23 22:40] LABS: Bedside Glucose 76 mg/dL (70-110)
[2019-07-23] MEDS: Heparin Injection (Vial) 5,000 UNIT/ML VIAL 5000 UNIT SC (23:03)
--- NOTE | 2019-07-23 23:46 | CPS ---
RT ATTEMPTED TO OBTAIN SPUTUM VIA COLLECTION CUP TIMES 2 WITHOUT SUCCESS. PATIENTS NURSE AWARE AND STATED THEY WOULD CONT. TO TRY TO OBTAIN. COLLECTION CONTAINER AT BEDSIDE.
--- NOTE | 2019-07-23 23:53 | NURSING ---
During admission, attempted to obtain home med list history from pt. Pt unsure of what meds he takes at home, states they are exactly the same as his discharge paperwork from his surgery on 07/06/19. Pt states I don't know what I take, I just take what my gives me. Discharge med list from 07/06 entered into computer.
[2019-07-24] VITALS (13 sets, daily range): BP systolic 100–134; BP diastolic 50–73; PULSE 80–107; RESP 18–22; TEMP 37.4–39.4; O2SAT 87–98
--- NOTE | 2019-07-24 04:11 | PCM.RX.CS ---
Consult Pharmacy has been consulted to manage selected antiobiotic: Vancomycin Type of Consult: New start Suspected Infection: Pneumonia Weight used for dosin kg Estimated Creatinine Clearance: dialysis Goal Trough: 15-20 mcg/mL Pharmacy Plan for Drug Dosing: Pharmacy Service will continue to monitor and adjust dosing as required. Medications Vancomycin HCl (Vancomycin) 1,000 mg in 200 mls @ 200 mls/hr IV X1 ONE Stop: 07/26/19 10:59 Discontinued Medications Vancomycin HCl 2,000 mg/ (Sodium Chloride) 540 mls @ 250 mls/hr IV X1 ONE Stop: 07/24/19 00:39 Last Admin: 07/24/19 01:30 Dose: Infused Documented by: dose on 07/26 given after dialysis, trough drawn 07/28 pre-dialysis Follow-Up Labs: Trough Vancomycin Labs to be done on [date and time ordered]: 07/26 pre dialysis
[2019-07-24] MEDS: Albuterol 2.5 MG/3 ML VIAL.NEB. INHALATION ×2 (05:30→14:58)
[2019-07-24 07:00] LABS: Bedside Glucose 89 mg/dL (70-110)
[2019-07-24 07:24] LABS: Absolute Neutrophil Count 3.3 X10^3/uL (2.0-7.7); Basophil# 0.03 X10^3/uL; Basophil% 0.7 % (0-1); Eosinophil# 0.02 X10^3/uL; Eosinophils% 0.5 % (0-5); Hematocrit 26.5 % (40-54); Hemoglobin 7.9 g/dL (13.0-16.5); Lymphocyte % 7.4 % (19-41); Mean Corp Hgb Conc 29.8 g/dL (32-36); Mean Corpuscular Hgb 28.8 pg (27.0-32.0); Mean Corpuscular Volume 96.7 fL (80-94); Mean Platelet Vol. 8.8 fl (6.2-12.0); Monocyte% 9.9 % (0-10); NRBC Flagged by Analyzer 0 % (0-5); Neutrophil # 3.26 X10^3/uL (2.7-7.7); POSITIVE DIFFERENTIAL YES; Platelet Count 173 K/mm3 (150-450); RBC Distribution Width CV 17.6 % (11.6-14.6); RBC Distribution Width SD 61.3 fl (35.1-43.9); Red Blood Count 2.74 M/mm3 (4.6-6.2)
[2019-07-24 07:25] LABS: Differential Indicated SCAN CRITERIA MET
--- NOTE | 2019-07-24 07:25 | NURSING ---
Contacted pt's , Kathia about the possibility of bringing pt's Velphoro in this morning as it is non-formulary. reports that she can bring it in around 9 or 10 this morning. Pharmacy aware that pt will be supplying own med.
[2019-07-24 08:22] LABS: Anion Gap 8 (5-15); BUN 33 mg/dL (7-18); BUN/Creat Ratio 5.4 RATIO (10-20); Calcium,Total 8.9 mg/dL (8.5-10.1); Chloride 100 mmol/L (98-107); EST Glomerular Filtration Rate 10 mL/min (>60); Est Glom Filt Rate - Afr Amer 12 mL/min (>60); Estimated Creatinine Clearance 12.93 ml/min; Glucose 85 mg/dL (74-106); Magnesium 2.3 mg/dL (1.6-2.6); Phosphorus 5.4 mg/dL (2.5-4.9); Potassium 4.2 mmol/L (3.5-5.1); Sodium Level 135 mmol/L (136-145)
[2019-07-24] MEDS: Venlafaxine XR 37.5 MG Capsule PO (10:09)
[2019-07-24] MEDS: Heparin Injection (Vial) 5,000 UNIT/ML VIAL 5000 UNIT SC ×2 (10:09→21:55)
[2019-07-24] MEDS: Senna/Docusate Sodium 1 Tablet PO (10:09)
[2019-07-24] MEDS: 0.9% Saline Lock 10 ML Syringe IV (10:09)
--- NOTE | 2019-07-24 10:42 | PCM.PN.HOSP ---
Patient Problems: Active and Suspected Problems (Last Reviewed 07/15/19 @ 10:07 by Ailyn Olivera) Pneumonia (Acute) Sepsis (Acute) Hypoxia (Acute) Subjective: Patient seen and examined. He was admitted with a complaint of fever and chills, as well as shortness of breath. He had to shorten his dialysis session to 2 hours instead of 4 hours, and was sent to [facility], and was transferred to [facility], to be managed for health associated pneumonia. Patient seen today. Shortness of breath has improved. He still has a cough but is nonproductive. He denies any chest pain, nausea vomiting or diarrhea. Review of systems otherwise negative. Vitals are significant for temperature of 99.7. Respiratory rate is 18 and he saturating at 95% on 2 L of oxygen. Hemoglobin is 7.9 and white cell count is 4. Vitals/I&O's: Vital Signs Temp Pulse Resp BP Pulse Ox 99.7 F H 80 18 119/69 95 07/24/19 10:03 07/24/19 10:03 07/24/19 10:03 07/24/19 10:03 07/24/19 10:03 Oxygen Flow Rate (L/min) 2 Oxygen Delivery Method Nasal Cannula Weight: 275 lb 9.245 oz Body Mass Index (BMI) 41.8 Finger Stick Blood Glucose 90 Intake and Output for Last 24 Hours 07/22/19 07/23/19 07/24/19 23:59 23:59 23:59 Intake Total 191.67 / 191.67 740 / 740 Balance 191.67 / 191.67 740 / 740 General: Alert, Oriented x3, Cooperative, No apparent distress, - - morbid obesity HEENT: Atraumatic, PERRLA, EOMI, Normocephalic Oral: Dry Mucosa Neck: Supple, No JVD, Negative Carotid Bruits, Negative Hepatojugular Reflux, No Nodes, No Nuchal Rigidity Lungs: - - diminished breath sounds bibasally, no wheezes or crackles Cardiovascular: Regular rate, Regular Rhythm, Normal S1, Normal S2, No murmurs Abdomen: Bowel Sounds Present, Soft, Non Tender, Non-Distended, No Hepato-splenomegaly, Obese Extremities: No clubbing, No cyanosis, No edema, Capillary Refill Less than 3 Seconds Skin: No rashes, No breakdown Musculoskeletal: No Tenderness to Palpation of Joints or Extremities, - - tunneled dialysis catheter in chest Lymphatic: No Cervical, Supraclavicular, or Inguinal Adenopathy Neurological: Cranial nerves II-XII grossly intact, Neuro grossly intact, Motor Exam 5/5 strength throughout Psych/Mental Status: Normal Affect, Appropriate, Alert and oriented to time, place, person, mood and affect Microbiology Past 72 Hours 07/23/19 22:20 Mucosa - Nose Respiratory Panel (PCR) - Final Laboratory Results 07/23/19 22:13: POC Glucose 76 07/24/19 05:32: WBC 4.0 L, RBC 2.74 L, Hgb 7.9 L, Hct 26.5 L, MCV 96.7 H, MCH 28.8, MCHC 29.8 L, RDW Std Deviation 61.3 H, RDW Coeff of Gurwinder 17.6 H, Plt Count 173, MPV 8.8, Immature Gran % (Auto) 0.500, Neut % (Auto) 81.0 H, Lymph % (Auto) 7.4 L, Tift % (Auto) 9.9, Eos % (Auto) 0.5, Baso % (Auto) 0.7, Absolute Neuts (auto) 3.3, Absolute Lymphs (auto) 0.30 L, Nucleated RBC % 0, Diff Path Review October07/24/19 05:32: Sodium 135 L, Potassium 4.2, Chloride 100, Carbon Dioxide 27.0, Anion Gap 8, BUN 33 H, Creatinine 6.10 H, Estim Creat Clear Calc 12.93, Est GFR (MDRD) Af Amer 12 L, Est GFR (MDRD) Non-Af 10 L, BUN/Creatinine Ratio 5.4 L, Glucose 85, Calcium 8.9, Phosphorus 5.4 H, Magnesium 2.3 07/24/19 06:56: POC Glucose 89 Current Medications Acetaminophen (Tylenol) 650 mg PO Q6H PRN PRN PRN Reason: Pain Score 1-10/Temp > 100.7 F Al Hydroxide/Mg Hydroxide (Mylanta Ii) 30 ml PO Q6H PRN PRN PRN Reason: Gastric Burning Albuterol Sulfate (Ventolin Aerosols) 2.5 mg INHALATION Q2H PRN PRN PRN Reason: Shortness of Breath/Wheezing Last Admin: 02/15/20 05:30 Dose: 2.5 mg Documented by: Glucagon () 1 mg IM .X1 PRN PRN Reason: Hypoglycemia Guaifenesin (Robitussin) 20 ml PO Q4H PRN PRN PRN Reason: COUGH Heparin Sodium (Porcine) (Heparin Na) 5,000 unit SC Q12 [facility] Last Admin: 07/24/19 10:09 Dose: 5,000 unit Documented by: Hydralazine HCl (Apresoline Iv) 10 mg IV Q4H PRN PRN PRN Reason: SBP > 160 Sodium Chloride () 1,000 mls @ 100 mls/hr IV .Q10H [facility] Stop: 07/24/19 19:59 Last Infusion: 07/24/19 01:30 Dose: 100 mls/hr Documented by: Piperacillin Sod/Tazobactam (Sod 3.375 gm/ Sodium Chloride) 50 mls @ 12.5 mls/hr IV Q12 [facility] Last Admin: 07/24/19 10:09 Dose: 12.5 mls/hr Documented by: Vancomycin IV Pharmacy to Dose (1 ea/ Sodium Chloride) 500 mls @ 250 mls/hr IV X1 PRN; Protocol PRN Reason: Rx to Dose Dextrose (Dextrose 10%-Water) 250 mls @ 999 mls/hr IV .Q16M PRN; Protocol PRN Reason: HYPOGLYCEMIA Sodium Chloride () 250 mls @ 15 mls/hr IV .[id number] PRN PRN Reason: Saline Flush Sodium Chloride () 250 mls @ 15 mls/hr IV .P12X30M PRN PRN Reason: Additional IVPB Infusion Vancomycin HCl (Vancomycin) 1,000 mg in 200 mls @ 200 mls/hr IV X1 ONE Stop: 07/26/19 10:59 Insulin Human Lispro (Humalog Kwikpen (Bkc)) 0 unit SC ACHS [facility]; Protocol Last Admin: 07/24/19 07:00 Dose: Not Given Documented by: Magnesium Hydroxide (Milk Of Magnesia) 30 ml PO DAILY PRN PRN PRN Reason: Constipation Melatonin (Melatonin) 3 mg PO QHS PRN PRN PRN Reason: INSOMNIA Metoprolol Tartrate (Lopressor (Beta Elizabeth)) 50 mg PO 1400 [facility] Non-Formulary Medication (Sucroferric Oxyhydroxide) 1,500 mg PO TID YVES Ondansetron HCl (Zofran) 4 mg IV Q8H PRN PRN PRN Reason: NAUSEA/VOMITING Prochlorperazine Edisylate (Compazine Iv) 5 mg IV Q4H PRN PRN PRN Reason: Breakthrough nausea/vomiting Psyllium Hydrophilic Mucilloid (Metamucil) 1 packet PO DAILY PRN PRN PRN Reason: Constipation Senna/Docusate Sodium (Senokot-S, Belia-Colace) 1 tablet PO DAILY [facility] Last Admin: 07/24/19 10:09 Dose: 1 tablet Documented by: Sodium Chloride () 10 - 40 ml IV UD PRN PRN Reason: SALINE FLUSH Last Admin: 07/24/19 10:09 Dose: 10 ml Documented by: Throat Lozenges (Cepacol Sore Throat Lozenge) 1 lozenge MUCOUS MEM Q2H PRN PRN PRN Reason: SORE THROAT Venlafaxine HCl (Effexor Xr) 37.5 mg PO DAILY [facility] Last Admin: 07/24/19 10:09 Dose: 37.5 mg Documented by: STROKE Vital Signs/Narrative: Vital Signs Temp Pulse Resp BP Pulse Ox 07/24/19 10:03 99.7 F H 80 18 119/69 95 07/24/19 06:51 95 Medical Necessity - Tobacco Use Smoking Status: Former smoker Tobacco Use: Non-smoker Assessment/Plan All Active Problems (Last Reviewed 07/15/19 @ 10:07 by Ailyn Olivera) Pneumonia (Acute) Sepsis (Acute) Hypoxia (Acute) Cellulitis of left lower extremity (Acute) Sepsis (Acute) Problem with dialysis access (Acute) Skin abscess (Acute) Infected open wound (Acute) Decubitus ulcer of left heel, stage 2 (Acute) Debility (Acute) Abdominal wall abscess (Acute) Fever (Acute) Acute on chronic renal failure (Acute) 1. Sepsis due to health associated pneumonia SIRS criteria is now 0/4 CXR done at OSH ED showed right lower lobe pneumonia on IV vancomycin and zosyn. sputum cultures pending. respiratory panel negative will order blood cultures 2. ESRD has a tunneled dialysis catheter in place. Was previously on peritoneal dialysis but this wasnt functioning properly has maturing fisult[place] in [facility] [place] [facility] [place] 2 hour session fo dialysis yesterday, instead of 4 hours, due to shortness of breath nephrology consulted 3. Acute hypoxic respiratory insufficiency due to health associated pneumonia as under 1. on breathing treatment with duonebs titrate oxygen to maintain sats >90% 4. Hypertension: on metoprolol. IV hydralazien prn 5. Anemia of chronic disease Globin today 7.9. Likely due to history of ESRD. Will monitor for now. 6. Type 2 diabetes mellitus with neuropathy: On insulin sliding scale. Accu-Cheks AC at bedtime. Home sitagliptin and glimepiride on hold. 7. 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 DVT prophylaxis: heparin Code Visit Inpatient E&M: 90267 Subs Hosp L3
[2019-07-24] MEDS: 0.9% Normal Saline 1,000 ML 100 ML IV (11:22)
[2019-07-24 11:25] LABS: Bedside Glucose 101 mg/dL (70-110)
--- NOTE | 2019-07-24 14:29 | PCM.CONS.R ---
Consultation - Renal 07/24/19 PCP/ Referring MD: Requesting physician: [] Primary care physician: Gildardo Trejo MD Reason for Consultation:: ESRD HD MWF - History of Present Illness History of Present Illness: The patient is a 59 year old obese M with ESRD on hemodialysis at [facility] unit every Friday with Dr. 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 Patient complains of cough with shortness of breath, fever, chills since . He was not on antibiotics as an outpatient. He received half of his hemodialysis treatment yesterday. Currently on hemodialysis to complete the rest of his treatment. He is 6 kg over his target weight. He remains short of breath with wheezing and cough. Respiratory panel unremarkable. - Allergies Allergies: Allergies No Known Allergies Allergy (Verified 07/15/19 10:07) - Current Medications Current Medications: Current Medications Acetaminophen (Tylenol) 650 mg PO Q6H PRN PRN PRN Reason: Pain Score 1-10/Temp > 100.7 F Al Hydroxide/Mg Hydroxide (Mylanta Ii) 30 ml PO Q6H PRN PRN PRN Reason: Gastric Burning Albuterol Sulfate (Ventolin Aerosols) 2.5 mg INHALATION Q2H PRN PRN PRN Reason: Shortness of Breath/Wheezing Last Admin: 07/24/19 05:30 Dose: 2.5 mg Documented by: Glucagon () 1 mg IM .X1 PRN PRN Reason: Hypoglycemia Guaifenesin (Robitussin) 20 ml PO Q4H PRN PRN PRN Reason: COUGH Heparin Sodium (Porcine) (Heparin Na) 5,000 unit SC Q12 YVES Last Admin: 07/24/19 10:09 Dose: 5,000 unit Documented by: Heparin Sodium (Porcine) () 2,500 units IV UD PRN PRN Reason: Dialysis Cath Heparin Flush Hydralazine HCl (Apresoline Iv) 10 mg IV Q4H PRN PRN PRN Reason: SBP > 160 Sodium Chloride () 1,000 mls @ 100 mls/hr IV .Q10H YVES Stop: 07/24/19 19:59 Last Admin: 07/24/19 11:22 Dose: 100 mls/hr Documented by: Piperacillin Sod/Tazobactam (Sod 3.375 gm/ Sodium Chloride) 50 mls @ 12.5 mls/hr IV Q12 YVES Last Admin: 07/24/19 10:09 Dose: 12.5 mls/hr Documented by: Vancomycin IV Pharmacy to Dose (1 ea/ Sodium Chloride) 500 mls @ 250 mls/hr IV X1 PRN; Protocol PRN Reason: Rx to Dose Dextrose (Dextrose 10%-Water) 250 mls @ 999 mls/hr IV .Q16M PRN; Protocol PRN Reason: HYPOGLYCEMIA Sodium Chloride () 250 mls @ 15 mls/hr IV .[id number] PRN PRN Reason: Saline Flush Sodium Chloride () 250 mls @ 15 mls/hr IV .[id number] PRN PRN Reason: Additional IVPB Infusion Vancomycin HCl (Vancomycin) 1,000 mg in 200 mls @ 200 mls/hr IV X1 ONE Stop: 07/26/19 10:59 Insulin Human Lispro (Humalog Kwikpen (Bkc)) 0 unit SC ACHS [facility]; Protocol Last Admin: 07/24/19 11:49 Dose: Not Given Documented by: Magnesium Hydroxide (Milk Of Magnesia) 30 ml PO DAILY PRN PRN PRN Reason: Constipation Melatonin (Melatonin) 3 mg PO QHS PRN PRN PRN Reason: INSOMNIA Metoprolol Tartrate (Lopressor (Beta Elizabeth)) 50 mg PO 1400 YVES Ondansetron HCl (Zofran) 4 mg IV Q8H PRN PRN PRN Reason: NAUSEA/VOMITING Prochlorperazine Edisylate (Compazine Iv) 5 mg IV Q4H PRN PRN PRN Reason: Breakthrough nausea/vomiting Psyllium Hydrophilic Mucilloid (Metamucil) 1 packet PO DAILY PRN PRN PRN Reason: Constipation Senna/Docusate Sodium (Senokot-S, Belia-Colace) 1 tablet PO DAILY YVES Last Admin: 07/24/19 10:09 Dose: 1 tablet Documented by: Sodium Chloride () 10 - 40 ml IV UD PRN PRN Reason: SALINE FLUSH Last Admin: 07/24/19 10:09 Dose: 10 ml Documented by: Throat Lozenges (Cepacol Sore Throat Lozenge) 1 lozenge MUCOUS MEM Q2H PRN PRN PRN Reason: SORE THROAT Venlafaxine HCl (Effexor Xr) 37.5 mg PO DAILY YVES Last Admin: 07/24/19 10:09 Dose: 37.5 mg Documented by: - Past Medical History Past Medical History (Chronic Problems): Chronic Problems (Last Reviewed 07/15/19 @ 10:07 by Ailyn Olivera) HLD (hyperlipidemia) (Chronic) Morbid obesity (Chronic) ESRD (end stage renal disease) (Chronic) Cellulitis (Chronic) Peripheral vascular occlusive disease (Chronic) Peripheral autonomic neuropathy due to secondary diabetes (Chronic) 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) Murmur, cardiac (Chronic) Chronic anemia (Chronic) Chronic kidney disease, stage III (moderate) (Chronic) Type 2 diabetes mellitus (Chronic) Hypertension (Chronic) - Past Surgical History Surgical History: - - PD catheter, recent temporary right upper chest access for dialysis, maturing fistula left upper extremity, bilateral inguinal hernia repair, rectal abscess intervention, left cataract surgery, tonsillectomy, pilonidal cyst intervention. - Social History Marital Status: Smoking Status: Former smoker Alcohol: None Drugs: None - Family History Offspring History Items: - - Endocarditis Paternal History Items: Diabetes - ESRD , Heart Disease, Hypertension, - - kidney disease Maternal History Items: - - Patient notes his mother is very healthy, no history of heart disease, diabetes or cancer. Review of Systems Constitutional: Reports: Anorexia, Chills, Fever, Weakness, Fatigue HEENT: Denies: Head Aches, Visual Changes Cardiovascular: Denies: Chest Pain, Syncope Respiratory: Reports: Cough, Shortness of Breath, Shortness of breath at rest, Sputum production, Wheezing Gastrointestinal: Denies: Constipation, Diarrhea, Nausea, Vomiting Genitourinary: Denies: Dysuria Musculoskeletal: Reports: - - Generalized weakness Skin: Denies: Rash Neurological: Reports: - Psychiatric: Reports: Depression. Denies: Anxiety Hematologic/ Lymphatic: Reports: Anemia Patient Problems: Active and Suspected Problems (Last Reviewed 07/15/19 @ 10:07 by Ailyn Olivera) Pneumonia (Acute) Sepsis (Acute) Hypoxia (Acute) - Physical Exam Vitals/I&O's: Vital Signs Temp Pulse Resp BP Pulse Ox 99.7 F H 80 18 119/69 95 07/24/19 10:03 07/24/19 10:03 07/24/19 10:03 07/24/19 10:03 07/24/19 10:03 Oxygen Flow Rate (L/min) 2 Oxygen Delivery Method Nasal Cannula Weight: 125 kg Body Mass Index (BMI) 41.8 Finger Stick Blood Glucose 90 Intake and Output for Last 24 Hours 07/22/19 07/23/19 07/24/19 23:59 23:59 23:59 Intake Total 191.67 / 191.67 1768.33 / 1768.33 Output Total 50 / 50 Balance 191.67 / 191.67 1718.33 / 1718.33 General: Alert, Oriented x3, Cooperative, No apparent distress Neck: Supple Lungs: Clear to auscultation Cardiovascular: Regular rate Abdomen: Bowel Sounds Present, Soft, Non Tender, Non-Distended, Obese Extremities: Edema Skin: - - Mild tattoos Musculoskeletal: Muscle Wasting - Chronic Neurological: - - No tremor Psych/Mental Status: Normal Affect, Appropriate, Alert and oriented to time, place, person, mood and affect Microbiology Past 72 Hours 07/24/19 03:10 Sputum, Expectorated/Coughed Gram Stain - Final 07/24/19 10:15 Urine, Clean Catch Streptococcus pneumoniae Antigen (M - Final 07/24/19 10:15 Urine, Clean Catch Legionella Antigen - Final 07/23/19 22:20 Mucosa - Nose Respiratory Panel (PCR) - Final Laboratory Results 07/23/19 22:13: POC Glucose 76 07/24/19 05:32: WBC 4.0 L, RBC 2.74 L, Hgb 7.9 L, Hct 26.5 L, MCV 96.7 H, MCH 28.8, MCHC 29.8 L, RDW Std Deviation 61.3 H, RDW Coeff of Gurwinder 17.6 H, Plt Count 173, MPV 8.8, Immature Gran % (Auto) 0.500, Neut % (Auto) 81.0 H, Lymph % (Auto) 7.4 L, Barren % (Auto) 9.9, Eos % (Auto) 0.5, Baso % (Auto) 0.7, Absolute Neuts (auto) 3.3, Absolute Lymphs (auto) 0.30 L, Nucleated RBC % 0, Diff Path Review October07/24/19 05:32: Sodium 135 L, Potassium 4.2, Chloride 100, Carbon Dioxide 27.0, Anion Gap 8, BUN 33 H, Creatinine 6.10 H, Estim Creat Clear Calc 12.93, Est GFR (MDRD) Af Amer 12 L, Est GFR (MDRD) Non-Af 10 L, BUN/Creatinine Ratio 5.4 L, Glucose 85, Calcium 8.9, Phosphorus 5.4 H, Magnesium 2.3 07/24/19 06:56: POC Glucose 89 07/24/19 11:21: POC Glucose 101 Current Medications Acetaminophen (Tylenol) 650 mg PO Q6H PRN PRN PRN Reason: Pain Score 1-10/Temp > 100.7 F Al Hydroxide/Mg Hydroxide (Mylanta Ii) 30 ml PO Q6H PRN PRN PRN Reason: Gastric Burning Albuterol Sulfate (Ventolin Aerosols) 2.5 mg INHALATION Q2H PRN PRN PRN Reason: Shortness of Breath/Wheezing Last Admin: 07/24/19 05:30 Dose: 2.5 mg Documented by: Glucagon () 1 mg IM .X1 PRN PRN Reason: Hypoglycemia Guaifenesin (Robitussin) 20 ml PO Q4H PRN PRN PRN Reason: COUGH Heparin Sodium (Porcine) (Heparin Na) 5,000 unit SC Q12 YVES Last Admin: 07/24/19 10:09 Dose: 5,000 unit Documented by: Heparin Sodium (Porcine) () 2,500 units IV UD PRN PRN Reason: Dialysis Cath Heparin Flush Hydralazine HCl (Apresoline Iv) 10 mg IV Q4H PRN PRN PRN Reason: SBP > 160 Sodium Chloride () 1,000 mls @ 100 mls/hr IV .Q10H [facility] Stop: 07/24/19 19:59 Last Admin: 07/24/19 11:22 Dose: 100 mls/hr Documented by: Piperacillin Sod/Tazobactam (Sod 3.375 gm/ Sodium Chloride) 50 mls @ 12.5 mls/hr IV Q12 YVES Last Admin: 07/24/19 10:09 Dose: 12.5 mls/hr Documented by: Vancomycin IV Pharmacy to Dose (1 ea/ Sodium Chloride) 500 mls @ 250 mls/hr IV X1 PRN; Protocol PRN Reason: Rx to Dose Dextrose (Dextrose 10%-Water) 250 mls @ 999 mls/hr IV .Q16M PRN; Protocol PRN Reason: HYPOGLYCEMIA Sodium Chloride () 250 mls @ 15 mls/hr IV .[id number] PRN PRN Reason: Saline Flush Sodium Chloride () 250 mls @ 15 mls/hr IV .[id number] PRN PRN Reason: Additional IVPB Infusion Vancomycin HCl (Vancomycin) 1,000 mg in 200 mls @ 200 mls/hr IV X1 ONE Stop: 07/26/19 10:59 Insulin Human Lispro (Humalog Kwikpen (Bkc)) 0 unit SC ACHS [facility]; Protocol Last Admin: 07/24/19 11:49 Dose: Not Given Documented by: Magnesium Hydroxide (Milk Of Magnesia) 30 ml PO DAILY PRN PRN PRN Reason: Constipation Melatonin (Melatonin) 3 mg PO QHS PRN PRN PRN Reason: INSOMNIA Metoprolol Tartrate (Lopressor (Beta Elizabeth)) 50 mg PO 1400 YVES Ondansetron HCl (Zofran) 4 mg IV Q8H PRN PRN PRN Reason: NAUSEA/VOMITING Prochlorperazine Edisylate (Compazine Iv) 5 mg IV Q4H PRN PRN PRN Reason: Breakthrough nausea/vomiting Psyllium Hydrophilic Mucilloid (Metamucil) 1 packet PO DAILY PRN PRN PRN Reason: Constipation Senna/Docusate Sodium (Senokot-S, Belia-Colace) 1 tablet PO DAILY [facility] Last Admin: 07/24/19 10:09 Dose: 1 tablet Documented by: Sodium Chloride () 10 - 40 ml IV UD PRN PRN Reason: SALINE FLUSH Last Admin: 07/24/19 10:09 Dose: 10 ml Documented by: Throat Lozenges (Cepacol Sore Throat Lozenge) 1 lozenge MUCOUS MEM Q2H PRN PRN PRN Reason: SORE THROAT Venlafaxine HCl (Effexor Xr) 37.5 mg PO DAILY [facility] Last Admin: 07/24/19 10:09 Dose: 37.5 mg Documented by: Assessment/Plan All Active Problems (Last Reviewed 07/15/19 @ 10:07 by Ailyn Olivera) Pneumonia (Acute) Sepsis (Acute) Hypoxia (Acute) Cellulitis of left lower extremity (Acute) Sepsis (Acute) Problem with dialysis access (Acute) Skin abscess (Acute) Infected open wound (Acute) Decubitus ulcer of left heel, stage 2 (Acute) Debility (Acute) Abdominal wall abscess (Acute) Fever (Acute) Acute on chronic renal failure (Acute) 1. ESRD HD MWF. Received half of his treatment yesterday. Will complete his treatment today attempt 4.6 L fluid removal. Dialysis unit currently closed will get chronic orders on Friday 2. Anemia hemoglobin 7.9 EPO 10,000 units today. 3. Acute pneumonia IV antibiotics dosed accordingly 4. DM type II primary service management 5. 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 Morbid obesity
[2019-07-24 16:35] LABS: Bedside Glucose 95 mg/dL (70-110)
--- NOTE | 2019-07-24 17:43 | CM.UR ---
RN CM CAR PRE COOLER CM to room to meet with patient for initial transition planning/care coordination assessment. RN CM introduced self and role at [facility]. Pt voices understanding and consents to assessment at this time. Pt resting in bed, getting dialysis at this time and in no distress. Pt is A/O at this time and answers all questions appropriately. is at beside. Care providers, pharmacy, and demographics verified/updated at this time. PCP: Dr Gildardo Trejo Specialists: Dr Hansen--contract preparer. [facility] Insurance: [facility], [facility] Prescription Benefit: Yes Living Will/HPOA: has both LW and Healthcare POA, who is his , Kathia. LNOK: , Kathia Living Arrangements: Lives with his , Kathia, in one-story home. Pt is independent with ADL's. does most of home mgmt tasks. Transportation: Pt states drives self and states no transportation concerns at this time. also drives and will take pt home @ discharge. DME: States has the following DME: rails/grab bars, hand held shower, glucometer--states it works properly and he has all needed supplies. Ambulates independently. has a cane, walker, and W/C available but does not use. Does not have Home O2. Pt states no need for further DME at this time. HHC/SNF: Hx of [facility] about 3 yrs ago and [facility]. Pt wishes to return home and states has no concerns with going home at time of discharge. CM to follow for any further discharge planning/needs. Pt voices no further concerns/needs at this time. Advised pt to ask for CM if any further questions/concerns/needs arise. Voices understanding. PLAN: Return home and resume OP dialysis at [facility] and OP physical therapy at [facility].
--- NOTE | 2019-07-24 18:12 | DIALYSIS ---
Pt completed 3 hours hemodialysis with 4.5 liters fluid removed. Right chest CVC dressing changed, site nonred, however had small amount dried blood around it. CVC flushed with NS and locked with heparin per order. Pt tolerated treatment well.
[2019-07-24] MEDS: Metoprolol Tartrate 50 MG Tablet PO (18:16)
[2019-07-24] MEDS: Acetaminophen 325 MG Tablet 650 MG PO (18:16)
[2019-07-24] MEDS: Ondansetron 4 MG/2 ML Vial IV (19:27)
[2019-07-24] MEDS: Ibuprofen 600 MG Tablet PO (19:51)
[2019-07-24 22:01] LABS: Bedside Glucose 102 mg/dL (70-110)
[2019-07-25] VITALS (16 sets, daily range): BP systolic 96–117; BP diastolic 54–81; PULSE 73–94; RESP 18–28; TEMP 37.1–38.9; O2SAT 93–100
[2019-07-25 06:42] LABS: Absolute Lymphocyte Count 0.17 X10^3/uL (0.83-4.51); Absolute Neutrophil Count 3.3 X10^3/uL (2.0-7.7); Basophil# 0.03 X10^3/uL; Basophil% 0.8 % (0-1); Eosinophil# 0.01 X10^3/uL; Eosinophils% 0.3 % (0-5); Hematocrit 26.6 % (40-54); Hemoglobin 7.7 g/dL (13.0-16.5); Lymphocyte # 0.17 X10^3/ul (4.0); Lymphocyte % 4.6 % (19-41); Mean Corp Hgb Conc 28.9 g/dL (32-36); Mean Corpuscular Hgb 27.8 pg (27.0-32.0); Mean Platelet Vol. 8.9 fl (6.2-12.0); Monocyte# 0.21 X10^3/uL; Monocyte% 5.6 % (0-10); NRBC Flagged by Analyzer 0 % (0-5); Neutrophil # 3.29 X10^3/uL (2.7-7.7); Neutrophil % 88.2 % (47-70); POSITIVE DIFFERENTIAL YES; Platelet Count 177 K/mm3 (150-450); RBC Distribution Width SD 63.3 fl (35.1-43.9); Red Blood Count 2.77 M/mm3 (4.6-6.2); White Blood Count 3.7 K/mm3 (4.4-11.0)
[2019-07-25 07:01] LABS: Bedside Glucose 143 mg/dL (70-110)
[2019-07-25 07:09] LABS: Anisocytosis 1+; Differential Indicated SCAN CRITERIA MET; Hypochromasia 1+
[2019-07-25 07:12] LABS: Anion Gap 9 (5-15); BUN 26 mg/dL (7-18); BUN/Creat Ratio 4.8 RATIO (10-20); Calcium,Total 8.9 mg/dL (8.5-10.1); Chloride 99 mmol/L (98-107); Creatinine, Serum 5.41 mg/dL (0.70-1.30); EST Glomerular Filtration Rate 12 mL/min (>60); Est Glom Filt Rate - Afr Amer 14 mL/min (>60); Estimated Creatinine Clearance 14.57 ml/min; Glucose 125 mg/dL (74-106); Potassium 4.3 mmol/L (3.5-5.1); Sodium Level 136 mmol/L (136-145)
[2019-07-25] MEDS: 0.9% Saline Lock 10 ML Syringe IV ×2 (09:11→23:22)
[2019-07-25] MEDS: Venlafaxine XR 37.5 MG Capsule PO (09:11)
[2019-07-25] MEDS: Heparin Injection (Vial) 5,000 UNIT/ML VIAL 5000 UNIT SC ×2 (09:12→21:46)
[2019-07-25] MEDS: Senna/Docusate Sodium 1 Tablet PO (09:12)
--- NOTE | 2019-07-25 10:23 | PN_ITS ---
Patient Problems: Active and Suspected Problems (Last Reviewed 07/15/19 @ 10:07 by Ailyn Olivera) Pneumonia (Acute) Sepsis (Acute) Hypoxia (Acute) Subjective: Patient seen and examined. He had no complaints. He did spike a fever yesterday to around 102 Fahrenheit and was triggering SIRS criteria. Symptoms were relieved with administration of Tylenol. He did have dialysis yesterday and started having fever immediately after dialysis. Repeat blood cultures are pending. He denies any nausea vomiting, fever or chills, cough or chest pain, diarrhea vomiting. Review of symptoms otherwise negative. Labs and vitals reviewed. WBC is 3.7 today. Hemoglobin is down to 7.7 from 7.9 yesterday. Vitals/I&O's: Vital Signs Temp Pulse Resp BP Pulse Ox 99.8 F H 81 18 116/67 98 07/25/19 09:08 07/25/19 09:08 07/25/19 09:08 07/25/19 09:08 07/25/19 09:08 Oxygen Flow Rate (L/min) 3 Oxygen Delivery Method Nasal Cannula Weight: 276 lb 9.6 oz Body Mass Index (BMI) 41.8 Finger Stick Blood Glucose 90 Intake and Output for Last 24 Hours 07/23/19 07/24/19 07/25/19 23:59 23:59 23:59 Intake Total 191.67 / 191.67 3194.83 / 3374.83 350 / 350 Output Total 50 / 50 0 / 0 Balance 191.67 / 191.67 3144.83 / 3324.83 350 / 350 General: Alert, Oriented x3, Cooperative, No apparent distress, - - morbid obesity HEENT: Atraumatic, PERRLA, EOMI, Normocephalic Oral: Dry Mucosa Neck: Supple, No JVD, Negative Carotid Bruits, Negative Hepatojugular Reflux, No Nodes, No Nuchal Rigidity Lungs: - - clear to auscultation, no wheezes or crackles. On 3L of oxgyen Cardiovascular: Regular rate, Regular Rhythm, Normal S1, Normal S2, No murmurs Abdomen: Bowel Sounds Present, Soft, Non Tender, Non-Distended, No Hepato- splenomegaly, Obese Extremities: No clubbing, No cyanosis, No edema, Capillary Refill Less than 3 Seconds Skin: No rashes, No breakdown Musculoskeletal: No Tenderness to Palpation of Joints or Extremities, - - tunneled dialysis catheter in chest Lymphatic: No Cervical, Supraclavicular, or Inguinal Adenopathy Neurological: Cranial nerves II-XII grossly intact, Neuro grossly intact, Motor Exam 5/5 strength throughout Psych/Mental Status: Normal Affect, Appropriate, Alert and oriented to time, place, person, mood and affect Microbiology Past 72 Hours 07/24/19 03:10 Sputum, Expectorated/Coughed Gram Stain - Final 07/24/19 10:15 Urine, Clean Catch Streptococcus pneumoniae Antigen (M - Final 07/24/19 10:15 Urine, Clean Catch Legionella Antigen - Final 07/23/19 22:20 Mucosa - Nose Respiratory Panel (PCR) - Final Laboratory Results 07/24/19 11:21: POC Glucose 101 07/24/19 16:21: POC Glucose 95 07/24/19 19:30: Lactic Acid 1.0 07/24/19 21:54: POC Glucose 102 07/25/19 05:27: WBC 3.7 L, RBC 2.77 L, Hgb 7.7 L, Hct 26.6 L, MCV 96.0 H, MCH 27.8, MCHC 28.9 L, RDW Std Deviation 63.3 H, RDW Coeff of Gurwinder 18.0 H, Plt Count 177, MPV 8.9, Immature Gran % (Auto) 0.500, Neut % (Auto) 88.2 H, Lymph % (Auto) 4.6 L, [place] % (Auto) 5.6, Eos % (Auto) 0.3, Baso % (Auto) 0.8, Absolute Neuts (auto) 3.3, Absolute Lymphs (auto) 0.17 L, Nucleated RBC % 0, Diff Path Review May foll, Hypochromasia 1+, Anisocytosis 1+ 07/25/19 05:27: Sodium 136, Potassium 4.3, Chloride 99, Carbon Dioxide 28.0, Anion Gap 9, BUN 26 H, Creatinine 5.41 H, Estim Creat Clear Calc 14.57, Est GFR (MDRD) Af Amer 14 L, Est GFR (MDRD) Non-Af 12 L, BUN/Creatinine Ratio 4.8 L, Glucose 125 H, Calcium 8.9 07/25/19 05:27: Hep Bs Antigen Pending, Hep Bs Antibody Pending 07/25/19 06:54: POC Glucose 143 H Current Medications Acetaminophen (Tylenol) 650 mg PO Q6H PRN PRN PRN Reason: Pain Score 1-10/Temp > 100.7 F Last Admin: 07/24/19 18:16 Dose: 650 mg Documented by: Al Hydroxide/Mg Hydroxide (Mylanta Ii) 30 ml PO Q6H PRN PRN PRN Reason: Gastric Burning Albuterol Sulfate (Ventolin Aerosols) 2.5 mg INHALATION Q2H PRN PRN PRN Reason: Shortness of Breath/Wheezing Last Admin: 07/24/19 14:58 Dose: 2.5 mg Documented by: Glucagon () 1 mg IM .X1 PRN PRN Reason: Hypoglycemia Guaifenesin (Robitussin) 20 ml PO Q4H PRN PRN PRN Reason: COUGH Heparin Sodium (Porcine) (Heparin Na) 5,000 unit SC Q12 [facility] Last Admin: 07/25/19 09:12 Dose: 5,000 unit Documented by: Heparin Sodium (Porcine) () 2,500 units IV UD PRN PRN Reason: Dialysis Cath Heparin Flush Hydralazine HCl (Apresoline Iv) 10 mg IV Q4H PRN PRN PRN Reason: SBP > 160 Piperacillin Sod/Tazobactam (Sod 3.375 gm/ Sodium Chloride) 50 mls @ 12.5 mls/hr IV Q12 [facility] Last Admin: 07/25/19 09:11 Dose: 12.5 mls/hr Documented by: Vancomycin IV Pharmacy to Dose (1 ea/ Sodium Chloride) 500 mls @ 250 mls/hr IV X1 PRN; Protocol PRN Reason: Rx to Dose Dextrose (Dextrose 10%-Water) 250 mls @ 999 mls/hr IV .Q16M PRN; Protocol PRN Reason: HYPOGLYCEMIA Sodium Chloride () 250 mls @ 15 mls/hr IV .[id number] PRN PRN Reason: Saline Flush Last Infusion: 07/24/19 21:55 Dose: 0 mls/hr Documented by: Sodium Chloride () 250 mls @ 15 mls/hr IV .[id number] PRN PRN Reason: Additional IVPB Infusion Vancomycin HCl (Vancomycin) 1,000 mg in 200 mls @ 200 mls/hr IV X1 ONE Stop: 07/26/19 10:59 Ibuprofen (Motrin) 600 mg PO Q8H PRN PRN PRN Reason: fever, pain 1-10 Last Admin: 07/24/19 19:51 Dose: 600 mg Documented by: Insulin Human Lispro (Humalog Kwikpen (Bkc)) 0 unit SC [facility]; Protocol Last Admin: 07/25/19 07:01 Dose: Not Given Documented by: Magnesium Hydroxide (Milk Of Magnesia) 30 ml PO DAILY PRN PRN PRN Reason: Constipation Melatonin (Melatonin) 3 mg PO QHS PRN PRN PRN Reason: INSOMNIA Metoprolol Tartrate (Lopressor (Beta Elizabeth)) 50 mg PO 1400 [facility] Last Admin: 07/24/19 18:16 Dose: 50 mg Documented by: Ondansetron HCl (Zofran) 4 mg IV Q8H PRN PRN PRN Reason: NAUSEA/VOMITING Last Admin: 07/24/19 19:27 Dose: 4 mg Documented by: Prochlorperazine Edisylate (Compazine Iv) 5 mg IV Q4H PRN PRN PRN Reason: Breakthrough nausea/vomiting Psyllium Hydrophilic Mucilloid (Metamucil) 1 packet PO DAILY PRN PRN PRN Reason: Constipation Senna/Docusate Sodium (Senokot-S, Belia-Colace) 1 tablet PO DAILY [facility] Last Admin: 07/25/19 09:12 Dose: 1 tablet Documented by: Sodium Chloride () 10 - 40 ml IV UD PRN PRN Reason: SALINE FLUSH Last Admin: 07/25/19 09:11 Dose: 10 ml Documented by: Throat Lozenges (Cepacol Sore Throat Lozenge) 1 lozenge MUCOUS MEM Q2H PRN PRN PRN Reason: SORE THROAT Venlafaxine HCl (Effexor Xr) 37.5 mg PO DAILY [facility] Last Admin: 07/25/19 09:11 Dose: 37.5 mg Documented by: STROKE Vital Signs/Narrative: Vital Signs Temp Pulse Resp BP Pulse Ox 07/25/19 09:08 99.8 F H 81 18 116/67 98 07/25/19 07:16 96 Medical Necessity - Tobacco Use Smoking Status: Former smoker Tobacco Use: Non-smoker Assessment/Plan All Active Problems (Last Reviewed 07/15/19 @ 10:07 by Ailyn Olivera) Pneumonia (Acute) Sepsis (Acute) Hypoxia (Acute) Cellulitis of left lower extremity (Acute) Sepsis (Acute) Problem with dialysis access (Acute) Skin abscess (Acute) Infected open wound (Acute) Decubitus ulcer of left heel, stage 2 (Acute) Debility (Acute) Abdominal wall abscess (Acute) Fever (Acute) Acute on chronic renal failure (Acute) 1. Sepsis due to health associated pneumonia * SIRS criteria is now 1/4 (leucopenia); he does have a low-grade fever of 99.8 Fahrenheit this morning. * CXR done at OSH ED showed right lower lobe pneumonia * on IV vancomycin and zosyn. sputum cultures pending. * respiratory panel negative * blood cultures pending * 2. ESRD * has a tunneled dialysis catheter in place. * has maturing fisulta in [facility] * had dialysis yesterday; nephrology on board * 3. Acute hypoxic respiratory insufficiency due to health associated pneumonia * as under 1. * on breathing treatment with duonebs * titrate oxygen to maintain sats >90% * 4. Hypertension: on metoprolol. IV hydralazine prn 5. Anemia of chronic disease * Hemoglobin today 7.7. Likely due to history of ESRD. * Will monitor for now. * transfuse if Hb<7 6. Type 2 diabetes mellitus with neuropathy: On insulin sliding scale. Accu- Cheks AC at bedtime. Home sitagliptin and glimepiride on hold. 7. 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 DVT prophylaxis: heparin Code Visit Inpatient E&M: [id number] [facility] Hosp L3
[2019-07-25 13:31] LABS: Bedside Glucose 128 mg/dL (70-110)
[2019-07-25] MEDS: Acetaminophen 325 MG Tablet 650 MG PO (15:39)
[2019-07-25] MEDS: Metoprolol Tartrate 50 MG Tablet PO (15:41)
[2019-07-25] MEDS: Albuterol 2.5 MG/3 ML VIAL.NEB. INHALATION (15:49)
--- NOTE | 2019-07-25 17:15 | NURSING ---
Vitals that were taken just recenlty of resp of 28 and temp still of 102.[address]airez[address] ordered.
--- NOTE | 2019-07-25 17:35 | CT_ITS ---
STUDY: CT CHEST WITHOUT CONTRAST REASON FOR EXAM: Male, 59 years old. shortness of breath, fever, pneumonia, Hx end stage renal, Guillian [place], Diabetic, HTN RADIATION DOSAGE (If Supplied By Facility): CTDIvol = ( 20.15 ) mGy, DLP = ( 740.12 ) mGycm TECHNIQUE: Transaxial imaging was performed without the administration of intravenous contrast material. Individualized dose optimization techniques were used for this CT. COMPARISON: Chest exam June 10, 2019 FINDINGS: Right IJ catheter terminates in the superior vena cava. Bilateral perihilar airspace disease. Moderate right pleural effusion and small left pleural effusion. Cardiomegaly and calcific coronary artery disease. Calcified mitral valve. Borderline nonspecific mediastinal lymphadenopathy measuring up to 23 mm. Normal hilar regions. Normal unenhanced pulmonary arteries. Normal aorta arch and descending thoracic aorta. Normal osseous structures. Small amount of Perihepatic fluid. Calcified granulomas in the spleen. CT/Chest without Contrast IMPRESSION: Bilateral airspace disease, effusions, and probable reactive lymphadenopathy. Mitral valve disease, coronary artery disease and cardiomegaly. Electronically Signed: Eliezer Ernandez MD at 19:04 EST , Service support ,
[2019-07-25 18:20] LABS: Bedside Glucose 115 mg/dL (70-110)
--- NOTE | 2019-07-25 20:10 | NURSING ---
Telephone report received from Ana bo MSBrenna Armstrong to bring pt to PCU.
[2019-07-25 21:15] LABS: Lactic Acid 0.9 mmol/L (0.4-1.9)
[2019-07-26] VITALS (16 sets, daily range): BP systolic 103–137; BP diastolic 52–80; PULSE 76–103; RESP 18–28; TEMP 37.1–38.7; O2SAT 88–98
[2019-07-26 01:11] LABS: Bedside Glucose 114 mg/dL (70-110)
[2019-07-26] MEDS: Albuterol 2.5 MG/3 ML VIAL.NEB. INHALATION ×2 (02:04→12:42)
[2019-07-26 05:18] LABS: Absolute Lymphocyte Count 0.26 X10^3/uL (0.83-4.51); Absolute Neutrophil Count 2.4 X10^3/uL (2.0-7.7); Basophil# 0.01 X10^3/uL; Basophil% 0.4 % (0-1); Eosinophil# 0.01 X10^3/uL; Eosinophils% 0.4 % (0-5); Hematocrit 23.2 % (40-54); Hemoglobin 6.9 g/dL (13.0-16.5); Lymphocyte # 0.26 X10^3/ul (4.0); Lymphocyte % 9.2 % (19-41); Mean Corp Hgb Conc 29.7 g/dL (32-36); Mean Corpuscular Hgb 27.7 pg (27.0-32.0); Mean Corpuscular Volume 93.2 fL (80-94); Mean Platelet Vol. 8.5 fl (6.2-12.0); Monocyte# 0.14 X10^3/uL; Monocyte% 4.9 % (0-10); NRBC Flagged by Analyzer 0 % (0-5); Neutrophil # 2.41 X10^3/uL (2.7-7.7); Neutrophil % 84.7 % (47-70); POSITIVE DIFFERENTIAL YES; Platelet Count 151 K/mm3 (150-450); RBC Distribution Width CV 17.7 % (11.6-14.6); RBC Distribution Width SD 60.8 fl (35.1-43.9); Red Blood Count 2.49 M/mm3 (4.6-6.2); White Blood Count 2.8 K/mm3 (4.4-11.0)
[2019-07-26 05:27] LABS: Differential Indicated SCAN CRITERIA MET
[2019-07-26 05:38] LABS: Anion Gap 10 (5-15); BUN 39 mg/dL (7-18); BUN/Creat Ratio 5.5 RATIO (10-20); Calcium,Total 8.7 mg/dL (8.5-10.1); Chloride 94 mmol/L (98-107); EST Glomerular Filtration Rate 9 mL/min (>60); Est Glom Filt Rate - Afr Amer 10 mL/min (>60); Estimated Creatinine Clearance 11.11 ml/min; Glucose 91 mg/dL (74-106); Potassium 4.4 mmol/L (3.5-5.1); Sodium Level 131 mmol/L (136-145)
[2019-07-26] MEDS: 0.9% Saline Lock 10 ML Syringe IV ×2 (06:07→21:28)
[2019-07-26 06:13] LABS: Differential Comment SCANNED
[2019-07-26 06:56] LABS: Bedside Glucose 91 mg/dL (70-110)
[2019-07-26 09:20] LABS: Hepatitis B Surface Antibody Reactive; Hepatitis B Surface Antigen Non-Reactive (Nonreactive)
--- NOTE | 2019-07-26 10:15 | PCM.PN.REN ---
Patient Problems: Active and Suspected Problems (Last Reviewed 07/15/19 @ 10:07 by Ailyn Olivera) Pneumonia (Acute) Sepsis (Acute) Hypoxia (Acute) Subjective: Seen on dialysis. Receiving blood transfusion on hemodialysis. Attempt fluid removal to the target weight. CT chest showed minimal left pleural effusion mild right pleural effusion. Continues to have nonproductive cough with wheezing. - Physical Exam Vitals/I&O's: Vital Signs Temp Pulse Resp BP Pulse Ox 100.4 F H 81 18 103/53 L 95 07/26/19 09:12 07/26/19 09:12 07/26/19 09:12 07/26/19 09:12 07/26/19 07:51 Oxygen Flow Rate (L/min) 3 Oxygen Delivery Method Nasal Cannula Weight: 122 kg Body Mass Index (BMI) 41.8 Finger Stick Blood Glucose 90 Intake and Output for Last 24 Hours 07/24/19 07/25/19 07/26/19 23:59 23:59 23:59 Intake Total 3194.83 / 3374.83 1800 / 1800 675 / 675 Output Total 50 / 50 0 / 0 Balance 3144.83 / 3324.83 1800 / 1800 675 / 675 General: Alert, Oriented x3 Lungs: Rhonchi, Wheezes Cardiovascular: Regular rate Abdomen: Bowel Sounds Present, Soft, Non Tender, Non-Distended, Obese Extremities: No edema Musculoskeletal: Muscle Wasting, - - 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 Further studies to follow. 07/24/19 10:15 Urine, Clean Catch Streptococcus pneumoniae Antigen (M - Final 07/24/19 10:15 Urine, Clean Catch Legionella Antigen - Final 07/23/19 22:20 Mucosa - Nose Respiratory Panel (PCR) - Final Laboratory Results 07/25/19 05:27: Hep Bs Antigen Non-Reactive, Hep Bs Antibody Reactive 07/25/19 13:16: POC Glucose 128 H 07/25/19 18:10: POC Glucose 115 H 07/25/19 20:35: Lactic Acid 0.9 07/25/19 21:41: POC Glucose 114 H 07/26/19 05:00: WBC 2.8 L, RBC 2.49 L, Hgb 6.9 L, Hct 23.2 L, MCV 93.2, MCH 27.7, MCHC 29.7 L, RDW Std Deviation 60.8 H, RDW Coeff of Gurwinder 17.7 H, Plt Count 151, MPV 8.5, Immature Gran % (Auto) 0.400, Neut % (Auto) 84.7 H, Lymph % (Auto) 9.2 L, [place] % (Auto) 4.9, Eos % (Auto) 0.4, Baso % (Auto) 0.4, Absolute Neuts (auto) 2.4, Absolute Lymphs (auto) 0.26 L, Nucleated RBC % 0, Differential Comment SCANNED, Diff Path Review October07/26/19 05:00: Sodium 131 L, Potassium 4.4, Chloride 94 L, Carbon Dioxide 27.0, Anion Gap 10, BUN 39 H, Creatinine 7.10 H, Estim Creat Clear Calc 11.11, Est GFR (MDRD) Af Amer 10 L, Est GFR (MDRD) Non-Af 9 L, BUN/Creatinine Ratio 5.5 L, Glucose 91, Calcium 8.7 07/26/19 06:43: POC Glucose 91 07/26/19 07:00: Blood Type O POSITIVE, Antibody Screen NEGATIVE, Crossmatch See Detail Clinical Impression(s) from Imaging Studies Chest CT 07/25/19 17:35 IMPRESSION: Bilateral airspace disease, effusions, and probable reactive lymphadenopathy. Mitral valve disease, coronary artery disease and cardiomegaly. Electronically Signed: Eliezer Ernandez MD at 19:04 EST , Service support , Current Medications Acetaminophen (Tylenol) 650 mg PO Q6H PRN PRN PRN Reason: Pain Score 1-10/Temp > 100.7 F Last Admin: 07/25/19 15:39 Dose: 650 mg Documented by: Al Hydroxide/Mg Hydroxide (Mylanta Ii) 30 ml PO Q6H PRN PRN PRN Reason: Gastric Burning Albuterol Sulfate (Ventolin Aerosols) 2.5 mg INHALATION Q2H PRN PRN PRN Reason: Shortness of Breath/Wheezing Last Admin: 07/26/19 02:04 Dose: 2.5 mg Documented by: Glucagon () 1 mg IM .X1 PRN PRN Reason: Hypoglycemia Guaifenesin (Robitussin) 20 ml PO Q4H PRN PRN PRN Reason: COUGH Heparin Sodium (Porcine) (Heparin Na) 5,000 unit SC Q12 [facility] Last Admin: 07/25/19 21:46 Dose: 5,000 unit Documented by: Heparin Sodium (Porcine) () 2,500 units IV UD PRN PRN Reason: Dialysis Cath Heparin Flush Hydralazine HCl (Apresoline Iv) 10 mg IV Q4H PRN PRN PRN Reason: SBP > 160 Vancomycin IV Pharmacy to Dose (1 ea/ Sodium Chloride) 500 mls @ 250 mls/hr IV X1 PRN; Protocol PRN Reason: Rx to Dose Dextrose (Dextrose 10%-Water) 250 mls @ 999 mls/hr IV .Q16M PRN; Protocol PRN Reason: HYPOGLYCEMIA Sodium Chloride () 250 mls @ 15 mls/hr IV .[id number] PRN PRN Reason: Saline Flush Last Infusion: 07/26/19 00:58 Dose: 0 mls/hr Documented by: Sodium Chloride () 250 mls @ 15 mls/hr IV .[id number] PRN PRN Reason: Additional IVPB Infusion Vancomycin HCl (Vancomycin) 1,000 mg in 200 mls @ 200 mls/hr IV X1 ONE Stop: 07/26/19 10:59 Meropenem 500 mg/ Sodium (Chloride) 60 mls @ 100 mls/hr IV QHS [facility] Last Infusion: 07/25/19 23:58 Dose: Infused Documented by: Ibuprofen (Motrin) 600 mg PO Q8H PRN PRN PRN Reason: fever, pain 1-10 Last Admin: 07/24/19 19:51 Dose: 600 mg Documented by: Insulin Human Lispro (Humalog Kwikpen (Bkc)) 0 unit SC ACHS [facility]; Protocol Last Admin: 07/26/19 06:53 Dose: Not Given Documented by: Magnesium Hydroxide (Milk Of Magnesia) 30 ml PO DAILY PRN PRN PRN Reason: Constipation Melatonin (Melatonin) 3 mg PO QHS PRN PRN PRN Reason: INSOMNIA Metoprolol Tartrate (Lopressor (Beta Elizabeth)) 50 mg PO 1400 [facility] Last Admin: 07/25/19 15:41 Dose: 50 mg Documented by: Ondansetron HCl (Zofran) 4 mg IV Q8H PRN PRN PRN Reason: NAUSEA/VOMITING Last Admin: 07/24/19 19:27 Dose: 4 mg Documented by: Prochlorperazine Edisylate (Compazine Iv) 5 mg IV Q4H PRN PRN PRN Reason: Breakthrough nausea/vomiting Psyllium Hydrophilic Mucilloid (Metamucil) 1 packet PO DAILY PRN PRN PRN Reason: Constipation Senna/Docusate Sodium (Senokot-S, Belia-Colace) 1 tablet PO DAILY [facility] Last Admin: 07/25/19 09:12 Dose: 1 tablet Documented by: Sodium Chloride () 10 - 40 ml IV UD PRN PRN Reason: SALINE FLUSH Last Admin: 07/26/19 06:07 Dose: 10 ml Documented by: Throat Lozenges (Cepacol Sore Throat Lozenge) 1 lozenge MUCOUS MEM Q2H PRN PRN PRN Reason: SORE THROAT Venlafaxine HCl (Effexor Xr) 37.5 mg PO DAILY [facility] Last Admin: 07/25/19 09:11 Dose: 37.5 mg Documented by: Medical Necessity - Tobacco Use Smoking Status: Former smoker Tobacco Use: Non-smoker Assessment/Plan All Active Problems (Last Reviewed 07/15/19 @ 10:07 by Ailyn Olivera) Pneumonia (Acute) Sepsis (Acute) Hypoxia (Acute) Cellulitis of left lower extremity (Acute) Sepsis (Acute) Problem with dialysis access (Acute) Skin abscess (Acute) Infected open wound (Acute) Decubitus ulcer of left heel, stage 2 (Acute) Debility (Acute) Abdominal wall abscess (Acute) Fever (Acute) Acute on chronic renal failure (Acute) 1. ESRD HD MWF. Seen on hemodialysis. Removal as tolerated to target weight. 2. Anemia EPO, blood transfusion ordered. 3. Acute pneumonia IV antibiotics dosed accordingly 4. DM type II primary service management 5. Hypertension with stable blood pressures 6. gbs with chronic weakness 7. Morbid obesity
[2019-07-26 11:25] LABS: Bedside Glucose 111 mg/dL (70-110)
--- NOTE | 2019-07-26 11:48 | CON.PCM_ITS ---
Problem List (1) Pneumonia Status: Acute Qualifiers: Pneumonia type: due to unspecified organism Laterality: right Lung location: lower lobe of lung Qualified Code(s): J18.9 - Pneumonia, unspecified organism Reason for Consult: pneumonia Consulted by: Dr. May History of Present Illness: The patient is a 59 year old Mwith ESRD, presented with several days of cough, no sputum, fever, dyspnea, aches, not feeling well. No sick contacts. Had R chest permacath; no issues with that line. Came to [place] ED, bcx drawn, transferred here. Initially given vanc/zosyn, still had fever after 2 days, changed zosyn to meropenem yesterday. Has been feeling better, fever and SOB improved. Full ROS performed and neg except as noted above. - Medical History Past Medical History (Chronic Problems): Chronic Problems (Last Reviewed 07/15/19 @ 10:07 by Ailyn Olivera) HLD (hyperlipidemia) (Chronic) Morbid obesity (Chronic) ESRD (end stage renal disease) (Chronic) Cellulitis (Chronic) Peripheral vascular occlusive disease (Chronic) Peripheral autonomic neuropathy due to secondary diabetes (Chronic) 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) Murmur, cardiac (Chronic) Chronic anemia (Chronic) Chronic kidney disease, stage III (moderate) (Chronic) Type 2 diabetes mellitus (Chronic) Hypertension (Chronic) Allergies/Adverse Reactions: Allergies No Known Allergies Allergy (Verified 07/15/19 10:07) Home Medications: Ambulatory Orders Medication Instructions Recorded Ergocalciferol [Vitamin D] 50,000 unit PO QMONTH 03/12/16 B Complex W-C No.20/Folic Acid 1 mg PO QHS 10/29/16 [Nephrocaps Softgel] Sennosides/Docusate Sodium 1 ea PO DAILY 10/29/16 [Docusate Sodium-Senna Tablet] Sitagliptin Phosphate [Januvia] 50 mg PO DAILY 10/29/16 Acetaminophen [Tylenol Tablet] 650 mg PO Q6H PRN PRN tab 11/20/16 Metoprolol Tartrate [Lopressor 50 mg PO 1400 12/28/17 (beta dary)] Venlafaxine XR [Effexor Xr] 1 cap PO DAILY 12/28/17 Glimepiride [Amaryl] 4 mg PO DAILY #30 tab 01/01/18 Sucroferric Oxyhydroxide [Velphoro] 1,500 mg PO TID 08/31/18 Cephalexin [Keflex] 500 mg PO Q12 #10 cap 06/14/19 - Social History SMOKING STATUS:: Former smoker Vital Signs Temp Pulse Resp BP Pulse Ox 100.4 F H 81 18 103/53 L 95 07/26/19 09:12 07/26/19 09:12 07/26/19 09:12 07/26/19 09:12 07/26/19 07:51 Oxygen Flow Rate (L/min) 3 Oxygen Delivery Method Nasal Cannula Weight: 122 kg Body Mass Index (BMI) 41.8 Finger Stick Blood Glucose 90 Microbiology Past 72 Hours 07/24/19 03:10 Gram Stain - Final Sputum, Expectorated/Coughed Respiratory Culture - Final 07/24/19 10:15 Streptococcus pneumoniae Antigen (M - Final Urine, Clean Catch 07/24/19 10:15 Legionella Antigen - Final Urine, Clean Catch 07/23/19 22:20 Respiratory Panel (PCR) - Final Mucosa - Nose Laboratory Tests Past 24 Hrs 07/25/19 07/25/19 07/26/19 05:27 20:35 05:00 WBC 2.8 L RBC 2.49 L Hgb 6.9 L Hct 23.2 L MCV 93.2 MCH 27.7 MCHC 29.7 L RDW Std Deviation 60.8 H RDW Coeff of Gurwinder 17.7 H Plt Count 151 MPV 8.5 Immature Gran % (Auto) 0.400 Neut % (Auto) 84.7 H Lymph % (Auto) 9.2 L [place] % (Auto) 4.9 Eos % (Auto) 0.4 Baso % (Auto) 0.4 Absolute Neuts (auto) 2.4 Absolute Lymphs (auto) 0.26 L Nucleated RBC % 0 Differential Comment SCANNED Diff Path Review May foll Sodium Potassium Chloride Carbon Dioxide Anion Gap BUN Creatinine Estim Creat Clear Calc Est GFR (MDRD) Af Amer Est GFR (MDRD) Non-Af BUN/Creatinine Ratio Glucose Lactic Acid 0.9 Calcium Hep Bs Antigen Non-Reactive Hep Bs Antibody Reactive Blood Type Antibody Screen Crossmatch 07/26/19 07/26/19 05:00 07:00 WBC RBC Hgb Hct MCV MCH MCHC RDW Std Deviation RDW Coeff of Gurwinder Plt Count MPV Immature Gran % (Auto) Neut % (Auto) Lymph % (Auto) [place] % (Auto) Eos % (Auto) Baso % (Auto) Absolute Neuts (auto) Absolute Lymphs (auto) Nucleated RBC % Differential Comment Diff Path Review Sodium 131 L Potassium 4.4 Chloride 94 L Carbon Dioxide 27.0 Anion Gap 10 BUN 39 H Creatinine 7.10 H Estim Creat Clear Calc 11.11 Est GFR (MDRD) Af Amer 10 L Est GFR (MDRD) Non-Af 9 L BUN/Creatinine Ratio 5.5 L Glucose 91 Lactic Acid Calcium 8.7 Hep Bs Antigen Hep Bs Antibody Blood Type O POSITIVE Antibody Screen NEGATIVE Crossmatch See Detail - Other Studies Radiology: [] reviewed Other Studies: [] Route of nutrition/ use of supplements: [] Nutritional Intake: [] IV Site: [] Alexander Catheter: [] - Physical Exam General: Alert, Oriented x3, Cooperative, No apparent distress HEENT: Atraumatic, PERRLA, EOMI Neck: Supple, No Nodes Lungs: Rhonchi, Wheezes Cardiovascular: Regular rate, Regular Rhythm, No murmurs Abdomen: Soft, Non Tender, Non-Distended Extremities: Edema Skin: No rashes IV Site: Central Line, without redness Musculoskeletal: No Tenderness to Palpation of Joints or Extremities Neurological: Cranial nerves II-XII grossly intact - Assessment/Plan Antibiotics: [] Assessment/Plan: [] Active and Suspected Problems (Last Reviewed 07/15/19 @ 10:07 by Ailyn Olivera) Pneumonia (Acute) Sepsis (Acute) Hypoxia (Acute) sepsis due to CAP with ESRD - [facility], Bcx still neg from there. Not producing sputum. Resp viral panel neg. Feeling better, temps improved. On vanc/[place], will narrow abx to cefepime which can be dosed with HD after discharge. No prior h/o MRSA. Will follow, thank you, d/w Dr. May.
--- NOTE | 2019-07-26 12:12 | PCM.PN.HOSP ---
Patient Problems: Active and Suspected Problems (Last Reviewed 07/15/19 @ 10:07 by Ailyn Olivera) Pneumonia (Acute) Sepsis (Acute) Hypoxia (Acute) Reason for Visit: Follow-up on pneumonia Subjective: Patient was seen and examined. Feels improved. Had 1 unit of packed RBC today. Denies any fever or chills. Has loose cough but no sputum. Objective: Physical exam: Vitals/I&O's: Vital Signs Temp Pulse Resp BP Pulse Ox 100.4 F H 81 18 103/53 L 95 07/26/19 09:12 07/26/19 09:12 07/26/19 09:12 07/26/19 09:12 07/26/19 07:51 Oxygen Flow Rate (L/min) 3 Oxygen Delivery Method Nasal Cannula Weight: 122 kg Body Mass Index (BMI) 41.8 Finger Stick Blood Glucose 90 Intake and Output for Last 24 Hours 07/24/19 07/25/19 07/26/19 23:59 23:59 23:59 Intake Total 3194.83 / 3374.83 1800 / 1800 1075 / 1075 Output Total 50 / 50 0 / 0 Balance 3144.83 / 3324.83 1800 / 1800 1075 / 1075 General: Alert, Oriented x3, Cooperative, No apparent distress, - - Morbidly obese HEENT: Atraumatic, PERRLA, EOMI, Normocephalic Oral: Moist Mucosa Neck: Supple Lungs: Clear to auscultation, Normal air movement Cardiovascular: Regular rate, Regular Rhythm, Normal S1, Normal S2, No murmurs Abdomen: Bowel Sounds Present, Soft, Non Tender, Non-Distended, No Hepato-splenomegaly Extremities: No edema Skin: No rashes, No breakdown Musculoskeletal: No Tenderness to Palpation of Joints or Extremities Lymphatic: No Cervical, Supraclavicular, or Inguinal Adenopathy Neurological: Cranial nerves II-XII grossly intact, Neuro grossly intact Psych/Mental Status: Normal Affect, Appropriate Microbiology Past 72 Hours 07/24/19 03:10 Sputum, Expectorated/Coughed Gram Stain - Final 07/24/19 03:10 Sputum, Expectorated/Coughed Respiratory Culture - Final 07/24/19 10:15 Urine, Clean Catch Streptococcus pneumoniae Antigen (M - Final 07/24/19 10:15 Urine, Clean Catch Legionella Antigen - Final 07/23/19 22:20 Mucosa - Nose Respiratory Panel (PCR) - Final Laboratory Results 07/25/19 05:27: Hep Bs Antigen Non-Reactive, Hep Bs Antibody Reactive 07/25/19 13:16: POC Glucose 128 H 07/25/19 18:10: POC Glucose 115 H 07/25/19 20:35: Lactic Acid 0.9 07/25/19 21:41: POC Glucose 114 H 07/26/19 05:00: WBC 2.8 L, RBC 2.49 L, Hgb 6.9 L, Hct 23.2 L, MCV 93.2, MCH 27.7, MCHC 29.7 L, RDW Std Deviation 60.8 H, RDW Coeff of Gurwinder 17.7 H, Plt Count 151, MPV 8.5, Immature Gran % (Auto) 0.400, Neut % (Auto) 84.7 H, Lymph % (Auto) 9.2 L, [place] % (Auto) 4.9, Eos % (Auto) 0.4, Baso % (Auto) 0.4, Absolute Neuts (auto) 2.4, Absolute Lymphs (auto) 0.26 L, Nucleated RBC % 0, Differential Comment SCANNED, Diff Path Review October07/26/19 05:00: Sodium 131 L, Potassium 4.4, Chloride 94 L, Carbon Dioxide 27.0, Anion Gap 10, BUN 39 H, Creatinine 7.10 H, Estim Creat Clear Calc 11.11, Est GFR (MDRD) Af Amer 10 L, Est GFR (MDRD) Non-Af 9 L, BUN/Creatinine Ratio 5.5 L, Glucose 91, Calcium 8.7 07/26/19 06:43: POC Glucose 91 07/26/19 07:00: Blood Type O POSITIVE, Antibody Screen NEGATIVE, Crossmatch See Detail 07/26/19 11:09: POC Glucose 111 H Current Medications Acetaminophen (Tylenol) 650 mg PO Q6H PRN PRN PRN Reason: Pain Score 1-10/Temp > 100.7 F Last Admin: 07/25/19 15:39 Dose: 650 mg Documented by: Al Hydroxide/Mg Hydroxide (Mylanta Ii) 30 ml PO Q6H PRN PRN PRN Reason: Gastric Burning Albuterol Sulfate (Ventolin Aerosols) 2.5 mg INHALATION Q2H PRN PRN PRN Reason: Shortness of Breath/Wheezing Last Admin: 07/26/19 02:04 Dose: 2.5 mg Documented by: Glucagon () 1 mg IM .X1 PRN PRN Reason: Hypoglycemia Guaifenesin (Robitussin) 20 ml PO Q4H PRN PRN PRN Reason: COUGH Heparin Sodium (Porcine) (Heparin Na) 5,000 unit SC Q12 [facility] Last Admin: 07/25/19 21:46 Dose: 5,000 unit Documented by: Heparin Sodium (Porcine) () 2,500 units IV UD PRN PRN Reason: Dialysis Cath Heparin Flush Hydralazine HCl (Apresoline Iv) 10 mg IV Q4H PRN PRN PRN Reason: SBP > 160 Dextrose (Dextrose 10%-Water) 250 mls @ 999 mls/hr IV .Q16M PRN; Protocol PRN Reason: HYPOGLYCEMIA Sodium Chloride () 250 mls @ 15 mls/hr IV .[id number] PRN PRN Reason: Saline Flush Last Infusion: 07/26/19 00:58 Dose: 0 mls/hr Documented by: Sodium Chloride () 250 mls @ 15 mls/hr IV .[id number] PRN PRN Reason: Additional IVPB Infusion Cefepime HCl 1 gm/ Sodium (Chloride) 50 mls @ 100 mls/hr IV Q24 [facility] Ibuprofen (Motrin) 600 mg PO Q8H PRN PRN PRN Reason: fever, pain 1-10 Last Admin: 07/24/19 19:51 Dose: 600 mg Documented by: Insulin Human Lispro (Humalog Kwikpen (Bkc)) 0 unit SC ACHS [facility]; Protocol Last Admin: 07/26/19 11:15 Dose: Not Given Documented by: Magnesium Hydroxide (Milk Of Magnesia) 30 ml PO DAILY PRN PRN PRN Reason: Constipation Melatonin (Melatonin) 3 mg PO QHS PRN PRN PRN Reason: INSOMNIA Metoprolol Tartrate (Lopressor (Beta Elizabeth)) 50 mg PO 1400 [facility] Last Admin: 07/25/19 15:41 Dose: 50 mg Documented by: Ondansetron HCl (Zofran) 4 mg IV Q8H PRN PRN PRN Reason: NAUSEA/VOMITING Last Admin: 07/24/19 19:27 Dose: 4 mg Documented by: Prochlorperazine Edisylate (Compazine Iv) 5 mg IV Q4H PRN PRN PRN Reason: Breakthrough nausea/vomiting Psyllium Hydrophilic Mucilloid (Metamucil) 1 packet PO DAILY PRN PRN PRN Reason: Constipation Senna/Docusate Sodium (Senokot-S, Belia-Colace) 1 tablet PO DAILY [facility] Last Admin: 07/25/19 09:12 Dose: 1 tablet Documented by: Sodium Chloride () 10 - 40 ml IV UD PRN PRN Reason: SALINE FLUSH Last Admin: 07/26/19 06:07 Dose: 10 ml Documented by: Throat Lozenges (Cepacol Sore Throat Lozenge) 1 lozenge MUCOUS MEM Q2H PRN PRN PRN Reason: SORE THROAT Venlafaxine HCl (Effexor Xr) 37.5 mg PO DAILY [facility] Last Admin: 07/25/19 09:11 Dose: 37.5 mg Documented by: STROKE Vital Signs/Narrative: Vital Signs Temp Pulse Resp BP 07/26/19 09:12 100.4 F H 81 18 103/53 L Medical Necessity - Tobacco Use Smoking Status: Former smoker Tobacco Use: Non-smoker Assessment/Plan All Active Problems (Last Reviewed 07/15/19 @ 10:07 by Ailyn Olivera) Pneumonia (Acute) Sepsis (Acute) Hypoxia (Acute) Cellulitis of left lower extremity (Acute) Sepsis (Acute) Problem with dialysis access (Acute) Skin abscess (Acute) Infected open wound (Acute) Decubitus ulcer of left heel, stage 2 (Acute) Debility (Acute) Abdominal wall abscess (Acute) Fever (Acute) Acute on chronic renal failure (Acute) 1. Sepsis secondary to pneumonia, improved, Sputum cultures showed mixed respiratory shiva, respiratory panel negative, urine Legionella and streptococcal antigen negative, blood cultures are pending Was on IV vancomycin and Zosyn, ID consulted, currently on IV cefepime 2. Anemia of CKD, status post 1 unit packed RBC, will repeat blood work in a.m. 3. ESRD on hemodialysis, status post tunneled dialysis catheter, dialysis today 4. Hypoxia secondary to #1, on 3 L of oxygen, will continue on oxygen, encourage use of incentive spirometer, breathing treatments 5. 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 Anxiety/depression, continue on Effexor 7. DVT ppx- Heparin SC Code Visit Inpatient E&M: [id number] Subs Hosp L2
[2019-07-26] MEDS: Senna/Docusate Sodium 1 Tablet PO (12:38)
[2019-07-26] MEDS: Heparin 10,000 UNITS/10 ML Vial IV (12:38)
[2019-07-26] MEDS: Heparin Injection (Vial) 5,000 UNIT/ML VIAL 5000 UNIT SC ×2 (12:38→21:28)
[2019-07-26] MEDS: Venlafaxine XR 37.5 MG Capsule PO (12:38)
[2019-07-26] MEDS: Epoetin Alfa epbx 10,000 UNITS/ML 7400 UNIT IV (12:39)
--- NOTE | 2019-07-26 12:59 | DIALYSIS ---
HD treatment completed [id number]. Tolerated treatment well. Net UF 3000mL. Catheter closed with Heparin per fill volume. Verbal report given to primary RN, Monique. Sitting at bedside with present. Denies c/o at this time.
--- NOTE | 2019-07-26 13:24 | CON.PCM_ITS ---
Problem List (1) Pneumonia Status: Acute Qualifiers: Pneumonia type: due to unspecified organism Laterality: right Lung location: lower lobe of lung Qualified Code(s): J18.9 - Pneumonia, unspecified organism (2) Sepsis Status: Acute Qualifiers: Sepsis type: sepsis due to unspecified organism Sepsis acute organ dysfunction status: unspecified Qualified Code(s): A41.9 - Sepsis, unspecified organism (3) HLD (hyperlipidemia) Status: Chronic Qualifiers: Hyperlipidemia type: unspecified Qualified Code(s): E78.5 - Hyperlipidemia, unspecified (4) Morbid obesity Status: Chronic (5) Hypoxia Status: Acute (6) ESRD (end stage renal disease) Status: Chronic (7) Peripheral vascular occlusive disease Status: Chronic (8) Peripheral autonomic neuropathy due to secondary diabetes Status: Chronic (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 (10) Debility Status: Acute (11) Murmur, cardiac Status: Chronic (12) Type 2 diabetes mellitus Status: Chronic Qualifiers: Diabetes mellitus complication status: with kidney complications Chronic kidney disease stage: on chronic dialysis (13) Hypertension Status: Chronic Qualifiers: Hypertension type: essential hypertension Qualified Code(s): I10 - Essential (primary) hypertension Reason for Consult Date of Consultation: 07/26/19 Reason for Consultation: Pneumonia History of Present Illness: The patient is a 59 year old M, with past medical history listed below, who presented [facility] on 07/23/2019 secondary to cough and dyspnea. Patient was recently discharged in June 2019 secondary to left lower extremity cellulitis and was treated with Keflex. Patient had presented to an outside facility and was transferred here secondary to concerns for pneumonia. Patient reportedly had chills for the last 2 hours. Patient was noted to be hypertensive at 151/88 and 96% on 3 L, but 85% on room air. Patient does not use supplemental oxygen at baseline. Rapid flu was negative. Remainder of laboratory work-up was relatively unremarkable. Patient was given IV Zosyn and Rocephin. Patient is in end-stage renal disease and has had a history of peritoneal dialysis in the past. Over the course of the hospitalization, patient was noted to have a temperature of 102 ?F despite Tylenol therapy. Patient had also reported chills and a slight decrease in hemoglobin. Given patient's persistence, infectious disease and pulmonary were consulted. Patient reports that he continues to feel rough. Patient remains on supplemental oxygen, but is not reporting any history of oxygen in the past. Patient does have a history of smoking in the past, but is never seen a print project manager or had pulmonary function testing. Patient denies any alcohol or drugs. Patient is currently disabled and denies any environmental exposures. Review of systems otherwise negative from a constitutional, HEENT, respiratory, cardiovascular, GI, genitourinary, musculoskeletal, skin, neurologic, psychiatric and hematologic system unless stated above. 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) G61.0 Decubitus ulcer of left heel, stage 2 (Acute) L89.622 Debility (Acute) R53.81 Murmur, cardiac (Chronic) R01.1 Acute on chronic renal failure (Acute) N17.9, N18.9 Chronic anemia (Chronic) D64.9 Type 2 diabetes mellitus (Chronic) E11.9 Hypertension (Chronic) I10 Allergies No Known Allergies Allergy (Verified 07/15/19 10:07) Home Medications: Ambulatory Orders Medication Instructions Recorded Ergocalciferol [Vitamin D] 50,000 unit PO QMONTH 03/12/16 B Complex W-C No.20/Folic Acid 1 mg PO QHS 10/29/16 [Nephrocaps Softgel] Sennosides/Docusate Sodium 1 ea PO DAILY 10/29/16 [Docusate Sodium-Senna Tablet] Sitagliptin Phosphate [Januvia] 50 mg PO DAILY 10/29/16 Acetaminophen [Tylenol Tablet] 650 mg PO Q6H PRN PRN tab 11/20/16 Metoprolol Tartrate [Lopressor 50 mg PO 1400 12/28/17 (beta elizabeth)] Venlafaxine XR [Effexor Xr] 1 cap PO DAILY 12/28/17 Glimepiride [Amaryl] 4 mg PO DAILY #30 tab 01/01/18 Sucroferric Oxyhydroxide [Velphoro] 1,500 mg PO TID 08/31/18 Cephalexin [Keflex] 500 mg PO Q12 #10 cap 06/14/19 Surgical History: Surgical History (Last Updated 07/15/19 @ 10:09 by Ailyn Olivera) S/P arteriovenous (AV) fistula creation Z98.890 06/2019 history of insertion of peritoneal dialysis cath Surgical History: - - PD catheter, recent temporary right upper chest access for dialysis, maturing fistula left upper extremity, bilateral inguinal hernia repair, rectal abscess intervention, left cataract surgery, tonsillectomy, pilonidal cyst intervention. Psychiatric History: Anxiety, Depression Lives: Spouse/ Significant Other Smoking Status: Former smoker Tobacco Use: Non-smoker Alcohol: None Drugs: None - *Family History Offspring History Items: - - Endocarditis Paternal History Items: Diabetes - ESRD , Heart Disease, Hypertension, - - kidney disease Maternal History Items: - - Patient notes his mother is very healthy, no history of heart disease, diabetes or cancer. Review of Systems Comment: See HPI Patient Problems: Active and Suspected Problems (Last Reviewed 07/15/19 @ 10:07 by Ailyn Olivera) Pneumonia (Acute) Sepsis (Acute) Hypoxia (Acute) Objective: CT shows bilateral infiltrates with lymphadenopathy and a mild effusion. No pulmonary function test or echocardiogram available for review. - Physical Exam Vitals/I&O's: Vital Signs Temp Pulse Resp BP Pulse Ox 37.9 C H 95 24 H 137/80 H 88 07/26/19 12:30 07/26/19 12:44 07/26/19 12:44 07/26/19 12:30 07/26/19 12:44 Oxygen Flow Rate (L/min) 3 Oxygen Delivery Method Room Air Weight: 122 kg Body Mass Index (BMI) 41.8 Finger Stick Blood Glucose 90 Intake and Output for Last 24 Hours 07/24/19 07/25/1920 23:59 23:59 23:59 Intake Total 3194.83 / 3374.83 1800 / 1800 1275 / 1275 Output Total 50 / 50 0 / 0 3000 / 3000 Balance 3144.83 / 3324.83 1800 / 1800 -1725 / -1725 General: Alert, Oriented x3, Cooperative, - - Morbidly obese. Appears older than stated age. HEENT: Atraumatic, PERRLA, EOMI, Normocephalic, - - Icterus appreciated. Slight jaundice noted Oral: Moist Mucosa, No Gingival or Mucosal Lesions/ Ulcerations Neck: Supple, No JVD, No Nodes, Trachea Midline Lungs: No rales, Diminished, Rhonchi, Wheezes, - - Symmetric expansion. Cardiovascular: Regular rate, Regular Rhythm, Normal S1, Normal S2, Murmur, No rub noted, No Gallop Abdomen: Bowel Sounds Present, Soft, Non Tender, Distended - Slightly, Obese Extremities: No clubbing, No cyanosis, Edema - 1-2+ lower extremities Skin: No rashes, No breakdown Musculoskeletal: No Tenderness to Palpation of Joints or Extremities Lymphatic: No Cervical, Supraclavicular, or Inguinal Adenopathy Neurological: Cranial nerves II-XII grossly intact, Neuro grossly intact, Motor Exam 5/5 strength throughout Psych/Mental Status: Alert and oriented to time, place, person, mood and affect Microbiology Past 72 Hours 07/24/19 03:10 Sputum, Expectorated/Coughed Gram Stain - Final 07/24/19 03:10 Sputum, Expectorated/Coughed Respiratory Culture - Final 07/24/19 10:15 Urine, Clean Catch Streptococcus pneumoniae Antigen (M - Final 07/24/19 10:15 Urine, Clean Catch Legionella Antigen - Final 07/23/19 22:20 Mucosa - Nose Respiratory Panel (PCR) - Final Laboratory Results 07/25/19 05:27: Hep Bs Antigen Non-Reactive, Hep Bs Antibody Reactive 07/25/19 13:16: POC Glucose 128 H 07/25/19 18:10: POC Glucose 115 H 07/25/19 20:35: Lactic Acid 0.9 07/25/19 21:41: POC Glucose 114 H 07/26/19 05:00: WBC 2.8 L, RBC 2.49 L, Hgb 6.9 L, Hct 23.2 L, MCV 93.2, MCH 27.7, MCHC 29.7 L, RDW Std Deviation 60.8 H, RDW Coeff of Gurwinder 17.7 H, Plt Count 151, MPV 8.5, Immature Gran % (Auto) 0.400, Neut % (Auto) 84.7 H, Lymph % (Auto) 9.2 L, [place] % (Auto) 4.9, Eos % (Auto) 0.4, Baso % (Auto) 0.4, Absolute Neuts (auto) 2.4, Absolute Lymphs (auto) 0.26 L, Nucleated RBC % 0, Differential Comment SCANNED, Diff Path Review October07/26/19 05:00: Sodium 131 L, Potassium 4.4, Chloride 94 L, Carbon Dioxide 27.0, Anion Gap 10, BUN 39 H, Creatinine 7.10 H, Estim Creat Clear Calc 11.11, Est GFR (MDRD) Af Amer 10 L, Est GFR (MDRD) Non-Af 9 L, BUN/Creatinine Ratio 5.5 L, Glucose 91, Calcium 8.7 07/26/19 06:43: POC Glucose 91 07/26/19 07:00: Blood Type O POSITIVE, Antibody Screen NEGATIVE, Crossmatch See Detail 07/26/19 11:09: POC Glucose 111 H Current Medications Acetaminophen (Tylenol) 650 mg PO Q6H PRN PRN PRN Reason: Pain Score 1-10/Temp > 100.7 F Last Admin: 07/25/19 15:39 Dose: 650 mg Documented by: Al Hydroxide/Mg Hydroxide (Mylanta Ii) 30 ml PO Q6H PRN PRN PRN Reason: Gastric Burning Albuterol Sulfate (Ventolin Aerosols) 2.5 mg INHALATION Q2H PRN PRN PRN Reason: Shortness of Breath/Wheezing Last Admin: 07/26/19 12:42 Dose: 2.5 mg Documented by: Glucagon () 1 mg IM .X1 PRN PRN Reason: Hypoglycemia Guaifenesin (Robitussin) 20 ml PO Q4H PRN PRN PRN Reason: COUGH Heparin Sodium (Porcine) (Heparin Na) 5,000 unit SC Q12 YVES Last Admin: 07/26/19 12:38 Dose: 5,000 unit Documented by: Heparin Sodium (Porcine) () 2,500 units IV UD PRN PRN Reason: Dialysis Cath Heparin Flush Hydralazine HCl (Apresoline Iv) 10 mg IV Q4H PRN PRN PRN Reason: SBP > 160 Dextrose (Dextrose 10%-Water) 250 mls @ 999 mls/hr IV .Q16M PRN; Protocol PRN Reason: HYPOGLYCEMIA Sodium Chloride () 250 mls @ 15 mls/hr IV .[id number] PRN PRN Reason: Saline Flush Last Infusion: 07/26/19 00:58 Dose: 0 mls/hr Documented by: Sodium Chloride () 250 mls @ 15 mls/hr IV .[id number] PRN PRN Reason: Additional IVPB Infusion Cefepime HCl 1 gm/ Sodium (Chloride) 50 mls @ 100 mls/hr IV Q24 YVES Ibuprofen (Motrin) 600 mg PO Q8H PRN PRN PRN Reason: fever, pain 1-10 Last Admin: 07/24/19 19:51 Dose: 600 mg Documented by: Insulin Human Lispro (Humalog Kwikpen (Bkc)) 0 unit SC [facility]; Protocol Last Admin: 07/26/19 11:15 Dose: Not Given Documented by: Magnesium Hydroxide (Milk Of Magnesia) 30 ml PO DAILY PRN PRN PRN Reason: Constipation Melatonin (Melatonin) 3 mg PO QHS PRN PRN PRN Reason: INSOMNIA Metoprolol Tartrate (Lopressor (Beta Elizabeth)) 50 mg PO 1400 YVES Last Admin: 07/25/19 15:41 Dose: 50 mg Documented by: Ondansetron HCl (Zofran) 4 mg IV Q8H PRN PRN PRN Reason: NAUSEA/VOMITING Last Admin: 07/24/19 19:27 Dose: 4 mg Documented by: Prochlorperazine Edisylate (Compazine Iv) 5 mg IV Q4H PRN PRN PRN Reason: Breakthrough nausea/vomiting Psyllium Hydrophilic Mucilloid (Metamucil) 1 packet PO DAILY PRN PRN PRN Reason: Constipation Senna/Docusate Sodium (Senokot-S, Belia-Colace) 1 tablet PO DAILY [facility] Last Admin: 07/26/19 12:38 Dose: 1 tablet Documented by: Sodium Chloride () 10 - 40 ml IV UD PRN PRN Reason: SALINE FLUSH Last Admin: 07/26/19 06:07 Dose: 10 ml Documented by: Throat Lozenges (Cepacol Sore Throat Lozenge) 1 lozenge MUCOUS MEM Q2H PRN PRN PRN Reason: SORE THROAT Venlafaxine HCl (Effexor Xr) 37.5 mg PO DAILY YVES Last Admin: 07/26/19 12:38 Dose: 37.5 mg Documented by: Clinical Impression(s) from Imaging Studies Chest CT 07/25/19 17:35 IMPRESSION: Bilateral airspace disease, effusions, and probable reactive lymphadenopathy. Mitral valve disease, coronary artery disease and cardiomegaly. Electronically Signed: Eliezer Ernandez MD at 19:04 EST , Service support , Assessment/Plan All Active Problems (Last Reviewed 07/15/19 @ 10:07 by Ailyn Olivera) Pneumonia (Acute) Sepsis (Acute) Hypoxia (Acute) Cellulitis of left lower extremity (Acute) Sepsis (Acute) Problem with dialysis access (Acute) Skin abscess (Acute) Infected open wound (Acute) Decubitus ulcer of left heel, stage 2 (Acute) Debility (Acute) Abdominal wall abscess (Acute) Fever (Acute) Acute on chronic renal failure (Acute) RECOMMENDATIONS: 1. Continue empiric antibiotics per infectious disease 2. Agree with bronchodilators. PFT as an outpatient 3. Continue hemodialysis per nephrology 4. Walking oximetry prior to discharge 5. Transfuse for hemoglobin less than 7 6. Aggressive blood sugar control IMPRESSIONS: 1. Severe sepsis secondary to probable health care associated pneumonia Patient's findings on x-ray/CT are classic for pneumonia with mediastinal lymphadenopathy and high fevers. Patient currently with leukopenia. Infectious diseases following. Await blood cultures as patient is not producing much sputum. Cannot exclude embolic phenomenon given basilar location on CT scan of the chest. Wean oxygen as tolerated. Walking oximetry prior to discharge. Patient does have some emphysematous changes, but no wheezing is noted on exam. We will hold off on steroids given patient's concomitant type 2 diabetes mellitus. 2. End-stage renal disease on hemodialysis Patient with maturing left upper arm fistula. Currently with tunnel catheter. Blood culture showed no growth to date. Continue with hemodialysis per nephrology recommendations. 3. Hypertension/anemia/type 2 diabetes mellitus/anxiety/depression/history of [place]? syndrome Uppercase care, management, recovery and prognosis. Blood sugars have been well controlled at this time. Cannot exclude the need for steroids from a respiratory standpoint and this will require change in diabetic medications. Okay to continue with other baseline medications. Could consider a hepatic panel given icterus. Patient does not appear to have abdominal symptoms at this time. Code Visit Inpatient E&M: 09405 Init Hosp L3
[2019-07-26] MEDS: Metoprolol Tartrate 50 MG Tablet PO (13:55)
[2019-07-26] MEDS: Acetaminophen 325 MG Tablet 650 MG PO ×2 (13:58→21:26)
[2019-07-26 14:35] LABS: Pathologist Review Reviewed
[2019-07-26 14:36] LABS: Pathologist Review Reviewed
[2019-07-26] MEDS: SUCROFERRIC OXYHYDROXIDE 500 MG TAB.CHEW 1500 MG PO (16:43)
[2019-07-26 16:46] LABS: Bedside Glucose 88 mg/dL (70-110)
[2019-07-26 21:35] LABS: Bedside Glucose 90 mg/dL (70-110)
[2019-07-27] VITALS (19 sets, daily range): BP systolic 108–131; BP diastolic 64–93; PULSE 75–94; RESP 18–25; TEMP 37.2–39.2; O2SAT 82–99
[2019-07-27 06:15] LABS: Bedside Glucose 95 mg/dL (70-110)
[2019-07-27 07:14] LABS: Absolute Lymphocyte Count 0.16 X10^3/uL (0.83-4.51); Absolute Neutrophil Count 1.8 X10^3/uL (2.0-7.7); Basophil# 0.01 X10^3/uL; Basophil% 0.5 % (0-1); Differential Indicated SCAN CRITERIA MET; Eosinophil# 0.04 X10^3/uL; Eosinophils% 1.9 % (0-5); Hematocrit 25.1 % (40-54); Hemoglobin 7.7 g/dL (13.0-16.5); Lymphocyte # 0.16 X10^3/ul (4.0); Lymphocyte % 7.7 % (19-41); Mean Corp Hgb Conc 30.7 g/dL (32-36); Mean Corpuscular Hgb 28.3 pg (27.0-32.0); Mean Corpuscular Volume 92.3 fL (80-94); Mean Platelet Vol. 8.7 fl (6.2-12.0); Monocyte% 4.8 % (0-10); NRBC Flagged by Analyzer 0 % (0-5); Neutrophil # 1.76 X10^3/uL (2.7-7.7); Neutrophil % 84.1 % (47-70); POSITIVE DIFFERENTIAL YES; Platelet Count 158 K/mm3 (150-450); RBC Distribution Width CV 17.4 % (11.6-14.6); RBC Distribution Width SD 58.9 fl (35.1-43.9); Red Blood Count 2.72 M/mm3 (4.6-6.2); White Blood Count 2.1 K/mm3 (4.4-11.0)
[2019-07-27 07:30] LABS: Anion Gap 8 (5-15); BUN 25 mg/dL (7-18); BUN/Creat Ratio 4.5 RATIO (10-20); Calcium,Total 8.7 mg/dL (8.5-10.1); Chloride 96 mmol/L (98-107); EST Glomerular Filtration Rate 11 mL/min (>60); Est Glom Filt Rate - Afr Amer 14 mL/min (>60); Estimated Creatinine Clearance 14.08 ml/min; Glucose 92 mg/dL (74-106); Potassium 3.8 mmol/L (3.5-5.1); Sodium Level 131 mmol/L (136-145)
[2019-07-27 07:51] LABS: Hypochromasia 2+; Platelet Estimate ADEQUATE (ADEQ)
[2019-07-27] MEDS: SUCROFERRIC OXYHYDROXIDE 500 MG TAB.CHEW 1500 MG PO ×2 (08:09→17:12)
--- NOTE | 2019-07-27 08:28 | PN_ITS ---
Patient Problems: Active and Suspected Problems (Last Reviewed 07/15/19 @ 10:07 by Ailyn Olivera) Pneumonia (Acute) Sepsis (Acute) Hypoxia (Acute) Subjective: Patient did well overnight. Patient reports subjective improvement in overall condition. Patient reporting less chills. Patient still having a cough with minimal production. Oxygenation does appear to be improving. Patient was able to make it to the chair overnight. - Physical Exam Vitals/I&O's: Vital Signs Temp Pulse Resp BP Pulse Ox 37.7 C H 80 20 H 123/70 H 94 07/27/19 06:14 07/27/19 07:01 07/27/19 06:14 07/27/19 06:14 07/27/19 06:14 Oxygen Flow Rate (L/min) 2.5 Oxygen Delivery Method Nasal Cannula Weight: 121.2 kg Body Mass Index (BMI) 41.8 Finger Stick Blood Glucose 90 Intake and Output for Last 24 Hours 07/25/19 07/26/19 07/27/19 23:59 23:59 23:59 Intake Total 1800 / 1800 2425 / 2425 800 / 800 Output Total 0 / 0 6000 / 6000 Balance 1800 / 1800 -3575 / -3575 800 / 800 General: Alert, Oriented x3, Cooperative, No apparent distress, Well developed, Well nourished, - - Morbidly obese. No conversational dyspnea. HEENT: Atraumatic, PERRLA, EOMI, Normocephalic, - - No scleral icterus or injection noted Oral: Moist Mucosa, No Gingival or Mucosal Lesions/ Ulcerations Neck: Supple, No JVD, No Nodes, Trachea Midline Lungs: No rales, Diminished - Improved air exchange compared to yesterday, Rhonchi, Wheezes - Sporadic Cardiovascular: Regular rate, Regular Rhythm, Normal S1, Normal S2, No murmurs, No rub noted, No Gallop Abdomen: Bowel Sounds Present, Soft, Non Tender, Non-Distended, Obese Extremities: No clubbing, No cyanosis, Capillary Refill Less than 3 Seconds, Edema Skin: No rashes, No breakdown Musculoskeletal: No Tenderness to Palpation of Joints or Extremities Lymphatic: No Cervical, Supraclavicular, or Inguinal Adenopathy Neurological: Cranial nerves II-XII grossly intact, Neuro grossly intact, Motor Exam 5/5 strength throughout Psych/Mental Status: Alert and oriented to time, place, person, mood and affect Microbiology Past 72 Hours 07/24/19 03:10 Sputum, Expectorated/Coughed Gram Stain - Final 07/24/19 03:10 Sputum, Expectorated/Coughed Respiratory Culture - Final 07/24/19 10:15 Urine, Clean Catch Streptococcus pneumoniae Antigen (M - Final 07/24/19 10:15 Urine, Clean Catch Legionella Antigen - Final 07/23/19 22:20 Mucosa - Nose Respiratory Panel (PCR) - Final Laboratory Results 07/24/19 05:32: Diff Path Review Reviewed 07/25/19 05:27: Diff Path Review Reviewed 07/25/19 05:27: Hep Bs Antigen Non-Reactive, Hep Bs Antibody Reactive 07/26/19 07:00: Blood Type O POSITIVE, Antibody Screen NEGATIVE, Crossmatch See Detail 07/26/19 11:09: POC Glucose 111 H 07/26/19 16:40: POC Glucose 88 07/26/19 21:25: POC Glucose 90 07/27/19 06:05: POC Glucose 95 07/27/19 07:00: WBC 2.1 L, RBC 2.72 L, Hgb 7.7 L, Hct 25.1 L, MCV 92.3, MCH 28.3, MCHC 30.7 L, RDW Std Deviation 58.9 H, RDW Coeff of Gurwinder 17.4 H, Plt Count 158, MPV 8.7, Immature Gran % (Auto) 1.000 H, Neut % (Auto) 84.1 H, Lymph % (Auto) 7.7 L, [place] % (Auto) 4.8, Eos % (Auto) 1.9, Baso % (Auto) 0.5, Absolute Neuts (auto) 1.8 L, Absolute Lymphs (auto) 0.16 L, Nucleated RBC % 0, Diff Path Review May foll, Platelet Estimate ADEQUATE, Hypochromasia 2+ 07/27/19 07:00: Sodium 131 L, Potassium 3.8, Chloride 96 L, Carbon Dioxide 27.0, Anion Gap 8, BUN 25 H, Creatinine 5.60 H, Estim Creat Clear Calc 14.08, Est GFR (MDRD) Af Amer 14 L, Est GFR (MDRD) Non-Af 11 L, BUN/Creatinine Ratio 4.5 L, Glucose 92, Calcium 8.7 Current Medications Acetaminophen (Tylenol) 650 mg PO Q6H PRN PRN PRN Reason: Pain Score 1-10/Temp > 100.7 F Last Admin: 07/26/19 21:26 Dose: 650 mg Documented by: Al Hydroxide/Mg Hydroxide (Mylanta Ii) 30 ml PO Q6H PRN PRN PRN Reason: Gastric Burning Albuterol Sulfate (Ventolin Aerosols) 2.5 mg INHALATION Q2H PRN PRN PRN Reason: Shortness of Breath/Wheezing Last Admin: 07/26/19 12:42 Dose: 2.5 mg Documented by: Glucagon () 1 mg IM .X1 PRN PRN Reason: Hypoglycemia Guaifenesin (Robitussin) 20 ml PO Q4H PRN PRN PRN Reason: COUGH Heparin Sodium (Porcine) (Heparin Na) 5,000 unit SC Q12 YVES Last Admin: 07/26/19 21:28 Dose: 5,000 unit Documented by: Heparin Sodium (Porcine) () 2,500 units IV UD PRN PRN Reason: Dialysis Cath Heparin Flush Hydralazine HCl (Apresoline Iv) 10 mg IV Q4H PRN PRN PRN Reason: SBP > 160 Dextrose (Dextrose 10%-Water) 250 mls @ 999 mls/hr IV .Q16M PRN; Protocol PRN Reason: HYPOGLYCEMIA Sodium Chloride () 250 mls @ 15 mls/hr IV .[id number] PRN PRN Reason: Saline Flush Last Infusion: 07/26/19 00:58 Dose: 0 mls/hr Documented by: Sodium Chloride () 250 mls @ 15 mls/hr IV .[id number] PRN PRN Reason: Additional IVPB Infusion Cefepime HCl 1 gm/ Sodium (Chloride) 50 mls @ 100 mls/hr IV Q24 YVES Last Infusion: 07/26/19 14:28 Dose: Infused Documented by: Ibuprofen (Motrin) 600 mg PO Q8H PRN PRN PRN Reason: fever, pain 1-10 Last Admin: 07/24/19 19:51 Dose: 600 mg Documented by: Insulin Human Lispro (Humalog Kwikpen (Bkc)) 0 unit SC [facility]; Protocol Last Admin: 07/27/19 06:13 Dose: Not Given Documented by: Magnesium Hydroxide (Milk Of Magnesia) 30 ml PO DAILY PRN PRN PRN Reason: Constipation Melatonin (Melatonin) 3 mg PO QHS PRN PRN PRN Reason: INSOMNIA Metoprolol Tartrate (Lopressor (Beta Elizabeth)) 50 mg PO 1400 [facility] Last Admin: 07/26/19 13:55 Dose: 50 mg Documented by: Nutritional Formula (Lactose Free) (Glucerna Shake) 120 ml PO 4X/DAY [facility] Last Admin: 07/26/19 21:26 Dose: Not Given Documented by: Ondansetron HCl (Zofran) 4 mg IV Q8H PRN PRN PRN Reason: NAUSEA/VOMITING Last Admin: 07/24/19 19:27 Dose: 4 mg Documented by: Prochlorperazine Edisylate (Compazine Iv) 5 mg IV Q4H PRN PRN PRN Reason: Breakthrough nausea/vomiting Psyllium Hydrophilic Mucilloid (Metamucil) 1 packet PO DAILY PRN PRN PRN Reason: Constipation Senna/Docusate Sodium (Senokot-S, Belia-Colace) 1 tablet PO DAILY [facility] Last Admin: 07/26/19 12:38 Dose: 1 tablet Documented by: Sodium Chloride () 10 - 40 ml IV UD PRN PRN Reason: SALINE FLUSH Last Admin: 07/26/19 21:28 Dose: 10 ml Documented by: Throat Lozenges (Cepacol Sore Throat Lozenge) 1 lozenge MUCOUS MEM Q2H PRN PRN PRN Reason: SORE THROAT Venlafaxine HCl (Effexor Xr) 37.5 mg PO DAILY [facility] Last Admin: 07/26/19 12:38 Dose: 37.5 mg Documented by: Medical Necessity - Tobacco Use Smoking Status: Former smoker Tobacco Use: Non-smoker Assessment/Plan All Active Problems (Last Reviewed 07/15/19 @ 10:07 by Ailyn Olivera) Pneumonia (Acute) Sepsis (Acute) Hypoxia (Acute) Cellulitis of left lower extremity (Acute) Sepsis (Acute) Problem with dialysis access (Acute) Skin abscess (Acute) Infected open wound (Acute) Decubitus ulcer of left heel, stage 2 (Acute) Debility (Acute) Abdominal wall abscess (Acute) Fever (Acute) Acute on chronic renal failure (Acute) RECOMMENDATIONS: 1. Continue empiric antibiotics per infectious disease 2. Agree with bronchodilators. PFT and PSG as an outpatient 3. Continue hemodialysis per nephrology 4. Walking oximetry prior to discharge 5. Transfuse for hemoglobin less than 7 6. Aggressive blood sugar control IMPRESSIONS: 1. Severe sepsis secondary to probable health care associated pneumonia Patient's findings on x-ray/CT are classic for pneumonia with mediastinal lymphadenopathy and high fevers. Patient currently with leukopenia. Infectious diseases following. Await blood cultures as patient is not producing much sputum. Cannot exclude embolic phenomenon given basilar location on CT scan of the chest. Wean oxygen as tolerated. Walking oximetry prior to discharge. We will hold off on steroids given patient's concomitant type 2 diabetes mellitus. 2. End-stage renal disease on hemodialysis Patient with maturing left upper arm fistula. Currently with tunnel catheter. Blood culture showed no growth to date. Continue with hemodialysis per nephrology recommendations. Patient does not require additional volume removal from a respiratory standpoint 3. Hypertension/anemia/type 2 diabetes mellitus/anxiety/depression/history of [place]? syndrome Uppercase care, management, recovery and prognosis. Blood sugars have been well controlled at this time. Cannot exclude the need for steroids from a respiratory standpoint and this will require change in diabetic medications. Okay to continue with other baseline medications. Patient does not appear to have abdominal symptoms at this time. Code Visit Inpatient E&M: 72976 Subs Hosp L2
[2019-07-27] MEDS: Heparin Injection (Vial) 5,000 UNIT/ML VIAL 5000 UNIT SC ×2 (09:15→21:34)
[2019-07-27] MEDS: Venlafaxine XR 37.5 MG Capsule PO (09:15)
[2019-07-27] MEDS: 0.9% Saline Lock 10 ML Syringe IV (09:16)
[2019-07-27] MEDS: Albuterol 2.5 MG/3 ML VIAL.NEB. INHALATION (10:21)
--- NOTE | 2019-07-27 10:43 | PCM.PN.ID ---
Patient Problems: Active and Suspected Problems (Last Reviewed 07/15/19 @ 10:07 by Ailyn Olivera) Pneumonia (Acute) Sepsis (Acute) Hypoxia (Acute) Subjective: Feeling better. Fever, cough, SOB improved. Mild loose stool. - Physical Exam Vitals/I&O's: Vital Signs Temp Pulse Resp BP Pulse Ox 100.0 F H 88 20 H 108/81 H 96 07/27/19 09:02 07/27/19 10:21 07/27/19 10:21 07/27/19 09:02 07/27/19 10:21 Oxygen Flow Rate (L/min) 3 Oxygen Delivery Method Nasal Cannula Weight: 121.2 kg Body Mass Index (BMI) 41.8 Finger Stick Blood Glucose 90 Intake and Output for Last 24 Hours 07/25/19 07/26/19 07/27/19 23:59 23:59 23:59 Intake Total 1800 / 1800 2425 / 2425 850 / 850 Output Total 0 / 0 6000 / 6000 Balance 1800 / 1800 -3575 / -3575 850 / 850 General: Alert, Cooperative, No apparent distress Lungs: Diminished, Wheezes Cardiovascular: Regular rate, Regular Rhythm Abdomen: Soft, Non Tender, Non-Distended Skin: No rashes Microbiology Past 72 Hours 07/24/19 03:10 Sputum, Expectorated/Coughed Gram Stain - Final 07/24/19 03:10 Sputum, Expectorated/Coughed Respiratory Culture - Final 07/24/19 10:15 Urine, Clean Catch Streptococcus pneumoniae Antigen (M - Final 07/24/19 10:15 Urine, Clean Catch Legionella Antigen - Final Laboratory Results 07/24/19 05:32: Diff Path Review Reviewed 07/25/19 05:27: Diff Path Review Reviewed 07/26/19 07:00: Crossmatch See Detail 07/26/19 11:09: POC Glucose 111 H 07/26/19 16:40: POC Glucose 88 07/26/19 21:25: POC Glucose 90 07/27/19 06:05: POC Glucose 95 07/27/19 07:00: WBC 2.1 L, RBC 2.72 L, Hgb 7.7 L, Hct 25.1 L, MCV 92.3, MCH 28.3, MCHC 30.7 L, RDW Std Deviation 58.9 H, RDW Coeff of Gurwinder 17.4 H, Plt Count 158, MPV 8.7, Immature Gran % (Auto) 1.000 H, Neut % (Auto) 84.1 H, Lymph % (Auto) 7.7 L, Greene % (Auto) 4.8, Eos % (Auto) 1.9, Baso % (Auto) 0.5, Absolute Neuts (auto) 1.8 L, Absolute Lymphs (auto) 0.16 L, Nucleated RBC % 0, Diff Path Review October, Platelet Estimate ADEQUATE, Hypochromasia 2+ 07/27/19 07:00: Sodium 131 L, Potassium 3.8, Chloride 96 L, Carbon Dioxide 27.0, Anion Gap 8, BUN 25 H, Creatinine 5.60 H, Estim Creat Clear Calc 14.08, Est GFR (MDRD) Af Amer 14 L, Est GFR (MDRD) Non-Af 11 L, BUN/Creatinine Ratio 4.5 L, Glucose 92, Calcium 8.7 Current Medications Acetaminophen (Tylenol) 650 mg PO Q6H PRN PRN PRN Reason: Pain Score 1-10/Temp > 100.7 F Last Admin: 07/26/19 21:26 Dose: 650 mg Documented by: Al Hydroxide/Mg Hydroxide (Mylanta Ii) 30 ml PO Q6H PRN PRN PRN Reason: Gastric Burning Albuterol Sulfate (Ventolin Aerosols) 2.5 mg INHALATION Q2H PRN PRN PRN Reason: Shortness of Breath/Wheezing Last Admin: 07/27/19 10:21 Dose: 2.5 mg Documented by: Albuterol/Ipratropium (Duoneb) 3 ml INHALATION Q4H.RT YV[facility] Glucagon () 1 mg IM .X1 PRN PRN Reason: Hypoglycemia Guaifenesin (Robitussin) 20 ml PO Q4H PRN PRN PRN Reason: COUGH Heparin Sodium (Porcine) (Heparin Na) 5,000 unit SC Q12 [facility] Last Admin: 07/27/19 09:15 Dose: 5,000 unit Documented by: Heparin Sodium (Porcine) () 2,500 units IV UD PRN PRN Reason: Dialysis Cath Heparin Flush Hydralazine HCl (Apresoline Iv) 10 mg IV Q4H PRN PRN PRN Reason: SBP > 160 Dextrose (Dextrose 10%-Water) 250 mls @ 999 mls/hr IV .Q16M PRN; Protocol PRN Reason: HYPOGLYCEMIA Sodium Chloride () 250 mls @ 15 mls/hr IV .[id number] PRN PRN Reason: Saline Flush Last Infusion: 07/26/19 00:58 Dose: 0 mls/hr Documented by: Sodium Chloride () 250 mls @ 15 mls/hr IV .[id number] PRN PRN Reason: Additional IVPB Infusion Cefepime HCl 1 gm/ Sodium (Chloride) 50 mls @ 100 mls/hr IV Q24 [facility] Last Infusion: 07/27/19 09:46 Dose: Infused Documented by: Ibuprofen (Motrin) 600 mg PO Q8H PRN PRN PRN Reason: fever, pain 1-10 Last Admin: 07/24/19 19:51 Dose: 600 mg Documented by: Insulin Human Lispro (Humalog Kwikpen (Bkc)) 0 unit SC ACHS [facility]; Protocol Last Admin: 07/27/19 06:13 Dose: Not Given Documented by: Magnesium Hydroxide (Milk Of Magnesia) 30 ml PO DAILY PRN PRN PRN Reason: Constipation Melatonin (Melatonin) 3 mg PO QHS PRN PRN PRN Reason: INSOMNIA Metoprolol Tartrate (Lopressor (Beta Elizabeth)) 50 mg PO 1400 [facility] Last Admin: 07/26/19 13:55 Dose: 50 mg Documented by: Nutritional Formula (Lactose Free) (Glucerna Shake) 120 ml PO 4X/DAY [facility] Last Admin: 07/27/19 09:15 Dose: Not Given Documented by: Ondansetron HCl (Zofran) 4 mg IV Q8H PRN PRN PRN Reason: NAUSEA/VOMITING Last Admin: 07/24/19 19:27 Dose: 4 mg Documented by: Prochlorperazine Edisylate (Compazine Iv) 5 mg IV Q4H PRN PRN PRN Reason: Breakthrough nausea/vomiting Psyllium Hydrophilic Mucilloid (Metamucil) 1 packet PO DAILY PRN PRN PRN Reason: Constipation Senna/Docusate Sodium (Senokot-S, Belia-Colace) 1 tablet PO DAILY [facility] Last Admin: 07/27/19 09:16 Dose: Not Given Documented by: Sodium Chloride () 10 - 40 ml IV UD PRN PRN Reason: SALINE FLUSH Last Admin: 07/27/19 09:16 Dose: 10 ml Documented by: Throat Lozenges (Cepacol Sore Throat Lozenge) 1 lozenge MUCOUS MEM Q2H PRN PRN PRN Reason: SORE THROAT Venlafaxine HCl (Effexor Xr) 37.5 mg PO DAILY YV[facility] Last Admin: 07/27/19 09:15 Dose: 37.5 mg Documented by: Medical Necessity - Tobacco Use Smoking Status: Former smoker Tobacco Use: Non-smoker Route of nutrition/ use of supplements: [] Nutritional Intake: [] IV Site: [] Alexander Catheter: [] - Assessment/Plan Antibiotics: [] Assessment/Plan: [] Active and Suspected Problems (Last Reviewed 07/15/19 @ 10:07 by Ailyn Olivera) Pneumonia (Acute) Sepsis (Acute) Hypoxia (Acute) sepsis due to CAP with ESRD - Not producing sputum. Resp viral panel neg. Feeling better, temps improved. Pulm following. On cefepime. Will follow
[2019-07-27 11:36] LABS: Bedside Glucose 126 mg/dL (70-110)
[2019-07-27] MEDS: Metoprolol Tartrate 50 MG Tablet PO (14:06)
[2019-07-27] MEDS: Ipratropium/Albuterol Sulfate 3 ML AMPUL.NEB INHALATION ×3 (14:37→23:33)
[2019-07-27 14:40] LABS: Pathologist Review Reviewed
--- NOTE | 2019-07-27 16:27 | PCM.PN.REN ---
Patient Problems: Active and Suspected Problems (Last Reviewed 07/15/19 @ 10:07 by Ailyn Olivera) Pneumonia (Acute) Sepsis (Acute) Hypoxia (Acute) Subjective: Patient continues to wheeze with cough. Desaturates with ambulation. Requires oxygen with nasal cannula. Appetite poor - Physical Exam Vitals/I&O's: Vital Signs Temp Pulse Resp BP Pulse Ox 99.0 F 89 20 H 119/75 94 07/27/19 15:00 07/27/19 15:00 07/27/19 15:00 07/27/19 15:00 07/27/19 15:00 Oxygen Flow Rate (L/min) [At 0 REST on Room Air] Oxygen Flow Rate (L/min) 2 Oxygen Delivery Method Nasal Cannula Weight: 121.2 kg Body Mass Index (BMI) 41.8 Finger Stick Blood Glucose 90 Intake and Output for Last 24 Hours 07/25/19 07/26/19 07/27/19 23:59 23:59 23:59 Intake Total 1800 / 1800 2425 / 2425 1150 / 1150 Output Total 0 / 0 6000 / 6000 Balance 1800 / 1800 -3575 / -3575 1150 / 1150 General: Alert, Oriented x3, Cooperative, No apparent distress Lungs: Rhonchi, Wheezes Cardiovascular: Regular rate Abdomen: Bowel Sounds Present, Soft, Non Tender, Obese Extremities: No edema Psych/Mental Status: Normal Affect, Appropriate, Alert and oriented to time, place, person, mood and affect Microbiology Past 72 Hours 07/24/19 03:10 Sputum, Expectorated/Coughed Gram Stain - Final 07/24/19 03:10 Sputum, Expectorated/Coughed Respiratory Culture - Final Laboratory Results 07/26/19 05:00: Diff Path Review Reviewed 07/26/19 16:40: POC Glucose 88 07/26/19 21:25: POC Glucose 90 07/27/19 06:05: POC Glucose 95 07/27/19 07:00: WBC 2.1 L, RBC 2.72 L, Hgb 7.7 L, Hct 25.1 L, MCV 92.3, MCH 28.3, MCHC 30.7 L, RDW Std Deviation 58.9 H, RDW Coeff of Gurwinder 17.4 H, Plt Count 158, MPV 8.7, Immature Gran % (Auto) 1.000 H, Neut % (Auto) 84.1 H, Lymph % (Auto) 7.7 L, [place] % (Auto) 4.8, Eos % (Auto) 1.9, Baso % (Auto) 0.5, Absolute Neuts (auto) 1.8 L, Absolute Lymphs (auto) 0.16 L, Nucleated RBC % 0, Diff Path Review May foll, Platelet Estimate ADEQUATE, Hypochromasia 2+ 07/27/19 07:00: Sodium 131 L, Potassium 3.8, Chloride 96 L, Carbon Dioxide 27.0, Anion Gap 8, BUN 25 H, Creatinine 5.60 H, Estim Creat Clear Calc 14.08, Est GFR (MDRD) Af Amer 14 L, Est GFR (MDRD) Non-Af 11 L, BUN/Creatinine Ratio 4.5 L, Glucose 92, Calcium 8.7 07/27/19 11:30: POC Glucose 126 H Current Medications Acetaminophen (Tylenol) 650 mg PO Q6H PRN PRN PRN Reason: Pain Score 1-10/Temp > 100.7 F Last Admin: 07/26/19 21:26 Dose: 650 mg Documented by: Al Hydroxide/Mg Hydroxide (Mylanta Ii) 30 ml PO Q6H PRN PRN PRN Reason: Gastric Burning Albuterol Sulfate (Ventolin Aerosols) 2.5 mg INHALATION Q2H PRN PRN PRN Reason: Shortness of Breath/Wheezing Last Admin: 07/27/19 10:21 Dose: 2.5 mg Documented by: Albuterol/Ipratropium (Duoneb) 3 ml INHALATION Q4H.RT [facility] Last Admin: 07/27/19 14:37 Dose: 3 ml Documented by: Glucagon () 1 mg IM .X1 PRN PRN Reason: Hypoglycemia Guaifenesin (Robitussin) 20 ml PO Q4H PRN PRN PRN Reason: COUGH Heparin Sodium (Porcine) (Heparin Na) 5,000 unit SC Q12 [facility] Last Admin: 07/27/19 09:15 Dose: 5,000 unit Documented by: Heparin Sodium (Porcine) () 2,500 units IV UD PRN PRN Reason: Dialysis Cath Heparin Flush Hydralazine HCl (Apresoline Iv) 10 mg IV Q4H PRN PRN PRN Reason: SBP > 160 Dextrose (Dextrose 10%-Water) 250 mls @ 999 mls/hr IV .Q16M PRN; Protocol PRN Reason: HYPOGLYCEMIA Sodium Chloride () 250 mls @ 15 mls/hr IV .[id number] PRN PRN Reason: Saline Flush Last Infusion: 07/26/19 00:58 Dose: 0 mls/hr Documented by: Sodium Chloride () 250 mls @ 15 mls/hr IV .[id number] PRN PRN Reason: Additional IVPB Infusion Cefepime HCl 1 gm/ Sodium (Chloride) 50 mls @ 100 mls/hr IV Q24 [facility] Last Infusion: 07/27/19 09:46 Dose: Infused Documented by: Ibuprofen (Motrin) 600 mg PO Q8H PRN PRN PRN Reason: fever, pain 1-10 Last Admin: 07/24/19 19:51 Dose: 600 mg Documented by: Insulin Human Lispro (Humalog Kwikpen (Bkc)) 0 unit SC ACHS [facility]; Protocol Last Admin: 07/27/19 11:34 Dose: Not Given Documented by: Magnesium Hydroxide (Milk Of Magnesia) 30 ml PO DAILY PRN PRN PRN Reason: Constipation Melatonin (Melatonin) 3 mg PO QHS PRN PRN PRN Reason: INSOMNIA Metoprolol Tartrate (Lopressor (Beta Elizabeth)) 50 mg PO 1400 [facility] Last Admin: 07/27/19 14:06 Dose: 50 mg Documented by: Nutritional Formula (Lactose Free) (Glucerna Shake) 120 ml PO 4X/DAY [facility] Last Admin: 07/27/19 13:02 Dose: Not Given Documented by: Ondansetron HCl (Zofran) 4 mg IV Q8H PRN PRN PRN Reason: NAUSEA/VOMITING Last Admin: 07/24/19 19:27 Dose: 4 mg Documented by: Prochlorperazine Edisylate (Compazine Iv) 5 mg IV Q4H PRN PRN PRN Reason: Breakthrough nausea/vomiting Psyllium Hydrophilic Mucilloid (Metamucil) 1 packet PO DAILY PRN PRN PRN Reason: Constipation Senna/Docusate Sodium (Senokot-S, Belia-Colace) 1 tablet PO DAILY [facility] Last Admin: 07/27/19 09:16 Dose: Not Given Documented by: Sodium Chloride () 10 - 40 ml IV UD PRN PRN Reason: SALINE FLUSH Last Admin: 07/27/19 09:16 Dose: 10 ml Documented by: Throat Lozenges (Cepacol Sore Throat Lozenge) 1 lozenge MUCOUS MEM Q2H PRN PRN PRN Reason: SORE THROAT Venlafaxine HCl (Effexor Xr) 37.5 mg PO DAILY [facility] Last Admin: 07/27/19 09:15 Dose: 37.5 mg Documented by: Medical Necessity - Tobacco Use Smoking Status: Former smoker Tobacco Use: Non-smoker Assessment/Plan All Active Problems (Last Reviewed 07/15/19 @ 10:07 by Ailyn Olivera) Pneumonia (Acute) Sepsis (Acute) Hypoxia (Acute) Cellulitis of left lower extremity (Acute) Sepsis (Acute) Problem with dialysis access (Acute) Skin abscess (Acute) Infected open wound (Acute) Decubitus ulcer of left heel, stage 2 (Acute) Debility (Acute) Abdominal wall abscess (Acute) Fever (Acute) Acute on chronic renal failure (Acute) 1. ESRD HD MWF. Next dialysis Friday. Fluid removal as tolerated 2. Anemia hemoglobin 7.9 EPO with dialysis 3. Acute pneumonia IV antibiotics dosed accordingly. Cefepime 2 g after each dialysis for 2 more doses per ID. Requiring oxygen 4. DM type II primary service management 5. 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 Morbid obesity 8. Hypoalbuminemia. Add protein supplement Discussed with hospitalist
[2019-07-27 17:16] LABS: Bedside Glucose 80 mg/dL (70-110)
--- NOTE | 2019-07-27 18:13 | PCM.PN.HOSP ---
Patient Problems: Active and Suspected Problems (Last Reviewed 07/15/19 @ 10:07 by Ailyn Olivera) Pneumonia (Acute) Sepsis (Acute) Hypoxia (Acute) Reason for Visit: Follow-up on pneumonia Subjective: Patient was seen and examined. No new complains. Denies chest pain, dizziness. Remains on 3L oxygen Objective: Physical exam: General: Alert, Oriented x3, Cooperative, No apparent distress, - - Morbidly obese HEENT: Atraumatic, PERRLA, EOMI, Normocephalic Oral: Moist Mucosa Neck: Supple Lungs: Clear to auscultation, Normal air movement Cardiovascular: Regular rate, Regular Rhythm, Normal S1, Normal S2, No murmurs Abdomen: Bowel Sounds Present, Soft, Non Tender, Non-Distended, No Hepato-splenomegaly Extremities: No edema Skin: No rashes, No breakdown Musculoskeletal: No Tenderness to Palpation of Joints or Extremities Lymphatic: No Cervical, Supraclavicular, or Inguinal Adenopathy Neurological: Cranial nerves II-XII grossly intact, Neuro grossly intact Psych/Mental Status: Normal Affect, Appropriate Vitals/I&O's: Vital Signs Temp Pulse Resp BP Pulse Ox 99.0 F 89 20 H 119/75 94 07/27/19 15:00 07/27/19 15:00 07/27/19 15:00 07/27/19 15:00 07/27/19 15:00 Oxygen Flow Rate (L/min) [At 0 REST on Room Air] Oxygen Flow Rate (L/min) 2 Oxygen Delivery Method Nasal Cannula Weight: 121.2 kg Body Mass Index (BMI) 41.8 Finger Stick Blood Glucose 90 Intake and Output for Last 24 Hours 07/25/19 07/26/19 07/27/19 23:59 23:59 23:59 Intake Total 1800 / 1800 2425 / 2425 1450 / 1450 Output Total 0 / 0 6000 / 6000 Balance 1800 / 1800 -3575 / -3575 1450 / 1450 Microbiology Past 72 Hours 07/24/19 03:10 Sputum, Expectorated/Coughed Gram Stain - Final 07/24/19 03:10 Sputum, Expectorated/Coughed Respiratory Culture - Final Laboratory Results 07/26/19 05:00: Diff Path Review Reviewed 07/26/19 21:25: POC Glucose 90 07/27/19 06:05: POC Glucose 95 07/27/19 07:00: WBC 2.1 L, RBC 2.72 L, Hgb 7.7 L, Hct 25.1 L, MCV 92.3, MCH 28.3, MCHC 30.7 L, RDW Std Deviation 58.9 H, RDW Coeff of Gurwinder 17.4 H, Plt Count 158, MPV 8.7, Immature Gran % (Auto) 1.000 H, Neut % (Auto) 84.1 H, Lymph % (Auto) 7.7 L, Elbert % (Auto) 4.8, Eos % (Auto) 1.9, Baso % (Auto) 0.5, Absolute Neuts (auto) 1.8 L, Absolute Lymphs (auto) 0.16 L, Nucleated RBC % 0, Diff Path Review October, Platelet Estimate ADEQUATE, Hypochromasia 2+ 07/27/19 07:00: Sodium 131 L, Potassium 3.8, Chloride 96 L, Carbon Dioxide 27.0, Anion Gap 8, BUN 25 H, Creatinine 5.60 H, Estim Creat Clear Calc 14.08, Est GFR (MDRD) Af Amer 14 L, Est GFR (MDRD) Non-Af 11 L, BUN/Creatinine Ratio 4.5 L, Glucose 92, Calcium 8.7 07/27/19 11:30: POC Glucose 126 H 07/27/19 17:08: POC Glucose 80 Current Medications Acetaminophen (Tylenol) 650 mg PO Q6H PRN PRN PRN Reason: Pain Score 1-10/Temp > 100.7 F Last Admin: 07/26/19 21:26 Dose: 650 mg Documented by: Al Hydroxide/Mg Hydroxide (Mylanta Ii) 30 ml PO Q6H PRN PRN PRN Reason: Gastric Burning Albuterol Sulfate (Ventolin Aerosols) 2.5 mg INHALATION Q2H PRN PRN PRN Reason: Shortness of Breath/Wheezing Last Admin: 07/27/19 10:21 Dose: 2.5 mg Documented by: Albuterol/Ipratropium (Duoneb) 3 ml INHALATION Q4H.RT [facility] Last Admin: 07/27/19 14:37 Dose: 3 ml Documented by: Glucagon () 1 mg IM .X1 PRN PRN Reason: Hypoglycemia Guaifenesin (Robitussin) 20 ml PO Q4H PRN PRN PRN Reason: COUGH Heparin Sodium (Porcine) (Heparin Na) 5,000 unit SC Q12 [facility] Last Admin: 07/27/19 09:15 Dose: 5,000 unit Documented by: Heparin Sodium (Porcine) () 2,500 units IV UD PRN PRN Reason: Dialysis Cath Heparin Flush Hydralazine HCl (Apresoline Iv) 10 mg IV Q4H PRN PRN PRN Reason: SBP > 160 Dextrose (Dextrose 10%-Water) 250 mls @ 999 mls/hr IV .Q16M PRN; Protocol PRN Reason: HYPOGLYCEMIA Sodium Chloride () 250 mls @ 15 mls/hr IV .[id number] PRN PRN Reason: Saline Flush Last Infusion: 07/26/19 00:58 Dose: 0 mls/hr Documented by: Sodium Chloride () 250 mls @ 15 mls/hr IV .[id number] PRN PRN Reason: Additional IVPB Infusion Cefepime HCl 1 gm/ Sodium (Chloride) 50 mls @ 100 mls/hr IV Q24 [facility] Last Infusion: 07/27/19 09:46 Dose: Infused Documented by: Ibuprofen (Motrin) 600 mg PO Q8H PRN PRN PRN Reason: fever, pain 1-10 Last Admin: 07/24/19 19:51 Dose: 600 mg Documented by: Insulin Human Lispro (Humalog Kwikpen (Bkc)) 0 unit SC ACHS [facility]; Protocol Last Admin: 07/27/19 17:09 Dose: Not Given Documented by: Magnesium Hydroxide (Milk Of Magnesia) 30 ml PO DAILY PRN PRN PRN Reason: Constipation Melatonin (Melatonin) 3 mg PO QHS PRN PRN PRN Reason: INSOMNIA Metoprolol Tartrate (Lopressor (Beta Elizabeth)) 50 mg PO 1400 [facility] Last Admin: 07/27/19 14:06 Dose: 50 mg Documented by: Multivit/Ca Carb/B Cmplx/FA/Prenat (Nephrocaps, Renaphro) 1 capsule PO DAILY [facility] Nutritional Formula (Lactose Free) (Glucerna Shake) 120 ml PO 4X/DAY [facility] Last Admin: 07/27/19 16:33 Dose: Not Given Documented by: Ondansetron HCl (Zofran) 4 mg IV Q8H PRN PRN PRN Reason: NAUSEA/VOMITING Last Admin: 07/24/19 19:27 Dose: 4 mg Documented by: Prochlorperazine Edisylate (Compazine Iv) 5 mg IV Q4H PRN PRN PRN Reason: Breakthrough nausea/vomiting Psyllium Hydrophilic Mucilloid (Metamucil) 1 packet PO DAILY PRN PRN PRN Reason: Constipation Senna/Docusate Sodium (Senokot-S, Belia-Colace) 1 tablet PO DAILY [facility] Last Admin: 07/27/19 09:16 Dose: Not Given Documented by: Sodium Chloride () 10 - 40 ml IV UD PRN PRN Reason: SALINE FLUSH Last Admin: 07/27/19 09:16 Dose: 10 ml Documented by: Throat Lozenges (Cepacol Sore Throat Lozenge) 1 lozenge MUCOUS MEM Q2H PRN PRN PRN Reason: SORE THROAT Venlafaxine HCl (Effexor Xr) 37.5 mg PO DAILY [facility] Last Admin: 07/27/19 09:15 Dose: 37.5 mg Documented by: STROKE Vital Signs/Narrative: Vital Signs Temp Pulse Resp BP Pulse Ox 07/27/19 15:00 99.0 F 89 20 H 119/75 94 07/27/19 14:37 84 18 Medical Necessity - Tobacco Use Smoking Status: Former smoker Tobacco Use: Non-smoker Assessment/Plan All Active Problems (Last Reviewed 07/15/19 @ 10:07 by Ailyn Olivera) Pneumonia (Acute) Sepsis (Acute) Hypoxia (Acute) Cellulitis of left lower extremity (Acute) Sepsis (Acute) Problem with dialysis access (Acute) Skin abscess (Acute) Infected open wound (Acute) Decubitus ulcer of left heel, stage 2 (Acute) Debility (Acute) Abdominal wall abscess (Acute) Fever (Acute) Acute on chronic renal failure (Acute) 1. Sepsis secondary to pneumonia, improved, Sputum cultures showed mixed respiratory shiva, respiratory panel negative, urine Legionella and streptococcal antigen negative, blood cultures are pending Was on IV vancomycin and Zosyn, ID consulted, currently on IV cefepime 2. Anemia of CKD, status post 1 unit packed RBC, will repeat blood work in a.m. 3. ESRD on hemodialysis, status post tunneled dialysis catheter, dialysis today 4. Hypoxia secondary to #1, on 3 L of oxygen, will continue on oxygen, encourage use of incentive spirometer, breathing treatments 5. 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 Anxiety/depression, continue on Effexor 7. DVT ppx- Heparin SC Code Visit Inpatient E&M: 15945 Subs Hosp L2
[2019-07-27 19:50] LABS: Phosphorus 5.1 mg/dL (2.5-4.9)
[2019-07-27] MEDS: Acetaminophen 325 MG Tablet 650 MG PO (20:31)
[2019-07-27] MEDS: Ibuprofen 600 MG Tablet PO (21:30)
[2019-07-27 21:50] LABS: Bedside Glucose 97 mg/dL (70-110)
[2019-07-28] VITALS (18 sets, daily range): BP systolic 109–137; BP diastolic 60–86; PULSE 79–96; RESP 18–24; TEMP 36.9–38.1; O2SAT 92–96
[2019-07-28] MEDS: Ipratropium/Albuterol Sulfate 3 ML AMPUL.NEB INHALATION ×4 (03:38→20:01)
[2019-07-28 06:41] LABS: Bedside Glucose 109 mg/dL (70-110)
[2019-07-28 06:54] LABS: Absolute Lymphocyte Count 0.23 X10^3/uL (0.83-4.51); Absolute Neutrophil Count 1.6 X10^3/uL (2.0-7.7); Basophil# 0.01 X10^3/uL; Basophil% 0.5 % (0-1); Eosinophil# 0.03 X10^3/uL; Eosinophils% 1.6 % (0-5); Hematocrit 26.4 % (40-54); Hemoglobin 8.1 g/dL (13.0-16.5); Lymphocyte # 0.23 X10^3/ul (4.0); Mean Corp Hgb Conc 30.7 g/dL (32-36); Mean Corpuscular Hgb 27.9 pg (27.0-32.0); Mean Platelet Vol. 8.1 fl (6.2-12.0); Monocyte# 0.07 X10^3/uL; Monocyte% 3.7 % (0-10); NRBC Flagged by Analyzer 0 % (0-5); Neutrophil # 1.55 X10^3/uL (2.7-7.7); Neutrophil % 81.2 % (47-70); POSITIVE DIFFERENTIAL YES; POSITIVE MORPHOLOGY YES; Platelet Count 138 K/mm3 (150-450); RBC Distribution Width CV 17.2 % (11.6-14.6); RBC Distribution Width SD 57.4 fl (35.1-43.9); White Blood Count 1.9 K/mm3 (4.4-11.0)
[2019-07-28 07:05] LABS: Differential Indicated SCAN CRITERIA MET
[2019-07-28 07:28] LABS: Anion Gap 11 (5-15); BUN 36 mg/dL (7-18); BUN/Creat Ratio 4.9 RATIO (10-20); Calcium,Total 8.5 mg/dL (8.5-10.1); Chloride 93 mmol/L (98-107); Creatinine, Serum 7.32 mg/dL (0.70-1.30); EST Glomerular Filtration Rate 8 mL/min (>60); Est Glom Filt Rate - Afr Amer 10 mL/min (>60); Estimated Creatinine Clearance 10.77 ml/min; Glucose 100 mg/dL (74-106); Potassium 3.5 mmol/L (3.5-5.1); Sodium Level 131 mmol/L (136-145)
[2019-07-28] MEDS: Heparin Injection (Vial) 5,000 UNIT/ML VIAL 5000 UNIT SC ×2 (08:47→21:51)
[2019-07-28] MEDS: Venlafaxine XR 37.5 MG Capsule PO (08:47)
[2019-07-28] MEDS: Folic Acid/Vitamin B Comp W-C 1 Capsule 1 CAP PO (08:48)
[2019-07-28] MEDS: SUCROFERRIC OXYHYDROXIDE 500 MG TAB.CHEW 1500 MG PO ×2 (08:48→16:19)
--- NOTE | 2019-07-28 10:02 | PN_ITS ---
Patient Problems: Active and Suspected Problems (Last Reviewed 07/15/19 @ 10:07 by Ailyn Olivera) Pneumonia (Acute) Sepsis (Acute) Hypoxia (Acute) Subjective: Patient did okay overnight. Patient continues to require high nasal cannula oxygen to maintain saturations. Patient did spike a fever overnight. Patient reports subjective improvement in overall condition. On my arrival, patient was sleeping and did have visible apneic events. - Physical Exam Vitals/I&O's: Vital Signs Temp Pulse Resp BP Pulse Ox 37.4 C H 91 20 H 137/76 H 92 07/28/19 08:45 07/28/19 08:45 07/28/19 08:45 07/28/19 08:45 07/28/19 08:45 Oxygen Flow Rate (L/min) [At 0 REST on Room Air] Oxygen Flow Rate (L/min) 5 Oxygen Delivery Method Nasal Cannula Weight: 122 kg Body Mass Index (BMI) 41.8 Finger Stick Blood Glucose 90 Intake and Output for Last 24 Hours 07/26/19 07/27/19 07/28/19 23:59 23:59 23:59 Intake Total 2425 / 2425 1450 / 1450 800 / 800 Output Total 6000 / 6000 Balance -3575 / -3575 1450 / 1450 800 / 800 General: Alert, Oriented x3, Cooperative, No apparent distress, - - Morbidly obese. Mild conversational dyspnea. HEENT: Atraumatic, PERRLA, EOMI, Normocephalic, - - No scleral icterus or injection noted Oral: Moist Mucosa, No Gingival or Mucosal Lesions/ Ulcerations Neck: Supple, No JVD, No Nodes, Trachea Midline Lungs: No rales, Rhonchi - Bilateral, Wheezes - Bilateral Cardiovascular: Regular rate, Regular Rhythm, Normal S1, Normal S2, No murmurs, No rub noted, No Gallop Abdomen: Bowel Sounds Present, Soft, Non Tender, Non-Distended, Obese Extremities: No clubbing, No cyanosis, Edema Skin: No rashes, No breakdown, - - Tunneled dialysis line is clean, dry and intact Musculoskeletal: No Tenderness to Palpation of Joints or Extremities Lymphatic: No Cervical, Supraclavicular, or Inguinal Adenopathy Neurological: Cranial nerves II-XII grossly intact, Neuro grossly intact, Motor Exam 5/5 strength throughout Psych/Mental Status: Appropriate, Flat Affect Microbiology Past 72 Hours 07/24/19 03:10 Sputum, Expectorated/Coughed Gram Stain - Final 07/24/19 03:10 Sputum, Expectorated/Coughed Respiratory Culture - Final Laboratory Results 07/26/19 05:00: Diff Path Review Reviewed 07/27/19 07:00: Phosphorus 5.1 H 07/27/19 11:30: POC Glucose 126 H 07/27/19 17:08: POC Glucose 80 07/27/19 21:30: POC Glucose 97 07/28/19 06:35: POC Glucose 109 07/28/19 06:45: WBC 1.9 L, RBC 2.90 L, Hgb 8.1 L, Hct 26.4 L, MCV 91.0, MCH 27.9, MCHC 30.7 L, RDW Std Deviation 57.4 H, RDW Coeff of Gurwinder 17.2 H, Plt Count 138 L, MPV 8.1, Immature Gran % (Auto) 1.000 H, Neut % (Auto) 81.2 H, Lymph % (Auto) 12.0 L, [place] % (Auto) 3.7, Eos % (Auto) 1.6, Baso % (Auto) 0.5, Absolute Neuts (auto) 1.6 L, Absolute Lymphs (auto) 0.23 L, Nucleated RBC % 0, Differential Comment COMMENT, Diff Path Review May foll 07/28/19 06:45: Sodium 131 L, Potassium 3.5, Chloride 93 L, Carbon Dioxide 27.0, Anion Gap 11, BUN 36 H, Creatinine 7.32 H, Estim Creat Clear Calc 10.77, Est GFR (MDRD) Af Amer 10 L, Est GFR (MDRD) Non-Af 8 L, BUN/Creatinine Ratio 4.9 L, Glucose 100, Calcium 8.5 Current Medications Acetaminophen (Tylenol) 650 mg PO Q6H PRN PRN PRN Reason: Pain Score 1-10/Temp > 100.7 F Last Admin: 07/27/19 20:31 Dose: 650 mg Documented by: Al Hydroxide/Mg Hydroxide (Mylanta Ii) 30 ml PO Q6H PRN PRN PRN Reason: Gastric Burning Albuterol Sulfate (Ventolin Aerosols) 2.5 mg INHALATION Q2H PRN PRN PRN Reason: Shortness of Breath/Wheezing Last Admin: 07/27/19 10:21 Dose: 2.5 mg Documented by: Albuterol/Ipratropium (Duoneb) 3 ml INHALATION Q4H.RT [facility] Last Admin: 07/28/19 07:19 Dose: 3 ml Documented by: Glucagon () 1 mg IM .X1 PRN PRN Reason: Hypoglycemia Guaifenesin (Robitussin) 20 ml PO Q4H PRN PRN PRN Reason: COUGH Heparin Sodium (Porcine) (Heparin Na) 5,000 unit SC Q12 [facility] Last Admin: 07/28/19 08:47 Dose: 5,000 unit Documented by: Heparin Sodium (Porcine) () 2,500 units IV UD PRN PRN Reason: Dialysis Cath Heparin Flush Hydralazine HCl (Apresoline Iv) 10 mg IV Q4H PRN PRN PRN Reason: SBP > 160 Dextrose (Dextrose 10%-Water) 250 mls @ 999 mls/hr IV .Q16M PRN; Protocol PRN Reason: HYPOGLYCEMIA Sodium Chloride () 250 mls @ 15 mls/hr IV .[id number] PRN PRN Reason: Saline Flush Last Infusion: 07/26/19 00:58 Dose: 0 mls/hr Documented by: Sodium Chloride () 250 mls @ 15 mls/hr IV .[id number] PRN PRN Reason: Additional IVPB Infusion Cefepime HCl 1 gm/ Sodium (Chloride) 50 mls @ 100 mls/hr IV Q24 [facility] Last Admin: 07/28/19 08:57 Dose: 100 mls/hr Documented by: Ibuprofen (Motrin) 600 mg PO Q8H PRN PRN PRN Reason: fever, pain 1-10 Last Admin: 07/27/19 21:30 Dose: 600 mg Documented by: Insulin Human Lispro (Humalog Kwikpen (Bkc)) 0 unit SC ACHS [facility]; Protocol Last Admin: 07/28/19 06:48 Dose: Not Given Documented by: Magnesium Hydroxide (Milk Of Magnesia) 30 ml PO DAILY PRN PRN PRN Reason: Constipation Melatonin (Melatonin) 3 mg PO QHS PRN PRN PRN Reason: INSOMNIA Metoprolol Tartrate (Lopressor (Beta Elizabeth)) 50 mg PO 1400 [facility] Last Admin: 02/18/20 14:06 Dose: 50 mg Documented by: Multivit/Ca Carb/B Cmplx/FA/Prenat (Nephrocaps, Renaphro) 1 capsule PO DAILY [facility] Last Admin: 07/28/19 08:48 Dose: 1 capsule Documented by: Nutritional Formula (Lactose Free) (Glucerna Shake) 120 ml PO 4X/DAY [facility] Last Admin: 07/28/19 08:48 Dose: Not Given Documented by: Ondansetron HCl (Zofran) 4 mg IV Q8H PRN PRN PRN Reason: NAUSEA/VOMITING Last Admin: 07/24/19 19:27 Dose: 4 mg Documented by: Prochlorperazine Edisylate (Compazine Iv) 5 mg IV Q4H PRN PRN PRN Reason: Breakthrough nausea/vomiting Psyllium Hydrophilic Mucilloid (Metamucil) 1 packet PO DAILY PRN PRN PRN Reason: Constipation Senna/Docusate Sodium (Senokot-S, Belia-Colace) 1 tablet PO DAILY [facility] Last Admin: 07/28/19 08:47 Dose: Not Given Documented by: Sodium Chloride () 10 - 40 ml IV UD PRN PRN Reason: SALINE FLUSH Last Admin: 07/27/19 09:16 Dose: 10 ml Documented by: Throat Lozenges (Cepacol Sore Throat Lozenge) 1 lozenge MUCOUS MEM Q2H PRN PRN PRN Reason: SORE THROAT Venlafaxine HCl (Effexor Xr) 37.5 mg PO DAILY [facility] Last Admin: 07/28/19 08:47 Dose: 37.5 mg Documented by: Medical Necessity - Tobacco Use Smoking Status: Former smoker Tobacco Use: Non-smoker Assessment/Plan All Active Problems (Last Reviewed 07/15/19 @ 10:07 by Ailyn Olivera) Pneumonia (Acute) Sepsis (Acute) Hypoxia (Acute) Cellulitis of left lower extremity (Acute) Sepsis (Acute) Problem with dialysis access (Acute) Skin abscess (Acute) Infected open wound (Acute) Decubitus ulcer of left heel, stage 2 (Acute) Debility (Acute) Abdominal wall abscess (Acute) Fever (Acute) Acute on chronic renal failure (Acute) RECOMMENDATIONS: 1. Continue empiric antibiotics per infectious disease 2. Agree with bronchodilators. PFT and PSG as an outpatient 3. Continue hemodialysis per nephrology 4. Walking oximetry prior to discharge 5. Transfuse for hemoglobin less than 7 6. Aggressive blood sugar control IMPRESSIONS: 1. Severe sepsis secondary to probable health care associated pneumonia Patient's findings on x-ray/CT are classic for pneumonia with mediastinal lymphadenopathy and high fevers. Patient currently with progressive leukopenia. Infectious diseases following. Await blood cultures as patient is not producing much sputum. Cannot exclude embolic phenomenon given basilar location on CT scan of the chest. Wean oxygen as tolerated. Walking oximetry prior to discharge. May initiate steroid therapy tomorrow if patient continues to have high oxygen demands. This will affect blood sugars if significantly 2. End-stage renal disease on hemodialysis Patient with maturing left upper arm fistula. Currently with tunnel catheter. Blood culture showed no growth to date. Continue with hemodialysis per nephrology recommendations. Consider volume removal with hemodialysis 3. 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 Blood sugars have been well controlled at this time. Cannot exclude the need for steroids from a respiratory standpoint and this will require change in diabetic medications. Okay to continue with other baseline medications. Patient does not appear to have abdominal symptoms at this time. Code Visit Inpatient E&M: 86053 [facility] Hosp L3
[2019-07-28] MEDS: Acetaminophen 325 MG Tablet 650 MG PO (11:33)
--- NOTE | 2019-07-28 11:41 | PN_ITS ---
Patient Problems: Active and Suspected Problems (Last Reviewed 07/15/19 @ 10:07 by Ailyn Olivera) Pneumonia (Acute) Sepsis (Acute) Hypoxia (Acute) Reason for Visit: Follow-up on pneumonia Subjective: Patient was seen and examined. having spikes of fever, progressively SOB, feels unwell, coughing. Seen before and after dialysis. He feels much improved after dialysis. Objective: Objective: Physical exam: General: Alert, Oriented x3, Cooperative, No apparent distress, - - Morbidly obese HEENT: Atraumatic, PERRLA, EOMI, Normocephalic Oral: Moist Mucosa Neck: Supple Lungs: Diminished at lung bases, coarse crackles, scattered wheezes Cardiovascular: Regular rate, Regular Rhythm, Normal S1, Normal S2, No murmurs Abdomen: Bowel Sounds Present, Soft, Non Tender, Non-Distended, No Hepato- splenomegaly Extremities: Bilateral edema +1 Skin: No rashes, No breakdown Musculoskeletal: No Tenderness to Palpation of Joints or Extremities Lymphatic: No Cervical, Supraclavicular, or Inguinal Adenopathy Neurological: Cranial nerves II-XII grossly intact, Neuro grossly intact Psych/Mental Status: Normal Affect, Appropriate Vitals/I&O's: Vital Signs Temp Pulse Resp BP Pulse Ox 99.3 F H 91 20 H 137/76 H 92 07/28/19 08:45 07/28/19 08:45 07/28/19 08:45 07/28/19 08:45 07/28/19 08:45 Oxygen Flow Rate (L/min) [At 0 REST on Room Air] Oxygen Flow Rate (L/min) 5 Oxygen Delivery Method Nasal Cannula Weight: 122 kg Body Mass Index (BMI) 41.8 Finger Stick Blood Glucose 90 Intake and Output for Last 24 Hours 07/26/19 07/27/19 07/28/19 23:59 23:59 23:59 Intake Total 2425 / 2425 1450 / 1450 850 / 850 Output Total 6000 / 6000 Balance -3575 / -3575 1450 / 1450 850 / 850 Microbiology Past 72 Hours 07/24/19 03:10 Sputum, Expectorated/Coughed Gram Stain - Final 07/24/19 03:10 Sputum, Expectorated/Coughed Respiratory Culture - Final Laboratory Results 07/26/19 05:00: Diff Path Review Reviewed 07/27/19 07:00: Phosphorus 5.1 H 07/27/19 17:08: POC Glucose 80 07/27/19 21:30: POC Glucose 97 07/28/19 06:35: POC Glucose 109 07/28/19 06:45: WBC 1.9 L, RBC 2.90 L, Hgb 8.1 L, Hct 26.4 L, MCV 91.0, MCH 27.9, MCHC 30.7 L, RDW Std Deviation 57.4 H, RDW Coeff of Gurwinder 17.2 H, Plt Count 138 L, MPV 8.1, Immature Gran % (Auto) 1.000 H, Neut % (Auto) 81.2 H, Lymph % (Auto) 12.0 L, [place] % (Auto) 3.7, Eos % (Auto) 1.6, Baso % (Auto) 0.5, Absolute Neuts (auto) 1.6 L, Absolute Lymphs (auto) 0.23 L, Nucleated RBC % 0, Differential Comment COMMENT, Diff Path Review October07/28/19 06:45: Sodium 131 L, Potassium 3.5, Chloride 93 L, Carbon Dioxide 27.0, Anion Gap 11, BUN 36 H, Creatinine 7.32 H, Estim Creat Clear Calc 10.77, Est GFR (MDRD) Af Amer 10 L, Est GFR (MDRD) Non-Af 8 L, BUN/Creatinine Ratio 4.9 L, Glucose 100, Calcium 8.5 Current Medications Acetaminophen (Tylenol) 650 mg PO Q6H PRN PRN PRN Reason: Pain Score 1-10/Temp > 100.7 F Last Admin: 07/28/19 11:33 Dose: 650 mg Documented by: Al Hydroxide/Mg Hydroxide (Mylanta Ii) 30 ml PO Q6H PRN PRN PRN Reason: Gastric Burning Albuterol Sulfate (Ventolin Aerosols) 2.5 mg INHALATION Q2H PRN PRN PRN Reason: Shortness of Breath/Wheezing Last Admin: 07/27/19 10:21 Dose: 2.5 mg Documented by: Albuterol/Ipratropium (Duoneb) 3 ml INHALATION Q4H.RT [facility] Last Admin: 07/28/19 07:19 Dose: 3 ml Documented by: Glucagon () 1 mg IM .X1 PRN PRN Reason: Hypoglycemia Guaifenesin (Robitussin) 20 ml PO Q4H PRN PRN PRN Reason: COUGH Heparin Sodium (Porcine) (Heparin Na) 5,000 unit SC Q12 [facility] Last Admin: 07/28/19 08:47 Dose: 5,000 unit Documented by: Heparin Sodium (Porcine) () 2,500 units IV UD PRN PRN Reason: Dialysis Cath Heparin Flush Hydralazine HCl (Apresoline Iv) 10 mg IV Q4H PRN PRN PRN Reason: SBP > 160 Dextrose (Dextrose 10%-Water) 250 mls @ 999 mls/hr IV .Q16M PRN; Protocol PRN Reason: HYPOGLYCEMIA Sodium Chloride () 250 mls @ 15 mls/hr IV .[id number] PRN PRN Reason: Saline Flush Last Infusion: 07/28/19 10:27 Dose: 15 mls/hr Documented by: Sodium Chloride () 250 mls @ 15 mls/hr IV .[id number] PRN PRN Reason: Additional IVPB Infusion Cefepime HCl 1 gm/ Sodium (Chloride) 50 mls @ 100 mls/hr IV Q24 [facility] Last Infusion: 07/28/19 09:27 Dose: Infused Documented by: Ibuprofen (Motrin) 600 mg PO Q8H PRN PRN PRN Reason: fever, pain 1-10 Last Admin: 07/27/19 21:30 Dose: 600 mg Documented by: Insulin Human Lispro (Humalog Kwikpen (Bkc)) 0 unit SC ACHS [facility]; Protocol Last Admin: 07/28/19 11:32 Dose: Not Given Documented by: Magnesium Hydroxide (Milk Of Magnesia) 30 ml PO DAILY PRN PRN PRN Reason: Constipation Melatonin (Melatonin) 3 mg PO QHS PRN PRN PRN Reason: INSOMNIA Metoprolol Tartrate (Lopressor (Beta Elizabeth)) 50 mg PO 1400 [facility] Last Admin: 07/27/19 14:06 Dose: 50 mg Documented by: Multivit/Ca Carb/B Cmplx/FA/Prenat (Nephrocaps, Renaphro) 1 capsule PO DAILY [facility] Last Admin: 07/28/19 08:48 Dose: 1 capsule Documented by: Nutritional Formula (Lactose Free) (Glucerna Shake) 120 ml PO 4X/DAY [facility] Last Admin: 07/28/19 08:48 Dose: Not Given Documented by: Ondansetron HCl (Zofran) 4 mg IV Q8H PRN PRN PRN Reason: NAUSEA/VOMITING Last Admin: 07/24/19 19:27 Dose: 4 mg Documented by: Prochlorperazine Edisylate (Compazine Iv) 5 mg IV Q4H PRN PRN PRN Reason: Breakthrough nausea/vomiting Psyllium Hydrophilic Mucilloid (Metamucil) 1 packet PO DAILY PRN PRN PRN Reason: Constipation Senna/Docusate Sodium (Senokot-S, Belia-Colace) 1 tablet PO DAILY [facility] Last Admin: 07/28/19 08:47 Dose: Not Given Documented by: Sodium Chloride () 10 - 40 ml IV UD PRN PRN Reason: SALINE FLUSH Last Admin: 07/27/19 09:16 Dose: 10 ml Documented by: Throat Lozenges (Cepacol Sore Throat Lozenge) 1 lozenge MUCOUS MEM Q2H PRN PRN PRN Reason: SORE THROAT Venlafaxine HCl (Effexor Xr) 37.5 mg PO DAILY [facility] Last Admin: 07/28/19 08:47 Dose: 37.5 mg Documented by: STROKE Vital Signs/Narrative: Vital Signs Temp Pulse Resp BP Pulse Ox 07/28/19 08:45 99.3 F H 91 20 H 137/76 H 92 Medical Necessity - Tobacco Use Smoking Status: Former smoker Tobacco Use: Non-smoker Assessment/Plan All Active Problems (Last Reviewed 07/15/19 @ 10:07 by Ailyn Olivera) Pneumonia (Acute) Sepsis (Acute) Hypoxia (Acute) Cellulitis of left lower extremity (Acute) Sepsis (Acute) Problem with dialysis access (Acute) Skin abscess (Acute) Infected open wound (Acute) Decubitus ulcer of left heel, stage 2 (Acute) Debility (Acute) Abdominal wall abscess (Acute) Fever (Acute) Acute on chronic renal failure (Acute) 1. Sepsis secondary to pneumonia, remains leucopenic/pancytopenic Remains febrile, T max 102.5F, continue on Cefepime after dialysis Sputum cultures showed mixed respiratory shiva, respiratory panel negative, urine Legionella and streptococcal antigen negative, blood cultures are pending If fever persists, will repeat chest CT 2. Anemia of CKD, status post 1 unit packed RBC, stable will consult hematology for pancytopenia 3. ESRD on hemodialysis, status post tunneled dialysis catheter, on HD 4. Hypoxia secondary to #1, worsening, likely related to fluid overload; >4L fluid taken during dialysis No h/o COPD/Asthma. Will try empiric IV steroids Will continue on oxygen, encourage use of incentive spirometer, breathing treatments 5. 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 Anxiety/depression, continue on Effexor 7. DVT ppx- Heparin SC Code Visit Inpatient E&M: [id number] Subs Hosp L2
[2019-07-28 11:50] LABS: Bedside Glucose 139 mg/dL (70-110)
[2019-07-28 12:30] LABS: Pathologist Review Reviewed
[2019-07-28] MEDS: Ibuprofen 600 MG Tablet PO (14:02)
--- NOTE | 2019-07-28 14:06 | PN.RENAL_ITS ---
Patient Problems: Active and Suspected Problems (Last Reviewed 07/15/19 @ 10:07 by Ailyn Olivera) Pneumonia (Acute) Sepsis (Acute) Hypoxia (Acute) Subjective: seen on dialysis, remains SOB, wheezing, coughing. - Physical Exam Vitals/I&O's: Vital Signs Temp Pulse Resp BP Pulse Ox 100.4 F H 94 22 H 113/60 94 07/28/19 11:30 07/28/19 11:30 07/28/19 11:30 07/28/19 11:30 07/28/19 11:30 Oxygen Flow Rate (L/min) [At 0 REST on Room Air] Oxygen Flow Rate (L/min) 5 Oxygen Delivery Method Nasal Cannula Weight: 122 kg Body Mass Index (BMI) 41.8 Finger Stick Blood Glucose 90 Intake and Output for Last 24 Hours 07/26/19 07/27/19 07/28/19 23:59 23:59 23:59 Intake Total 2425 / 2425 1450 / 1450 1050 / 1050 Output Total 6000 / 6000 Balance -3575 / -3575 1450 / 1450 1050 / 1050 General: Alert, Oriented x3, Cooperative Lungs: Rhonchi, Wheezes, - - moist cough Cardiovascular: Regular rate Extremities: No edema Psych/Mental Status: Alert and oriented to time, place, person, mood and affect Microbiology Past 72 Hours 07/24/19 03:10 Sputum, Expectorated/Coughed Gram Stain - Final 07/24/19 03:10 Sputum, Expectorated/Coughed Respiratory Culture - Final Laboratory Results 07/26/19 05:00: Diff Path Review Reviewed 07/27/19 07:00: Diff Path Review Reviewed 07/27/19 07:00: Phosphorus 5.1 H 07/27/19 17:08: POC Glucose 80 07/27/19 21:30: POC Glucose 97 07/28/19 06:35: POC Glucose 109 07/28/19 06:45: WBC 1.9 L, RBC 2.90 L, Hgb 8.1 L, Hct 26.4 L, MCV 91.0, MCH 27.9, MCHC 30.7 L, RDW Std Deviation 57.4 H, RDW Coeff of Gurwinder 17.2 H, Plt Count 138 L, MPV 8.1, Immature Gran % (Auto) 1.000 H, Neut % (Auto) 81.2 H, Lymph % (Auto) 12.0 L, [place] % (Auto) 3.7, Eos % (Auto) 1.6, Baso % (Auto) 0.5, Absolute Neuts (auto) 1.6 L, Absolute Lymphs (auto) 0.23 L, Nucleated RBC % 0, Differential Comment COMMENT, Diff Path Review October07/28/19 06:45: Sodium 131 L, Potassium 3.5, Chloride 93 L, Carbon Dioxide 27.0, Anion Gap 11, BUN 36 H, Creatinine 7.32 H, Estim Creat Clear Calc 10.77, Est GFR (MDRD) Af Amer 10 L, Est GFR (MDRD) Non-Af 8 L, BUN/Creatinine Ratio 4.9 L, Glucose 100, Calcium 8.5 07/28/19 11:30: POC Glucose 139 H Current Medications Acetaminophen (Tylenol) 650 mg PO Q6H PRN PRN PRN Reason: Pain Score 1-10/Temp > 100.7 F Last Admin: 07/28/19 11:33 Dose: 650 mg Documented by: Al Hydroxide/Mg Hydroxide (Mylanta Ii) 30 ml PO Q6H PRN PRN PRN Reason: Gastric Burning Albuterol Sulfate (Ventolin Aerosols) 2.5 mg INHALATION Q2H PRN PRN PRN Reason: Shortness of Breath/Wheezing Last Admin: 07/27/19 10:21 Dose: 2.5 mg Documented by: Albuterol/Ipratropium (Duoneb) 3 ml INHALATION Q4H.RT [facility] Last Admin: 07/28/19 07:19 Dose: 3 ml Documented by: Glucagon () 1 mg IM .X1 PRN PRN Reason: Hypoglycemia Guaifenesin (Robitussin) 20 ml PO Q4H PRN PRN PRN Reason: COUGH Heparin Sodium (Porcine) (Heparin Na) 5,000 unit SC Q12 [facility] Last Admin: 07/28/19 08:47 Dose: 5,000 unit Documented by: Heparin Sodium (Porcine) () 2,500 units IV UD PRN PRN Reason: Dialysis Cath Heparin Flush Hydralazine HCl (Apresoline Iv) 10 mg IV Q4H PRN PRN PRN Reason: SBP > 160 Dextrose (Dextrose 10%-Water) 250 mls @ 999 mls/hr IV .Q16M PRN; Protocol PRN Reason: HYPOGLYCEMIA Sodium Chloride () 250 mls @ 15 mls/hr IV .[id number] PRN PRN Reason: Saline Flush Last Infusion: 07/28/19 10:27 Dose: 15 mls/hr Documented by: Sodium Chloride () 250 mls @ 15 mls/hr IV .[id number] PRN PRN Reason: Additional IVPB Infusion Meropenem 500 mg/ Sodium (Chloride) 60 mls @ 100 mls/hr IV Q24 [facility] Ibuprofen (Motrin) 600 mg PO Q8H PRN PRN PRN Reason: fever, pain 1-10 Last Admin: 07/28/19 14:02 Dose: 600 mg Documented by: Insulin Human Lispro (Humalog Kwikpen (Bkc)) 0 unit SC ACHS [facility]; Protocol Last Admin: 07/28/19 11:32 Dose: Not Given Documented by: Magnesium Hydroxide (Milk Of Magnesia) 30 ml PO DAILY PRN PRN PRN Reason: Constipation Melatonin (Melatonin) 3 mg PO QHS PRN PRN PRN Reason: INSOMNIA Methylprednisolone (Solu-Medrol) 40 mg IV Q8 [facility] Last Admin: 07/28/19 13:56 Dose: 40 mg Documented by: Metoprolol Tartrate (Lopressor (Beta Elizabeth)) 50 mg PO 1400 [facility] Last Admin: 07/27/19 14:06 Dose: 50 mg Documented by: Multivit/Ca Carb/B Cmplx/FA/Prenat (Nephrocaps, Renaphro) 1 capsule PO DAILY [facility] Last Admin: 07/28/19 08:48 Dose: 1 capsule Documented by: Nutritional Formula (Lactose Free) (Glucerna Shake) 120 ml PO 4X/DAY [facility] Last Admin: 07/28/19 13:24 Dose: Not Given Documented by: Ondansetron HCl (Zofran) 4 mg IV Q8H PRN PRN PRN Reason: NAUSEA/VOMITING Last Admin: 07/24/19 19:27 Dose: 4 mg Documented by: Prochlorperazine Edisylate (Compazine Iv) 5 mg IV Q4H PRN PRN PRN Reason: Breakthrough nausea/vomiting Psyllium Hydrophilic Mucilloid (Metamucil) 1 packet PO DAILY PRN PRN PRN Reason: Constipation Senna/Docusate Sodium (Senokot-S, Belia-Colace) 1 tablet PO DAILY [facility] Last Admin: 07/28/19 08:47 Dose: Not Given Documented by: Sodium Chloride () 10 - 40 ml IV UD PRN PRN Reason: SALINE FLUSH Last Admin: 07/27/19 09:16 Dose: 10 ml Documented by: Throat Lozenges (Cepacol Sore Throat Lozenge) 1 lozenge MUCOUS MEM Q2H PRN PRN PRN Reason: SORE THROAT Venlafaxine HCl (Effexor Xr) 37.5 mg PO DAILY [facility] Last Admin: 07/28/19 08:47 Dose: 37.5 mg Documented by: Medical Necessity - Tobacco Use Smoking Status: Former smoker Tobacco Use: Non-smoker Assessment/Plan All Active Problems (Last Reviewed 07/15/19 @ 10:07 by Ailyn Olivera) Pneumonia (Acute) Sepsis (Acute) Hypoxia (Acute) Cellulitis of left lower extremity (Acute) Sepsis (Acute) Problem with dialysis access (Acute) Skin abscess (Acute) Infected open wound (Acute) Decubitus ulcer of left heel, stage 2 (Acute) Debility (Acute) Abdominal wall abscess (Acute) Fever (Acute) Acute on chronic renal failure (Acute) 1. ESRD HD MWF. Seen on dialysis Fluid removal as tolerated 2. Anemia EPO with dialysis 3. Acute pneumonia IV antibiotics dosed accordingly. Cefepime 2 g after each dialysis for 2 more doses per ID. Requiring oxygen with diffuse wheeze. Consider iv steroids 4. DM type II primary service management 5. 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 Morbid obesity Discussed with hospitalist
[2019-07-28] MEDS: Epoetin Alfa epbx 10,000 UNITS/ML 7400 UNIT IV (14:23)
[2019-07-28 15:10] LABS: Pathologist Review Reviewed
[2019-07-28] MEDS: Metoprolol Tartrate 50 MG Tablet PO (15:23)
--- NOTE | 2019-07-28 15:42 | DIALYSIS ---
Pt tolerated 4hr HD tx well. Net Uf -4400ml. Good slope with crit line, refill noted. Post weight 117.6kg. See flow record for tx data.
[2019-07-28 16:25] LABS: Bedside Glucose 120 mg/dL (70-110)
--- NOTE | 2019-07-28 16:48 | PN.ID_ITS ---
Patient Problems: Active and Suspected Problems (Last Reviewed 07/15/19 @ 10:07 by Ailyn Olivera) Pneumonia (Acute) Sepsis (Acute) Hypoxia (Acute) Subjective: Fever last night, breathing worse, no sputum. Still cough. - Physical Exam Vitals/I&O's: Vital Signs Temp Pulse Resp BP Pulse Ox 99.8 F H 94 20 H 109/63 96 07/28/19 15:20 07/28/19 15:30 07/28/19 15:20 07/28/19 15:20 07/28/19 15:20 Oxygen Flow Rate (L/min) [At 0 REST on Room Air] Oxygen Flow Rate (L/min) 5 Oxygen Delivery Method Nasal Cannula Weight: 122 kg Body Mass Index (BMI) 41.8 Finger Stick Blood Glucose 90 Intake and Output for Last 24 Hours 07/26/19 07/27/19 07/28/19 23:59 23:59 23:59 Intake Total 2425 / 2425 1450 / 1450 1174 / 1174 Output Total 6000 / 6000 8800 / 8800 Balance -3575 / -3575 1450 / 1450 -7626 / -7626 General: Alert, Cooperative, No apparent distress Lungs: Rhonchi, Wheezes Cardiovascular: Regular rate, Regular Rhythm Abdomen: Soft, Non Tender, Non-Distended Skin: No rashes Microbiology Past 72 Hours 07/24/19 03:10 Sputum, Expectorated/Coughed Gram Stain - Final 07/24/19 03:10 Sputum, Expectorated/Coughed Respiratory Culture - Final Laboratory Results 07/27/19 07:00: Diff Path Review Reviewed 07/27/19 07:00: Phosphorus 5.1 H 07/27/19 17:08: POC Glucose 80 07/27/19 21:30: POC Glucose 97 07/28/19 06:35: POC Glucose 109 07/28/19 06:45: WBC 1.9 L, RBC 2.90 L, Hgb 8.1 L, Hct 26.4 L, MCV 91.0, MCH 27.9, MCHC 30.7 L, RDW Std Deviation 57.4 H, RDW Coeff of Gurwinder 17.2 H, Plt Count 138 L, MPV 8.1, Immature Gran % (Auto) 1.000 H, Neut % (Auto) 81.2 H, Lymph % (Auto) 12.0 L, [place] % (Auto) 3.7, Eos % (Auto) 1.6, Baso % (Auto) 0.5, Absolute Neuts (auto) 1.6 L, Absolute Lymphs (auto) 0.23 L, Nucleated RBC % 0, Differential Comment COMMENT, Diff Path Review Reviewed 07/28/19 06:45: Sodium 131 L, Potassium 3.5, Chloride 93 L, Carbon Dioxide 27.0, Anion Gap 11, BUN 36 H, Creatinine 7.32 H, Estim Creat Clear Calc 10.77, Est GFR (MDRD) Af Amer 10 L, Est GFR (MDRD) Non-Af 8 L, BUN/Creatinine Ratio 4.9 L, Glucose 100, Calcium 8.5 07/28/19 11:30: POC Glucose 139 H 07/28/19 16:17: POC Glucose 120 H Current Medications Acetaminophen (Tylenol) 650 mg PO Q6H PRN PRN PRN Reason: Pain Score 1-10/Temp > 100.7 F Last Admin: 07/28/19 11:33 Dose: 650 mg Documented by: Al Hydroxide/Mg Hydroxide (Mylanta Ii) 30 ml PO Q6H PRN PRN PRN Reason: Gastric Burning Albuterol Sulfate (Ventolin Aerosols) 2.5 mg INHALATION Q2H PRN PRN PRN Reason: Shortness of Breath/Wheezing Last Admin: 07/27/19 10:21 Dose: 2.5 mg Documented by: Albuterol/Ipratropium (Duoneb) 3 ml INHALATION Q4H.RT [facility] Last Admin: 07/28/19 15:09 Dose: 3 ml Documented by: Glucagon () 1 mg IM .X1 PRN PRN Reason: Hypoglycemia Guaifenesin (Robitussin) 20 ml PO Q4H PRN PRN PRN Reason: COUGH Heparin Sodium (Porcine) (Heparin Na) 5,000 unit SC Q12 [facility] Last Admin: 07/28/19 08:47 Dose: 5,000 unit Documented by: Heparin Sodium (Porcine) () 2,500 units IV UD PRN PRN Reason: Dialysis Cath Heparin Flush Hydralazine HCl (Apresoline Iv) 10 mg IV Q4H PRN PRN PRN Reason: SBP > 160 Dextrose (Dextrose 10%-Water) 250 mls @ 999 mls/hr IV .Q16M PRN; Protocol PRN Reason: HYPOGLYCEMIA Sodium Chloride () 250 mls @ 15 mls/hr IV .[id number] PRN PRN Reason: Saline Flush Last Infusion: 07/28/19 16:25 Dose: 0 mls/hr Documented by: Sodium Chloride () 250 mls @ 15 mls/hr IV .[id number] PRN PRN Reason: Additional IVPB Infusion Meropenem 500 mg/ Sodium (Chloride) 60 mls @ 100 mls/hr IV Q24 [facility] Last Infusion: 07/28/19 15:57 Dose: Infused Documented by: Ibuprofen (Motrin) 600 mg PO Q8H PRN PRN PRN Reason: fever, pain 1-10 Last Admin: 07/28/19 14:02 Dose: 600 mg Documented by: Insulin Human Lispro (Humalog Kwikpen (Bkc)) 0 unit SC ACHS [facility]; Protocol Last Admin: 07/28/19 16:18 Dose: Not Given Documented by: Magnesium Hydroxide (Milk Of Magnesia) 30 ml PO DAILY PRN PRN PRN Reason: Constipation Melatonin (Melatonin) 3 mg PO QHS PRN PRN PRN Reason: INSOMNIA Methylprednisolone (Solu-Medrol) 40 mg IV Q8 [facility] Last Admin: 07/28/19 13:56 Dose: 40 mg Documented by: Metoprolol Tartrate (Lopressor (Beta Elizabeth)) 50 mg PO 1400 [facility] Last Admin: 07/28/19 15:23 Dose: 50 mg Documented by: Multivit/Ca Carb/B Cmplx/FA/Prenat (Nephrocaps, Renaphro) 1 capsule PO DAILY [facility] Last Admin: 07/28/19 08:48 Dose: 1 capsule Documented by: Nutritional Formula (Lactose Free) (Glucerna Shake) 120 ml PO 4X/DAY [facility] Last Admin: 07/28/19 15:24 Dose: Not Given Documented by: Ondansetron HCl (Zofran) 4 mg IV Q8H PRN PRN PRN Reason: NAUSEA/VOMITING Last Admin: 07/24/19 19:27 Dose: 4 mg Documented by: Prochlorperazine Edisylate (Compazine Iv) 5 mg IV Q4H PRN PRN PRN Reason: Breakthrough nausea/vomiting Psyllium Hydrophilic Mucilloid (Metamucil) 1 packet PO DAILY PRN PRN PRN Reason: Constipation Senna/Docusate Sodium (Senokot-S, Belia-Colace) 1 tablet PO DAILY [facility] Last Admin: 07/28/19 08:47 Dose: Not Given Documented by: Sodium Chloride () 10 - 40 ml IV UD PRN PRN Reason: SALINE FLUSH Last Admin: 07/27/19 09:16 Dose: 10 ml Documented by: Throat Lozenges (Cepacol Sore Throat Lozenge) 1 lozenge MUCOUS MEM Q2H PRN PRN PRN Reason: SORE THROAT Venlafaxine HCl (Effexor Xr) 37.5 mg PO DAILY [facility] Last Admin: 07/28/19 08:47 Dose: 37.5 mg Documented by: Medical Necessity - Tobacco Use Smoking Status: Former smoker Tobacco Use: Non-smoker Route of nutrition/ use of supplements: [] Nutritional Intake: [] IV Site: [] Alexander Catheter: [] - Assessment/Plan Antibiotics: [] Assessment/Plan: [] Active and Suspected Problems (Last Reviewed 07/15/19 @ 10:07 by Ailyn Olivera) Pneumonia (Acute) Sepsis (Acute) Hypoxia (Acute) sepsis due to CAP with ESRD - Not producing sputum. Resp viral panel neg. Fever worsened, lung exam worse today. Pulm following. Will change cefepime back to meropenem. Will follow
[2019-07-28] MEDS: 0.9% Saline Lock 10 ML Syringe IV (21:51)
[2019-07-28] MEDS: Insulin Lispro 100 UNIT/ML INSULN.PEN SC (21:57)
[2019-07-28 23:11] LABS: Bedside Glucose 293 mg/dL (70-110)
[2019-07-29] VITALS (17 sets, daily range): BP systolic 127–136; BP diastolic 71–82; PULSE 82–98; RESP 18–24; TEMP 36.8–37.2; O2SAT 92–96
[2019-07-29] MEDS: Ibuprofen 600 MG Tablet PO (02:17)
--- NOTE | 2019-07-29 02:29 | NURSING ---
pt using IS and pep doesnt want breathing treatments through night
[2019-07-29] MEDS: 0.9% Saline Lock 10 ML Syringe IV ×4 (05:06→20:35)
[2019-07-29] MEDS: Insulin Lispro 100 UNIT/ML INSULN.PEN SC ×4 (06:20→20:36)
[2019-07-29 06:35] LABS: Bedside Glucose 228 mg/dL (70-110)
[2019-07-29 06:50] LABS: Absolute Lymphocyte Count 0.17 X10^3/uL (0.83-4.51); Absolute Neutrophil Count 1.9 X10^3/uL (2.0-7.7); Basophil# 0.01 X10^3/uL; Basophil% 0.5 % (0-1); Hematocrit 29.5 % (40-54); Hemoglobin 9.1 g/dL (13.0-16.5); Lymphocyte # 0.17 X10^3/ul (4.0); Lymphocyte % 7.9 % (19-41); Mean Corp Hgb Conc 30.8 g/dL (32-36); Mean Corpuscular Hgb 27.7 pg (27.0-32.0); Mean Corpuscular Volume 89.7 fL (80-94); Mean Platelet Vol. 8.8 fl (6.2-12.0); Monocyte# 0.06 X10^3/uL; Monocyte% 2.8 % (0-10); NRBC Flagged by Analyzer 0 % (0-5); Neutrophil # 1.87 X10^3/uL (2.7-7.7); Neutrophil % 86.9 % (47-70); POSITIVE DIFFERENTIAL YES; POSITIVE MORPHOLOGY YES; Platelet Count 170 K/mm3 (150-450); RBC Distribution Width CV 17.2 % (11.6-14.6); RBC Distribution Width SD 56.1 fl (35.1-43.9); Red Blood Count 3.29 M/mm3 (4.6-6.2); White Blood Count 2.2 K/mm3 (4.4-11.0)
[2019-07-29 07:09] LABS: Differential Indicated SCAN CRITERIA MET
[2019-07-29 07:16] LABS: Anion Gap 9 (5-15); BUN 30 mg/dL (7-18); Chloride 97 mmol/L (98-107); Creatinine, Serum 6.01 mg/dL (0.70-1.30); EST Glomerular Filtration Rate 10 mL/min (>60); Est Glom Filt Rate - Afr Amer 13 mL/min (>60); Estimated Creatinine Clearance 13.12 ml/min; Glucose 240 mg/dL (74-106); Potassium 4.2 mmol/L (3.5-5.1); Sodium Level 132 mmol/L (136-145)
[2019-07-29] MEDS: Ipratropium/Albuterol Sulfate 3 ML AMPUL.NEB INHALATION ×5 (07:18→23:26)
[2019-07-29 07:55] LABS: Reactive Lymphocyte RARE
--- NOTE | 2019-07-29 08:01 | PCM.PN.HOSP ---
Patient Problems: Active and Suspected Problems (Last Reviewed 07/15/19 @ 10:07 by Ailyn Olivera) Pneumonia (Acute) Sepsis (Acute) Hypoxia (Acute) Reason for Visit: Follow-up on respiratory failure/pneumonia Subjective: Patient was seen and examined. fever has improved, he feels a little better. Remains on 5 L of oxygen. Objective: Physical exam: General: Alert, Oriented x3, Cooperative, No apparent distress, - - Morbidly obese, on 5L oxygen HEENT: Atraumatic, PERRLA, EOMI, Normocephalic Oral: Moist Mucosa Neck: Supple Lungs: Diminished at lung bases, coarse crackles, scattered wheezes Cardiovascular: Regular rate, Regular Rhythm, Normal S1, Normal S2, No murmurs Abdomen: Bowel Sounds Present, Soft, Non Tender, Non-Distended, No Hepato-splenomegaly Extremities: Bilateral edema +1 Skin: No rashes, No breakdown Musculoskeletal: No Tenderness to Palpation of Joints or Extremities Lymphatic: No Cervical, Supraclavicular, or Inguinal Adenopathy Neurological: Cranial nerves II-XII grossly intact, Neuro grossly intact Psych/Mental Status: Normal Affect, Appropriate Vitals/I&O's: Vital Signs Temp Pulse Resp BP Pulse Ox 99 F 85 22 H 131/82 H 92 07/29/19 02:20 07/29/19 07:18 07/29/19 07:18 07/29/19 02:20 07/29/19 07:18 Oxygen Flow Rate (L/min) [At 0 REST on Room Air] Oxygen Flow Rate (L/min) 5 Oxygen Delivery Method Nasal Cannula Weight: 123.3 kg Body Mass Index (BMI) 41.8 Finger Stick Blood Glucose 90 Intake and Output for Last 24 Hours 07/27/19 07/28/19 07/29/19 23:59 23:59 23:59 Intake Total 1450 / 1450 1534 / 1534 300 / 300 Output Total 8800 / 8800 Balance 1450 / 1450 -7266 / -7266 300 / 300 Microbiology Past 72 Hours 07/24/19 03:10 Sputum, Expectorated/Coughed Gram Stain - Final 07/24/19 03:10 Sputum, Expectorated/Coughed Respiratory Culture - Final Laboratory Results 07/27/19 07:00: Diff Path Review Reviewed 07/28/19 06:45: Diff Path Review Reviewed 07/28/19 11:30: POC Glucose 139 H 07/28/19 16:17: POC Glucose 120 H 07/28/19 21:49: POC Glucose 293 H 07/29/19 06:20: POC Glucose 228 H 07/29/19 06:32: WBC 2.2 L, RBC 3.29 L, Hgb 9.1 L, Hct 29.5 L, MCV 89.7, MCH 27.7, MCHC 30.8 L, RDW Std Deviation 56.1 H, RDW Coeff of Gurwinder 17.2 H, Plt Count 170, MPV 8.8, Immature Gran % (Auto) 1.900 H, Neut % (Auto) 86.9 H, Lymph % (Auto) 7.9 L, [place] % (Auto) 2.8, Eos % (Auto) 0.0, Baso % (Auto) 0.5, Absolute Neuts (auto) 1.9 L, Absolute Lymphs (auto) 0.17 L, Nucleated RBC % 0, Differential Comment , Diff Path Review May foll, Reactive Lymphocytes RARE 07/29/19 06:32: Sodium 132 L, Potassium 4.2, Chloride 97 L, Carbon Dioxide 26.0, Anion Gap 9, BUN 30 H, Creatinine 6.01 H, Estim Creat Clear Calc 13.12, Est GFR (MDRD) Af Amer 13 L, Est GFR (MDRD) Non-Af 10 L, BUN/Creatinine Ratio 5.0 L, Glucose 240 H, Calcium 9.0 Current Medications Acetaminophen (Tylenol) 650 mg PO Q6H PRN PRN PRN Reason: Pain Score 1-10/Temp > 100.7 F Last Admin: 07/28/19 11:33 Dose: 650 mg Documented by: Al Hydroxide/Mg Hydroxide (Mylanta Ii) 30 ml PO Q6H PRN PRN PRN Reason: Gastric Burning Albuterol Sulfate (Ventolin Aerosols) 2.5 mg INHALATION Q2H PRN PRN PRN Reason: Shortness of Breath/Wheezing Last Admin: 07/27/19 10:21 Dose: 2.5 mg Documented by: Albuterol/Ipratropium (Duoneb) 3 ml INHALATION Q4H.RT [facility] Last Admin: 07/29/19 07:18 Dose: 3 ml Documented by: Glucagon () 1 mg IM .X1 PRN PRN Reason: Hypoglycemia Guaifenesin (Robitussin) 20 ml PO Q4H PRN PRN PRN Reason: COUGH Heparin Sodium (Porcine) (Heparin Na) 5,000 unit SC Q12 [facility] Last Admin: 07/28/19 21:51 Dose: 5,000 unit Documented by: Heparin Sodium (Porcine) () 2,500 units IV UD PRN PRN Reason: Dialysis Cath Heparin Flush Hydralazine HCl (Apresoline Iv) 10 mg IV Q4H PRN PRN PRN Reason: SBP > 160 Dextrose (Dextrose 10%-Water) 250 mls @ 999 mls/hr IV .Q16M PRN; Protocol PRN Reason: HYPOGLYCEMIA Sodium Chloride () 250 mls @ 15 mls/hr IV .[id number] PRN PRN Reason: Saline Flush Last Infusion: 07/28/19 16:25 Dose: 0 mls/hr Documented by: Sodium Chloride () 250 mls @ 15 mls/hr IV .[id number] PRN PRN Reason: Additional IVPB Infusion Meropenem 500 mg/ Sodium (Chloride) 60 mls @ 100 mls/hr IV Q24 [facility] Last Infusion: 07/28/19 15:57 Dose: Infused Documented by: Ibuprofen (Motrin) 600 mg PO Q8H PRN PRN PRN Reason: fever, pain 1-10 Last Admin: 07/29/19 02:17 Dose: 600 mg Documented by: Insulin Human Lispro (Humalog Kwikpen (Bkc)) 0 unit SC ACHS [facility]; Protocol Last Admin: 07/29/19 06:20 Dose: 2 units Documented by: Magnesium Hydroxide (Milk Of Magnesia) 30 ml PO DAILY PRN PRN PRN Reason: Constipation Melatonin (Melatonin) 3 mg PO QHS PRN PRN PRN Reason: INSOMNIA Methylprednisolone (Solu-Medrol) 40 mg IV Q8 [facility] Last Admin: 07/29/19 05:06 Dose: 40 mg Documented by: Metoprolol Tartrate (Lopressor (Beta Elizabeth)) 50 mg PO 1400 [facility] Last Admin: 07/28/19 15:23 Dose: 50 mg Documented by: Multivit/Ca Carb/B Cmplx/FA/Prenat (Nephrocaps, Renaphro) 1 capsule PO DAILY [facility] Last Admin: 07/28/19 08:48 Dose: 1 capsule Documented by: Nutritional Formula (Lactose Free) (Glucerna Shake) 120 ml PO 4X/DAY [facility] Last Admin: 07/28/19 21:35 Dose: Not Given Documented by: Ondansetron HCl (Zofran) 4 mg IV Q8H PRN PRN PRN Reason: NAUSEA/VOMITING Last Admin: 07/24/19 19:27 Dose: 4 mg Documented by: Prochlorperazine Edisylate (Compazine Iv) 5 mg IV Q4H PRN PRN PRN Reason: Breakthrough nausea/vomiting Psyllium Hydrophilic Mucilloid (Metamucil) 1 packet PO DAILY PRN PRN PRN Reason: Constipation Senna/Docusate Sodium (Senokot-S, Belia-Colace) 1 tablet PO DAILY [facility] Last Admin: 07/28/19 08:47 Dose: Not Given Documented by: Sodium Chloride () 10 - 40 ml IV UD PRN PRN Reason: SALINE FLUSH Last Admin: 07/29/19 05:06 Dose: 10 ml Documented by: Throat Lozenges (Cepacol Sore Throat Lozenge) 1 lozenge MUCOUS MEM Q2H PRN PRN PRN Reason: SORE THROAT Venlafaxine HCl (Effexor Xr) 37.5 mg PO DAILY [facility] Last Admin: 07/28/19 08:47 Dose: 37.5 mg Documented by: STROKE Vital Signs/Narrative: Vital Signs Pulse Resp Pulse Ox 07/29/19 07:18 85 22 H 92 Medical Necessity - Tobacco Use Smoking Status: Former smoker Tobacco Use: Non-smoker Assessment/Plan All Active Problems (Last Reviewed 07/15/19 @ 10:07 by Ailyn Olivera) Pancytopenia (Acute) Pneumonia (Acute) Sepsis (Acute) Hypoxia (Acute) Cellulitis of left lower extremity (Acute) Sepsis (Acute) Problem with dialysis access (Acute) Skin abscess (Acute) Infected open wound (Acute) Decubitus ulcer of left heel, stage 2 (Acute) Debility (Acute) Abdominal wall abscess (Acute) Fever (Acute) Acute on chronic renal failure (Acute) 1. Sepsis secondary to pneumonia, remains mildly improved, fevers improved Continue on meropenem, will obtain CT scan of the chest in a.m. Sputum cultures showed mixed respiratory shiva, respiratory panel negative, urine Legionella and streptococcal antigen negative, blood cultures are pending 2. Anemia of CKD, status post 1 unit packed RBC, stable 3. ESRD on hemodialysis, status post tunneled dialysis catheter, on HD 4. Hypoxia secondary to #1, remains the same likely secondary to pneumonia versus fluid overload versus bronchitis No h/o COPD/Asthma. Continue on IV steroids Will continue on oxygen, encourage use of incentive spirometer, breathing treatments 5. 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 Anxiety/depression, continue on Effexor 7. DVT ppx- Heparin SC Code Visit Inpatient E&M: 20565 Subs Hosp L2
[2019-07-29] MEDS: SUCROFERRIC OXYHYDROXIDE 500 MG TAB.CHEW 1500 MG PO ×3 (08:15→16:50)
[2019-07-29] MEDS: Venlafaxine XR 37.5 MG Capsule PO (08:16)
[2019-07-29] MEDS: Folic Acid/Vitamin B Comp W-C 1 Capsule 1 CAP PO (08:16)
[2019-07-29] MEDS: Heparin Injection (Vial) 5,000 UNIT/ML VIAL 5000 UNIT SC ×2 (08:18→20:35)
--- NOTE | 2019-07-29 09:55 | CON.PCM_ITS ---
- Problem List (1) Pancytopenia Status: Acute Consult Referring Physician: Hospitalist Consult Results: Acute pancytopenia complicating sepsis Subjective Date of Service:: 07/29/19 Chief Complaint: Shortness of breath History of Present Illness: 59-year-old male with multiple chronic medical problems including complicated diabetes, end-stage renal disease on hemodialysis, residual neuropathy from Monica Hensley?, dyslipidemia, morbid obesity, atherosclerotic arterial disease. Presents with acute sepsis and pneumonia. Patient has underlying chronic anemia secondary to end-stage renal disease and developed an acute pancytopenia. 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) Murmur, cardiac (Chronic) Chronic anemia (Chronic) Chronic kidney disease, stage III (moderate) (Chronic) Type 2 diabetes mellitus (Chronic) Hypertension (Chronic) Past Medical/Surgical History: Past Medical History - Most Recent Inpatient Visit Past Medical History Start: 07/23/19 21:10 Text: Status: Complete Freq: ONCE Protocol: Document 07/23/19 22:23 BRODY (Rec: 07/23/19 22:27 MACARENA [id number]) BMI Required to complete PMH What is Patient's BMI 41.9 Past Medical History Unable History Recalled No Query Text:Pt Unable/Family Not Present Neurologic Medical History Hx Stroke/TIA No Hx Dementia/Alzheimer's No Hx Parkinson's Disease No Hx Seizures No Hx Multiple Sclerosis No Hx Migraines No Comments Guillian [place] Cardiac Medical History VTE Present on Admission No Hx of Deep Vein Thrombosis/VTE/PE No Hx Hypertension Yes: states controlled with med Hx Chest Pain/Angina No Hx Heart Attack No Hx Cardiac Surgery/Stents/Etc. No Hx Heart Failure No Hx Pacemaker/AICD No Hx Irregular Heartbeat and/or Afib No Hx Anticoagulant Therapy No Query Text:(Coumadin, Aspirin, Plavix, Xarelto, etc.) Hx Pain in Legs when Walking/Leg Cramps No Comments murmur Respiratory Medical History Hx COPD No Hx Emphysema No Hx Smoking Yes Smoking Status Former smoker Tobacco Use Non-smoker Years Smoking 40 Packs Smoked per Day 1 Hx Smoking Cessation Date 06/09/19 Hx Tobacco Use in last 12 months Yes Sent to [facility] Yes Hx of Pipe Smoking No Hx of Cigar Smoking Yes Hx Sleep Apnea No: suspects diagnosis, but never tested CPAP No BIPAP No Do you snore loudly (louder than talking Yes or can be heard through closed doors)? Do you often feel tired/ fatigued/ Yes sleepy during daytime? Has anyone observed you stop breathing Yes during sleep? STOP Results Positive GI Medical History Hx Ulcer No Hx Hepatitis No Hx Cirrhosis No Hx GI Bleed No Hx Unplanned Weight Loss No Genitourinary Medical History Indwelling Catheter in Place on Arrival/ No Admission Hx Renal Disease Yes: End Stage Renal Disease Hx Dialysis Yes: MOWEFR HD Musculoskeletal History Hx Arthritis No Hx Rheumatoid Arthritis No Endocrine Medical History Hx Diabetes Yes Hx Thyroid Disease No Hematologic Medical History Hx of Blood Transfusion No Hx of Transfusion in last 3 Months No Ever experience any problems with No transfusion(s)? Hx of Preganancy in last 3 Months N/A Nurse Filling Out Transfusion & JGLASS Questions: Date: 07/23/19 Time: 22:26 Psycho/Social Medical History Hx Depression Yes Hx Anxiety Yes Hx Behavior Disorder No Hx Alcohol Use No Hx Substance Use No Other Medical History Hx Blood Disorders No Hx Anemia Yes Hx Cancer No Hx Drug Resistant Organism No Wound/Pressure Injury Present on Arrival No /Admission Query Text:If yes, chart assessment in Shift/Clinical Findings Central Line/PICC/VAD Present on Arrival No /Admission Antibiotics within last 7 days? 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) Decubitus ulcer of left heel, stage 2 (Acute) Debility (Acute) Murmur, cardiac (Chronic) Acute on chronic renal failure (Acute) Chronic anemia (Chronic) Type 2 diabetes mellitus (Chronic) Hypertension (Chronic) Past Surgical History (Last Updated 07/15/19 @ 10:09 by Ailyn Olivera) S/P arteriovenous (AV) fistula creation (Acute) history of insertion of peritoneal dialysis cath (Acute) Offspring Family History: - - Endocarditis Paternal Family History: Diabetes - ESRD , Heart Disease, Hypertension, - - kidney disease Maternal Family History: - - Patient notes his mother is very healthy, no history of heart disease, diabetes or cancer. - Social History Lives: Spouse/ Significant Other Smoking Status: Former smoker Tobacco Use: Non-smoker Alcohol: None Drugs: None Allergies/Adverse Reactions: Allergy/AdvReac Type Severity Reaction Status Date / Time No Known Allergies Allergy Verified 07/15/19 10:07 Review of Systems Constitutional:: Reports: Weakness, Fatigue. Denies: Fever, Sweats, Weight loss, Appetite change, Chills Cardiovascular:: Reports: Ankle swelling, Dyspnea on exertion, Peripheral edema, Shortness of breath. Denies: Chest pain, Palpitations, Orthopnea, PND Respiratory: Reports: Cough, Shortness of Breath, Shortness of breath upon exertion. Denies: Hemoptysis, Wheezing Gastrointestinal:: Denies: Abdominal pain, Nausea, Vomiting, Diarrhea, Constipation, Hematochezia Genitourinary: Denies: Dysuria, Hematuria, 15, Flank pain Musculoskeletal:: Denies: Back pain, Myalgia, Arthralgia Skin: Reports: Wounds. Denies: Rash, Skin Changes Neurological:: Reports: Paresthesias - chronic neuropathy due to diabetes and Residual from Guillain-Hensley?. Denies: Headache, Dizziness, Visual changes, Tinnitus, Hearing loss Psychiatric: Denies: Anxiety, Depression, Homicidal Ideations, Suicidal Ideations Vital Signs Height 5 ft 8 in Weight: 123.3 kg Weight in Pounds 271.8 lbs Pulse Ox [At REST on Room Air] 82 Pulse Ox 94 Temperature 98.6 F Pulse Rate 91 Respiratory Rate 20 Blood Pressure [BP] 131/72 Blood Pressure 132/73 Blood Pressure Position [BP] Sitting Blood Pressure Position Sitting - Physical Exam General: Alert, Oriented x3, - - Morbidly obese, on oxygen, ECOG 3 HEENT: Atraumatic, PERRLA, EOMI, Normocephalic Oropharynx:: Dry mucosa Neck:: Supple, Trachea midline. Negative for: JVD, bilateral Cardiac:: Regular rate, Regular rhythm, Normal S1, Normal S2, Murmur Lungs: Diminished, Excusion symmetrical. Negative for: Rhonchi, Wheezes Abdomen:: Soft, Non-tender, Non-distended Extremities:: Edema, Diminished peripheral pulses, - - Left wrist AV fistula. Negative for: Cyanosis Neurological: - - No lateralization, moderately impaired touch in glove and stocking's distribution Skin:: Negative for: Lesions, Rash, Petechiae, Ecchymosis Psychiatric:: Appropriate affect, Euthymic Lymphatics:: Negative for: Cervical lymphadenopathy, Supraclavicular lymphadenopathy, Axillary lymphadenopathy Laboratory Data: Microbiology 07/24/19 03:10 Gram Stain - Final Sputum, Expectorated/Coughed Respiratory Culture - Final Laboratory Tests 07/29/19 07/29/19 07/29/19 Range/Units 06:32 06:32 06:20 WBC 2.2 L (4.4-11.0) K/mm3 RBC 3.29 L (4.6-6.2) M/mm3 Hgb 9.1 L (13.0-16.5) g/dL Hct 29.5 L (40-54) % MCV 89.7 (80-94) fL MCH 27.7 (27.0-32.0) pg MCHC 30.8 L (32-36) g/dL RDW Std Deviation 56.1 H (35.1-43.9) fl RDW Coeff of Gurwinder 17.2 H (11.6-14.6) % Plt Count 170 (150-450) K/mm3 MPV 8.8 (6.2-12.0) fl Immature Gran % (Auto) 1.900 H (0.0-0.9) % Neut % (Auto) 86.9 H (47-70) % Lymph % (Auto) 7.9 L (19-41) % [place] % (Auto) 2.8 (0-10) % Eos % (Auto) 0.0 (0-5) % Baso % (Auto) 0.5 (0-1) % Absolute Neuts (auto) 1.9 L (2.0-7.7) X10^3/uL Absolute Lymphs (auto) 0.17 L (0.83-4.51) X10^3/uL Nucleated RBC % 0 (0-5) % Differential Comment Diff Path Review May foll Reactive Lymphocytes RARE Sodium 132 L (136-145) mmol/L Potassium 4.2 (3.5-5.1) mmol/L Chloride 97 L (98-107) mmol/L Carbon Dioxide 26.0 (21.0-32.0) mmol/L Anion Gap 9 (5-15) BUN 30 H (7-18) mg/dL Creatinine 6.01 H (0.70-1.30) mg/dL Estim Creat Clear Calc 13.12 ml/min Est GFR (MDRD) Af Amer 13 L (>60) mL/min Est GFR (MDRD) Non-Af 10 L (>60) mL/min BUN/Creatinine Ratio 5.0 L (10-20) RATIO Glucose 240 H (74-106) mg/dL Calcium 9.0 (8.5-10.1) mg/dL POC Glucose 228 H (70-110) mg/dL Laboratory Tests 06/14/19 07/01/19 07/24/19 05:15 10:35 05:32 WBC 7.0 4.0 L Hgb 8.3 L 7.9 L Plt Count 248 173 Absolute Neuts (auto) 15.3 H 3.3 07/28/19 07/29/19 06:45 06:32 WBC 1.9 L 2.2 L Hgb 8.1 L 9.1 L Plt Count 138 L 170 Absolute Neuts (auto) 1.6 L 1.9 L Diagnostic Data: Diagnostic Data Chest CT 07/25/19 17:35 IMPRESSION: Bilateral airspace disease, effusions, and probable reactive lymphadenopathy. Mitral valve disease, coronary artery disease and cardiomegaly. 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 His pancytopenia is consistent with bone marrow suppression in the course of severe infection and sepsis. Initial worsening then some improvement as of today July 29, 2019. Recommendations from hematology: 1. Continued medical treatment of sepsis, pneumonia and other chronic medical diseases. 2. Check for any deficiencies of B12 and/or iron, supplement if needed. 3. We will follow-up 1 month after discharge and recovery from acute illness. Impression and plan discussed with patient. Gasper Washington MD [employer], [facility] Divisions of Medical Oncology & Hematology Department of Internal Medicine [place] [id number] This note was generated using a voice recognition system software. Although it was reviewed by the author prior to finalization, it may still contain incorrect words, spelling, and punctuation that were not noted when reviewing prior to saving. If a clinically significant typo or inaccurately typed phrase is noted, please notify the author. Primary Care Provider: Gildardo Trejo MD Referring Provider: Love Gomez MD
[2019-07-29 10:53] LABS: Ferritin 6372 ng/mL (26-388); Iron 26 ug/dL (65-175); Iron Binding Capacity,Total 186 ug/dL (250-450)
[2019-07-29 12:17] LABS: Vitamin B12 > 2000 pg/mL (211-911)
[2019-07-29 12:21] LABS: Bedside Glucose 332 mg/dL (70-110)
[2019-07-29 12:27] LABS: Pathologist Review Reviewed
[2019-07-29] MEDS: Metoprolol Tartrate 50 MG Tablet PO (13:46)
--- NOTE | 2019-07-29 14:24 | PN_ITS ---
Patient Problems: Active and Suspected Problems (Last Reviewed 07/15/19 @ 10:07 by Ailyn Olivera) Pneumonia (Acute) Sepsis (Acute) Hypoxia (Acute) Subjective: Patient states he feels subjectively unchanged compared to previous. Patient continues to have a cough that is wet but not coming out. No pain is reported. - Physical Exam Vitals/I&O's: Vital Signs Temp Pulse Resp BP Pulse Ox 36.8 C 98 20 H 136/74 H 96 07/29/19 14:11 07/29/19 14:11 07/29/19 14:11 07/29/19 14:11 07/29/19 14:11 Oxygen Flow Rate (L/min) [At 0 REST on Room Air] Oxygen Flow Rate (L/min) 4 Oxygen Delivery Method Nasal Cannula Weight: 123.3 kg Body Mass Index (BMI) 41.8 Finger Stick Blood Glucose 90 Intake and Output for Last 24 Hours 07/27/19 07/28/19 07/29/19 23:59 23:59 23:59 Intake Total 1450 / 1450 1534 / 1534 564.25 / 564.25 Output Total 8800 / 8800 Balance 1450 / 1450 -7266 / -7266 564.25 / 564.25 General: Alert, Oriented x3, Cooperative, No apparent distress, - - Morbidly obese. No conversational dyspnea. HEENT: Atraumatic, PERRLA, EOMI, Normocephalic, - - Slight icterus without injection Oral: Moist Mucosa, No Gingival or Mucosal Lesions/ Ulcerations Neck: Supple, No JVD, No Nodes, Trachea Midline Lungs: Diminished - Air exchange continues to improve, Rhonchi, Wheezes Cardiovascular: Regular rate, Regular Rhythm, Normal S1, Normal S2, No murmurs, No rub noted, No Gallop Abdomen: Bowel Sounds Present, Soft, Non Tender, Non-Distended Extremities: No clubbing, No cyanosis, Edema Skin: - - No change compared to previous Musculoskeletal: No Tenderness to Palpation of Joints or Extremities Lymphatic: No Cervical, Supraclavicular, or Inguinal Adenopathy Neurological: Cranial nerves II-XII grossly intact, Neuro grossly intact, Motor Exam 5/5 strength throughout Psych/Mental Status: Alert and oriented to time, place, person, mood and affect Microbiology Past 72 Hours 07/24/19 22:00 Blood Culture (Wb) - Right Hand Blood Culture - Preliminary No growth in 48 hours. 07/24/19 19:35 Blood Culture (Wb) - Right Hand Blood Culture - Preliminary No growth in 48 hours. 07/24/19 03:10 Sputum, Expectorated/Coughed Gram Stain - Final 07/24/19 03:10 Sputum, Expectorated/Coughed Respiratory Culture - Final Laboratory Results 07/25/19 10:00: Transferrin Pending 07/28/19 06:45: Diff Path Review Reviewed 07/28/19 16:17: POC Glucose 120 H 07/28/19 21:49: POC Glucose 293 H 07/29/19 06:20: POC Glucose 228 H 07/29/19 06:32: WBC 2.2 L, RBC 3.29 L, Hgb 9.1 L, Hct 29.5 L, MCV 89.7, MCH 27.7, MCHC 30.8 L, RDW Std Deviation 56.1 H, RDW Coeff of Gurwinder 17.2 H, Plt Count 170, MPV 8.8, Immature Gran % (Auto) 1.900 H, Neut % (Auto) 86.9 H, Lymph % (Auto) 7.9 L, [place] % (Auto) 2.8, Eos % (Auto) 0.0, Baso % (Auto) 0.5, Absolute Neuts (auto) 1.9 L, Absolute Lymphs (auto) 0.17 L, Nucleated RBC % 0, Differential Comment , Diff Path Review Reviewed, Reactive Lymphocytes RARE 07/29/19 06:32: Sodium 132 L, Potassium 4.2, Chloride 97 L, Carbon Dioxide 26.0, Anion Gap 9, BUN 30 H, Creatinine 6.01 H, Estim Creat Clear Calc 13.12, Est GFR (MDRD) Af Amer 13 L, Est GFR (MDRD) Non-Af 10 L, BUN/Creatinine Ratio 5.0 L, Glucose 240 H, Calcium 9.0 07/29/19 06:32: Vitamin B12 > 2000 H 07/29/19 06:32: Iron 26 L, TIBC 186 L, Iron Saturation 14.0 L, Ferritin 6372 H, Folate 19.70 07/29/19 11:53: POC Glucose 332 H Current Medications Acetaminophen (Tylenol) 650 mg PO Q6H PRN PRN PRN Reason: Pain Score 1-10/Temp > 100.7 F Last Admin: 07/28/19 11:33 Dose: 650 mg Documented by: Al Hydroxide/Mg Hydroxide (Mylanta Ii) 30 ml PO Q6H PRN PRN PRN Reason: Gastric Burning Albuterol Sulfate (Ventolin Aerosols) 2.5 mg INHALATION Q2H PRN PRN PRN Reason: Shortness of Breath/Wheezing Last Admin: 07/27/19 10:21 Dose: 2.5 mg Documented by: Albuterol/Ipratropium (Duoneb) 3 ml INHALATION Q4H.RT YVES Last Admin: 07/29/19 10:46 Dose: 3 ml Documented by: Glucagon () 1 mg IM .X1 PRN PRN Reason: Hypoglycemia Guaifenesin (Robitussin) 20 ml PO Q4H PRN PRN PRN Reason: COUGH Heparin Sodium (Porcine) (Heparin Na) 5,000 unit SC Q12 [facility] Last Admin: 07/29/19 08:18 Dose: 5,000 unit Documented by: Heparin Sodium (Porcine) () 2,500 units IV UD PRN PRN Reason: Dialysis Cath Heparin Flush Hydralazine HCl (Apresoline Iv) 10 mg IV Q4H PRN PRN PRN Reason: SBP > 160 Dextrose (Dextrose 10%-Water) 250 mls @ 999 mls/hr IV .Q16M PRN; Protocol PRN Reason: HYPOGLYCEMIA Sodium Chloride () 250 mls @ 15 mls/hr IV .[id number] PRN PRN Reason: Saline Flush Last Infusion: 07/29/19 11:30 Dose: 0 mls/hr Documented by: Sodium Chloride () 250 mls @ 15 mls/hr IV .[id number] PRN PRN Reason: Additional IVPB Infusion Meropenem 500 mg/ Sodium (Chloride) 60 mls @ 100 mls/hr IV Q24 [facility] Last Infusion: 07/29/19 11:13 Dose: Infused Documented by: Iron Sucrose 300 mg/ Sodium (Chloride) 265 mls @ 177 mls/hr IV X1 ONE Stop: 07/29/19 14:49 Last Admin: 07/29/19 13:46 Dose: 177 mls/hr Documented by: Ibuprofen (Motrin) 600 mg PO Q8H PRN PRN PRN Reason: fever, pain 1-10 Last Admin: 07/29/19 02:17 Dose: 600 mg Documented by: Insulin Human Lispro (Humalog Kwikpen (Bkc)) 0 unit SC [facility]; Protocol Last Admin: 07/29/19 11:56 Dose: 5 units Documented by: Magnesium Hydroxide (Milk Of Magnesia) 30 ml PO DAILY PRN PRN PRN Reason: Constipation Melatonin (Melatonin) 3 mg PO QHS PRN PRN PRN Reason: INSOMNIA Methylprednisolone (Solu-Medrol) 40 mg IV Q8 [facility] Last Admin: 07/29/19 13:46 Dose: 40 mg Documented by: Metoprolol Tartrate (Lopressor (Beta Elizabeth)) 50 mg PO 1400 [facility] Last Admin: 07/29/19 13:46 Dose: 50 mg Documented by: Multivit/Ca Carb/B Cmplx/FA/Prenat (Nephrocaps, Renaphro) 1 capsule PO DAILY [facility] Last Admin: 07/29/19 08:16 Dose: 1 capsule Documented by: Nutritional Formula (Lactose Free) (Glucerna Shake) 120 ml PO 4X/DAY [facility] Last Admin: 07/29/19 13:44 Dose: Not Given Documented by: Ondansetron HCl (Zofran) 4 mg IV Q8H PRN PRN PRN Reason: NAUSEA/VOMITING Last Admin: 07/24/19 19:27 Dose: 4 mg Documented by: Prochlorperazine Edisylate (Compazine Iv) 5 mg IV Q4H PRN PRN PRN Reason: Breakthrough nausea/vomiting Psyllium Hydrophilic Mucilloid (Metamucil) 1 packet PO DAILY PRN PRN PRN Reason: Constipation Senna/Docusate Sodium (Senokot-S, Belia-Colace) 1 tablet PO DAILY [facility] Last Admin: 07/29/19 08:17 Dose: Not Given Documented by: Sodium Chloride () 10 - 40 ml IV UD PRN PRN Reason: SALINE FLUSH Last Admin: 07/29/19 13:46 Dose: 10 ml Documented by: Throat Lozenges (Cepacol Sore Throat Lozenge) 1 lozenge MUCOUS MEM Q2H PRN PRN PRN Reason: SORE THROAT Venlafaxine HCl (Effexor Xr) 37.5 mg PO DAILY [facility] Last Admin: 07/29/19 08:16 Dose: 37.5 mg Documented by: Medical Necessity - Tobacco Use Smoking Status: Former smoker Tobacco Use: Non-smoker Assessment/Plan All Active Problems (Last Reviewed 07/15/19 @ 10:07 by Ailyn Olivera) Pancytopenia (Acute) Pneumonia (Acute) Sepsis (Acute) Hypoxia (Acute) Cellulitis of left lower extremity (Acute) Sepsis (Acute) Problem with dialysis access (Acute) Skin abscess (Acute) Infected open wound (Acute) Decubitus ulcer of left heel, stage 2 (Acute) Debility (Acute) Abdominal wall abscess (Acute) Fever (Acute) Acute on chronic renal failure (Acute) RECOMMENDATIONS: 1. Continue empiric antibiotics per infectious disease 2. Agree with bronchodilators. PFT and PSG as an outpatient 3. Continue hemodialysis per nephrology 4. Walking oximetry prior to discharge 5. Transfuse for hemoglobin less than 7 6. Aggressive blood sugar control IMPRESSIONS: 1. Severe sepsis secondary to probable health care associated pneumonia Patient's findings on x-ray/CT are classic for pneumonia with mediastinal lymphadenopathy and high fevers. Patient currently with progressive leukopenia. Infectious diseases following. Patient continues to slowly improve. No fever over the last 24 hours and oxygen continues to improve. Will attempt to continue to hold off on steroid therapy given improvement in oxygenation. 2. End-stage renal disease on hemodialysis Patient with maturing left upper arm fistula. Currently with tunnel catheter. Blood culture showed no growth to date. Continue with hemodialysis per nephrology recommendations. Consider volume removal with hemodialysis 3. 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 Blood sugars have been well controlled at this time. Cannot exclude the need for steroids from a respiratory standpoint and this will require change in diabetic medications. Okay to continue with other baseline medications. Patient does not appear to have abdominal symptoms at this time. Code Visit Inpatient E&M: 41352 Subs Hosp L2
--- NOTE | 2019-07-29 15:04 | PN.ID_ITS ---
Patient Problems: Active and Suspected Problems (Last Reviewed 07/15/19 @ 10:07 by Ailyn Olivera) Pneumonia (Acute) Sepsis (Acute) Hypoxia (Acute) Subjective: Fever improved, breathing better, still on O2. No sputum. No n/v/d. - Physical Exam Vitals/I&O's: Vital Signs Temp Pulse Resp BP Pulse Ox 98.2 F 98 20 H 136/74 H 96 07/29/19 14:11 07/29/19 14:11 07/29/19 14:11 07/29/19 14:11 07/29/19 14:11 Oxygen Flow Rate (L/min) [At 0 REST on Room Air] Oxygen Flow Rate (L/min) 4 Oxygen Delivery Method Nasal Cannula Weight: 123.3 kg Body Mass Index (BMI) 41.8 Finger Stick Blood Glucose 90 Intake and Output for Last 24 Hours 07/27/19 07/28/19 07/29/19 23:59 23:59 23:59 Intake Total 1450 / 1450 1534 / 1534 564.25 / 564.25 Output Total 8800 / 8800 Balance 1450 / 1450 -7266 / -7266 564.25 / 564.25 General: Alert, Cooperative, No apparent distress Lungs: Rhonchi, Wheezes Cardiovascular: Regular rate, Regular Rhythm Abdomen: Soft, Non Tender, Non-Distended Skin: No rashes Microbiology Past 72 Hours 07/24/19 22:00 Blood Culture (Wb) - Right Hand Blood Culture - Preliminary No growth in 48 hours. 07/24/19 19:35 Blood Culture (Wb) - Right Hand Blood Culture - Preliminary No growth in 48 hours. 07/24/19 03:10 Sputum, Expectorated/Coughed Gram Stain - Final 07/24/19 03:10 Sputum, Expectorated/Coughed Respiratory Culture - Final Laboratory Results 07/25/19 10:00: Transferrin Pending 07/28/19 06:45: Diff Path Review Reviewed 07/28/19 16:17: POC Glucose 120 H 07/28/19 21:49: POC Glucose 293 H 07/29/19 06:20: POC Glucose 228 H 07/29/19 06:32: WBC 2.2 L, RBC 3.29 L, Hgb 9.1 L, Hct 29.5 L, MCV 89.7, MCH 27.7, MCHC 30.8 L, RDW Std Deviation 56.1 H, RDW Coeff of Gurwinder 17.2 H, Plt Count 170, MPV 8.8, Immature Gran % (Auto) 1.900 H, Neut % (Auto) 86.9 H, Lymph % (Auto) 7.9 L, [place] % (Auto) 2.8, Eos % (Auto) 0.0, Baso % (Auto) 0.5, Absolute Neuts (auto) 1.9 L, Absolute Lymphs (auto) 0.17 L, Nucleated RBC % 0, Differential Comment , Diff Path Review Reviewed, Reactive Lymphocytes RARE 07/29/19 06:32: Sodium 132 L, Potassium 4.2, Chloride 97 L, Carbon Dioxide 26.0, Anion Gap 9, BUN 30 H, Creatinine 6.01 H, Estim Creat Clear Calc 13.12, Est GFR (MDRD) Af Amer 13 L, Est GFR (MDRD) Non-Af 10 L, BUN/Creatinine Ratio 5.0 L, Glucose 240 H, Calcium 9.0 07/29/19 06:32: Vitamin B12 > 2000 H 07/29/19 06:32: Iron 26 L, TIBC 186 L, Iron Saturation 14.0 L, Ferritin 6372 H, Folate 19.70 07/29/19 11:53: POC Glucose 332 H Current Medications Acetaminophen (Tylenol) 650 mg PO Q6H PRN PRN PRN Reason: Pain Score 1-10/Temp > 100.7 F Last Admin: 07/28/19 11:33 Dose: 650 mg Documented by: Al Hydroxide/Mg Hydroxide (Mylanta Ii) 30 ml PO Q6H PRN PRN PRN Reason: Gastric Burning Albuterol Sulfate (Ventolin Aerosols) 2.5 mg INHALATION Q2H PRN PRN PRN Reason: Shortness of Breath/Wheezing Last Admin: 07/27/19 10:21 Dose: 2.5 mg Documented by: Albuterol/Ipratropium (Duoneb) 3 ml INHALATION Q4H.RT YVES Last Admin: 07/29/19 14:58 Dose: 3 ml Documented by: Glucagon () 1 mg IM .X1 PRN PRN Reason: Hypoglycemia Guaifenesin (Robitussin) 20 ml PO Q4H PRN PRN PRN Reason: COUGH Heparin Sodium (Porcine) (Heparin Na) 5,000 unit SC Q12 [facility] Last Admin: 07/29/19 08:18 Dose: 5,000 unit Documented by: Heparin Sodium (Porcine) () 2,500 units IV UD PRN PRN Reason: Dialysis Cath Heparin Flush Hydralazine HCl (Apresoline Iv) 10 mg IV Q4H PRN PRN PRN Reason: SBP > 160 Dextrose (Dextrose 10%-Water) 250 mls @ 999 mls/hr IV .Q16M PRN; Protocol PRN Reason: HYPOGLYCEMIA Sodium Chloride () 250 mls @ 15 mls/hr IV .[id number] PRN PRN Reason: Saline Flush Last Infusion: 07/29/19 11:30 Dose: 0 mls/hr Documented by: Sodium Chloride () 250 mls @ 15 mls/hr IV .[id number] PRN PRN Reason: Additional IVPB Infusion Meropenem 500 mg/ Sodium (Chloride) 60 mls @ 100 mls/hr IV Q24 [facility] Last Infusion: 07/29/19 11:13 Dose: Infused Documented by: Ibuprofen (Motrin) 600 mg PO Q8H PRN PRN PRN Reason: fever, pain 1-10 Last Admin: 07/29/19 02:17 Dose: 600 mg Documented by: Insulin Human Lispro (Humalog Kwikpen (Bkc)) 0 unit SC ACHS [facility]; Protocol Last Admin: 07/29/19 11:56 Dose: 5 units Documented by: Magnesium Hydroxide (Milk Of Magnesia) 30 ml PO DAILY PRN PRN PRN Reason: Constipation Melatonin (Melatonin) 3 mg PO QHS PRN PRN PRN Reason: INSOMNIA Methylprednisolone (Solu-Medrol) 40 mg IV Q8 [facility] Last Admin: 07/29/19 13:46 Dose: 40 mg Documented by: Metoprolol Tartrate (Lopressor (Beta Elizabeth)) 50 mg PO 1400 [facility] Last Admin: 07/29/19 13:46 Dose: 50 mg Documented by: Multivit/Ca Carb/B Cmplx/FA/Prenat (Nephrocaps, Renaphro) 1 capsule PO DAILY [facility] Last Admin: 07/29/19 08:16 Dose: 1 capsule Documented by: Ondansetron HCl (Zofran) 4 mg IV Q8H PRN PRN PRN Reason: NAUSEA/VOMITING Last Admin: 07/24/19 19:27 Dose: 4 mg Documented by: Prochlorperazine Edisylate (Compazine Iv) 5 mg IV Q4H PRN PRN PRN Reason: Breakthrough nausea/vomiting Psyllium Hydrophilic Mucilloid (Metamucil) 1 packet PO DAILY PRN PRN PRN Reason: Constipation Senna/Docusate Sodium (Senokot-S, Belia-Colace) 1 tablet PO DAILY [facility] Last Admin: 07/29/19 08:17 Dose: Not Given Documented by: Sodium Chloride () 10 - 40 ml IV UD PRN PRN Reason: SALINE FLUSH Last Admin: 07/29/19 13:46 Dose: 10 ml Documented by: Throat Lozenges (Cepacol Sore Throat Lozenge) 1 lozenge MUCOUS MEM Q2H PRN PRN PRN Reason: SORE THROAT Venlafaxine HCl (Effexor Xr) 37.5 mg PO DAILY [facility] Last Admin: 07/29/19 08:16 Dose: 37.5 mg Documented by: Medical Necessity - Tobacco Use Smoking Status: Former smoker Tobacco Use: Non-smoker Route of nutrition/ use of supplements: [] Nutritional Intake: [] IV Site: [] Alexander Catheter: [] - Assessment/Plan Antibiotics: [] Assessment/Plan: [] Active and Suspected Problems (Last Reviewed 07/15/19 @ 10:07 by Ailyn Olivera) Pneumonia (Acute) Sepsis (Acute) Hypoxia (Acute) sepsis due to CAP with ESRD - Not producing sputum. Resp viral panel neg. Pulm following. 07/28 changed cefepime back to meropenem, now fever improved and feeling better. Will follow
--- NOTE | 2019-07-29 15:41 | PN.RENAL_ITS ---
Patient Problems: Active and Suspected Problems (Last Reviewed 07/15/19 @ 10:07 by Ailyn Olivera) Pneumonia (Acute) Sepsis (Acute) Hypoxia (Acute) Subjective: Still with cough, wheeze. Started on IV steroid therapy. Next dialysis tomorrow. Will continue to challenge fluid removal as tolerated. - Physical Exam Vitals/I&O's: Vital Signs Temp Pulse Resp BP Pulse Ox 98.2 F 82 18 136/74 H 96 07/29/19 14:11 07/29/19 14:35 07/29/19 14:35 07/29/19 14:11 07/29/19 14:11 Oxygen Flow Rate (L/min) [At 0 REST on Room Air] Oxygen Flow Rate (L/min) 4 Oxygen Delivery Method Nasal Cannula Weight: 123.3 kg Body Mass Index (BMI) 41.8 Finger Stick Blood Glucose 90 Intake and Output for Last 24 Hours 07/27/19 07/28/19 07/29/19 23:59 23:59 23:59 Intake Total 1450 / 1450 1534 / 1534 564.25 / 564.25 Output Total 8800 / 8800 Balance 1450 / 1450 -7266 / -7266 564.25 / 564.25 General: Alert, Oriented x3, Cooperative Lungs: Rhonchi, Wheezes Cardiovascular: Regular rate Abdomen: Bowel Sounds Present, Soft, Non Tender, Obese Extremities: No edema Psych/Mental Status: Alert and oriented to time, place, person, mood and affect Microbiology Past 72 Hours 07/24/19 22:00 Blood Culture (Wb) - Right Hand Blood Culture - Preliminary No growth in 48 hours. 07/24/19 19:35 Blood Culture (Wb) - Right Hand Blood Culture - Preliminary No growth in 48 hours. 07/24/19 03:10 Sputum, Expectorated/Coughed Gram Stain - Final 07/24/19 03:10 Sputum, Expectorated/Coughed Respiratory Culture - Final Laboratory Results 07/25/19 10:00: Transferrin Pending 07/28/19 16:17: POC Glucose 120 H 07/28/19 21:49: POC Glucose 293 H 07/29/19 06:20: POC Glucose 228 H 07/29/19 06:32: WBC 2.2 L, RBC 3.29 L, Hgb 9.1 L, Hct 29.5 L, MCV 89.7, MCH 27.7, MCHC 30.8 L, RDW Std Deviation 56.1 H, RDW Coeff of Gurwinder 17.2 H, Plt Count 170, MPV 8.8, Immature Gran % (Auto) 1.900 H, Neut % (Auto) 86.9 H, Lymph % (Auto) 7.9 L, [place] % (Auto) 2.8, Eos % (Auto) 0.0, Baso % (Auto) 0.5, Absolute Neuts (auto) 1.9 L, Absolute Lymphs (auto) 0.17 L, Nucleated RBC % 0, Differential Comment , Diff Path Review Reviewed, Reactive Lymphocytes RARE 07/29/19 06:32: Sodium 132 L, Potassium 4.2, Chloride 97 L, Carbon Dioxide 26.0, Anion Gap 9, BUN 30 H, Creatinine 6.01 H, Estim Creat Clear Calc 13.12, Est GFR (MDRD) Af Amer 13 L, Est GFR (MDRD) Non-Af 10 L, BUN/Creatinine Ratio 5.0 L, Glucose 240 H, Calcium 9.0 07/29/19 06:32: Vitamin B12 > 2000 H 07/29/19 06:32: Iron 26 L, TIBC 186 L, Iron Saturation 14.0 L, Ferritin 6372 H, Folate 19.70 07/29/19 11:53: POC Glucose 332 H Current Medications Acetaminophen (Tylenol) 650 mg PO Q6H PRN PRN PRN Reason: Pain Score 1-10/Temp > 100.7 F Last Admin: 07/28/19 11:33 Dose: 650 mg Documented by: Al Hydroxide/Mg Hydroxide (Mylanta Ii) 30 ml PO Q6H PRN PRN PRN Reason: Gastric Burning Albuterol Sulfate (Ventolin Aerosols) 2.5 mg INHALATION Q2H PRN PRN PRN Reason: Shortness of Breath/Wheezing Last Admin: 07/27/19 10:21 Dose: 2.5 mg Documented by: Albuterol/Ipratropium (Duoneb) 3 ml INHALATION Q4H.RT YVES Last Admin: 07/29/19 14:58 Dose: 3 ml Documented by: Glucagon () 1 mg IM .X1 PRN PRN Reason: Hypoglycemia Guaifenesin (Robitussin) 20 ml PO Q4H PRN PRN PRN Reason: COUGH Heparin Sodium (Porcine) (Heparin Na) 5,000 unit SC Q12 [facility] Last Admin: 07/29/19 08:18 Dose: 5,000 unit Documented by: Heparin Sodium (Porcine) () 2,500 units IV UD PRN PRN Reason: Dialysis Cath Heparin Flush Hydralazine HCl (Apresoline Iv) 10 mg IV Q4H PRN PRN PRN Reason: SBP > 160 Dextrose (Dextrose 10%-Water) 250 mls @ 999 mls/hr IV .Q16M PRN; Protocol PRN Reason: HYPOGLYCEMIA Sodium Chloride () 250 mls @ 15 mls/hr IV .[id number] PRN PRN Reason: Saline Flush Last Infusion: 07/29/19 11:30 Dose: 0 mls/hr Documented by: Sodium Chloride () 250 mls @ 15 mls/hr IV .[id number] PRN PRN Reason: Additional IVPB Infusion Meropenem 500 mg/ Sodium (Chloride) 60 mls @ 100 mls/hr IV Q24 [facility] Last Infusion: 07/29/19 11:13 Dose: Infused Documented by: Ibuprofen (Motrin) 600 mg PO Q8H PRN PRN PRN Reason: fever, pain 1-10 Last Admin: 07/29/19 02:17 Dose: 600 mg Documented by: Insulin Human Lispro (Humalog Kwikpen (Bkc)) 0 unit SC ACHS [facility]; Protocol Last Admin: 07/29/19 11:56 Dose: 5 units Documented by: Magnesium Hydroxide (Milk Of Magnesia) 30 ml PO DAILY PRN PRN PRN Reason: Constipation Melatonin (Melatonin) 3 mg PO QHS PRN PRN PRN Reason: INSOMNIA Methylprednisolone (Solu-Medrol) 40 mg IV Q8 [facility] Last Admin: 07/29/19 13:46 Dose: 40 mg Documented by: Metoprolol Tartrate (Lopressor (Beta Elizabeth)) 50 mg PO 1400 [facility] Last Admin: 07/29/19 13:46 Dose: 50 mg Documented by: Multivit/Ca Carb/B Cmplx/FA/Prenat (Nephrocaps, Renaphro) 1 capsule PO DAILY [facility] Last Admin: 07/29/19 08:16 Dose: 1 capsule Documented by: Ondansetron HCl (Zofran) 4 mg IV Q8H PRN PRN PRN Reason: NAUSEA/VOMITING Last Admin: 07/24/19 19:27 Dose: 4 mg Documented by: Prochlorperazine Edisylate (Compazine Iv) 5 mg IV Q4H PRN PRN PRN Reason: Breakthrough nausea/vomiting Psyllium Hydrophilic Mucilloid (Metamucil) 1 packet PO DAILY PRN PRN PRN Reason: Constipation Senna/Docusate Sodium (Senokot-S, Belia-Colace) 1 tablet PO DAILY [facility] Last Admin: 07/29/19 08:17 Dose: Not Given Documented by: Sodium Chloride () 10 - 40 ml IV UD PRN PRN Reason: SALINE FLUSH Last Admin: 07/29/19 13:46 Dose: 10 ml Documented by: Throat Lozenges (Cepacol Sore Throat Lozenge) 1 lozenge MUCOUS MEM Q2H PRN PRN PRN Reason: SORE THROAT Venlafaxine HCl (Effexor Xr) 37.5 mg PO DAILY [facility] Last Admin: 07/29/19 08:16 Dose: 37.5 mg Documented by: Medical Necessity - Tobacco Use Smoking Status: Former smoker Tobacco Use: Non-smoker Assessment/Plan All Active Problems (Last Reviewed 07/15/19 @ 10:07 by Ailyn Olivera) Pancytopenia (Acute) Pneumonia (Acute) Sepsis (Acute) Hypoxia (Acute) Cellulitis of left lower extremity (Acute) Sepsis (Acute) Problem with dialysis access (Acute) Skin abscess (Acute) Infected open wound (Acute) Decubitus ulcer of left heel, stage 2 (Acute) Debility (Acute) Abdominal wall abscess (Acute) Fever (Acute) Acute on chronic renal failure (Acute) 1. ESRD HD MWF. Dialysis tomorrow, challenge fluid removal as tolerated 2. Anemia EPO, IV iron 3. Acute pneumonia IV antibiotics per ID. 4. DM type II primary service management 5. 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 Morbid obesity
[2019-07-29 17:20] LABS: Bedside Glucose 334 mg/dL (70-110)
[2019-07-29 20:46] LABS: Bedside Glucose 351 mg/dL (70-110)
[2019-07-30] VITALS (38 sets, daily range): BP systolic 118–173; BP diastolic 54–89; PULSE 88–116; RESP 12–45; TEMP 2.7–38.1; O2SAT 78–100
[2019-07-30] MEDS: Ipratropium/Albuterol Sulfate 3 ML AMPUL.NEB INHALATION ×3 (03:01→11:50)
[2019-07-30] MEDS: 0.9% Saline Lock 10 ML Syringe IV ×3 (06:12→23:31)
--- NOTE | 2019-07-30 06:34 | RAD_ITS ---
STUDY: X-RAY CHEST REASON FOR EXAM: Male, 59 years old. Increasing SOB x 1 week TECHNIQUE: Single AP portable view of the chest. COMPARISON: Comparison is made with prior study dated June 10, 2019. FINDINGS: A right-sided double-lumen catheter seen with the tip in the proximal portion of the superior vena cava. EKG electrodes are seen. The now present is diffuse bilateral airspace disease. This most likely represents pulmonary edema. Follow-up is recommended. There is no demonstrated pleural abnormality. There is mild cardiac enlargement. Normal mediastinum and alee. Normal visualized pulmonary arteries. Normal visualized aortic arch and descending thoracic aorta. There are diffuse degenerative changes of the visualized thoracic spine. Normal visualized ribs, clavicles, and shoulders. There is no demonstrated abnormality of the visualized soft tissue structures of the upper abdomen. RAD/Chest 1 View (Portable) IMPRESSION: Diffuse bilateral airspace disease. Findings are suggestive of pulmonary edema. Electronically Signed: Shashi Bills, at 8:18 EST , Service support ,
--- NOTE | 2019-07-30 06:48 | PCM.PN.BLA ---
Progress Note Nurse reported patient with increasing respiratory distress and placed on 5 L nasal cannula. Nurse reports that patient unable to lie down for chest CT secondary to respiratory distress. Order to get stat chest x-ray; stat breathing treatment; ABG; BiPAP. Patient was examined at bedside. Has an S1-S2 present tachycardia. Lungs with diffuse rhonchi. On Merrem for pneumonia. Patient on around the clock Solu-Medrol. Patient in moderate respiratory distress. Since admission compressive respiratory pathogen panel is negative. Sputum with mixed respiratory shiva. Dialysis today. STROKE Vital Signs/Narrative: Vital Signs Temp Pulse Resp BP Pulse Ox 07/30/19 03:01 88 24 H 07/30/19 03:00 98.3 F 95 18 142/74 H 94 07/30/19 02:58 91
[2019-07-30] MEDS: Insulin Lispro 100 UNIT/ML INSULN.PEN SC ×2 (06:50→22:24)
--- NOTE | 2019-07-30 06:50 | CPS ---
PEP therapy not done at this time, patient too SOB.
[2019-07-30 07:00] LABS: Bedside Glucose 300 mg/dL (70-110)
[2019-07-30 07:21] LABS: Allen Test POS; Base Excess 1 mmol/L (-2 to +2); Bicarbonate 24.5 mmol/L (22-26); Blood Gas Specimen Type ART; O2 Delivery Device Nasal Can; PO2 50 mmHG (75-100); SITE R Radial; SO2 88 % (95-99); Time Given 703; Total Carbon Dioxide 26 mmol/L; pCO2 33.1 mmHg (35-45); pH 7.48 (7.35-7.45)
--- NOTE | 2019-07-30 08:00 | CPS ---
Blood gas results shown to Dr Cain
--- NOTE | 2019-07-30 08:36 | PCM.PN.PUL ---
Patient Problems: Active and Suspected Problems (Last Reviewed 07/15/19 @ 10:07 by Ailyn Olivera) Pneumonia (Acute) Sepsis (Acute) Hypoxia (Acute) Subjective: Patient reports that overnight he started to become more tachypneic and short of breath. This morning, patient had to be placed on BiPAP therapy. Patient believes his cough is somewhat improved. Patient is reporting no chest pain, nausea or vomiting. - Physical Exam Vitals/I&O's: Vital Signs Temp Pulse Resp BP Pulse Ox 36.8 C 88 24 H 142/74 H 94 07/30/19 03:00 07/30/19 03:01 07/30/19 03:01 07/30/19 03:00 07/30/19 03:00 Oxygen Flow Rate (L/min) [At 0 REST on Room Air] Oxygen Flow Rate (L/min) 5 Oxygen Delivery Method Nasal Cannula Weight: 118.7 kg Body Mass Index (BMI) 41.8 Finger Stick Blood Glucose 90 Intake and Output for Last 24 Hours 07/28/19 07/29/19 07/30/19 23:59 23:59 23:59 Intake Total 1534 / 1534 1155.25 / 1275.25 220 / 220 Output Total 8800 / 8800 Balance -7266 / -7266 1155.25 / 1275.25 220 / 220 General: Alert, Oriented x3, Cooperative, - - Moderate respiratory distress. No accessory muscle use noted. Appears older than stated age HEENT: Atraumatic, PERRLA, EOMI, Normocephalic, - - No scleral icterus or injection Oral: Moist Mucosa, No Gingival or Mucosal Lesions/ Ulcerations Neck: Supple, No JVD, No Nodes, Trachea Midline Lungs: Diminished, Rales, Rhonchi, - - Symmetric expansion Cardiovascular: Normal S1, Normal S2, No murmurs, No rub noted, No Gallop, Tachycardic Abdomen: Bowel Sounds Present, Soft, Non Tender, Non-Distended, Obese Extremities: No clubbing, No cyanosis, Edema Skin: - - No change from previous Musculoskeletal: No Tenderness to Palpation of Joints or Extremities Lymphatic: No Cervical, Supraclavicular, or Inguinal Adenopathy Neurological: Cranial nerves II-XII grossly intact, Neuro grossly intact, Motor Exam 5/5 strength throughout Psych/Mental Status: Anxious, Restless Microbiology Past 72 Hours 07/24/19 22:00 Blood Culture (Wb) - Right Hand Blood Culture - Final No growth in 5 days. 07/24/19 19:35 Blood Culture (Wb) - Right Hand Blood Culture - Final No growth in 5 days. Laboratory Results 07/25/19 10:00: Transferrin Pending 07/29/19 06:32: Diff Path Review Reviewed 07/29/19 06:32: Vitamin B12 > 2000 H 07/29/19 06:32: Iron 26 L, TIBC 186 L, Iron Saturation 14.0 L, Ferritin 6372 H, Folate 19.70 07/29/19 11:53: POC Glucose 332 H 07/29/19 16:48: POC Glucose 334 H 07/29/19 20:31: POC Glucose 351 H 07/30/19 06:45: POC Glucose 300 H 07/30/19 07:14: Specimen Type ART, Sample Site R Radial, pH 7.48 H, Bicarbonate Actual 24.5, POC Total CO2 26, Base Excess 1, O2 Saturation 88 L, ABG pCO2 33.1 L, ABG pO2 50 L, Hasmukh Test POS, O2 Delivery Device Nasal Can, Liter Flow 7.0, Blood Gas Notified Whom HOSP , Blood Gas Notified Time 703 Clinical Impression(s) from Imaging Studies Chest X-Ray 07/30/19 06:34 IMPRESSION: Diffuse bilateral airspace disease. Findings are suggestive of pulmonary edema. Electronically Signed: Shashi Bills, at 8:18 EST , Service support , Current Medications Acetaminophen (Tylenol) 650 mg PO Q6H PRN PRN PRN Reason: Pain Score 1-10/Temp > 100.7 F Last Admin: 07/28/19 11:33 Dose: 650 mg Documented by: Al Hydroxide/Mg Hydroxide (Mylanta Ii) 30 ml PO Q6H PRN PRN PRN Reason: Gastric Burning Albuterol Sulfate (Ventolin Aerosols) 2.5 mg INHALATION Q2H PRN PRN PRN Reason: Shortness of Breath/Wheezing Last Admin: 07/27/19 10:21 Dose: 2.5 mg Documented by: Albuterol/Ipratropium (Duoneb) 3 ml INHALATION Q4H.RT [facility] Last Admin: 07/30/19 06:51 Dose: 3 ml Documented by: Glucagon () 1 mg IM .X1 PRN PRN Reason: Hypoglycemia Guaifenesin (Robitussin) 20 ml PO Q4H PRN PRN PRN Reason: COUGH Heparin Sodium (Porcine) (Heparin Na) 5,000 unit SC Q12 [facility] Last Admin: 07/29/19 20:35 Dose: 5,000 unit Documented by: Heparin Sodium (Porcine) () 2,500 units IV UD PRN PRN Reason: Dialysis Cath Heparin Flush Hydralazine HCl (Apresoline Iv) 10 mg IV Q4H PRN PRN PRN Reason: SBP > 160 Dextrose (Dextrose 10%-Water) 250 mls @ 999 mls/hr IV .Q16M PRN; Protocol PRN Reason: HYPOGLYCEMIA Sodium Chloride () 250 mls @ 15 mls/hr IV .[id number] PRN PRN Reason: Saline Flush Last Infusion: 07/29/19 17:00 Dose: 0 mls/hr Documented by: Sodium Chloride () 250 mls @ 15 mls/hr IV .[id number] PRN PRN Reason: Additional IVPB Infusion Meropenem 500 mg/ Sodium (Chloride) 60 mls @ 100 mls/hr IV Q24 [facility] Last Infusion: 07/29/19 11:13 Dose: Infused Documented by: Insulin Glargine (Lantus (Bkc)) 5 units SC QHS [facility] Last Admin: 07/29/19 20:36 Dose: 5 units Documented by: Insulin Human Lispro (Humalog Kwikpen (Bkc)) 0 unit SC ACHS [facility]; Protocol Last Admin: 07/30/19 06:50 Dose: 6 units Documented by: Magnesium Hydroxide (Milk Of Magnesia) 30 ml PO DAILY PRN PRN PRN Reason: Constipation Melatonin (Melatonin) 3 mg PO QHS PRN PRN PRN Reason: INSOMNIA Methylprednisolone (Solu-Medrol) 40 mg IV Q8 [facility] Last Admin: 07/30/19 06:12 Dose: 40 mg Documented by: Metoprolol Tartrate (Lopressor (Beta Elizabeth)) 50 mg PO 1400 [facility] Last Admin: 07/29/19 13:46 Dose: 50 mg Documented by: Multivit/Ca Carb/B Cmplx/FA/Prenat (Nephrocaps, Renaphro) 1 capsule PO DAILY [facility] Last Admin: 07/29/19 08:16 Dose: 1 capsule Documented by: Ondansetron HCl (Zofran) 4 mg IV Q8H PRN PRN PRN Reason: NAUSEA/VOMITING Last Admin: 07/24/19 19:27 Dose: 4 mg Documented by: Prochlorperazine Edisylate (Compazine Iv) 5 mg IV Q4H PRN PRN PRN Reason: Breakthrough nausea/vomiting Psyllium Hydrophilic Mucilloid (Metamucil) 1 packet PO DAILY PRN PRN PRN Reason: Constipation Senna/Docusate Sodium (Senokot-S, Belia-Colace) 1 tablet PO DAILY [facility] Last Admin: 07/29/19 08:17 Dose: Not Given Documented by: Sodium Chloride () 10 - 40 ml IV UD PRN PRN Reason: SALINE FLUSH Last Admin: 07/30/19 06:12 Dose: 10 ml Documented by: Throat Lozenges (Cepacol Sore Throat Lozenge) 1 lozenge MUCOUS MEM Q2H PRN PRN PRN Reason: SORE THROAT Venlafaxine HCl (Effexor Xr) 37.5 mg PO DAILY [facility] Last Admin: 07/29/19 08:16 Dose: 37.5 mg Documented by: Medical Necessity - Tobacco Use Smoking Status: Former smoker Tobacco Use: Non-smoker Assessment/Plan All Active Problems (Last Reviewed 07/15/19 @ 10:07 by Ailyn Olivera) Pancytopenia (Acute) Pneumonia (Acute) Sepsis (Acute) Hypoxia (Acute) Cellulitis of left lower extremity (Acute) Sepsis (Acute) Problem with dialysis access (Acute) Skin abscess (Acute) Infected open wound (Acute) Decubitus ulcer of left heel, stage 2 (Acute) Debility (Acute) Abdominal wall abscess (Acute) Fever (Acute) Acute on chronic renal failure (Acute) RECOMMENDATIONS: 1. Continue empiric antibiotics per infectious disease 2. Agree with bronchodilators. PFT and PSG as an outpatient 3. Continue hemodialysis per nephrology 4. Await response to hemodialysis 5. Transfuse for hemoglobin less than 7 6. Aggressive blood sugar control IMPRESSIONS: 1. Severe sepsis secondary to probable health care associated pneumonia Patient's findings on x-ray/CT are classic for pneumonia with mediastinal lymphadenopathy and high fevers. Patient currently with progressive leukopenia. Infectious diseases following. Patient continues to slowly improve from an infectious standpoint. No fever over the last 24 hours and oxygen continues to improve. Will attempt to continue to hold off on steroid therapy given improvement in oxygenation. Clinical suspicion for acute hypoxic respiratory failure secondary to pulmonary edema given increased permeability with infection and higher fluid status. Did discuss with dialysis nurse and fluid will be removed. 2. End-stage renal disease on hemodialysis Patient with maturing left upper arm fistula. Currently with tunnel catheter. Blood culture showed no growth to date. Continue with hemodialysis per nephrology recommendations. Await response to volume removal with hemodialysis 3. 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 Blood sugars have been well controlled at this time. Cannot exclude the need for steroids from a respiratory standpoint and this will require change in diabetic medications. Okay to continue with other baseline medications. Patient does not appear to have abdominal symptoms at this time. Code Visit Inpatient E&M: 11228 Subs Hosp L3
--- NOTE | 2019-07-30 08:37 | NURSING ---
diALYSIS NURSE HERE FOR TREATMENT
--- NOTE | 2019-07-30 09:11 | PN_ITS ---
- Problem List (1) Pancytopenia Status: Acute (2) PARKER (iron deficiency anemia) Status: Chronic Subjective Date of Service:: 07/30/19 Shortness of breath 59-year-old male with multiple chronic medical problems including complicated diabetes, end-stage renal disease on hemodialysis, residual neuropathy from [place]?, dyslipidemia, morbid obesity, atherosclerotic arterial disease. Presents with acute sepsis and pneumonia. Patient has underlying chronic anemia secondary to end-stage renal disease treated with IV Fe and EPO, and developed an acute pancytopenia. Laboratory Tests 06/14/19 07/01/19 07/24/19 05:15 10:35 05:32 WBC 7.0 4.0 L Hgb 8.3 L 7.9 L Plt Count 248 173 Absolute Neuts (auto) 15.3 H 3.3 07/28/19 07/29/19 06:45 06:32 WBC 1.9 L 2.2 L Hgb 8.1 L 9.1 L Plt Count 138 L 170 Absolute Neuts (auto) 1.6 L 1.9 L Increasing shortness of breath, on BiPAP now. 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) Murmur, cardiac (Chronic) Chronic anemia (Chronic) Type 2 diabetes mellitus (Chronic) Hypertension (Chronic) Past Medical History - Most Recent Inpatient Visit Past Medical History Start: 07/23/19 21:10 Text: Status: Complete Freq: ONCE Protocol: Document 07/23/19 22:23 [facility] [place] 07/23/19 22:27 [facility] [id number] BMI Required to complete PMH What is Patient's BMI 41.9 Past Medical History Unable History Recalled No Query Text:Pt Unable/Family Not Present Neurologic Medical History Hx Stroke/TIA No Hx Dementia/Alzheimer's No Hx Parkinson's Disease No Hx Seizures No Hx Multiple Sclerosis No Hx Migraines No Comments Guillian [place] Cardiac Medical History VTE Present on Admission No Hx of Deep Vein Thrombosis/VTE/PE No Hx Hypertension Yes: states controlled with med Hx Chest Pain/Angina No Hx Heart Attack No Hx Cardiac Surgery/Stents/Etc. No Hx Heart Failure No Hx Pacemaker/AICD No Hx Irregular Heartbeat and/or Afib No Hx Anticoagulant Therapy No Query Text:(Coumadin, Aspirin, Plavix, Xarelto, etc.) Hx Pain in Legs when Walking/Leg Cramps No Comments murmur Respiratory Medical History Hx COPD No Hx Emphysema No Hx Smoking Yes Smoking Status Former smoker Tobacco Use Non-smoker Years Smoking 40 Packs Smoked per Day 1 Hx Smoking Cessation Date 06/09/19 Hx Tobacco Use in last 12 months Yes Sent to [facility] Yes Hx of Pipe Smoking No Hx of Cigar Smoking Yes Hx Sleep Apnea No: suspects diagnosis, but never tested CPAP No BIPAP No Do you snore loudly (louder than talking Yes or can be heard through closed doors)? Do you often feel tired/ fatigued/ Yes sleepy during daytime? Has anyone observed you stop breathing Yes during sleep? STOP Results Positive GI Medical History Hx Ulcer No Hx Hepatitis No Hx Cirrhosis No Hx GI Bleed No Hx Unplanned Weight Loss No Genitourinary Medical History Indwelling Catheter in Place on Arrival/ No Admission Hx Renal Disease Yes: End Stage Renal Disease Hx Dialysis Yes: MOWEFR HD Musculoskeletal History Hx Arthritis No Hx Rheumatoid Arthritis No Endocrine Medical History Hx Diabetes Yes Hx Thyroid Disease No Hematologic Medical History Hx of Blood Transfusion No Hx of Transfusion in last 3 Months No Ever experience any problems with No transfusion(s)? Hx of Preganancy in last 3 Months N/A Nurse Filling Out Transfusion & JGLASS Questions: Date: 07/23/19 Time: 22:26 Psycho/Social Medical History Hx Depression Yes Hx Anxiety Yes Hx Behavior Disorder No Hx Alcohol Use No Hx Substance Use No Other Medical History Hx Blood Disorders No Hx Anemia Yes Hx Cancer No Hx Drug Resistant Organism No Wound/Pressure Injury Present on Arrival No /Admission Query Text:If yes, chart assessment in Shift/Clinical Findings Central Line/PICC/VAD Present on Arrival No /Admission Antibiotics within last 7 days? 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) Decubitus ulcer of left heel, stage 2 (Acute) Debility (Acute) Murmur, cardiac (Chronic) Acute on chronic renal failure (Acute) Chronic anemia (Chronic) Type 2 diabetes mellitus (Chronic) Hypertension (Chronic) Past Surgical History (Last Updated 07/15/19 @ 10:09 by Ailyn Olivera) S/P arteriovenous (AV) fistula creation (Acute) history of insertion of peritoneal dialysis cath (Acute) Offspring Family History: - - Endocarditis Paternal Family History: Diabetes - ESRD , Heart Disease, Hypertension, - - kidney disease Maternal Family History: - - Patient notes his mother is very healthy, no history of heart disease, diabetes or cancer. - Social History Lives: Spouse/ Significant Other Smoking Status: Former smoker Tobacco Use: Non-smoker Alcohol: None Drugs: None Vital Signs Height 5 ft 8 in Weight: 118.7 kg Weight in Pounds 261.7 lbs Pulse Ox [At REST on Room Air] 82 Pulse Ox 94 Temperature 97.8 F Pulse Rate 99 Respiratory Rate 26 Blood Pressure [BP] 131/72 Blood Pressure 144/73 Blood Pressure Position [BP] Sitting Blood Pressure Position Semi-Fowlers - Physical Exam General: Lethargic, - - Undergoing hemodialysis Laboratory Data: Microbiology 07/24/19 22:00 Blood Culture - Final Blood Culture (Wb) - Right Hand No growth in 5 days. 07/24/19 19:35 Blood Culture - Final Blood Culture (Wb) - Right Hand No growth in 5 days. Laboratory Tests 07/30/19 07/30/19 07/29/19 Range/Units 07:14 06:45 20:31 Diff Path Review Specimen Type ART Sample Site R Radial pH 7.48 H (7.35-7.45) Bicarbonate Actual 24.5 (22-26) mmol/L POC Total CO2 26 mmol/L Base Excess 1 (-2 to +2) mmol/L O2 Saturation 88 L (95-99) % ABG pCO2 33.1 L (35-45) mmHg ABG pO2 50 L (75-100) mmHG Hasmukh Test POS O2 Delivery Device Nasal Can Liter Flow 7.0 /min Blood Gas Notified Whom HOSP Blood Gas Notified Time 703 Iron (65-175) ug/dL TIBC (250-450) ug/dL Iron Saturation (15.0-55.0) % Ferritin (26-388) ng/mL Vitamin B12 (211-911) pg/mL Folate (3.1-55.4) ng/mL POC Glucose 300 H 351 H (70-110) mg/dL 07/29/19 07/29/19 07/29/19 Range/Units 16:48 11:53 06:32 Diff Path Review Specimen Type Sample Site pH (7.35-7.45) Bicarbonate Actual (22-26) mmol/L POC Total CO2 mmol/L Base Excess (-2 to +2) mmol/L O2 Saturation (95-99) % ABG pCO2 (35-45) mmHg ABG pO2 (75-100) mmHG Hasmukh Test O2 Delivery Device Liter Flow /min Blood Gas Notified Whom Blood Gas Notified Time Iron 26 L (65-175) ug/dL TIBC 186 L (250-450) ug/dL Iron Saturation 14.0 L (15.0-55.0) % Ferritin 6372 H (26-388) ng/mL Vitamin B12 (211-911) pg/mL Folate 19.70 (3.1-55.4) ng/mL POC Glucose 334 H 332 H (70-110) mg/dL 07/29/19 07/29/19 Range/Units 06:32 06:32 Diff Path Review Reviewed Specimen Type Sample Site pH (7.35-7.45) Bicarbonate Actual (22-26) mmol/L POC Total CO2 mmol/L Base Excess (-2 to +2) mmol/L O2 Saturation (95-99) % ABG pCO2 (35-45) mmHg ABG pO2 (75-100) mmHG Hasmukh Test O2 Delivery Device Liter Flow /min Blood Gas Notified Whom Blood Gas Notified Time Iron (65-175) ug/dL TIBC (250-450) ug/dL Iron Saturation (15.0-55.0) % Ferritin (26-388) ng/mL Vitamin B12 > 2000 H (211-911) pg/mL Folate (3.1-55.4) ng/mL POC Glucose (70-110) mg/dL Diagnostic Data: Diagnostic Data Chest X-Ray 07/30/19 06:34 IMPRESSION: Diffuse bilateral airspace disease. Findings are suggestive of pulmonary edema. 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 His pancytopenia is consistent with bone marrow suppression in the course of severe infection and sepsis. Initial worsening then improvement noted July 29, 2019. Fe studies are consistent with Fe deficiency + acute phase reaction (elevated ferritin) and anemia of chronic renal failure. Recommendations from hematology: 1. IV Fe ordered, received July 2019. 2. Defer future IV Fe and EPO to renal service with dialysis. 3. We will follow-up 1 month after discharge and recovery from acute illness. We will sign off at this time, please call for changes. Impression and plan discussed with patient. Gasper Washington MD [facility] [employer], [facility] Divisions of Medical Oncology & Hematology Department of Internal Medicine [place] [id number] This note was generated using a voice recognition system software. Although it was reviewed by the author prior to finalization, it may still contain incorrect words, spelling, and punctuation that were not noted when reviewing prior to saving. If a clinically significant typo or inaccurately typed phrase is noted, please notify the author. Primary Care Provider: Gildardo Trejo MD Referring Provider: Love Gomez MD
--- NOTE | 2019-07-30 11:50 | CPS ---
PEP Therapy not done, patient has been on BiPAP
[2019-07-30 12:00] LABS: Transferrin 132 mg/dL (200-370)
--- NOTE | 2019-07-30 12:10 | CPS ---
Dr Cain contacted about low pulse ox and increasing o2 requirements and high respiratory rate. BiPAP pressures increased to 20/10 per order. ABG to be done around 1300. RN aware.
[2019-07-30 13:21] LABS: Base Excess 2 mmol/L (-2 to +2); Bicarbonate 24.6 mmol/L (22-26); Blood Gas Specimen Type ART; EPAP 10; FI02 60; IPAP 20; PO2 65 mmHG (75-100); SITE R Brachial; SO2 95 % (95-99); Time Given 1303; Total Carbon Dioxide 26 mmol/L; pCO2 30.8 mmHg (35-45); pH 7.51 (7.35-7.45)
[2019-07-30] MEDS: Heparin Injection (Vial) 5,000 UNIT/ML VIAL 5000 UNIT SC ×2 (13:22→22:24)
[2019-07-30] MEDS: Epoetin Alfa epbx 10,000 UNITS/ML 7400 UNIT IV (13:23)
[2019-07-30] MEDS: Heparin 10,000 UNITS/10 ML Vial IV (13:23)
[2019-07-30] MEDS: Venlafaxine XR 37.5 MG Capsule PO ×2 (13:24→13:25)
[2019-07-30] MEDS: Metoprolol Tartrate 50 MG Tablet PO (13:25)
--- NOTE | 2019-07-30 13:25 | CPS ---
ABG results given to Dr May and called to Dr Cain. Dr Cain ordered pressures on BiPAP to 22/03. RN aware.
--- NOTE | 2019-07-30 13:31 | DIALYSIS ---
Hemodialysis x 4 hours completed. UF 5,000 mL fluid removed. Patient remained SOB on bipap throughout treatment as he was prior to the start of treatment. Patients stated that the patient drinks a lot of fluid on a daily basis. He is also anuric. This nurse notified Dr. Hansen regarding the patient remaining SOB after treatment and also regarding his fluid intake. Patient tolerated treatment well.
[2019-07-30 14:55] LABS: Bedside Glucose 192 mg/dL (70-110)
--- NOTE | 2019-07-30 15:36 | CPS ---
FiO2 on BiPAP decreased to 45%, RN aware.
--- NOTE | 2019-07-30 15:36 | CPS ---
Patient remains on BiPAP Mask, PEP therapy not done.
--- NOTE | 2019-07-30 15:44 | PN.ID_ITS ---
Patient Problems: Active and Suspected Problems (Last Reviewed 07/15/19 @ 10:07 by Ailyn Olivera) Pneumonia (Acute) Sepsis (Acute) Hypoxia (Acute) Subjective: Still some dyspnea, improved with HD and NIPPV. Some chills today, better than before. - Physical Exam Vitals/I&O's: Vital Signs Temp Pulse Resp BP Pulse Ox 98.9 F 103 H 30 H 130/68 H 99 07/30/19 14:57 07/30/19 14:57 07/30/19 14:57 07/30/19 14:57 07/30/19 14:57 Oxygen Flow Rate (L/min) [At 0 REST on Room Air] Oxygen Flow Rate (L/min) 6 Oxygen Delivery Method Bi-pap Weight: 118.7 kg Body Mass Index (BMI) 41.8 Finger Stick Blood Glucose 90 Intake and Output for Last 24 Hours 07/28/19 07/29/19 07/30/19 23:59 23:59 23:59 Intake Total 1534 / 1534 1155.25 / 1275.25 280 / 280 Output Total 8800 / 8800 5000 / 5000 Balance -7266 / -7266 1155.25 / 1275.25 -4720 / -4720 General: Alert, Cooperative, No apparent distress Lungs: Diminished, Rales Cardiovascular: Regular rate, Regular Rhythm Abdomen: Soft, Non Tender, Non-Distended Skin: No rashes Microbiology Past 72 Hours 07/27/19 22:10 Blood Culture (Wb) - Right Wrist Blood Culture - Preliminary No growth in 48 hours. 07/27/19 22:05 Blood Culture (Wb) - Anticubital Right Blood Culture - Preliminary No growth in 48 hours. 07/24/19 22:00 Blood Culture (Wb) - Right Hand Blood Culture - Final No growth in 5 days. 07/24/19 19:35 Blood Culture (Wb) - Right Hand Blood Culture - Final No growth in 5 days. Laboratory Results 07/25/19 10:00: Transferrin 132 L 07/29/19 16:48: POC Glucose 334 H 07/29/19 20:31: POC Glucose 351 H 07/30/19 06:45: POC Glucose 300 H 07/30/19 07:14: Specimen Type ART, Sample Site R Radial, pH 7.48 H, Bicarbonate Actual 24.5, POC Total CO2 26, Base Excess 1, O2 Saturation 88 L, ABG pCO2 33.1 L, ABG pO2 50 L, Hasmukh Test POS, O2 Delivery Device Nasal Can, Liter Flow 7.0, Blood Gas Notified Whom HOSP , Blood Gas Notified Time 703 07/30/19 13:07: POC Glucose 192 H 07/30/19 13:13: Specimen Type ART, Sample Site R Brachial, pH 7.51 H, Bicarbonate Actual 24.6, POC Total CO2 26, Base Excess 2, O2 Saturation 95, O2 % 60, ABG pCO2 30.8 L, ABG pO2 65 L, O2 Delivery Device Bi / C PAP, EPAP 10, IPAP 20, Blood Gas Notified Whom ICU MD, Blood Gas Notified Time 1303 Current Medications Acetaminophen (Tylenol) 650 mg PO Q6H PRN PRN PRN Reason: Pain Score 1-10/Temp > 100.7 F Last Admin: 07/28/19 11:33 Dose: 650 mg Documented by: Al Hydroxide/Mg Hydroxide (Mylanta Ii) 30 ml PO Q6H PRN PRN PRN Reason: Gastric Burning Albuterol Sulfate (Ventolin Aerosols) 2.5 mg INHALATION Q2H PRN PRN PRN Reason: Shortness of Breath/Wheezing Last Admin: 07/27/19 10:21 Dose: 2.5 mg Documented by: Albuterol/Ipratropium (Duoneb) 3 ml INHALATION Q4H.RT [facility] Last Admin: 07/30/19 06:51 Dose: 3 ml Documented by: Glucagon () 1 mg IM .X1 PRN PRN Reason: Hypoglycemia Guaifenesin (Robitussin) 20 ml PO Q4H PRN PRN PRN Reason: COUGH Heparin Sodium (Porcine) (Heparin Na) 5,000 unit SC Q12 [facility] Last Admin: 07/30/19 13:22 Dose: 5,000 unit Documented by: Heparin Sodium (Porcine) () 2,500 units IV UD PRN PRN Reason: Dialysis Cath Heparin Flush Hydralazine HCl (Apresoline Iv) 10 mg IV Q4H PRN PRN PRN Reason: SBP > 160 Dextrose (Dextrose 10%-Water) 250 mls @ 999 mls/hr IV .Q16M PRN; Protocol PRN Reason: HYPOGLYCEMIA Sodium Chloride () 250 mls @ 15 mls/hr IV .[id number] PRN PRN Reason: Saline Flush Last Infusion: 07/29/19 17:00 Dose: 0 mls/hr Documented by: Sodium Chloride () 250 mls @ 15 mls/hr IV .[id number] PRN PRN Reason: Additional IVPB Infusion Meropenem 500 mg/ Sodium (Chloride) 60 mls @ 100 mls/hr IV Q24 [facility] Last Admin: 07/30/19 13:15 Dose: 100 mls/hr Documented by: Insulin Glargine (Lantus ([facility])) 5 units SC QHS [facility] Last Admin: 07/29/19 20:36 Dose: 5 units Documented by: Insulin Human Lispro (Humalog Kwikpen ([facility])) 0 unit SC ACHS [facility]; Protocol Last Admin: 07/30/19 13:25 Dose: Not Given Documented by: Magnesium Hydroxide (Milk Of Magnesia) 30 ml PO DAILY PRN PRN PRN Reason: Constipation Melatonin (Melatonin) 3 mg PO QHS PRN PRN PRN Reason: INSOMNIA Methylprednisolone (Solu-Medrol) 40 mg IV Q8 [facility] Last Admin: 07/30/19 14:43 Dose: 40 mg Documented by: Metoprolol Tartrate (Lopressor (Beta Elizabeth)) 50 mg PO 1400 [facility] Last Admin: 07/30/19 13:25 Dose: 50 mg Documented by: Multivit/Ca Carb/B Cmplx/FA/Prenat (Nephrocaps, Renaphro) 1 capsule PO DAILY [facility] Last Admin: 07/30/19 13:24 Dose: Not Given Documented by: Ondansetron HCl (Zofran) 4 mg IV Q8H PRN PRN PRN Reason: NAUSEA/VOMITING Last Admin: 07/24/19 19:27 Dose: 4 mg Documented by: Prochlorperazine Edisylate (Compazine Iv) 5 mg IV Q4H PRN PRN PRN Reason: Breakthrough nausea/vomiting Psyllium Hydrophilic Mucilloid (Metamucil) 1 packet PO DAILY PRN PRN PRN Reason: Constipation Senna/Docusate Sodium (Senokot-S, Belia-Colace) 1 tablet PO DAILY [facility] Last Admin: 07/30/19 13:24 Dose: Not Given Documented by: Sodium Chloride () 10 - 40 ml IV UD PRN PRN Reason: SALINE FLUSH Last Admin: 07/30/19 06:12 Dose: 10 ml Documented by: Throat Lozenges (Cepacol Sore Throat Lozenge) 1 lozenge MUCOUS MEM Q2H PRN PRN PRN Reason: SORE THROAT Venlafaxine HCl (Effexor Xr) 37.5 mg PO DAILY [facility] Last Admin: 07/30/19 13:25 Dose: 37.5 mg Documented by: Medical Necessity - Tobacco Use Smoking Status: Former smoker Tobacco Use: Non-smoker Route of nutrition/ use of supplements: [] Nutritional Intake: [] IV Site: [] Alexander Catheter: [] - Assessment/Plan Antibiotics: [] Assessment/Plan: [] Active and Suspected Problems (Last Reviewed 07/15/19 @ 10:07 by Ailyn Olivera) Pneumonia (Acute) Sepsis (Acute) Hypoxia (Acute) sepsis due to CAP with ESRD - Not producing sputum. Resp viral panel neg. Pulm following. 07/28 changed cefepime back to meropenem, now fever improved and feeling better. Not neutropenic, heme following. CXR worse, seems more consistent with fluid. Improved with HD and NIPPV; going to get dialysis again tomorrow. Given improvement in temps with meropenem, doubt fungal involvement. Will follow, d/w Dr. May.
--- NOTE | 2019-07-30 17:35 | CPS ---
Patient taken off BiPAP and placed on High flow nasal cannula at 10lpm, RN aware.
--- NOTE | 2019-07-30 18:05 | CPS ---
Patient placed back on BiPAP per RN.
--- NOTE | 2019-07-30 18:15 | PN_ITS ---
Patient Problems: Active and Suspected Problems (Last Reviewed 07/15/19 @ 10:07 by Ailyn Olivera) Pneumonia (Acute) Sepsis (Acute) Hypoxia (Acute) Reason for Visit: Follow-up on resp failure Subjective: Patient had progressive shortness of breath overnight. Seen during dialysis. He was started on BiPAP. Chest x-ray was consistent with worsening pulmonary edema. Been having some low-grade fevers Objective: Physical exam: General: Alert, Oriented x3, Cooperative, No apparent distress, - - Morbidly obese, on 5L oxygen HEENT: Atraumatic, PERRLA, EOMI, Normocephalic Oral: Moist Mucosa Neck: Supple Lungs: Diminished at lung bases, coarse crackles, scattered wheezes Cardiovascular: Regular rate, Regular Rhythm, Normal S1, Normal S2, No murmurs Abdomen: Bowel Sounds Present, Soft, Non Tender, Non-Distended, No Hepato- splenomegaly Extremities: Bilateral edema +1 Skin: No rashes, No breakdown Musculoskeletal: No Tenderness to Palpation of Joints or Extremities Lymphatic: No Cervical, Supraclavicular, or Inguinal Adenopathy Neurological: Cranial nerves II-XII grossly intact, Neuro grossly intact Psych/Mental Status: Normal Affect, Appropriate Vitals/I&O's: Vital Signs Temp Pulse Resp BP Pulse Ox 98.7 F 101 H 28 H 131/67 H 92 07/30/19 17:47 07/30/19 17:47 07/30/19 17:47 07/30/19 17:47 07/30/19 17:47 Oxygen Flow Rate (L/min) [At 0 REST on Room Air] Oxygen Flow Rate (L/min) 10 Oxygen Delivery Method Nasal Cannula Weight: 118.7 kg Body Mass Index (BMI) 41.8 Finger Stick Blood Glucose 90 Intake and Output for Last 24 Hours 07/28/19 07/29/19 07/30/19 23:59 23:59 23:59 Intake Total 1534 / 1534 1155.25 / 1275.25 340 / 340 Output Total 8800 / 8800 5000 / 5000 Balance -7266 / -7266 1155.25 / 1275.25 -4660 / -4660 Microbiology Past 72 Hours 07/27/19 22:10 Blood Culture (Wb) - Right Wrist Blood Culture - Preliminary No growth in 48 hours. 02/18/20 22:05 Blood Culture (Wb) - Anticubital Right Blood Culture - Preliminary No growth in 48 hours. 07/24/19 22:00 Blood Culture (Wb) - Right Hand Blood Culture - Final No growth in 5 days. 07/24/19 19:35 Blood Culture (Wb) - Right Hand Blood Culture - Final No growth in 5 days. Laboratory Results 07/25/19 10:00: Transferrin 132 L 07/29/19 20:31: POC Glucose 351 H 07/30/19 06:45: POC Glucose 300 H 07/30/19 07:14: Specimen Type ART, Sample Site R Radial, pH 7.48 H, Bicarbonate Actual 24.5, POC Total CO2 26, Base Excess 1, O2 Saturation 88 L, ABG pCO2 33.1 L, ABG pO2 50 L, Hasmukh Test POS, O2 Delivery Device Nasal Can, Liter Flow 7.0, Blood Gas Notified Whom HOSP , Blood Gas Notified Time 703 07/30/19 13:07: POC Glucose 192 H 07/30/19 13:13: Specimen Type ART, Sample Site R Brachial, pH 7.51 H, Bicarbonate Actual 24.6, POC Total CO2 26, Base Excess 2, O2 Saturation 95, O2 % 60, ABG pCO2 30.8 L, ABG pO2 65 L, O2 Delivery Device Bi / C PAP, EPAP 10, IPAP 20, Blood Gas Notified Whom ICU MD, Blood Gas Notified Time 1303 Current Medications Acetaminophen (Tylenol) 650 mg PO Q6H PRN PRN PRN Reason: Pain Score 1-10/Temp > 100.7 F Last Admin: 07/28/19 11:33 Dose: 650 mg Documented by: Al Hydroxide/Mg Hydroxide (Mylanta Ii) 30 ml PO Q6H PRN PRN PRN Reason: Gastric Burning Albuterol Sulfate (Ventolin Aerosols) 2.5 mg INHALATION Q2H PRN PRN PRN Reason: Shortness of Breath/Wheezing Last Admin: 07/27/19 10:21 Dose: 2.5 mg Documented by: Albuterol/Ipratropium (Duoneb) 3 ml INHALATION Q4H.RT YVES Last Admin: 07/30/19 15:36 Dose: Not Given Documented by: Glucagon () 1 mg IM .X1 PRN PRN Reason: Hypoglycemia Guaifenesin (Robitussin) 20 ml PO Q4H PRN PRN PRN Reason: COUGH Heparin Sodium (Porcine) (Heparin Na) 5,000 unit SC Q12 [facility] Last Admin: 07/30/19 13:22 Dose: 5,000 unit Documented by: Heparin Sodium (Porcine) () 2,500 units IV UD PRN PRN Reason: Dialysis Cath Heparin Flush Hydralazine HCl (Apresoline Iv) 10 mg IV Q4H PRN PRN PRN Reason: SBP > 160 Dextrose (Dextrose 10%-Water) 250 mls @ 999 mls/hr IV .Q16M PRN; Protocol PRN Reason: HYPOGLYCEMIA Sodium Chloride () 250 mls @ 15 mls/hr IV .[id number] PRN PRN Reason: Saline Flush Last Infusion: 07/29/19 17:00 Dose: 0 mls/hr Documented by: Sodium Chloride () 250 mls @ 15 mls/hr IV .[id number] PRN PRN Reason: Additional IVPB Infusion Meropenem 500 mg/ Sodium (Chloride) 60 mls @ 100 mls/hr IV Q24 [facility] Last Infusion: 07/30/19 13:51 Dose: Infused Documented by: Insulin Glargine (Lantus (Bk)) 5 units SC QHS [facility] Last Admin: 07/29/19 20:36 Dose: 5 units Documented by: Insulin Human Lispro (Humalog Kwikpen (Bk)) 0 unit SC ACHS [facility]; Protocol Last Admin: 07/30/19 17:23 Dose: Not Given Documented by: Magnesium Hydroxide (Milk Of Magnesia) 30 ml PO DAILY PRN PRN PRN Reason: Constipation Melatonin (Melatonin) 3 mg PO QHS PRN PRN PRN Reason: INSOMNIA Methylprednisolone (Solu-Medrol) 40 mg IV Q8 [facility] Last Admin: 07/30/19 14:43 Dose: 40 mg Documented by: Metoprolol Tartrate (Lopressor (Beta Elizabeth)) 50 mg PO 1400 [facility] Last Admin: 07/30/19 13:25 Dose: 50 mg Documented by: Multivit/Ca Carb/B Cmplx/FA/Prenat (Nephrocaps, Renaphro) 1 capsule PO DAILY [facility] Last Admin: 07/30/19 13:24 Dose: Not Given Documented by: Ondansetron HCl (Zofran) 4 mg IV Q8H PRN PRN PRN Reason: NAUSEA/VOMITING Last Admin: 07/24/19 19:27 Dose: 4 mg Documented by: Prochlorperazine Edisylate (Compazine Iv) 5 mg IV Q4H PRN PRN PRN Reason: Breakthrough nausea/vomiting Psyllium Hydrophilic Mucilloid (Metamucil) 1 packet PO DAILY PRN PRN PRN Reason: Constipation Senna/Docusate Sodium (Senokot-S, Belia-Colace) 1 tablet PO DAILY [facility] Last Admin: 07/30/19 13:24 Dose: Not Given Documented by: Sodium Chloride () 10 - 40 ml IV UD PRN PRN Reason: SALINE FLUSH Last Admin: 07/30/19 06:12 Dose: 10 ml Documented by: Throat Lozenges (Cepacol Sore Throat Lozenge) 1 lozenge MUCOUS MEM Q2H PRN PRN PRN Reason: SORE THROAT Venlafaxine HCl (Effexor Xr) 37.5 mg PO DAILY [facility] Last Admin: 07/30/19 13:25 Dose: 37.5 mg Documented by: STROKE Vital Signs/Narrative: Vital Signs Temp Pulse Resp BP Pulse Ox 07/30/19 17:47 98.7 F 101 H 28 H 131/67 H 92 07/30/19 17:35 91 07/30/19 16:00 98.0 F 105 H 30 H 145/78 H 95 07/30/19 15:36 102 H 31 H 98 07/30/19 14:57 98.9 F 103 H 30 H 130/68 H 99 Medical Necessity - Tobacco Use Smoking Status: Former smoker Tobacco Use: Non-smoker Assessment/Plan All Active Problems (Last Reviewed 07/15/19 @ 10:07 by Ailyn Olivera) Pancytopenia (Acute) Pneumonia (Acute) Sepsis (Acute) Hypoxia (Acute) Cellulitis of left lower extremity (Acute) Sepsis (Acute) Problem with dialysis access (Acute) Skin abscess (Acute) Infected open wound (Acute) Decubitus ulcer of left heel, stage 2 (Acute) Debility (Acute) Abdominal wall abscess (Acute) Fever (Acute) Acute on chronic renal failure (Acute) 1. Hypoxia secondary to CAP, worsening pulmonary edema, currently on BiPAP, fluid taken out during dialysis, about 5 L Repeat dialysis planned tomorrow No h/o COPD/Asthma. Continue on IV steroids for possible bronchitis Will continue on oxygen, encourage use of incentive spirometer, breathing treatments 2. Sepsis secondary to pneumonia, improving, continue on meropenem Blood cultures are negative. Sputum cultures showed mixed respiratory shiva, respiratory panel negative, urine Legionella and streptococcal antigen negative 3. Anemia of CKD, status post 1 unit packed RBC, stable, labs in am 4. ESRD on hemodialysis, status post tunneled dialysis catheter, on HD 5. 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 Anxiety/depression, continue on Effexor 7. DVT ppx- Heparin SC Code Visit Inpatient E&M: 08833 Subs Hosp L2
[2019-07-30 19:16] LABS: Bedside Glucose 253 mg/dL (70-110)
[2019-07-30] MEDS: LORazepam 2 MG/ML Syringe 1 MG IV (23:31)
[2019-07-31] VITALS (50 sets, daily range): BP systolic 70–158; BP diastolic 44–92; PULSE 70–141; RESP 9–41; TEMP 36.6–37.6; O2SAT 87–100; BMI 37.2
[2019-07-31 00:26] LABS: Bedside Glucose 257 mg/dL (70-110)
[2019-07-31 01:46] LABS: Allen Test POS; Base Excess 1 mmol/L (-2 to +2); Bicarbonate 24.4 mmol/L (22-26); Blood Gas Specimen Type ART; EPAP 8; FI02 45; IPAP 14; PO2 55 mmHG (75-100); RR 14; SITE R Radial; SO2 91 % (95-99); Time Given 135; Total Carbon Dioxide 25 mmol/L; pCO2 31.3 mmHg (35-45)
--- NOTE | 2019-07-31 02:10 | NURSING ---
Pt received into ICU 3, placed on monitor, VS obtained. Explained to pt procedures to be expected prior to,and during, intubation. Pt remains agreeable to intubation.
--- NOTE | 2019-07-31 02:11 | NURSING ---
Verbal report given to Fe ICU-RN. She is resuming care of patient. Patient transported to ICU on bipap.
[2019-07-31] MEDS: Etomidate 20 MG/10 ML Vial IV (02:14)
--- NOTE | 2019-07-31 02:15 | NURSING ---
Pt intubated w/#[id number] by . Propofol and Fentanyl drips started as per orders.
--- NOTE | 2019-07-31 02:19 | RAD_ITS ---
HISTORY: NG/OG placement EXAM: XR Chest 1 View: COMPARISON: None FINDINGS: # of images incl. paperwork: 2 The endotracheal tube terminates superimposed over the trachea, below the level of the clavicular heads, and above the raman. Nasogastric/orogastric tube is below the diaphragm coiled within the left upper quadrant, likely within the lumen of the stomach. Large bore right IJ central venous catheter terminating within the SVC may be a dialysis catheter Severe bilateral airspace disease persists Heart is borderline enlarged. Thoracic spondylosis persists Pulmonary vascularity is indistinct. Likely small bilateral pleural effusions. RAD/Chest 1 View (Portable) IMPRESSION: Adequate position of newly placed esophagogastric tube. Adequate position of newly placed endotracheal tube. Severe bilateral patchy airspace disease, possibly ARDS.. at 0424 Reported and signed by: Gage Soria MD Electronically Signed: Gage Soria MD at 4:23 EST Tel , Service support ,
[2019-07-31] MEDS: fentaNYL drip 100 ML 2.5 MCG IV (02:30)
[2019-07-31] MEDS: Propofol 10MG/Ml 1,000 MG/100 ML Bottle 7.1 MG CONT INF (02:30)
--- NOTE | 2019-07-31 02:36 | PN_ITS ---
Progress Note Endotracheal Intubation Note Indication: Acute Respiratory Distress with impending respiratory failure. Performed by: Dr. Dariusz Herrera The patient was placed in sniffing position. RSI was done using Etomidate 20mg and; succinylcholine 100 mg. The patient was easily ventilated using an ambu bag. Direct laryngoscope was used and inserted into the oropharynx at which time there was a Grade 1 view of the vocal cords. An 8-malawian endotracheal tube was inserted and visualized going through the vocal cords. The stylette was removed and cuff was inflated. Colorimetric change was visualized on the CO2 detector. Breath sounds were heard equally in both lung parkinson. The endotracheal tube was placed at 26 cm, measured at the lips. A STAT chest x-ray was ordered to verify endotracheal tube placement. The patient tolerated the procedure well and there were no immediate complications. Independent reading of chest x-ray reading at the bedside showed endotracheal tube in trachea. After official chest x-ray reading consider advancing tube appropriately. STROKE Vital Signs/Narrative: Vital Signs Temp Pulse Resp BP Pulse Ox 07/31/19 00:57 99.0 F 107 H 39 H 139/73 H 92 07/30/19 23:03 108 H 07/30/19 22:50 106 H 38 H 94 07/30/19 22:47 99.9 F H 109 H 43 H 127/72 H 96 Code Visit Procedures: 27705 Insert Emergency Airway
--- NOTE | 2019-07-31 02:37 | PCM.PN.BLA ---
Progress Note Critical CARE note Patient who is being treated for sepsis secondary to pneumonia and acute hypoxemic respiratory failure and on BiPAP continued to have increasing respiratory distress with use of accessory muscles of respiration and with respiratory rate in the high 30s to mid 40s. Initially 1 mg of Ativan was offered however patient continued to have acute respiratory distress. Patient was assessed at the bedside. Patient initially alert and oriented but became lethargic. Acute respiratory distress. Heart sounds S1-S2 present; tachycardia. Tachypnea with use of accessory muscles of respiration. Rhonchi throughout entire lung parkinson. Abdomen obese; bowel sounds present; soft nontender nondistended. Extremities without edema. Assessment and plan Acute hypoxemic respiratory failure secondary to severe sepsis secondary to probable healthcare associated [id number] and gram-negative organisms. Patient transferred to the intensive care unit and intubated secondary to impending respiratory failure. Continue meropenem and Solu-Medrol. While on Ventilator start patient on propofol and fentanyl drip. End Stage renal disease on dialysis Pancytopenia with bandemia. Care time 60minutes (01:20 to 0220): This involved direct patient care and discussing the case with the patient's family and nurses. Reviewing records and labs. It does involve intubation time. STROKE Vital Signs/Narrative: Vital Signs Temp Pulse Resp BP Pulse Ox 07/31/19 00:57 99.0 F 107 H 39 H 139/73 H 92 07/30/19 23:03 108 H 07/30/19 22:50 106 H 38 H 94 07/30/19 22:47 99.9 F H 109 H 43 H 127/72 H 96
--- NOTE | 2019-07-31 03:00 | NURSING ---
Soft restraints applied to chase wrists.
[2019-07-31 03:36] LABS: Bedside Glucose 314 mg/dL (70-110)
[2019-07-31 03:50] LABS: Allen Test POS; Base Excess 1 mmol/L (-2 to +2); Bicarbonate 25.9 mmol/L (22-26); Blood Gas Specimen Type ART; FI02 100; Mode A-C; O2 Delivery Device Vent; PEEP 10; PO2 68 mmHG (75-100); RR 14; SITE R Radial; SO2 94 % (95-99); Time Given 342; Total Carbon Dioxide 27 mmol/L; Vt 450; pCO2 39.8 mmHg (35-45); pH 7.42 (7.35-7.45)
--- NOTE | 2019-07-31 03:50 | EKG12_ITS ---
Test Reason : TACHYCARDIA Blood Pressure : / mmHG Vent. Rate : 105 BPM Atrial Rate : 105 BPM P-R Int : 174 ms QRS Dur : 134 ms QT Int : 354 ms P-R-T Axes : 048 -03 094 degrees QTc Int : 467 ms Sinus tachycardia Non-specific intra-ventricular conduction block Nonspecific T wave abnormality Abnormal ECG Confirmed by BRENNAN FLEMING, ZA ([id number]), editor producer MICHAEL JIMENEZ ([id number]) on 08/04/2019 2:01:18 PM Referred By: Love Gomez Confirmed By:ZA AMIN MD
[2019-07-31 04:08] LABS: Absolute Lymphocyte Count 0.11 X10^3/uL (0.83-4.51); Absolute Neutrophil Count 3.8 X10^3/uL (2.0-7.7); Basophil# 0.01 X10^3/uL; Basophil% 0.2 % (0-1); Hematocrit 27.4 % (40-54); Hemoglobin 8.5 g/dL (13.0-16.5); Lymphocyte # 0.11 X10^3/ul (4.0); Lymphocyte % 2.7 % (19-41); Mean Corpuscular Hgb 27.7 pg (27.0-32.0); Mean Corpuscular Volume 89.3 fL (80-94); Mean Platelet Vol. 9.3 fl (6.2-12.0); Monocyte# 0.08 X10^3/uL; Monocyte% 1.9 % (0-10); Neutrophil # 3.84 X10^3/uL (2.7-7.7); Neutrophil % 92.8 % (47-70); POSITIVE DIFFERENTIAL YES; Platelet Count 174 K/mm3 (150-450); RBC Distribution Width CV 17.2 % (11.6-14.6); Red Blood Count 3.07 M/mm3 (4.6-6.2); White Blood Count 4.1 K/mm3 (4.4-11.0)
[2019-07-31 04:11] LABS: Differential Indicated SCAN CRITERIA MET
[2019-07-31 04:15] LABS: International Normalized Ratio 1.5; Prothrombin Time (Protime)PT. 17.6 SECONDS (11.7-14.9)
[2019-07-31 04:16] LABS: Partial Thromboplast Time 39.3 Seconds (24.1-36.2)
[2019-07-31 04:21] LABS: ALB/GLOB Ratio 0.6 RATIO (0.9-2.4); AST(SGOT) 91 U/L (15-37); Alanine Aminotransfer ALT/SGPT 27 U/L (16-61); Albumin, Serum 2.6 g/dL (3.2-5.0); Alkaline Phosphatase 199 U/L (45-117); Anion Gap 11 (5-15); BUN 45 mg/dL (7-18); BUN/Creat Ratio 7.4 RATIO (10-20); Calcium,Total 8.6 mg/dL (8.5-10.1); Chloride 95 mmol/L (98-107); Creatinine, Serum 6.07 mg/dL (0.70-1.30); EST Glomerular Filtration Rate 10 mL/min (>60); Est Glom Filt Rate - Afr Amer 12 mL/min (>60); Estimated Creatinine Clearance 12.99 ml/min; Globulin 4.4 g/dL (2.2-4.2); Glucose 312 mg/dL (74-106); Phosphorus 3.3 mg/dL (2.5-4.9); Sodium Level 131 mmol/L (136-145)
[2019-07-31 04:34] LABS: Anisocytosis RARE; Hypochromasia RARE; Platelet Estimate ADEQUATE (ADEQ)
--- NOTE | 2019-07-31 04:48 | NURSING ---
20mg Etomidate and 100mg succinylcholine given IVP via PIV to RFA w/NS flushes between and after.
[2019-07-31] MEDS: Propofol 10MG/Ml 1,000 MG/100 ML Bottle 28.5 MG CONT INF ×3 (05:40→13:02)
--- NOTE | 2019-07-31 06:21 | PN_ITS ---
Subjective: The patient was seen and examined at the bedside this morning. Events from the last 24 hours have been reviewed. Overnight, the patient was transferred from the medical floor to the intensive care unit over concerns for impending respiratory failure. The patient did require emergent intubation. The patient did undergo dialysis yesterday with 5 L of fluid removed. Upon successful intubation, the patient did have pink, frothy sputum. Objective: The patient's most recent lab work, culture data and imaging studies have all been personally reviewed. Infectious work-up has been negative to date. General: - - Intubated, sedated and mechanically ventilated. HEENT: Atraumatic, PERRLA, Normocephalic Oral: Moist Mucosa, - - Endotracheal and OG tubes in place Neck: Supple, No Nodes, Trachea Midline Lungs: Diminished, Rales, Rhonchi, Tachypneic Cardiovascular: Normal S1, Normal S2, No murmurs, Tachycardic Abdomen: Bowel Sounds Present, Soft, Non Tender, Obese Extremities: No clubbing, No cyanosis, Edema Skin: No breakdown Musculoskeletal: No Tenderness to Palpation of Joints or Extremities Lymphatic: No Cervical, Supraclavicular, or Inguinal Adenopathy Neurological: - - No focal neurological deficits. Currently sedated. Vital Signs Temp Pulse Resp BP Pulse Ox 99.6 F H 102 H 28 H 154/79 H 93 07/31/19 04:00 07/31/19 05:00 07/31/19 05:17 07/31/19 05:00 07/31/19 05:00 Oxygen Flow Rate (L/min) [At 0 REST on Room Air] Oxygen Flow Rate (L/min) 10 Oxygen Delivery Method Mechanical Ventilator Weight: 244 lb 11.41 oz Body Mass Index (BMI) 41.8 Finger Stick Blood Glucose 90 Intake and Output for Last 24 Hours 07/29/19 07/30/19 07/31/19 23:59 23:59 23:59 Intake Total 1155.25 / 1275.25 540 / 540 75.66 / 75.66 Output Total 5000 / 5000 Balance 1155.25 / 1275.25 -4460 / -4460 75.66 / 75.66 Labs (Last 48 Hours) 07/25/19 07/29/19 07/29/19 10:00 06:20 06:32 WBC 2.2 L RBC 3.29 L Hgb 9.1 L Hct 29.5 L MCV 89.7 MCH 27.7 MCHC 30.8 L RDW Std Deviation 56.1 H RDW Coeff of Gurwinder 17.2 H Plt Count 170 MPV 8.8 Immature Gran % (Auto) 1.900 H Neut % (Auto) 86.9 H Lymph % (Auto) 7.9 L [place] % (Auto) 2.8 Eos % (Auto) 0.0 Baso % (Auto) 0.5 Absolute Neuts (auto) 1.9 L Absolute Lymphs (auto) 0.17 L Nucleated RBC % 0 Differential Comment Diff Path Review Reviewed Reactive Lymphocytes RARE Platelet Estimate Hypochromasia Anisocytosis PT INR APTT Specimen Type Sample Site pH Bicarbonate Actual POC Total CO2 Base Excess O2 Saturation O2 % ABG pCO2 ABG pO2 Hasmukh Test Respiration Rate O2 Delivery Device Liter Flow Minute Volume Vent Mode Tidal Volume POC PEEP EPAP IPAP Blood Gas Notified Whom Blood Gas Notified Time Sodium Potassium Chloride Carbon Dioxide Anion Gap BUN Creatinine Estim Creat Clear Calc Est GFR (MDRD) Af Amer Est GFR (MDRD) Non-Af BUN/Creatinine Ratio Glucose Calcium Phosphorus Iron TIBC Iron Saturation Transferrin 132 L Ferritin Total Bilirubin AST ALT Alkaline Phosphatase Total Protein Albumin Globulin Albumin/Globulin Ratio Vitamin B12 Folate POC Glucose 228 H 07/29/19 07/29/19 07/29/19 06:32 06:32 06:32 WBC RBC Hgb Hct MCV MCH MCHC RDW Std Deviation RDW Coeff of Gurwinder Plt Count MPV Immature Gran % (Auto) Neut % (Auto) Lymph % (Auto) [place] % (Auto) Eos % (Auto) Baso % (Auto) Absolute Neuts (auto) Absolute Lymphs (auto) Nucleated RBC % Differential Comment Diff Path Review Reactive Lymphocytes Platelet Estimate Hypochromasia Anisocytosis PT INR APTT Specimen Type Sample Site pH Bicarbonate Actual POC Total CO2 Base Excess O2 Saturation O2 % ABG pCO2 ABG pO2 Hasmukh Test Respiration Rate O2 Delivery Device Liter Flow Minute Volume Vent Mode Tidal Volume POC PEEP EPAP IPAP Blood Gas Notified Whom Blood Gas Notified Time Sodium 132 L Potassium 4.2 Chloride 97 L Carbon Dioxide 26.0 Anion Gap 9 BUN 30 H Creatinine 6.01 H Estim Creat Clear Calc 13.12 Est GFR (MDRD) Af Amer 13 L Est GFR (MDRD) Non-Af 10 L BUN/Creatinine Ratio 5.0 L Glucose 240 H Calcium 9.0 Phosphorus Iron 26 L TIBC 186 L Iron Saturation 14.0 L Transferrin Ferritin 6372 H Total Bilirubin AST ALT Alkaline Phosphatase Total Protein Albumin Globulin Albumin/Globulin Ratio Vitamin B12 > 2000 H Folate 19.70 POC Glucose 07/29/19 07/29/19 07/29/19 11:53 16:48 20:31 WBC RBC Hgb Hct MCV MCH MCHC RDW Std Deviation RDW Coeff of Gurwinder Plt Count MPV Immature Gran % (Auto) Neut % (Auto) Lymph % (Auto) [place] % (Auto) Eos % (Auto) Baso % (Auto) Absolute Neuts (auto) Absolute Lymphs (auto) Nucleated RBC % Differential Comment Diff Path Review Reactive Lymphocytes Platelet Estimate Hypochromasia Anisocytosis PT INR APTT Specimen Type Sample Site pH Bicarbonate Actual POC Total CO2 Base Excess O2 Saturation O2 % ABG pCO2 ABG pO2 Hasmukh Test Respiration Rate O2 Delivery Device Liter Flow Minute Volume Vent Mode Tidal Volume POC PEEP EPAP IPAP Blood Gas Notified Whom Blood Gas Notified Time Sodium Potassium Chloride Carbon Dioxide Anion Gap BUN Creatinine Estim Creat Clear Calc Est GFR (MDRD) Af Amer Est GFR (MDRD) Non-Af BUN/Creatinine Ratio Glucose Calcium Phosphorus Iron TIBC Iron Saturation Transferrin Ferritin Total Bilirubin AST ALT Alkaline Phosphatase Total Protein Albumin Globulin Albumin/Globulin Ratio Vitamin B12 Folate POC Glucose 332 H 334 H 351 H 07/30/19 07/30/19 07/30/19 06:45 07:14 13:07 WBC RBC Hgb Hct MCV MCH MCHC RDW Std Deviation RDW Coeff of Gurwinder Plt Count MPV Immature Gran % (Auto) Neut % (Auto) Lymph % (Auto) [place] % (Auto) Eos % (Auto) Baso % (Auto) Absolute Neuts (auto) Absolute Lymphs (auto) Nucleated RBC % Differential Comment Diff Path Review Reactive Lymphocytes Platelet Estimate Hypochromasia Anisocytosis PT INR APTT Specimen Type ART Sample Site R Radial pH 7.48 H Bicarbonate Actual 24.5 POC Total CO2 26 Base Excess 1 O2 Saturation 88 L O2 % ABG pCO2 33.1 L ABG pO2 50 L Hasmukh Test POS Respiration Rate O2 Delivery Device Nasal Can Liter Flow 7.0 Minute Volume Vent Mode Tidal Volume POC PEEP EPAP IPAP Blood Gas Notified Whom [facility] Blood Gas Notified Time 703 Sodium Potassium Chloride Carbon Dioxide Anion Gap BUN Creatinine Estim Creat Clear Calc Est GFR (MDRD) Af Amer Est GFR (MDRD) Non-Af BUN/Creatinine Ratio Glucose Calcium Phosphorus Iron TIBC Iron Saturation Transferrin Ferritin Total Bilirubin AST ALT Alkaline Phosphatase Total Protein Albumin Globulin Albumin/Globulin Ratio Vitamin B12 Folate POC Glucose 300 H 192 H 07/30/19 07/30/19 07/30/19 13:13 17:43 22:15 WBC RBC Hgb Hct MCV MCH MCHC RDW Std Deviation RDW Coeff of Gurwinder Plt Count MPV Immature Gran % (Auto) Neut % (Auto) Lymph % (Auto) [place] % (Auto) Eos % (Auto) Baso % (Auto) Absolute Neuts (auto) Absolute Lymphs (auto) Nucleated RBC % Differential Comment Diff Path Review Reactive Lymphocytes Platelet Estimate Hypochromasia Anisocytosis PT INR APTT Specimen Type ART Sample Site R Brachial pH 7.51 H Bicarbonate Actual 24.6 POC Total CO2 26 Base Excess 2 O2 Saturation 95 O2 % 60 ABG pCO2 30.8 L ABG pO2 65 L Hasmukh Test Respiration Rate O2 Delivery Device Bi / C PAP Liter Flow Minute Volume Vent Mode Tidal Volume POC PEEP EPAP 10 IPAP 20 Blood Gas Notified Whom ICU Blood Gas Notified Time 1303 Sodium Potassium Chloride Carbon Dioxide Anion Gap BUN Creatinine Estim Creat Clear Calc Est GFR (MDRD) Af Amer Est GFR (MDRD) Non-Af BUN/Creatinine Ratio Glucose Calcium Phosphorus Iron TIBC Iron Saturation Transferrin Ferritin Total Bilirubin AST ALT Alkaline Phosphatase Total Protein Albumin Globulin Albumin/Globulin Ratio Vitamin B12 Folate POC Glucose 253 H 257 H 07/31/19 07/31/19 07/31/19 01:41 03:31 03:45 WBC RBC Hgb Hct MCV MCH MCHC RDW Std Deviation RDW Coeff of Gurwinder Plt Count MPV Immature Gran % (Auto) Neut % (Auto) Lymph % (Auto) [place] % (Auto) Eos % (Auto) Baso % (Auto) Absolute Neuts (auto) Absolute Lymphs (auto) Nucleated RBC % Differential Comment Diff Path Review Reactive Lymphocytes Platelet Estimate Hypochromasia Anisocytosis PT INR APTT Specimen Type ART Sample Site R Radial pH 7.50 H Bicarbonate Actual 24.4 POC Total CO2 25 Base Excess 1 O2 Saturation 91 L O2 % 45 ABG pCO2 31.3 L ABG pO2 55 L Hasmukh Test POS Respiration Rate 14 O2 Delivery Device Bi / C PAP Liter Flow Minute Volume Vent Mode Tidal Volume POC PEEP EPAP 8 IPAP 14 Blood Gas Notified Whom [facility] Blood Gas Notified Time 135 Sodium 131 L Potassium 5.0 Chloride 95 L Carbon Dioxide 25.0 Anion Gap 11 BUN 45 H Creatinine 6.07 H Estim Creat Clear Calc 12.99 Est GFR (MDRD) Af Amer 12 L Est GFR (MDRD) Non-Af 10 L BUN/Creatinine Ratio 7.4 L Glucose 312 H Calcium 8.6 Phosphorus 3.3 Iron TIBC Iron Saturation Transferrin Ferritin Total Bilirubin 0.70 AST 91 H ALT 27 Alkaline Phosphatase 199 H Total Protein 7.0 Albumin 2.6 L Globulin 4.4 H Albumin/Globulin Ratio 0.6 L Vitamin B12 Folate POC Glucose 314 H 07/31/19 07/31/19 07/31/19 03:45 03:45 03:45 WBC 4.1 L RBC 3.07 L Hgb 8.5 L Hct 27.4 L MCV 89.3 MCH 27.7 MCHC 31.0 L RDW Std Deviation 56.0 H RDW Coeff of Gurwinder 17.2 H Plt Count 174 MPV 9.3 Immature Gran % (Auto) 2.400 H Neut % (Auto) 92.8 H Lymph % (Auto) 2.7 L [place] % (Auto) 1.9 Eos % (Auto) 0.0 Baso % (Auto) 0.2 Absolute Neuts (auto) 3.8 Absolute Lymphs (auto) 0.11 L Nucleated RBC % 1.0 Differential Comment Diff Path Review May foll Reactive Lymphocytes Platelet Estimate ADEQUATE Hypochromasia RARE Anisocytosis RARE PT 17.6 H INR 1.5 APTT 39.3 H Specimen Type ART Sample Site R Radial pH 7.42 Bicarbonate Actual 25.9 POC Total CO2 27 Base Excess 1 O2 Saturation 94 L O2 % 100 ABG pCO2 39.8 ABG pO2 68 L Hasmukh Test POS Respiration Rate 14 O2 Delivery Device Vent Liter Flow Minute Volume 18.00 Vent Mode A-C Tidal Volume 450 POC PEEP 10 EPAP IPAP Blood Gas Notified Whom [facility] Blood Gas Notified Time 342 Sodium Potassium Chloride Carbon Dioxide Anion Gap BUN Creatinine Estim Creat Clear Calc Est GFR (MDRD) Af Amer Est GFR (MDRD) Non-Af BUN/Creatinine Ratio Glucose Calcium Phosphorus Iron TIBC Iron Saturation Transferrin Ferritin Total Bilirubin AST ALT Alkaline Phosphatase Total Protein Albumin Globulin Albumin/Globulin Ratio Vitamin B12 Folate POC Glucose 07/31/19 03:45 WBC RBC Hgb Hct MCV MCH MCHC RDW Std Deviation RDW Coeff of Gurwinder Plt Count MPV Immature Gran % (Auto) Neut % (Auto) Lymph % (Auto) [place] % (Auto) Eos % (Auto) Baso % (Auto) Absolute Neuts (auto) Absolute Lymphs (auto) Nucleated RBC % Differential Comment Diff Path Review Reactive Lymphocytes Platelet Estimate Hypochromasia Anisocytosis PT INR APTT Specimen Type Sample Site pH Bicarbonate Actual POC Total CO2 Base Excess O2 Saturation O2 % ABG pCO2 ABG pO2 Hasmukh Test Respiration Rate O2 Delivery Device Liter Flow Minute Volume Vent Mode Tidal Volume POC PEEP EPAP IPAP Blood Gas Notified Whom Blood Gas Notified Time Sodium Cancelled Potassium Cancelled Chloride Cancelled Carbon Dioxide Cancelled Anion Gap Cancelled BUN Cancelled Creatinine Cancelled Estim Creat Clear Calc Cancelled Est GFR (MDRD) Af Amer Cancelled Est GFR (MDRD) Non-Af Cancelled BUN/Creatinine Ratio Cancelled Glucose Cancelled Calcium Cancelled Phosphorus Iron TIBC Iron Saturation Transferrin Ferritin Total Bilirubin AST ALT Alkaline Phosphatase Total Protein Albumin Globulin Albumin/Globulin Ratio Vitamin B12 Folate POC Glucose Microbiology 07/27/19 22:10 Blood Culture (Wb) - Right Wrist Blood Culture - Preliminary No growth in 48 hours. 07/27/19 22:05 Blood Culture (Wb) - Anticubital Right Blood Culture - Preliminary No growth in 48 hours. 07/24/19 22:00 Blood Culture (Wb) - Right Hand Blood Culture - Final No growth in 5 days. 07/24/19 19:35 Blood Culture (Wb) - Right Hand Blood Culture - Final No growth in 5 days. Clinical Impression(s) from Imaging Studies Chest CT 07/25/19 17:35 IMPRESSION: Bilateral airspace disease, effusions, and probable reactive lymphadenopathy. Mitral valve disease, coronary artery disease and cardiomegaly. Electronically Signed: Eliezer Ernandez MD at 19:04 EST , Service support , Chest X-Ray 07/30/19 06:34 IMPRESSION: Diffuse bilateral airspace disease. Findings are suggestive of pulmonary edema. Electronically Signed: Shashi Bills, at 8:18 EST , Service support , Chest X-Ray 07/31/19 02:19 IMPRESSION: Adequate position of newly placed esophagogastric tube. Adequate position of newly placed endotracheal tube. Severe bilateral patchy airspace disease, possibly ARDS.. at 0424 Reported and signed by: Gage Soria MD Electronically Signed: Gage Soria MD at 4:23 EST Tel , Service support , Medical Necessity - Tobacco Use Smoking Status: Former smoker Tobacco Use: Non-smoker Assessment/Plan All Active Problems (Last Reviewed 07/15/19 @ 10:07 by Ailyn Olivera) Pancytopenia (Acute) Pneumonia (Acute) Sepsis (Acute) Hypoxia (Acute) Cellulitis of left lower extremity (Acute) Sepsis (Acute) Problem with dialysis access (Acute) Skin abscess (Acute) Infected open wound (Acute) Decubitus ulcer of left heel, stage 2 (Acute) Debility (Acute) Abdominal wall abscess (Acute) Fever (Acute) Acute on chronic renal failure (Acute) RECOMMENDATIONS: 1. Transition from assist control mode mechanical ventilation to ACVC+. 2. Continue propofol and fentanyl for sedation. 3. Transition from scheduled to as needed bronchodilator therapy. 4. Discontinue steroids. 5. Strongly recommend additional ultrafiltration today for volume optimization. 6. Obtain repeat plain film chest x-ray. 7. Wean FiO2 and PEEP in an attempt to maintain an oxygen saturation at or above 90%. 8. Continue empiric antimicrobials per ID recommendations. 9. Continue appropriate ICU prophylaxis. IMPRESSIONS: 1. Acute hypoxemic respiratory failure Likely secondary to healthcare associated pneumonia and volume overloaded state in the setting of end-stage renal disease. The patient did require emergent intubation on July 31, following failed attempts at noninvasive positive pressure ventilatory support. Continue current supportive measures and wean FiO2 and PEEP to maintain oxygen saturations at or above 90%. Continue empiric antimicrobials per ID recommendations. Strongly recommend additional ultrafiltration today to assist with volume optimization. Tube feeds can be initiated today. 2. Severe sepsis secondary to probable healthcare associated pneumonia Continue empiric antimicrobials per ID recommendations. Continue invasive mechanical ventilatory support as noted above. The patient remains hemodynamically stable. 3. End-stage renal disease on hemodialysis Nephrology following to assist with hemodialysis needs. Anticipate additional ultrafiltration needs today. 4. 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 Continue insulin and sliding scale coverage. Tube feeds can be initiated today per dietary recommendations. TIME: 40 minutes of critical care time, independent of procedures, was spent addressing the patient's acute hypoxemic respiratory failure, severe sepsis secondary to HAP, end-stage renal disease on hemodialysis, review of all data and collaboration with the care team. ([id number]) Code Visit [id number]: [id number] Critical care first hour
--- NOTE | 2019-07-31 06:48 | RAD_ITS ---
STUDY: X-RAY CHEST REASON FOR EXAM: Male, 59 years old. ETT placement verification TECHNIQUE: Single AP portable view of the chest. COMPARISON: 07/31/2001 26 FINDINGS: Interval placement of endotracheal tube with the tip approximately 4 cm above the raman. Nasogastric tube and tunneled right internal jugular dialysis catheter both which are unchanged. No change in the alveolar opacities throughout both lungs consistent with bilateral pneumonia, pulmonary edema, or ARDS. There is no demonstrated pleural abnormality. There is moderate cardiac enlargement. Normal mediastinum and alee. Normal visualized pulmonary arteries. Normal visualized aortic arch and descending thoracic aorta. Normal visualized thoracic spine. Normal visualized ribs, clavicles, and shoulders. There is no demonstrated abnormality of the visualized soft tissue structures of the upper abdomen. RAD/Chest 1 View (Portable) IMPRESSION: 1. Interval placement of endotracheal tube with the tip approximately 4 cm above the raman. 2. Nasogastric tube and tunneled right internal jugular dialysis catheter both which are unchanged. 3. No change in bilateral pneumonia, pulmonary edema, or ARDS. Electronically Signed: Kendell Hagen MD at 8:37 EST Tel , Service support ,
[2019-07-31 07:11] LABS: Bedside Glucose 290 mg/dL (70-110)
[2019-07-31 07:54] LABS: BNP,B-Type NATRIURETIC PEPTIDE 1885.6 pg/mL (0-100)
--- NOTE | 2019-07-31 08:26 | PCM.PN.HOSP ---
Patient Problems: Active and Suspected Problems (Last Reviewed 07/15/19 @ 10:07 by Ailyn Olivera) Pneumonia (Acute) Sepsis (Acute) Hypoxia (Acute) Reason for Visit: Follow-up on respiratory failure/pulmonary edema Subjective: Patient was seen and examined. He had worsening respiratory status and had to be intubated and sent to the ICU. He is currently sedated on propofol and fentanyl. No other acute events overnight. Currently undergoing ultrafiltration. Objective: Physical exam: General: Intubated, sedated, on mechanical ventilator, undergoing dialysis HEENT: Atraumatic, PERRLA, EOMI, Normocephalic, OG tube Oral: Moist Mucosa Neck: Supple Lungs: Diminished at lung bases, coarse crackles, scattered wheezes Cardiovascular: Regular rate, Regular Rhythm, Normal S1, Normal S2, No murmurs Abdomen: Bowel Sounds Present, Soft, Non Tender, Non-Distended, No Hepato-splenomegaly Extremities: Bilateral edema +1 Skin: No rashes, No breakdown Musculoskeletal: No Tenderness to Palpation of Joints or Extremities Lymphatic: No Cervical, Supraclavicular, or Inguinal Adenopathy Neurological: Cranial nerves II-XII grossly intact, Neuro grossly intact Psych/Mental Status: Normal Affect, Appropriate Vitals/I&O's: Vital Signs Temp Pulse Resp BP Pulse Ox 99.6 F H 87 18 136/64 H 94 07/31/19 04:00 07/31/19 06:43 07/31/19 06:43 07/31/19 06:00 07/31/19 06:43 Oxygen Flow Rate (L/min) [At 0 REST on Room Air] Oxygen Flow Rate (L/min) 10 Oxygen Delivery Method Mechanical Ventilator Weight: 111 kg Body Mass Index (BMI) 41.8 Finger Stick Blood Glucose 90 Intake and Output for Last 24 Hours 07/29/19 07/30/19 07/31/19 23:59 23:59 23:59 Intake Total 1155.25 / 1275.25 540 / 540 110.66 / 110.66 Output Total 5000 / 5000 Balance 1155.25 / 1275.25 -4460 / -4460 110.66 / 110.66 Microbiology Past 72 Hours 07/27/19 22:10 Blood Culture (Wb) - Right Wrist Blood Culture - Preliminary No growth in 48 hours. 07/27/19 22:05 Blood Culture (Wb) - Anticubital Right Blood Culture - Preliminary No growth in 48 hours. 07/24/19 22:00 Blood Culture (Wb) - Right Hand Blood Culture - Final No growth in 5 days. 07/24/19 19:35 Blood Culture (Wb) - Right Hand Blood Culture - Final No growth in 5 days. Laboratory Results 07/25/19 10:00: Transferrin 132 L 07/30/19 13:07: POC Glucose 192 H 07/30/19 13:13: Specimen Type ART, Sample Site R Brachial, pH 7.51 H, Bicarbonate Actual 24.6, POC Total CO2 26, Base Excess 2, O2 Saturation 95, O2 % 60, ABG pCO2 30.8 L, ABG pO2 65 L, O2 Delivery Device Bi / C PAP, EPAP 10, IPAP 20, Blood Gas Notified Whom ICU , Blood Gas Notified Time 1303 07/30/19 17:43: POC Glucose 253 H 07/30/19 22:15: POC Glucose 257 H 07/31/19 01:41: Specimen Type ART, Sample Site R Radial, pH 7.50 H, Bicarbonate Actual 24.4, POC Total CO2 25, Base Excess 1, O2 Saturation 91 L, O2 % 45, ABG pCO2 31.3 L, ABG pO2 55 L, Hasmukh Test POS, Respiration Rate 14, O2 Delivery Device Bi / C PAP, EPAP 8, IPAP 14, Blood Gas Notified Whom [facility]OS[facility] , Blood Gas Notified Time 135 07/31/19 03:31: POC Glucose 314 H 07/31/19 03:45: Sodium 131 L, Potassium 5.0, Chloride 95 L, Carbon Dioxide 25.0, Anion Gap 11, BUN 45 H, Creatinine 6.07 H, Estim Creat Clear Calc 12.99, Est GFR (MDRD) Af Amer 12 L, Est GFR (MDRD) Non-Af 10 L, BUN/Creatinine Ratio 7.4 L, Glucose 312 H, Calcium 8.6, Phosphorus 3.3, Total Bilirubin 0.70, AST 91 H, ALT 27, Alkaline Phosphatase 199 H, Total Protein 7.0, Albumin 2.6 L, Globulin 4.4 H, Albumin/Globulin Ratio 0.6 L 07/31/19 03:45: Specimen Type ART, Sample Site R Radial, pH 7.42, Bicarbonate Actual 25.9, POC Total CO2 27, Base Excess 1, O2 Saturation 94 L, O2 % 100, ABG pCO2 39.8, ABG pO2 68 L, Hasmukh Test POS, Respiration Rate 14, O2 Delivery Device Vent, Minute Volume 18.00, Vent Mode A-C, Tidal Volume 450, POC PEEP 10, Blood Gas Notified Whom [facility], Blood Gas Notified Time 342 07/31/19 03:45: WBC 4.1 L, RBC 3.07 L, Hgb 8.5 L, Hct 27.4 L, MCV 89.3, MCH 27.7, MCHC 31.0 L, RDW Std Deviation 56.0 H, RDW Coeff of Gurwinder 17.2 H, Plt Count 174, MPV 9.3, Immature Gran % (Auto) 2.400 H, Neut % (Auto) 92.8 H, Lymph % (Auto) 2.7 L, Anson % (Auto) 1.9, Eos % (Auto) 0.0, Baso % (Auto) 0.2, Absolute Neuts (auto) 3.8, Absolute Lymphs (auto) 0.11 L, Nucleated RBC % 1.0, Differential Comment , Diff Path Review May foll, Platelet Estimate ADEQUATE, Hypochromasia RARE, Anisocytosis RARE 07/31/19 03:45: PT 17.6 H, INR 1.5, APTT 39.3 H 07/31/19 03:45: Sodium Cancelled, Potassium Cancelled, Chloride Cancelled, Carbon Dioxide Cancelled, Anion Gap Cancelled, BUN Cancelled, Creatinine Cancelled, Estim Creat Clear Calc Cancelled, Est GFR (MDRD) Af Amer Cancelled, Est GFR (MDRD) Non-Af Cancelled, BUN/Creatinine Ratio Cancelled, Glucose Cancelled, Calcium Cancelled 07/31/19 03:45: B-Natriuretic Peptide 1885.6 H 07/31/19 07:04: POC Glucose 290 H Current Medications Acetaminophen (Tylenol Liquid) 650 mg GT Q6H PRN PRN PRN Reason: Pain Score 1-10/Temp > 100.7 F Albuterol Sulfate (Ventolin Aerosols) 2.5 mg INHALATION Q2H PRN PRN PRN Reason: Shortness of Breath/Wheezing Last Admin: 07/27/19 10:21 Dose: 2.5 mg Documented by: Famotidine (Pepcid) 20 mg GT BID [facility] Glucagon () 1 mg IM .X1 PRN PRN Reason: Hypoglycemia Guaifenesin (Robitussin) 20 ml GT Q4H PRN PRN PRN Reason: COUGH Heparin Sodium (Porcine) (Heparin Na) 5,000 unit SC Q12 [facility] Last Admin: 07/30/19 22:24 Dose: 5,000 unit Documented by: Heparin Sodium (Porcine) () 2,500 units IV UD PRN PRN Reason: Dialysis Cath Heparin Flush Hydralazine HCl (Apresoline Iv) 10 mg IV Q4H PRN PRN PRN Reason: SBP > 160 Dextrose (Dextrose 10%-Water) 250 mls @ 999 mls/hr IV .Q16M PRN; Protocol PRN Reason: HYPOGLYCEMIA Sodium Chloride () 250 mls @ 15 mls/hr IV .[id number] PRN PRN Reason: Saline Flush Last Infusion: 07/29/19 17:00 Dose: 0 mls/hr Documented by: Sodium Chloride () 250 mls @ 15 mls/hr IV .[id number] PRN PRN Reason: Additional IVPB Infusion Meropenem 500 mg/ Sodium (Chloride) 60 mls @ 100 mls/hr IV Q24 [facility] Last Infusion: 07/30/19 13:51 Dose: Infused Documented by: Propofol (Diprivan) 1,000 mg in 100 mls @ 7.122 mls/hr CONT INF .Q12H [facility]; Protocol Last Titration: 07/31/19 06:00 Dose: 40 mcg/kg/min, 28.5 mls/hr Documented by: Fentanyl () 100 mls @ 2.5 mls/hr IV UD [facility]; Protocol Last Titration: 07/31/19 06:30 Dose: 125 mcg/hr, 12.5 mls/hr Documented by: Insulin Glargine (Lantus (Bkc)) 10 units SC 1800 [facility] Insulin Human Lispro (Humalog Kwikpen (Bkc)) 0 unit SC Q6 [facility]; Protocol Metoprolol Tartrate (Lopressor (Beta Elizabeth)) 50 mg GT 1400 [facility] Ondansetron HCl (Zofran) 4 mg IV Q8H PRN PRN PRN Reason: NAUSEA/VOMITING Last Admin: 07/24/19 19:27 Dose: 4 mg Documented by: Prochlorperazine Edisylate (Compazine Iv) 5 mg IV Q4H PRN PRN PRN Reason: Breakthrough nausea/vomiting Senna/Docusate Sodium (Senokot-S, Belia-Colace) 1 tablet GT DAILY [facility] Sodium Chloride () 10 - 40 ml IV UD PRN PRN Reason: SALINE FLUSH Last Admin: 07/30/19 23:31 Dose: 20 ml Documented by: STROKE Vital Signs/Narrative: Vital Signs Pulse Resp BP Pulse Ox 07/31/19 06:43 87 18 94 07/31/19 06:00 96 19 H 136/64 H 95 07/31/19 05:17 28 H 07/31/19 05:00 102 H 22 H 154/79 H 93 Medical Necessity - Tobacco Use Smoking Status: Former smoker Tobacco Use: Non-smoker Assessment/Plan All Active Problems (Last Reviewed 07/15/19 @ 10:07 by Ailyn Olivera) Pancytopenia (Acute) Pneumonia (Acute) Sepsis (Acute) Hypoxia (Acute) Cellulitis of left lower extremity (Acute) Sepsis (Acute) Problem with dialysis access (Acute) Skin abscess (Acute) Infected open wound (Acute) Decubitus ulcer of left heel, stage 2 (Acute) Debility (Acute) Abdominal wall abscess (Acute) Fever (Acute) Acute on chronic renal failure (Acute) 1. Acute respiratory failure secondary to acute fluid overload, s/p emergent intubation BNPep >1800, had dialysis yesterday with >5L fluid removal; having dialysis today. Chest X-ray this morning was suggestive of pulmonary edema, unchanged from yesterday persistent IV steroids have been discontinued Discussed with mechanical test technician, cannot rule out ARDS; will monitor fluid status as well oxygen requirements Repeat chest x-ray tomorrow morning. May consider repeat CT of the chest if patient's respiratory status remains tenuous despite fluid removal 2. Sepsis secondary to pneumonia, on meropenem Blood cultures are negative. Sputum cultures showed mixed respiratory shiva, respiratory panel negative, urine Legionella and streptococcal antigen negative 3. Anemia of CKD, stable, Hb is 8.5, patient had received 1 unit of pRBC in this hospital stay. 4. ESRD on hemodialysis, status post tunneled dialysis catheter, on HD, being dialyzed today 5. 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 Anxiety/depression, continue on Effexor 7. DVT ppx- Heparin SC Code Visit Inpatient E&M: 46289 Subs Hosp L2
[2019-07-31] MEDS: Insulin Lispro 100 UNIT/ML INSULN.PEN SC ×3 (08:48→23:57)
--- NOTE | 2019-07-31 09:20 | CM.UR ---
Participated in interdisciplinary rounds. Patient remains intubated. Family present included , 2 sons and a [id number]. Patient currently getting dialysis. Discussed original plan to return home with OP treatment. Explained that case mgmt will continue to follow to determine if needs different level of care. family verb understanding. Osbaldo Kang RN, CCM.
[2019-07-31] MEDS: Chlorhexidine 15 ML PO ×2 (09:24→21:07)
--- NOTE | 2019-07-31 09:39 | PCM.NTREPORT ---
Nutrition Therapy Report - History Nutrition Services has been consulted to:: Manage enteral nutrition Current diet / nutrition support order:: NPO - Anthropometric Measurements Height:: 5 ft 8 in Weight:: 111 kg Body Mass Index (BMI):: 37.2 - Relevant Labs Relevant Labs:: WBC 4.1 K/mm3 (4.4-11.0) L 07/31/19 03:45 RBC 3.07 M/mm3 (4.6-6.2) L 07/31/19 03:45 Hgb 8.5 g/dL (13.0-16.5) L 07/31/19 03:45 Hct 27.4 % (40-54) L 07/31/19 03:45 MCV 96.0 fL (80-94) H 07/25/19 05:27 MCHC 31.0 g/dL (32-36) L 07/31/19 03:45 RDW Std Deviation 56.0 fl (35.1-43.9) H 07/31/19 03:45 RDW Coeff of Gurwinder 17.2 % (11.6-14.6) H 07/31/19 03:45 Plt Count 138 K/mm3 (150-450) L 07/28/19 06:45 Immature Gran % (Auto) 2.400 % (0.0-0.9) H 07/31/19 03:45 Neut % (Auto) 92.8 % (47-70) H 07/31/19 03:45 Lymph % (Auto) 2.7 % (19-41) L 07/31/19 03:45 Absolute Neuts (auto) 1.9 X10^3/uL (2.0-7.7) L 07/29/19 06:32 Absolute Lymphs (auto) 0.11 X10^3/uL (0.83-4.51) L 07/31/19 03:45 PT 17.6 SECONDS (11.7-14.9) H 07/31/19 03:45 APTT 39.3 Seconds (24.1-36.2) H 07/31/19 03:45 Sodium 131 mmol/L (136-145) L 07/31/19 03:45 Chloride 95 mmol/L (98-107) L 07/31/19 03:45 BUN 45 mg/dL (7-18) H 07/31/19 03:45 Creatinine 6.07 mg/dL (0.70-1.30) H 07/31/19 03:45 Est GFR (MDRD) Af Amer 12 mL/min (>60) L 07/31/19 03:45 Est GFR (MDRD) Non-Af 10 mL/min (>60) L 07/31/19 03:45 BUN/Creatinine Ratio 7.4 RATIO (10-20) L 07/31/19 03:45 Glucose 312 mg/dL (74-106) H 07/31/19 03:45 Phosphorus 5.1 mg/dL (2.5-4.9) H 07/27/19 07:00 Iron 26 ug/dL (65-175) L 07/29/19 06:32 TIBC 186 ug/dL (250-450) L 07/29/19 06:32 Iron Saturation 14.0 % (15.0-55.0) L 07/29/19 06:32 Transferrin 132 mg/dL (200-370) L 07/25/19 10:00 Ferritin 6372 ng/mL (26-388) H 07/29/19 06:32 AST 91 U/L (15-37) H 07/31/19 03:45 Alkaline Phosphatase 199 U/L (45-117) H 07/31/19 03:45 B-Natriuretic Peptide 1885.6 pg/mL (0-100) H 07/31/19 03:45 Albumin 2.6 g/dL (3.2-5.0) L 07/31/19 03:45 Globulin 4.4 g/dL (2.2-4.2) H 07/31/19 03:45 Albumin/Globulin Ratio 0.6 RATIO (0.9-2.4) L 07/31/19 03:45 Vitamin B12 > 2000 pg/mL (211-911) H 07/29/19 06:32 - Assessment Food / Nutrition-Related History:: Discussed in ICU rounds--patient transferred to the intensive care unit and intubated secondary to respiratory failure- plans to intiate TF, Dr. Mcledo provided verbal consent to kimmy pt as NPO. Per EMR pt w/ wt decrease of 11kg since admin 07/26 indicating 25lb/9.3% wt loss x 5 days- pt underwent HD tx yesterday removed 5 L, wt loss likely d/t pt fluid status. Per RN note pt w/ BLE 1+ pitting edema. Pt w/ good PO intake at meals prior to admin to ICU. Potassium and phosphorous are in normal range. [ End ] - Nutrition Diagnosis Problem / Etiology / Signs & Symptoms (PES):: Inadequate oral intake related to respiratory failure as evidenced by pt intubated with plans to intiate TF and pt NPO status. Evidence of Malnutrition Exists:: No - Nutrition Intervention Nutrition Prescription:: Estimated needs: 2884-3596 calories, 99-109g protein. Nutritional needs estimated using 35calories/kg IBW (70kg) and 1.2 g/kg ABW (83kg). - Food / Nutrient Delivery Interventions Summary of nutrition intervention:: Pt currently intubated secondary to respiratory failure. Plans for intiation of TF, Dr. Mcleod provided verbal consent to kimmy pt as NPO. Noted wt decrease of 11kg since admin 07/26 indicating 25lb/9.3% wt loss x 5 days- pt underwent HD tx yesterday removed 5 L, wt loss likely d/t pt fluid status. Pt w/ good PO intake at meals prior to respiratory failure resulting in pt intubation. Per RN note pt w/ BLE 1+ pitting edema. Nutrition support ordered as / adjusted to:: Vital AF 1.2 via OG at goal rate of 80 ml/hr w/ 160 ml flush every 6 hours to provide 2304 calories, 144 g protein, 2197 ml total free water per day. Would intiate TF at 20 ml/hr and advance 20 ml every 8 hours as pt tolerates until goal rate achieved. Rec 2200 calorie controlled, cardiac low sodium diet as pt medically able. Nutrition education provided?: No - MNT Monitoring Further MNT monitoring and evaluation required?: Yes - Will monitor pt TF tolerance, wt trends, labs, and follow-up. MNT Follow-up in:: 3-5 days
[2019-07-31] MEDS: Heparin Injection (Vial) 5,000 UNIT/ML VIAL 5000 UNIT SC ×2 (09:59→21:07)
[2019-07-31] MEDS: Famotidine 20 MG Tablet GT ×2 (10:00→21:07)
[2019-07-31] MEDS: Senna/Docusate Sodium 1 Tablet GT (10:00)
[2019-07-31] MEDS: Vital AF 1.2 Cal Liquid 1,000 ML 80 ML GT (10:39)
[2019-07-31] MEDS: TITRATION PARAMETER CHANGE 1 EACH IV ×2 (10:39→15:12)
[2019-07-31] MEDS: fentaNYL drip 100 ML 12.5 MCG IV ×2 (10:51→19:01)
[2019-07-31] MEDS: Albumin Human 25% (100 mL) 25 GM/100 ML BAG IV (12:00)
[2019-07-31] MEDS: SUCROFERRIC OXYHYDROXIDE 500 MG TAB.CHEW 1500 MG GT ×2 (12:50→18:20)
[2019-07-31 12:51] LABS: Bedside Glucose 141 mg/dL (70-110)
[2019-07-31] MEDS: Albuterol 2.5 MG/3 ML VIAL.NEB. INHALATION (13:29)
--- NOTE | 2019-07-31 13:56 | DIALYSIS ---
HD x3hrs completed at 1230, tolerated poorly, hypotensive with attempts to remove fluid, albumin given x1 to assist with fluid removal (not available and given till last 45 mins of tx), UF -500mL (gain of 500mL), accessed via right chest tunneled dialysis catheter, worked well, locked with heparin post tx, maturing AVF noted to left wrist/forearm, +bruit +thrill noted, 07/24 UF 4500mL 07/26 UF 3000mL 07/28 UF 4400mL 07/30 UF 5000mL 07/31 UF -500mL (gained 500mL)
--- NOTE | 2019-07-31 14:26 | PN.RENAL_ITS ---
Patient Problems: Active and Suspected Problems (Last Reviewed 07/15/19 @ 10:07 by Ailyn Olivera) Pneumonia (Acute) Sepsis (Acute) Hypoxia (Acute) Subjective: transferred to ICU overnight for acute resp failure, intubated, sedated. Hemodialysis arranged today to remove additional fluids. BP hypotensive and received fluids and iv albumin for hypotension. Net positive balance. - Physical Exam Vitals/I&O's: Vital Signs Temp Pulse Resp BP Pulse Ox 97.9 F 73 16 96/50 L 100 07/31/19 13:30 07/31/19 13:30 07/31/19 13:30 07/31/19 13:30 07/31/19 13:30 Oxygen Flow Rate (L/min) [At 0 REST on Room Air] Oxygen Flow Rate (L/min) 10 Oxygen Delivery Method Mechanical Ventilator Weight: 111 kg Body Mass Index (BMI) 37.2 Finger Stick Blood Glucose 90 Intake and Output for Last 24 Hours 07/29/19 07/30/19 07/31/19 23:59 23:59 23:59 Intake Total 1155.25 / 1275.25 540 / 540 982.42 / 982.42 Output Total 5000 / 5000 Balance 1155.25 / 1275.25 -4460 / -4460 982.42 / 982.42 General: - - sedate on vent Lungs: Rhonchi, Wheezes - improved, - - on vent Cardiovascular: Regular rate, Murmur Abdomen: Soft, Non Tender, Hypoactive Bowel Sounds, Obese Extremities: No edema Neurological: - - sedate Psych/Mental Status: - - sedate Microbiology Past 72 Hours 07/31/19 02:35 Sputum, Induced/Lukens Gram Stain - Final 07/27/19 22:10 Blood Culture (Wb) - Right Wrist Blood Culture - Preliminary No growth in 48 hours. 07/27/19 22:05 Blood Culture (Wb) - Anticubital Right Blood Culture - Preliminary No growth in 48 hours. 07/24/19 22:00 Blood Culture (Wb) - Right Hand Blood Culture - Final No growth in 5 days. 07/24/19 19:35 Blood Culture (Wb) - Right Hand Blood Culture - Final No growth in 5 days. Laboratory Results 07/26/19 07:00: Crossmatch See Detail 07/30/19 13:07: POC Glucose 192 H 07/30/19 17:43: POC Glucose 253 H 07/30/19 22:15: POC Glucose 257 H 07/31/19 01:41: Specimen Type ART, Sample Site R Radial, pH 7.50 H, Bicarbonate Actual 24.4, POC Total CO2 25, Base Excess 1, O2 Saturation 91 L, O2 % 45, ABG pCO2 31.3 L, ABG pO2 55 L, Hasmukh Test POS, Respiration Rate 14, O2 Delivery Device Bi / C PAP, EPAP 8, IPAP 14, Blood Gas Notified Whom [facility] , Blood Gas Notified Time 135 07/31/19 03:31: POC Glucose 314 H 07/31/19 03:45: Sodium 131 L, Potassium 5.0, Chloride 95 L, Carbon Dioxide 25.0, Anion Gap 11, BUN 45 H, Creatinine 6.07 H, Estim Creat Clear Calc 12.99, Est GFR (MDRD) Af Amer 12 L, Est GFR (MDRD) Non-Af 10 L, BUN/Creatinine Ratio 7.4 L, Glucose 312 H, Calcium 8.6, Phosphorus 3.3, Total Bilirubin 0.70, AST 91 H, ALT 27, Alkaline Phosphatase 199 H, Total Protein 7.0, Albumin 2.6 L, Globulin 4.4 H , Albumin/Globulin Ratio 0.6 L 07/31/19 03:45: Specimen Type ART, Sample Site R Radial, pH 7.42, Bicarbonate Actual 25.9, POC Total CO2 27, Base Excess 1, O2 Saturation 94 L, O2 % 100, ABG pCO2 39.8, ABG pO2 68 L, Hasmukh Test POS, Respiration Rate 14, O2 Delivery Device Vent, Minute Volume 18.00, Vent Mode A-C, Tidal Volume 450, POC PEEP 10, Blood Gas Notified Whom [facility] , Blood Gas Notified Time 342 07/31/19 03:45: WBC 4.1 L, RBC 3.07 L, Hgb 8.5 L, Hct 27.4 L, MCV 89.3, MCH 27.7, MCHC 31.0 L, RDW Std Deviation 56.0 H, RDW Coeff of Gurwinder 17.2 H, Plt Count 174, MPV 9.3, Immature Gran % (Auto) 2.400 H, Neut % (Auto) 92.8 H, Lymph % (Aut o) 2.7 L, Wayne % (Auto) 1.9, Eos % (Auto) 0.0, Baso % (Auto) 0.2, Absolute Neuts (auto) 3.8, Absolute Lymphs (auto) 0.11 L, Nucleated RBC % 1.0, Differential Comment , Diff Path Review May foll, Platelet Estimate ADEQUATE, Hypochromasia RARE, Anisocytosis RARE 07/31/19 03:45: PT 17.6 H, INR 1.5, APTT 39.3 H 07/31/19 03:45: Sodium Cancelled, Potassium Cancelled, Chloride Cancelled, Carbon Dioxide Cancelled, Anion Gap Cancelled, BUN Cancelled, Creatinine Cancelled, Estim Creat Clear Calc Cancelled, Est GFR (MDRD) Af Amer Cancelled, Est GFR (MDRD) Non-Af Cancelled, BUN/Creatinine Ratio Cancelled, Glucose Cancelled, Calcium Cancelled 07/31/19 03:45: B-Natriuretic Peptide 1885.6 H 07/31/19 07:04: POC Glucose 290 H 07/31/19 12:41: POC Glucose 141 H Current Medications Acetaminophen (Tylenol Liquid) 650 mg GT Q6H PRN PRN PRN Reason: Pain Score 1-10/Temp > 100.7 F Albuterol Sulfate (Ventolin Aerosols) 2.5 mg INHALATION Q2H PRN PRN PRN Reason: Shortness of Breath/Wheezing Last Admin: 07/31/19 13:29 Dose: 2.5 mg Documented by: Chlorhexidine Gluconate () 15 ml PO BID [facility] Last Admin: 07/31/19 09:24 Dose: 15 ml Documented by: Chlorhexidine Gluconate () 1 each TOPICAL DAILY [facility] Famotidine (Pepcid) 20 mg GT BID [facility] Last Admin: 07/31/19 10:00 Dose: 20 mg Documented by: Glucagon () 1 mg IM .X1 PRN PRN Reason: Hypoglycemia Guaifenesin (Robitussin) 20 ml GT Q4H PRN PRN PRN Reason: COUGH Heparin Sodium (Porcine) (Heparin Na) 5,000 unit SC Q12 [facility] Last Admin: 07/31/19 09:59 Dose: 5,000 unit Documented by: Heparin Sodium (Porcine) () 2,500 units IV UD PRN PRN Reason: Dialysis Cath Heparin Flush Hydralazine HCl (Apresoline Iv) 10 mg IV Q4H PRN PRN PRN Reason: SBP > 160 Dextrose (Dextrose 10%-Water) 250 mls @ 999 mls/hr IV .Q16M PRN; Protocol PRN Reason: HYPOGLYCEMIA Sodium Chloride () 250 mls @ 15 mls/hr IV .[id number] PRN PRN Reason: Saline Flush Last Infusion: 07/29/19 17:00 Dose: 0 mls/hr Documented by: Sodium Chloride () 250 mls @ 15 mls/hr IV .[id number] PRN PRN Reason: Additional IVPB Infusion Meropenem 500 mg/ Sodium (Chloride) 60 mls @ 100 mls/hr IV Q24 [facility] Last Admin: 07/31/19 13:06 Dose: 100 mls/hr Documented by: Propofol (Diprivan) 1,000 mg in 100 mls @ 7.122 mls/hr CONT INF .Q12H [facility]; Protocol Last Admin: 07/31/19 13:02 Dose: 40 mcg/kg/min, 28.5 mls/hr Documented by: Fentanyl () 100 mls @ 2.5 mls/hr IV UD [facility]; Protocol Last Titration: 07/31/19 13:00 Dose: 125 mcg/hr, 12.5 mls/hr Documented by: Enteral Nutritional Formula (Vital Af 1.2 Ezra Liquid) 1,000 mls @ 80 mls/hr GT .[id number] [facility] Last Admin: 07/31/19 10:39 Dose: 80 mls/hr Documented by: Insulin Glargine (Lantus (Bkc)) 15 units SC 1800 [facility] Insulin Human Lispro (Humalog Kwikpen (Bkc)) 0 unit SC Q6 [facility]; Protocol Last Admin: 07/31/19 12:43 Dose: Not Given Documented by: Metoprolol Tartrate (Lopressor (Beta Elizabeth)) 50 mg GT 1400 [facility] Ondansetron HCl (Zofran) 4 mg IV Q8H PRN PRN PRN Reason: NAUSEA/VOMITING Last Admin: 07/24/19 19:27 Dose: 4 mg Documented by: Prochlorperazine Edisylate (Compazine Iv) 5 mg IV Q4H PRN PRN PRN Reason: Breakthrough nausea/vomiting Senna/Docusate Sodium (Senokot-S, Belia-Colace) 1 tablet GT DAILY [facility] Last Admin: 07/31/19 10:00 Dose: 1 tablet Documented by: Sodium Chloride () 10 - 40 ml IV UD PRN PRN Reason: SALINE FLUSH Last Admin: 07/30/19 23:31 Dose: 20 ml Documented by: Medical Necessity - Tobacco Use Smoking Status: Former smoker Tobacco Use: Non-smoker Assessment/Plan All Active Problems (Last Reviewed 07/15/19 @ 10:07 by Ailyn Olivera) Pancytopenia (Acute) Pneumonia (Acute) Sepsis (Acute) Hypoxia (Acute) Cellulitis of left lower extremity (Acute) Sepsis (Acute) Problem with dialysis access (Acute) Skin abscess (Acute) Infected open wound (Acute) Decubitus ulcer of left heel, stage 2 (Acute) Debility (Acute) Abdominal wall abscess (Acute) Fever (Acute) Acute on chronic renal failure (Acute) 1. ESRD HD MWF. Dialysis today for additional fluid removal. Pt not able to tolerate any fluid removal. Net positive 500cc. Next dialysis Friday, 2. Anemia EPO, IV iron 3. Acute pneumonia s/p intubation for respiratory failure on iv antibx 4. DM type II primary service management 5. Hypotension, sedated on vent. 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 Morbid obesity
[2019-07-31] MEDS: CHLORHEXIDINE GLUC 2% CLOTH 1 EACH TOWELETTE TOPICAL (15:12)
--- NOTE | 2019-07-31 17:59 | NURSING ---
1745: Propofol turned down to 5mcg/kg/min 1800: Propofol turned off
[2019-07-31 18:31] LABS: Bedside Glucose 155 mg/dL (70-110)
[2019-08-01] VITALS (15 sets, daily range): BP systolic 117–159; BP diastolic 48–81; PULSE 90–100; RESP 15–28; TEMP 36.9–37.4; O2SAT 87–95
[2019-08-01 00:06] LABS: Bedside Glucose 181 mg/dL (70-110)
[2019-08-01] MEDS: Dexmedetomidine 1,000 mcg in 0.9% NS 240 mL 38.9 MCG CONT INF (02:16)
[2019-08-01 02:46] LABS: Allen Test POS; Base Excess 2 mmol/L (-2 to +2); Bicarbonate 26.5 mmol/L (22-26); Blood Gas Specimen Type ART; FI02 100; Mode VC+; O2 Delivery Device Vent; PEEP 12; PO2 52 mmHG (75-100); RR 14; SITE R Radial; SO2 87 % (95-99); Time Given 235; Total Carbon Dioxide 28 mmol/L; Vt 500; pH 7.41 (7.35-7.45)
[2019-08-01] MEDS: fentaNYL drip 100 ML 12.5 MCG IV (02:58)
--- NOTE | 2019-08-01 05:55 | RAD_ITS ---
HISTORY: SEPSIS D/T ASSOCIATED PNEUMONIA, PULM EDEMA VS ARDS Comparison is from yesterday. Findings: The endotracheal tube terminates superimposed over the trachea, below the level of the clavicular heads, and above the raman. Esophagogastric tube's tip is below the diaphragm. Large-bore right IJ central venous catheter terminates superimposed over the anticipated location of the SVC, near the level of the right main bronchus. Lungs are adequately expanded but with severe diffuse bilateral airspace disease Heart is likely enlarged. Possibly bilateral tiny pleural. RAD/Chest 1 View (Portable) IMPRESSION: No change. at 0559 Reported and signed by: Gage Soria MD Electronically Signed: Gage Soria MD at 5:58 EST Tel , Service support ,
[2019-08-01 05:57] LABS: Hematocrit 25.8 % (40-54); Hemoglobin 7.9 g/dL (13.0-16.5); Mean Corp Hgb Conc 30.6 g/dL (32-36); Mean Corpuscular Hgb 27.6 pg (27.0-32.0); Mean Corpuscular Volume 90.2 fL (80-94); POSITIVE COUNT YES; POSITIVE DIFFERENTIAL YES; POSITIVE MORPHOLOGY YES; Platelet Count 102 K/mm3 (150-450); RBC Distribution Width CV 17.5 % (11.6-14.6); Red Blood Count 2.86 M/mm3 (4.6-6.2); White Blood Count 2.6 K/mm3 (4.4-11.0)
[2019-08-01 05:58] LABS: Differential Indicated MANUAL DIFF
[2019-08-01 06:14] LABS: Albumin, Serum 2.5 g/dL (3.2-5.0); BUN 51 mg/dL (7-18); BUN/Creat Ratio 9.1 RATIO (10-20); Calcium,Total 8.3 mg/dL (8.5-10.1); Chloride 99 mmol/L (98-107); EST Glomerular Filtration Rate 11 mL/min (>60); Est Glom Filt Rate - Afr Amer 14 mL/min (>60); Estimated Creatinine Clearance 14.08 ml/min; Glucose 213 mg/dL (74-106); Phosphorus 3.2 mg/dL (2.5-4.9); Potassium 4.7 mmol/L (3.5-5.1); Sodium Level 136 mmol/L (136-145)
[2019-08-01] MEDS: Insulin Lispro 100 UNIT/ML INSULN.PEN SC (06:20)
[2019-08-01 06:51] LABS: Absolute Neutrophil Count 2.3 X10^3/uL (2.0-7.7); Lymphocyte 8 % (19-41); Monocyte 2 % (0-10); Neutrophil # 2.29 X10^3/uL (2.7-7.7); Neutrophil-Segmented 90 % (47-70)
[2019-08-01 06:52] LABS: Platelet Estimate ADEQUATE (ADEQ); Red Cell Morphology NORM C+C NORMAL (NORM C&C)
--- NOTE | 2019-08-01 07:33 | PCM.PN.HOSP ---
Patient Problems: Active and Suspected Problems (Last Reviewed 07/15/19 @ 10:07 by Ailyn Olivera) Pneumonia (Acute) Sepsis (Acute) Hypoxia (Acute) Reason for Visit: Follow-up on respiratory failure Subjective: Patient was seen and examined. He was waiting for dialysis this morning. He was progressively short of breath overnight. He has maxed out on the mechanical ventilator. His FiO2 is 100%, PEEP is 14. Just at the time of being examined, patient was found to be bradycardic, with no pulse. He looked dusky in color. A code was called, confirmed that he did not want CPR and was very clear about that. Code was called off. Patient was pronounced at 10:54 AM. Vitals/I&O's: Vital Signs Temp Pulse Resp BP Pulse Ox 98.4 F 91 16 142/66 H 89 08/01/19 00:00 08/01/19 07:00 08/01/19 07:00 08/01/19 07:00 08/01/19 07:00 Oxygen Flow Rate (L/min) [At 0 REST on Room Air] Oxygen Flow Rate (L/min) 10 Oxygen Delivery Method Mechanical Ventilator Weight: 111.7 kg Body Mass Index (BMI) 37.2 Finger Stick Blood Glucose 90 Intake and Output for Last 24 Hours 07/30/19 07/31/19 08/01/19 23:59 23:59 23:59 Intake Total 540 / 540 2332.47 / 2357.29 784.13 / 784.13 Output Total 5000 / 5000 0 / 0 Balance -4460 / -4460 2332.47 / 2357.29 784.13 / 784.13 Microbiology Past 72 Hours 07/31/19 02:35 Sputum, Induced/Lukens Gram Stain - Final 07/27/19 22:10 Blood Culture (Wb) - Right Wrist Blood Culture - Preliminary No growth in 48 hours. 07/27/19 22:05 Blood Culture (Wb) - Anticubital Right Blood Culture - Preliminary No growth in 48 hours. 07/24/19 22:00 Blood Culture (Wb) - Right Hand Blood Culture - Final No growth in 5 days. 07/24/19 19:35 Blood Culture (Wb) - Right Hand Blood Culture - Final No growth in 5 days. Laboratory Results 07/26/19 07:00: Crossmatch See Detail 07/31/19 03:45: B-Natriuretic Peptide 1885.6 H 07/31/19 12:41: POC Glucose 141 H 07/31/19 18:18: POC Glucose 155 H 07/31/19 23:55: POC Glucose 181 H 08/01/19 02:39: Specimen Type ART, Sample Site R Radial, pH 7.41, Bicarbonate Actual 26.5 H, POC Total CO2 28, Base Excess 2, O2 Saturation 87 L, O2 % 100, ABG pCO2 42.0, ABG pO2 52 L, Hasmukh Test POS, Respiration Rate 14, O2 Delivery Device Vent, Minute Volume 8.00, Vent Mode VC+, Tidal Volume 500, POC PEEP 12, Blood Gas Notified Whom ICU MD, Blood Gas Notified Time 235 08/01/19 05:45: WBC 2.6 L, RBC 2.86 L, Hgb 7.9 L, Hct 25.8 L, MCV 90.2, MCH 27.6, MCHC 30.6 L, RDW Std Deviation 58.0 H, RDW Coeff of Gurwinder 17.5 H, Plt Count 102 L, MPV 9.0, Neut % (Auto) Not Reportable, Absolute Neuts (auto) 2.3, Absolute Lymphs (auto) 0.20 L, Neutrophils % (Manual) 90 H, Lymphocytes % (Manual) 8 L, Monocytes % (Manual) 2, Diff Path Review October, Platelet Estimate ADEQUATE, RBC Morphology NORM C+C 08/01/19 05:45: Sodium 136, Potassium 4.7, Chloride 99, Carbon Dioxide 26.0, BUN 51 H, Creatinine 5.60 H, Estim Creat Clear Calc 14.08, Est GFR (MDRD) Af Amer 14 L, Est GFR (MDRD) Non-Af 11 L, BUN/Creatinine Ratio 9.1 L, Glucose 213 H, Calcium 8.3 L, Phosphorus 3.2, Albumin 2.5 L Current Medications Acetaminophen (Tylenol Liquid) 650 mg GT Q6H PRN PRN PRN Reason: Pain Score 1-10/Temp > 100.7 F Albuterol Sulfate (Ventolin Aerosols) 2.5 mg INHALATION Q2H PRN PRN PRN Reason: Shortness of Breath/Wheezing Last Admin: 07/31/19 13:29 Dose: 2.5 mg Documented by: Chlorhexidine Gluconate () 15 ml PO BID [facility] Last Admin: 07/31/19 21:07 Dose: 15 ml Documented by: Chlorhexidine Gluconate () 1 each TOPICAL DAILY [facility] Last Admin: 07/31/19 15:12 Dose: 1 each Documented by: Famotidine (Pepcid) 20 mg GT BID [facility] Last Admin: 07/31/19 21:07 Dose: 20 mg Documented by: Glucagon () 1 mg IM .X1 PRN PRN Reason: Hypoglycemia Guaifenesin (Robitussin) 20 ml GT Q4H PRN PRN PRN Reason: COUGH Heparin Sodium (Porcine) (Heparin Na) 5,000 unit SC Q12 [facility] Last Admin: 07/31/19 21:07 Dose: 5,000 unit Documented by: Heparin Sodium (Porcine) () 2,500 units IV UD PRN PRN Reason: Dialysis Cath Heparin Flush Hydralazine HCl (Apresoline Iv) 10 mg IV Q4H PRN PRN PRN Reason: SBP > 160 Dextrose (Dextrose 10%-Water) 250 mls @ 999 mls/hr IV .Q16M PRN; Protocol PRN Reason: HYPOGLYCEMIA Sodium Chloride () 250 mls @ 15 mls/hr IV .[id number] PRN PRN Reason: Saline Flush Last Infusion: 07/29/19 17:00 Dose: 0 mls/hr Documented by: Sodium Chloride () 250 mls @ 15 mls/hr IV .[id number] PRN PRN Reason: Additional IVPB Infusion Meropenem 500 mg/ Sodium (Chloride) 60 mls @ 100 mls/hr IV Q24 [facility] Last Infusion: 07/31/19 14:28 Dose: Infused Documented by: Propofol (Diprivan) 1,000 mg in 100 mls @ 6.702 mls/hr CONT INF .Q12H [facility]; Protocol Last Admin: 08/01/19 02:41 Dose: Not Given Documented by: Fentanyl () 100 mls @ 2.5 mls/hr IV UD [facility]; Protocol Last Titration: 08/01/19 07:00 Dose: 125 mcg/hr, 12.5 mls/hr Documented by: Enteral Nutritional Formula (Vital Af 1.2 Ezra Liquid) 1,000 mls @ 80 mls/hr GT .[id number] [facility] Last Admin: 08/01/19 02:41 Dose: Not Given Documented by: Dexmedetomidine HCl 1,000 mcg/ (Sodium Chloride) 250 mls @ 13.963 mls/hr CONT INF .[id number] [facility]; Protocol Last Titration: 08/01/19 07:00 Dose: 1.4 mcg/kg/hr, 39.1 mls/hr Documented by: Insulin Glargine (Lantus (Bkc)) 15 units SC 1800 [facility] Last Admin: 07/31/19 18:19 Dose: 15 u Documented by: Insulin Human Lispro (Humalog Kwikpen ([facility])) 0 unit SC Q6 [facility]; Protocol Last Admin: 08/01/19 06:20 Dose: 6 u Documented by: Metoprolol Tartrate (Lopressor (Beta Elizabeth)) 50 mg GT 1400 [facility] Last Admin: 07/31/19 14:53 Dose: Not Given Documented by: Ondansetron HCl (Zofran) 4 mg IV Q8H PRN PRN PRN Reason: NAUSEA/VOMITING Last Admin: 07/24/19 19:27 Dose: 4 mg Documented by: Prochlorperazine Edisylate (Compazine Iv) 5 mg IV Q4H PRN PRN PRN Reason: Breakthrough nausea/vomiting Senna/Docusate Sodium (Senokot-S, Belia-Colace) 1 tablet GT DAILY [facility] Last Admin: 07/31/19 10:00 Dose: 1 tablet Documented by: Sodium Chloride () 10 - 40 ml IV UD PRN PRN Reason: SALINE FLUSH Last Admin: 07/30/19 23:31 Dose: 20 ml Documented by: STROKE Vital Signs/Narrative: Vital Signs Pulse Resp BP Pulse Ox 08/01/19 07:00 91 16 142/66 H 89 08/01/19 06:00 91 16 145/63 H 93 08/01/19 05:05 91 16 95 08/01/19 05:00 92 15 156/70 H 93 08/01/19 04:00 92 20 H 149/65 H 91 Medical Necessity - Tobacco Use Smoking Status: Former smoker Tobacco Use: Non-smoker Assessment/Plan All Active Problems (Last Reviewed 07/15/19 @ 10:07 by Ailyn Olivera) Pancytopenia (Acute) Pneumonia (Acute) Sepsis (Acute) Hypoxia (Acute) Cellulitis of left lower extremity (Acute) Sepsis (Acute) Problem with dialysis access (Acute) Skin abscess (Acute) Infected open wound (Acute) Decubitus ulcer of left heel, stage 2 (Acute) Debility (Acute) Abdominal wall abscess (Acute) Fever (Acute) Acute on chronic renal failure (Acute)
--- NOTE | 2019-08-01 07:44 | PN_ITS ---
Subjective: The patient was seen and examined at the bedside this morning. Events from the last 24 hours have been reviewed. The patient's fever curve has improved. He is currently afebrile as of this morning. The patient is hemodynamically stable. Attempts to perform dialysis yesterday was unsuccessful due to the development of hypotension. This most likely secondary to a combination of the propofol and fentanyl that was being utilized for sedation. Therefore, the patient was transitioned from propofol to Precedex yesterday. He remains sedated this morning on the vent with appropriate hemodynamic status. Unfortunately, his ventilator requirements increased overnight. He currently has an FiO2 requirement of 100% with a PEEP of 14. He is tolerating tube feeds without issue. Objective: The patient's most recent lab work, culture data and imaging studies have all been personally reviewed. Infectious work-up has been negative to date. Echocardiogram is pending. General: - - Remains intubated, sedated and mechanically ventilated. Quite ill in appearance. No ventilator dyssynchrony. HEENT: Atraumatic, PERRLA, Normocephalic Oral: No Gingival or Mucosal Lesions/ Ulcerations, - - Endotracheal and OG tubes remain in place. Neck: Supple, No Nodes, Trachea Midline Lungs: Diminished, Rales, Rhonchi, Tachypneic Cardiovascular: Regular rate, Regular Rhythm, Normal S1, Normal S2 Abdomen: Soft, Non Tender, Hypoactive Bowel Sounds, Obese Extremities: No clubbing, No cyanosis, No edema Skin: No breakdown Musculoskeletal: No Muscle Wasting Lymphatic: No Cervical, Supraclavicular, or Inguinal Adenopathy Neurological: - - No focal deficits. Currently sedated on the vent. Vital Signs Temp Pulse Resp BP Pulse Ox 98.4 F 91 16 142/66 H 89 08/01/19 00:00 08/01/19 07:00 08/01/19 07:00 08/01/19 07:00 08/01/19 07:00 Oxygen Flow Rate (L/min) [At 0 REST on Room Air] Oxygen Flow Rate (L/min) 10 Oxygen Delivery Method Mechanical Ventilator Weight: 246 lb 4.101 oz Body Mass Index (BMI) 37.2 Finger Stick Blood Glucose 90 Intake and Output for Last 24 Hours 07/30/19 07/31/19 08/01/19 23:59 23:59 23:59 Intake Total 540 / 540 2332.47 / 2357.29 784.13 / 784.13 Output Total 5000 / 5000 0 / 0 Balance -4460 / -4460 2332.47 / 2357.29 784.13 / 784.13 Labs (Last 48 Hours) 07/25/19 07/26/19 07/30/19 10:00 07:00 13:07 WBC RBC Hgb Hct MCV MCH MCHC RDW Std Deviation RDW Coeff of Gurwinder Plt Count MPV Immature Gran % (Auto) Neut % (Auto) Lymph % (Auto) Catahoula % (Auto) Eos % (Auto) Baso % (Auto) Absolute Neuts (auto) Absolute Lymphs (auto) Neutrophils % (Manual) Lymphocytes % (Manual) Monocytes % (Manual) Nucleated RBC % Differential Comment Diff Path Review Platelet Estimate RBC Morphology Hypochromasia Anisocytosis PT INR APTT Specimen Type Sample Site pH Bicarbonate Actual POC Total CO2 Base Excess O2 Saturation O2 % ABG pCO2 ABG pO2 Hasmukh Test Respiration Rate O2 Delivery Device Minute Volume Vent Mode Tidal Volume POC PEEP EPAP IPAP Blood Gas Notified Whom Blood Gas Notified Time Sodium Potassium Chloride Carbon Dioxide Anion Gap BUN Creatinine Estim Creat Clear Calc Est GFR (MDRD) Af Amer Est GFR (MDRD) Non-Af BUN/Creatinine Ratio Glucose Calcium Phosphorus Transferrin 132 L Total Bilirubin AST ALT Alkaline Phosphatase B-Natriuretic Peptide Total Protein Albumin Globulin Albumin/Globulin Ratio POC Glucose 192 H Crossmatch See Detail 07/30/19 07/30/19 07/30/19 13:13 17:43 22:15 WBC RBC Hgb Hct MCV MCH MCHC RDW Std Deviation RDW Coeff of Gurwinder Plt Count MPV Immature Gran % (Auto) Neut % (Auto) Lymph % (Auto) Catahoula % (Auto) Eos % (Auto) Baso % (Auto) Absolute Neuts (auto) Absolute Lymphs (auto) Neutrophils % (Manual) Lymphocytes % (Manual) Monocytes % (Manual) Nucleated RBC % Differential Comment Diff Path Review Platelet Estimate RBC Morphology Hypochromasia Anisocytosis PT INR APTT Specimen Type ART Sample Site R Brachial pH 7.51 H Bicarbonate Actual 24.6 POC Total CO2 26 Base Excess 2 O2 Saturation 95 O2 % 60 ABG pCO2 30.8 L ABG pO2 65 L Hasmukh Test Respiration Rate O2 Delivery Device Bi / C PAP Minute Volume Vent Mode Tidal Volume POC PEEP EPAP 10 IPAP 20 Blood Gas Notified Whom ICU Blood Gas Notified Time 1303 Sodium Potassium Chloride Carbon Dioxide Anion Gap BUN Creatinine Estim Creat Clear Calc Est GFR (MDRD) Af Amer Est GFR (MDRD) Non-Af BUN/Creatinine Ratio Glucose Calcium Phosphorus Transferrin Total Bilirubin AST ALT Alkaline Phosphatase B-Natriuretic Peptide Total Protein Albumin Globulin Albumin/Globulin Ratio POC Glucose 253 H 257 H Crossmatch 07/31/19 07/31/19 07/31/19 01:41 03:31 03:45 WBC RBC Hgb Hct MCV MCH MCHC RDW Std Deviation RDW Coeff of Gurwinder Plt Count MPV Immature Gran % (Auto) Neut % (Auto) Lymph % (Auto) Cata[place]oula % (Auto) Eos % (Auto) Baso % (Auto) Absolute Neuts (auto) Absolute Lymphs (auto) Neutrophils % (Manual) Lymphocytes % (Manual) Monocytes % (Manual) Nucleated RBC % Differential Comment Diff Path Review Platelet Estimate RBC Morphology Hypochromasia Anisocytosis PT INR APTT Specimen Type ART Sample Site R Radial pH 7.50 H Bicarbonate Actual 24.4 POC Total CO2 25 Base Excess 1 O2 Saturation 91 L O2 % 45 ABG pCO2 31.3 L ABG pO2 55 L Hasmukh Test POS Respiration Rate 14 O2 Delivery Device Bi / C PAP Minute Volume Vent Mode Tidal Volume POC PEEP EPAP 8 IPAP 14 Blood Gas Notified Whom HOSP Blood Gas Notified Time 135 Sodium 131 L Potassium 5.0 Chloride 95 L Carbon Dioxide 25.0 Anion Gap 11 BUN 45 H Creatinine 6.07 H Estim Creat Clear Calc 12.99 Est GFR (MDRD) Af Amer 12 L Est GFR (MDRD) Non-Af 10 L BUN/Creatinine Ratio 7.4 L Glucose 312 H Calcium 8.6 Phosphorus 3.3 Transferrin Total Bilirubin 0.70 AST 91 H ALT 27 Alkaline Phosphatase 199 H B-Natriuretic Peptide Total Protein 7.0 Albumin 2.6 L Globulin 4.4 H Albumin/Globulin Ratio 0.6 L POC Glucose 314 H Crossmatch 07/31/19 07/31/19 07/31/19 03:45 03:45 03:45 WBC 4.1 L RBC 3.07 L Hgb 8.5 L Hct 27.4 L MCV 89.3 MCH 27.7 MCHC 31.0 L RDW Std Deviation 56.0 H RDW Coeff of Gurwinder 17.2 H Plt Count 174 MPV 9.3 Immature Gran % (Auto) 2.400 H Neut % (Auto) 92.8 H Lymph % (Auto) 2.7 L [place]oula % (Auto) 1.9 Eos % (Auto) 0.0 Baso % (Auto) 0.2 Absolute Neuts (auto) 3.8 Absolute Lymphs (auto) 0.11 L Neutrophils % (Manual) Lymphocytes % (Manual) Monocytes % (Manual) Nucleated RBC % 1.0 Differential Comment Diff Path Review May foll Platelet Estimate ADEQUATE RBC Morphology Hypochromasia RARE Anisocytosis RARE PT 17.6 H INR 1.5 APTT 39.3 H Specimen Type ART Sample Site R Radial pH 7.42 Bicarbonate Actual 25.9 POC Total CO2 27 Base Excess 1 O2 Saturation 94 L O2 % 100 ABG pCO2 39.8 ABG pO2 68 L Hasmukh Test POS Respiration Rate 14 O2 Delivery Device Vent Minute Volume 18.00 Vent Mode A-C Tidal Volume 450 POC PEEP 10 EPAP IPAP Blood Gas Notified Whom [facility] MD Blood Gas Notified Time 342 Sodium Potassium Chloride Carbon Dioxide Anion Gap BUN Creatinine Estim Creat Clear Calc Est GFR (MDRD) Af Amer Est GFR (MDRD) Non-Af BUN/Creatinine Ratio Glucose Calcium Phosphorus Transferrin Total Bilirubin AST ALT Alkaline Phosphatase B-Natriuretic Peptide Total Protein Albumin Globulin Albumin/Globulin Ratio POC Glucose Crossmatch 07/31/19 07/31/19 07/31/19 03:45 03:45 07:04 WBC RBC Hgb Hct MCV MCH MCHC RDW Std Deviation RDW Coeff of Gurwinder Plt Count MPV Immature Gran % (Auto) Neut % (Auto) Lymph % (Auto) Catahoula % (Auto) Eos % (Auto) Baso % (Auto) Absolute Neuts (auto) Absolute Lymphs (auto) Neutrophils % (Manual) Lymphocytes % (Manual) Monocytes % (Manual) Nucleated RBC % Differential Comment Diff Path Review Platelet Estimate RBC Morphology Hypochromasia Anisocytosis PT INR APTT Specimen Type Sample Site pH Bicarbonate Actual POC Total CO2 Base Excess O2 Saturation O2 % ABG pCO2 ABG pO2 Hasmukh Test Respiration Rate O2 Delivery Device Minute Volume Vent Mode Tidal Volume POC PEEP EPAP IPAP Blood Gas Notified Whom Blood Gas Notified Time Sodium Cancelled Potassium Cancelled Chloride Cancelled Carbon Dioxide Cancelled Anion Gap Cancelled BUN Cancelled Creatinine Cancelled Estim Creat Clear Calc Cancelled Est GFR (MDRD) Af Amer Cancelled Est GFR (MDRD) Non-Af Cancelled BUN/Creatinine Ratio Cancelled Glucose Cancelled Calcium Cancelled Phosphorus Transferrin Total Bilirubin AST ALT Alkaline Phosphatase B-Natriuretic Peptide 1885.6 H Total Protein Albumin Globulin Albumin/Globulin Ratio POC Glucose 290 H Crossmatch 07/31/19 07/31/19 07/31/19 12:41 18:18 23:55 WBC RBC Hgb Hct MCV MCH MCHC RDW Std Deviation RDW Coeff of Gurwinder Plt Count MPV Immature Gran % (Auto) Neut % (Auto) Lymph % (Auto) Catahoula % (Auto) Eos % (Auto) Baso % (Auto) Absolute Neuts (auto) Absolute Lymphs (auto) Neutrophils % (Manual) Lymphocytes % (Manual) Monocytes % (Manual) Nucleated RBC % Differential Comment Diff Path Review Platelet Estimate RBC Morphology Hypochromasia Anisocytosis PT INR APTT Specimen Type Sample Site pH Bicarbonate Actual POC Total CO2 Base Excess O2 Saturation O2 % ABG pCO2 ABG pO2 Hasmukh Test Respiration Rate O2 Delivery Device Minute Volume Vent Mode Tidal Volume POC PEEP EPAP IPAP Blood Gas Notified Whom Blood Gas Notified Time Sodium Potassium Chloride Carbon Dioxide Anion Gap BUN Creatinine Estim Creat Clear Calc Est GFR (MDRD) Af Amer Est GFR (MDRD) Non-Af BUN/Creatinine Ratio Glucose Calcium Phosphorus Transferrin Total Bilirubin AST ALT Alkaline Phosphatase B-Natriuretic Peptide Total Protein Albumin Globulin Albumin/Globulin Ratio POC Glucose 141 H 155 H 181 H Crossmatch 08/01/19 08/01/19 08/01/19 02:39 05:45 05:45 WBC 2.6 L RBC 2.86 L Hgb 7.9 L Hct 25.8 L MCV 90.2 MCH 27.6 MCHC 30.6 L RDW Std Deviation 58.0 H RDW Coeff of Gurwinder 17.5 H Plt Count 102 L MPV 9.0 Immature Gran % (Auto) Neut % (Auto) Not Reportable Lymph % (Auto) Catahoula % (Auto) Eos % (Auto) Baso % (Auto) Absolute Neuts (auto) 2.3 Absolute Lymphs (auto) 0.20 L Neutrophils % (Manual) 90 H Lymphocytes % (Manual) 8 L Monocytes % (Manual) 2 Nucleated RBC % Differential Comment Diff Path Review May foll Platelet Estimate ADEQUATE RBC Morphology NORM C+C Hypochromasia Anisocytosis PT INR APTT Specimen Type ART Sample Site R Radial pH 7.41 Bicarbonate Actual 26.5 H POC Total CO2 28 Base Excess 2 O2 Saturation 87 L O2 % 100 ABG pCO2 42.0 ABG pO2 52 L Hasmukh Test POS Respiration Rate 14 O2 Delivery Device Vent Minute Volume 8.00 Vent Mode VC+ Tidal Volume 500 POC PEEP 12 EPAP IPAP Blood Gas Notified Whom ICU Blood Gas Notified Time 235 Sodium 136 Potassium 4.7 Chloride 99 Carbon Dioxide 26.0 Anion Gap BUN 51 H Creatinine 5.60 H Estim Creat Clear Calc 14.08 Est GFR (MDRD) Af Amer 14 L Est GFR (MDRD) Non-Af 11 L BUN/Creatinine Ratio 9.1 L Glucose 213 H Calcium 8.3 L Phosphorus 3.2 Transferrin Total Bilirubin AST ALT Alkaline Phosphatase B-Natriuretic Peptide Total Protein Albumin 2.5 L Globulin Albumin/Globulin Ratio POC Glucose Crossmatch Microbiology 07/31/19 02:35 Sputum, Induced/Lukens Gram Stain - Final 07/27/19 22:10 Blood Culture (Wb) - Right Wrist Blood Culture - Preliminary No growth in 48 hours. 07/27/19 22:05 Blood Culture (Wb) - Anticubital Right Blood Culture - Preliminary No growth in 48 hours. 07/24/19 22:00 Blood Culture (Wb) - Right Hand Blood Culture - Final No growth in 5 days. 07/24/19 19:35 Blood Culture (Wb) - Right Hand Blood Culture - Final No growth in 5 days. Clinical Impression(s) from Imaging Studies Chest CT 07/25/19 17:35 IMPRESSION: Bilateral airspace disease, effusions, and probable reactive lymphadenopathy. Mitral valve disease, coronary artery disease and cardiomegaly. Electronically Signed: Eliezer Ernandez MD at 19:04 EST , Service support , Chest X-Ray 07/30/19 06:34 IMPRESSION: Diffuse bilateral airspace disease. Findings are suggestive of pulmonary edema. Electronically Signed: Shashi Bills, at 8:18 EST , Service support , Chest X-Ray 07/31/19 02:19 IMPRESSION: Adequate position of newly placed esophagogastric tube. Adequate position of newly placed endotracheal tube. Severe bilateral patchy airspace disease, possibly ARDS.. at 0424 Reported and signed by: Gage Soria MD Electronically Signed: Gage Soria MD at 4:23 EST Tel , Service support , Chest X-Ray 07/31/19 06:48 IMPRESSION: 1. Interval placement of endotracheal tube with the tip approximately 4 cm above the raman. 2. Nasogastric tube and tunneled right internal jugular dialysis catheter both which are unchanged. 3. No change in bilateral pneumonia, pulmonary edema, or ARDS. Electronically Signed: Kendell Hagen MD at 8:37 EST Tel , Service support , Chest X-Ray 08/01/19 05:55 IMPRESSION: No change. at 0559 Reported and signed by: Gage Soria MD Electronically Signed: Gage Soria MD at 5:58 EST Tel , Service support , Medical Necessity - Tobacco Use Smoking Status: Former smoker Tobacco Use: Non-smoker Assessment/Plan All Active Problems (Last Reviewed 07/15/19 @ 10:07 by Ailyn Olivera) Pancytopenia (Acute) Pneumonia (Acute) Sepsis (Acute) Hypoxia (Acute) Cellulitis of left lower extremity (Acute) Sepsis (Acute) Problem with dialysis access (Acute) Skin abscess (Acute) Infected open wound (Acute) Decubitus ulcer of left heel, stage 2 (Acute) Debility (Acute) Abdominal wall abscess (Acute) Fever (Acute) Acute on chronic renal failure (Acute) RECOMMENDATIONS: 1. Continue patient on ACVC+ mode mechanical ventilation. Wean FiO2 and PEEP to maintain oxygen saturations at or above 90%. 2. Continue Precedex and fentanyl for sedation. 3. The patient is in need of volume optimization today with ultrafiltration. Will defer to nephrology. 4. Continue empiric antimicrobials per ID recommendations. 5. Await echocardiogram. 6. Continue appropriate ICU prophylaxis. IMPRESSIONS: 1. Acute hypoxemic respiratory failure Likely secondary to healthcare associated pneumonia and volume overloaded state in the setting of end-stage renal disease. The patient did require emergent intubation on July 31, following failed attempts at noninvasive positive pressure ventilatory support. Continue current supportive measures and wean FiO2 and PEEP to maintain oxygen saturations at or above 90%. Continue empiric antimicrobials per ID recommendations. Strongly recommend additional ultrafiltration today to assist with volume optimization. Continue tube feeds as ordered. 2. Severe sepsis secondary to probable healthcare associated pneumonia Continue empiric antimicrobials per ID recommendations. Continue invasive mechanical ventilatory support as noted above. The patient remains hemodynamically stable. 3. End-stage renal disease on hemodialysis Nephrology following to assist with hemodialysis needs. Anticipate additional ultrafiltration needs today. 4. 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 Continue insulin and sliding scale coverage. Continue tube feeds and bowel regimen. TIME: 45 minutes of critical care time, independent of procedures, was spent addressing the patient's acute hypoxemic respiratory failure, severe sepsis secondary to HAP, end-stage renal disease on hemodialysis, review of all data and collaboration with the care team. ([id number]) Code Visit [id number]: [id number] Critical care first hour
[2019-08-01 08:34] LABS: Lipase 26 U/L (73-393)
[2019-08-01] MEDS: Dexmedetomidine 1,000 mcg in 0.9% NS 240 mL 39.1 MCG CONT INF (09:30)
[2019-08-01] MEDS: SUCROFERRIC OXYHYDROXIDE 500 MG TAB.CHEW 1500 MG GT (09:32)
[2019-08-01] MEDS: Senna/Docusate Sodium 1 Tablet GT (09:33)
[2019-08-01] MEDS: CHLORHEXIDINE GLUC 2% CLOTH 1 EACH TOWELETTE TOPICAL (09:34)
[2019-08-01] MEDS: Famotidine 20 MG Tablet GT (09:34)
[2019-08-01] MEDS: Chlorhexidine 15 ML PO (09:34)
[2019-08-01] MEDS: Heparin Injection (Vial) 5,000 UNIT/ML VIAL 5000 UNIT SC (09:35)
--- NOTE | 2019-08-01 10:19 | PCM.PN.BLA ---
Progress Note remains on vent with high oxygen requirement. BP improved off propofol. +trop. Echo ordered. CXR reviewed. Will arrange Ultrafiltration today as BP dunia. Microbiology 07/31/19 02:35 Sputum, Induced/Lukens Gram Stain - Final 07/27/19 22:10 Blood Culture (Wb) - Right Wrist Blood Culture - Preliminary No growth in 48 hours. 07/27/19 22:05 Blood Culture (Wb) - Anticubital Right Blood Culture - Preliminary No growth in 48 hours. 07/24/19 22:00 Blood Culture (Wb) - Right Hand Blood Culture - Final No growth in 5 days. 07/24/19 19:35 Blood Culture (Wb) - Right Hand Blood Culture - Final No growth in 5 days. 07/24/19 03:10 Sputum, Expectorated/Coughed Gram Stain - Final 07/24/19 03:10 Sputum, Expectorated/Coughed Respiratory Culture - Final 07/24/19 10:15 Urine, Clean Catch Streptococcus pneumoniae Antigen (M - Final 07/24/19 10:15 Urine, Clean Catch Legionella Antigen - Final 07/23/19 22:20 Mucosa - Nose Respiratory Panel (PCR) - Final STROKE Vital Signs/Narrative: Vital Signs Pulse Resp BP Pulse Ox 08/01/19 09:05 90 15 91 08/01/19 07:30 100 19 H 90 08/01/19 07:00 91 16 142/66 H 89
--- NOTE | 2019-08-01 10:54 | NURSING ---
1046:Patient HR dropped into the 40s, no saturation reading. This RN, Phoebe Mcbride RN, Pretty Stewart RN and Dr. May at bedside. No radial, femoral and carotid pulse felt. Family at bedside. Code cart was present and a code was called, however before interventions could be done (CPR, Meds) the patients , Kathia Pnia, told Dr. May, this RN, Phoebe Mcbride RN and Pretty Stewart RN to stop, and that he (the patient) would not want this. Dr. May confirmed this with the patients , and all resuscitation efforts were stopped. 1054: No heart sounds auscultated by this RN and Dr. May, patient pronounced .
--- NOTE | 2019-08-01 11:27 | PCM.DEATH ---
Preliminary Cause of Acute hypoxic respiratory failure secondary to ARDS, pulmonary edema Date of Admission: 07/23/19 Date of : 08/01/19 - Principle Diagnosis Acute respiratory failure secondary to pneumonia Pulmonary edema ARDS Problem List: Active and Suspected Problems (Last Reviewed 07/15/19 @ 10:07 by Ailyn Olivera) Sepsis secondary to pneumonia Acute hypoxic respiratory failure Probable ARDS Probable pulmonary edema Anemia of CKD ARDS Uncontrolled Type 2 DM Hospital Course 59-year-old male with multiple comorbidities including ESRD on hemodialysis through a right tunneled catheter who was admitted with progressive cough and dyspnea. Patient was recently discharged in June 2019 after treatment for left lower extremity cellulitis. He was found to be hypoxic, saturating 85% on room air. Patient does not wear oxygen at baseline. Influenza screen was unremarkable. He was admitted as a transfer from an outside ED. Chest x-ray showed a right lower lobe infiltrate. He was started IV antibiotics. CT scan of the chest done here showed bilateral airspace disease, effusions and reactive lymphadenopathy. Work-up for this pneumonia has been negative with negative respiratory panel, urine Legionella and streptococcal antigen, blood cultures were also negative. Pulmonology, infectious disease, nephrology were all consulted on patient. Initially patient appeared to be doing well with decreased oxygen requirement. Subsequently his oxygen requirement went up and he was found to be wheezy on exam. He was kept on antibiotics, and IV steroids. He had episodes of fever and antibiotics was changed from IV cefepime to meropenem. Patient continued to have progressive shortness of breath, repeat imaging showed persistent pulmonary edema. Patient had more fluid taken in dialysis. He however decompensated on 07/31/19 and had to be emergently intubated. The plan on 07/31/19 was to dialyze him and get some more fluid out. His repeat chest x-rays were also suggestive for possible ARDS. Patient however could not tolerate fluid removal on 07/31/19 while sedated on propofol. Propofol was eventually weaned off and he was started on Precedex. On 08/01/19, the plan was for patient to have dialysis. He was maxed out on mechanical ventilator with FiO2 100%, PEEP of 14. He was later seen to have bradycardia down and his oxygen saturation was 0. He did not have a pulse and a code was called. His had been at the bedside at home morning and confirmed that he would not want CPR. The code was called off. Time of was 10:54 AM Code Visit Inpatient E&M: 73609 Disch Hosp
[2019-08-02 13:59] LABS: Pathologist Review Reviewed
[2019-08-02 14:01] LABS: Pathologist Review Reviewed
== END 2019-08-01 12:06 | DRG 871 ==
LOC: MS3 07-24 18:43 → PCU 07-25 20:04 → ICU 07-31 02:15
PROVIDERS: Hospitalist; Internal Medicine Critical Care Medicine; Internal Medicine Hematology & Oncology; Internal Medicine Nephrology; Student in an Organized Health Care Education/Training Program; Admitting Provider Family Medicine; PCP Family Medicine; Referring Provider Family Medicine; Visit Provider Internal Medicine
DX: A41.9 Sepsis, unspecified organism (principal); J80 Acute respiratory distress syndrome; J18.9 Pneumonia, unspecified organism; N18.6 End stage renal disease; I12.0 Hypertensive chronic kidney disease with stage 5 chronic kidney disease or end stage renal disease; Z68.41 Body mass index [BMI] 40.0-44.9, adult; D61.818 Other pancytopenia; J81.1 Chronic pulmonary edema; D63.1 Anemia in chronic kidney disease; E11.65 Type 2 diabetes mellitus with hyperglycemia; Z99.2 Dependence on renal dialysis; E11.22 Type 2 diabetes mellitus with diabetic chronic kidney disease; E66.01 Morbid (severe) obesity due to excess calories; G65.0 Sequelae of Guillain-Barre syndrome; R53.1 Weakness; R65.20 Severe sepsis without septic shock; E11.43 Type 2 diabetes mellitus with diabetic autonomic (poly)neuropathy; Z79.84 Long term (current) use of oral hypoglycemic drugs; Z87.891 Personal history of nicotine dependence; E11.42 Type 2 diabetes mellitus with diabetic polyneuropathy
CPT/HCPCS: 31500; 31720; 36415; 36600; 71045; 71250; 80048; 80053; 80069; 82607; 82728; 82746; 82803; 82962; 83540; 83550; 83605; 83690; 83735; 83880; 84100; 84466; 84484; 85025; 85610; 85730; 86706; 86850; 86900; 86901; 86920; 87040; 87070; 87205; 87340; 87449; 87633; 90937; 93005; 94002; 94003; 94640; 94667; 94668; 97162; 97166; 97802; 97803; 99251; 99406; J1756; J2185; J7030; J7040; J7050; P9016; P9047; A4216; G0257; G0463; J2405; Q5106